=== PATIENT | male | born 1945 | race Caucasian/White ===

== ENCOUNTER → 2017-10-23 16:58 | Outpatient (CLI) | payer MEDICARE, OTHER, SELFPAY ==
[2017-10-23 17:21] LABS: Bacteria Urine None Seen; RBC Urine None Seen (0-5/HPF); WBC Urine None Seen (0-5/HPF)
[2017-10-23 17:29] LABS: Add Manual Diff / Slide Review NO; Basophils Percent Auto 0.3 % (0-2); Eosinophils Percent Auto 4.6 % (2-4); Hemoglobin 12.8 g/dL (13.5-17.5); Lymphocytes Percent Auto 25.6 % (25-40); Mean Corpuscular HGB Conc 33.7 % (30-36); Mean Corpuscular Hemoglobin 31.8 PG (26-34); Mean Corpuscular Volume 94.3 fL (80-100); Monocytes Percent Auto 15.8 % (3-14); Neutrophils Absolute Auto 4700 /uL (3000-5900); Neutrophils Percent Auto 53.7 % (50-75); Platelet Count 362 X10^3/uL (150-400); Red Blood Cell Count 4.03 X10^6/uL (4.5-5.9); Red Cell Distribution Width 15.5 % (11.6-14.8); White Blood Cell Count 8.7 X10^3/uL (4.5-11.0)
[2017-10-23 17:49] LABS: Appearance Urine UA CLEAR; Bilirubin Urine UA NEGATIVE (NEGATIVE); Color Urine UA YELLOW; Glucose Urine UA NEGATIVE (Normal); Ketones Urine UA NEGATIVE (NEGATIVE); Leukocyte Esterase Urine UA NEGATIVE (NEGATIVE); Nitrite Urine UA Negative (Negative); Occult Blood Urine UA NEGATIVE (Negative); Protein Urine UA NEGATIVE (Negative); Urobilinogen Urine UA 0.2 E.U./dL (0.2)
[2017-10-23 18:02] LABS: Alanine Aminotransferase 74 IU/L (21-72); Albumin 4.1 g/dL (3.5-5.0); Albumin Globulin Ratio 1.5 (1.0-2.8); Alkaline Phosphatase 119 U/L (38-126); Aspartate Aminotransferase 39 IU/L (17-59); BUN Creatinine Ratio 25.8 (6-22); Bilirubin Total 0.5 mg/dL (0.2-1.3); Blood Urea Nitrogen 31 mg/dL (9-20); Calcium 10.5 mg/dL (8.4-10.2); Carbon Dioxide 29 mmol/L (22-32); Chloride 97 mmol/L (98-107); Estimated Glomerular Filt Rate 59.2 mL/min (>60); Globulin 2.8 g/dL (1.7-4.1); Glucose 104 mg/dL (80-110); HEMOLYSIS < 15 (0-50); Potassium 4.3 mmol/L (3.4-5.1); Sodium 139 mmol/L (137-145); Total Protein 6.9 g/dL (6.3-8.2)
[2017-10-23 18:18] LABS: Free T4, Direct Thyroxine 1.84 ng/dL (0.78-2.19)
[2017-10-23 18:32] LABS: TSH w/ Reflex to FT4 1.08 uIU/mL (0.47-4.68)
== END ==
PROVIDERS: Family Provider Internal Medicine; PCP Internal Medicine; Visit Provider Internal Medicine
DX: Z98.890 Other specified postprocedural states (principal); E03.9 Hypothyroidism, unspecified
CPT/HCPCS: 80053; 81001; 84439; 84443; 85025

== ENCOUNTER 2017-11-02 12:07 | Emergency (ER) | payer MEDICARE, OTHER, SELFPAY ==
[2017-11-02] VITALS (14 sets, daily range): BP systolic 83–102; BP diastolic 52–74; PULSE 74–172; RESP 14–22; TEMP 35.8; O2SAT 96–99; BMI 19.1
--- NOTE | 2017-11-02 12:57 | DI.RAD.S_ITS ---
PROCEDURE: XR CHEST 1V INDICATIONS: AFib TECHNIQUE: One view of the chest was acquired. COMPARISON: [facility], CR, XR CHEST 1 VIEW, 07/28/2017, 14:51. FINDINGS: Surgical changes and devices: Sternotomy and CABG. Lungs and pleura: Left basilar scars or atelectasis. Trace left effusion. No pneumothorax. Mediastinum: Mediastinal contours appear normal. Heart size is normal. Bones and chest wall: No suspicious bony lesions. Overlying soft tissues appear unremarkable. IMPRESSION: 1. Left basilar scars or atelectasis. There is a small left pleural effusion. 2. Postsurgical changes. Dictated by: Rebecca Guo M.D. on 11/02/2017 at 13:54 Approved by: Rebecca Guo M.D. on 11/02/2017 at 13:55
--- NOTE | 2017-11-02 13:01 | ED_ITS ---
HPI - Arrhythmia/Palpitations General Chief Complaint: Arrhythmia/Palpitations Stated Complaint: HIGHBLOOD PRESSURE Time Seen by Provider: 11/02/17 12:56 Source: patient Mode of arrival: ambulatory Limitations: no limitations History of Present Illness HPI narrative: 72-year-old male with a significant history of coronary artery disease with the coronary artery bypass graft earlier this year here for evaluation of 3 days of palpitations. Denies any chest pain. Denies any lightheadedness. Does state that he is potentially more fatigued than normal. No swelling in his lower extremities. No shortness of breath. Has not tried anything for it. Related Data Home Medications Medication Instructions Recorded Confirmed aspirin 81 mg tablet,delayed 81 mg PO DAILY 09/15/17 11/02/17 release atorvastatin 40 mg tablet 40 mg PO DAILY 09/15/17 11/02/17 ferrous sulfate 325 mg (65 mg 325 mg PO DAILY tab 09/15/17 11/02/17 iron) tablet,delayed release multivitamin with iron-mineral 1 tab PO DAILY 09/15/17 11/02/17 tablet sennosides 8.6 mg-docusate sodium 2 tab PO BEDTIME PRN 09/15/17 11/02/17 50 mg tablet metoprolol succinate ER 25 mg 12.5 mg PO BEDTIME 09/19/17 11/02/17 tablet,extended release 24 hr sertraline 25 mg PO BEDTIME 11/02/17 11/02/17 Previous Rx's Medication Instructions Recorded Disabled Parking #1 [id number] 10/02/17 levothyroxine 125 mcg capsule 125 mcg PO DAILY #30 cap 10/08/17 Allergies Allergy/AdvReac Type Severity Reaction Status Date / Time Iodinated Contrast- Oral and Allergy Mild UNSURE Verified 10/27/17 11:05 IV Dye [IODINATED CONTRAST MEDIA - IV DYE] prochlorperazine Allergy Mild Hypersensit Verified 10/27/17 11:05 [PROCHLORPERAZINE] ivity Review of Systems Constitutional Reports fatigue and Denies fever(s) ENT Ears, Nose, Mouth, and Throat: Denies dizziness Cardiovascular Denies chest pain, Denies chest pain at rest, Denies chest pain with activity, Denies diaphoresis, Denies syncope, Reports rapid heart rate, Denies pedal edema , Denies edema, Reports irregular heart rhythm, Denies lightheadedness, Denies radiating jaw, neck or arm pain, Reports palpitations, Denies dyspnea and Denies dyspnea on exertion Respiratory Denies cough, Denies dyspnea, Denies dyspnea on exertion and Denies wheezing Gastrointestinal Gastrointestinal: Denies nausea and Denies vomiting Musculoskeletal Denies myalgias and Denies arthralgias Neurologic Denies dizziness and Denies syncope Endocrine Reports fatigue and Reports palpitations Hematologic/Lymphatic Denies easy bleeding and Denies easy bruising Allergic/Immunologic Denies wheezing [facility] Medical History Ischemic cardiomyopathy (Chronic) Coronary arteriosclerosis (Chronic ~06/2017) Hypogonadism in male (Chronic) Mixed hyperlipidemia (Chronic) Essential hypertension (Chronic) Chronic renal failure, stage 3 (moderate) (Chronic 11/25/14) Non-Hodgkin's lymphoma (Chronic 03/06/11) Transient cerebral ischemia (Inactive) Acquired hypothyroidism (Chronic 03/10/15) Hypercalcemia (Resolved 12/19/14) Hyperparathyroidism (Resolved 03/10/15) 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) Surgical History S/P CABG (coronary artery bypass graft) (Resolved ~07/2017) S/P parathyroidectomy (Resolved ~06/2014) History of splenectomy (Resolved) Status post tonsillectomy and adenoidectomy (Resolved) Social History marital status: number of children: 2 household members: spouse lives independently: Yes caregiver/support person: Yes housing: house pets and animals: Yes education level: other (PhD) 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, 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: Non-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 travel history: recent () leisure activities: reading and other (Climbing, skiing, writing.) Smoking Status: Never smoker Tobacco: How many years used: 0 quit status: quit date established (Never Started) second hand exposure: Yes (Younger days) alcohol intake: never substance use type: does not use Exam Initial Vital Signs Initial Vital Signs: Vital Signs Temperature 96.5 F L 11/02/17 12:30 Pulse Rate 147 H 11/02/17 12:30 Respiratory Rate 20 11/02/17 12:30 Blood Pressure 97/71 11/02/17 12:30 Pulse Oximetry 98 11/02/17 12:30 Const General: cooperative, healthy appearing, comfortable, well developed, well groomed and acute distress Nutritional Appearance: average body habitus Orientation: alert, awake and oriented x3 HENMT Head: normal to inspection and normocephalic Resp Effort & Inspection: normal respiratory effort Auscultation: clear to auscultation bilaterally Cardio Rate: tachycardic Rhythm: abnormal rhythm Pulses: radial pulses present GI Inspection: normal to inspection and non-distended Palpation: soft Skin Lesions: no lesions Rashes: no rashes Wounds: no wounds Neuro General: alert, awake and oriented x3 Cognition: normal cognition Speech: speech normal Gait: normal gait Motor: muscle tone normal throughout Sensory Exam: no sensory deficits noted Extrem General: normal to inspection, capillary refill normal and no pedal edema Course Orders Ordered: ED Orders 11/02/17 12:48 B Type Natriuretic Peptide Stat Complete Blood Count AUTO DIFF Stat Comprehensive Metabolic Panel Stat Lipase Stat Partial Thromboplastin Time Stat Prothrombin Time INR Stat Thyroid Stimulating Hormone Stat Troponin I Stat 11/02/17 12:57 XR chest 1V Stat 11/02/17 13:26 EKG-12 Lead Stat Discontinued Medications Aspirin (Aspirin Chew) 324 mg PO NOW ONE Stop: 11/02/17 13:56 Last Admin: 11/02/17 14:14 Dose: 324 mg Diltiazem HCl (Cardizem) 20 mg IV NOW ONE Stop: 11/02/17 12:57 Last Admin: 11/02/17 13:05 Dose: 20 mg Sodium Chloride (Normal Saline 0.9%) 1,000 mls @ 1,000 mls/hr IV BOLUS ONE Stop: 11/02/17 13:55 Last Infusion: 11/02/17 13:55 Dose: 0 mls/hr Admin: 11/02/17 13:06 Dose: 1,000 mls/hr Diltiazem HCl 125 mg/ Dextrose 125 mls @ 5 mls/hr IV TITRATE MARY; Protocol Sodium Chloride (Normal Saline 0.9%) 1,000 mls @ 100 mls/hr IV CONT MARY Vital Signs - 8 hr 11/02/17 12:30 11/02/17 12:39 11/02/17 12:42 Temperature 96.5 F L Pulse Rate 147 H 148 H 148 H Respiratory Rate 20 22 Blood Pressure 97/71 Blood Pressure [Right Arm] 96/74 Pulse Oximetry 98 99 11/02/17 12:47 11/02/17 12:52 11/02/17 12:54 Temperature Pulse Rate 158 H 157 H 153 H Respiratory Rate 20 20 Blood Pressure Blood Pressure [Right Arm] 86/65 L 86/65 L 90/66 Pulse Oximetry 99 11/02/17 12:56 11/02/17 12:59 11/02/17 13:05 Temperature Pulse Rate 111 H 85 172 H Respiratory Rate 20 Blood Pressure 98/52 L Blood Pressure [Right Arm] 91/57 L 88/67 L Pulse Oximetry 11/02/17 13:09 11/02/17 13:19 11/02/17 13:21 Temperature Pulse Rate 87 79 79 Respiratory Rate Blood Pressure Blood Pressure [Right Arm] 83/62 L 93/59 L 96/61 Pulse Oximetry 11/02/17 13:55 11/02/17 14:25 Temperature Pulse Rate 74 77 Respiratory Rate 14 15 Blood Pressure Blood Pressure [Right Arm] 98/72 102/64 Pulse Oximetry 99 96 MDM - Arrhythmia/Palpitations Lab Data Attestation: I reviewed the patient's lab results. Result diagrams: 11/02/17 12:48 11/02/17 12:48 Lab Results 11/02/17 11/02/17 11/02/17 Range/Units 12:48 12:48 12:48 WBC 10.3 (4.5-11.0) X10^3/uL RBC 4.20 L (4.5-5.9) X10^6/uL Hgb 13.3 L (13.5-17.5) g/dL Hct 39.0 L (41-53) % MCV 92.8 (80-100) fL MCH 31.6 (26-34) PG MCHC 34.0 (30-36) % RDW 15.7 H (11.6-14.8) % Plt Count 424 H (150-400) X10^3/uL Neut % (Auto) 57.5 (50-75) % Lymph % (Auto) 25.7 (25-40) % Pickett % (Auto) 11.1 (3-14) % Eos % (Auto) 4.5 H (2-4) % Baso % (Auto) 1.2 (0-2) % Neut # (Auto) 6000 H (7164-3618) /uL PT 11.3 (10.1-12.7) SECONDS INR 1.0 (0.9-1.3) APTT 36 (26.4-36.2) SECONDS Sodium 138 (137-145) mmol/L Potassium 4.4 (3.4-5.1) mmol/L Chloride 99 (98-107) mmol/L Carbon Dioxide 26 (22-32) mmol/L BUN 31 H (9-20) mg/dL Creatinine 1.20 (0.66-1.25) mg/dL Estimated GFR 59.2 L (>60) mL/min BUN/Creatinine Ratio 25.8 H (6-22) Glucose 94 (80-110) mg/dL Calcium 10.4 H (8.4-10.2) mg/dL Total Bilirubin 0.6 (0.2-1.3) mg/dL AST 73 H (17-59) IU/L ALT 122 H (21-72) IU/L Alkaline Phosphatase 106 (38-126) U/L Troponin I (0.01-0.034) ng/mL B-Natriuretic Peptide 755.0 H (<100) Total Protein 7.3 (6.3-8.2) g/dL Albumin 4.3 (3.5-5.0) g/dL Globulin 3.0 (1.7-4.1) g/dL Albumin/Globulin Ratio 1.4 (1.0-2.8) Lipase 126 (23-300) U/L TSH (0.47-4.68) uIU/mL 11/02/17 11/02/17 Range/Units 12:48 12:48 WBC (4.5-11.0) X10^3/uL RBC (4.5-5.9) X10^6/uL Hgb (13.5-17.5) g/dL Hct (41-53) % MCV (80-100) fL MCH (26-34) PG MCHC (30-36) % RDW (11.6-14.8) % Plt Count (150-400) X10^3/uL Neut % (Auto) (50-75) % Lymph % (Auto) (25-40) % Pickett % (Auto) (3-14) % Eos % (Auto) (2-4) % Baso % (Auto) (0-2) % Neut # (Auto) (9185-2040) /uL PT (10.1-12.7) SECONDS INR (0.9-1.3) APTT (26.4-36.2) SECONDS Sodium (137-145) mmol/L Potassium (3.4-5.1) mmol/L Chloride (98-107) mmol/L Carbon Dioxide (22-32) mmol/L BUN (9-20) mg/dL Creatinine (0.66-1.25) mg/dL Estimated GFR (>60) mL/min BUN/Creatinine Ratio (6-22) Glucose (80-110) mg/dL Calcium (8.4-10.2) mg/dL Total Bilirubin (0.2-1.3) mg/dL AST (17-59) IU/L ALT (21-72) IU/L Alkaline Phosphatase (38-126) U/L Troponin I 0.035 H (0.01-0.034) ng/mL B-Natriuretic Peptide (<100) Total Protein (6.3-8.2) g/dL Albumin (3.5-5.0) g/dL Globulin (1.7-4.1) g/dL Albumin/Globulin Ratio (1.0-2.8) Lipase (23-300) U/L TSH 1.06 (0.47-4.68) uIU/mL Imaging Data Chest x-ray: Radiologist's impression: PROCEDURE: XR CHEST 1V INDICATIONS: AFib TECHNIQUE: One view of the chest was acquired. COMPARISON: [facility], CR, XR CHEST 1 VIEW, 07/28/2017, 14:51. FINDINGS: Surgical changes and devices: Sternotomy and CABG. Lungs and pleura: Left basilar scars or atelectasis. Trace left effusion. No pneumothorax. Mediastinum: Mediastinal contours appear normal. Heart size is normal. Bones and chest wall: No suspicious bony lesions. Overlying soft tissues appear unremarkable. IMPRESSION: 1. Left basilar scars or atelectasis. There is a small left pleural effusion. 2. Postsurgical changes. Dictated by: Rebecca Guo M.D. on 11/02/2017 at 13:54 ECG Data Prior ECG tracings: not available for review Interpretation: EKG time 1236 p.m. Atrial fibrillation with 2-1 block Ventricular rate at 0145 Left axis deviation QRS 128 milliseconds QTC [address] T wave changes EKG timed at 1323 hr Sinus rhythm Ventricular rate is 77 Left axis deviation QRS want to milliseconds QTC [address] T wave changes MDM Narrative Medical decision making narrative: Patient with a significant cardiac history to include coronary artery bypass graft and history of VFib arrest. Arrived with what appeared to be atrial fibrillation with a 2-1 block. He was given 20 mg of Cardizem IV here in the emergency department and prior to the start of the Cardizem drip he converted to sinus rhythm. After the conversion patient states that he felt much better. He never complained of any chest pain or shortness of breath. Patient was not a candidate for cardioversion secondary to the unknown onset of his symptoms. Initially patient states that he did not think he had a history of atrial fibrillation however was able to talk to Dr. Cunningham his certified teacher assistant at [facility] who states that he knows the patient very well hand that he does have a history of paroxysmal atrial fibrillation. I discussed with the certified teacher assistant the patient's symptoms and his lab results to include the troponin and his conversion to sinus rhythm. Decision was made after talk with his certified teacher assistant to discharge the patient home and have the patient follow up in the certified teacher assistant's office earlier this week to discuss further treatment. I feel that the elevated troponin is secondary to the tachycardia and not ACS. I discussed patient's diagnosis with the patient and his was at bedside. They are given return precautions. They both expressed understanding and agreement with plan. Discharge Plan Departure Patient Disposition: Home, Self-Care Clinical Impression: A-fib Discharge Date/Time: 11/02/17 14:56 Interventions: ED Discharge Assessment Last Done: 11/02/17 14:53 Instructions: DI for Atrial Fibrillation Activity Restrictions/Additional Instructions: Recommend that you continue all of your medication like we discussed. Your certified teacher assistant office should call you tomorrow for a close follow-up. If you do not hear from them by noon I recommend that you contact the office. Return to the emergency department for any new symptoms, worsening symptoms, chest pain, shortness of breath, or any other concerning symptoms. Prescriptions: No Action Disabled Parking Qty: 1 RF: 0 levothyroxine 125 mcg capsule 125 mcg PO DAILY Qty: 30 RF: 3 atorvastatin 40 mg tablet 40 mg PO DAILY RF: 0 sennosides-docusate sodium [Senna Laxative-Stool Softener] 8.6-50 mg tablet 2 tab PO BEDTIME PRN (Reason: Constipation) RF: 0 aspirin 81 mg tablet,delayed release (DR/EC) 81 mg PO DAILY RF: 0 ferrous sulfate 325 mg (65 mg iron) tablet,delayed release (DR/EC) 325 mg PO DAILY RF: 0 multivitamin with iron-mineral tablet 1 tab PO DAILY RF: 0 metoprolol succinate 25 mg tablet extended release 24 hr 12.5 mg PO BEDTIME RF: 0 sertraline 25 mg tablet 25 mg PO BEDTIME RF: 0
[2017-11-02] MEDS: dilTIAZem 25 MG/5 ML SDV 20 MG IV (13:05)
[2017-11-02] MEDS: SODIUM CHLORIDE 0.9% 1,000 ML 1000 ML IV (13:06)
[2017-11-02 13:10] LABS: Prothrombin Time 11.3 SECONDS (10.1-12.7)
[2017-11-02 13:15] LABS: Add Manual Diff / Slide Review NO; Alanine Aminotransferase 122 IU/L (21-72); Albumin 4.3 g/dL (3.5-5.0); Albumin Globulin Ratio 1.4 (1.0-2.8); Alkaline Phosphatase 106 U/L (38-126); Aspartate Aminotransferase 73 IU/L (17-59); BUN Creatinine Ratio 25.8 (6-22); Basophils Percent Auto 1.2 % (0-2); Bilirubin Total 0.6 mg/dL (0.2-1.3); Blood Urea Nitrogen 31 mg/dL (9-20); Calcium 10.4 mg/dL (8.4-10.2); Carbon Dioxide 26 mmol/L (22-32); Chloride 99 mmol/L (98-107); Eosinophils Percent Auto 4.5 % (2-4); Estimated Glomerular Filt Rate 59.2 mL/min (>60); Glucose 94 mg/dL (80-110); HEMOLYSIS 17 (0-50); Hemoglobin 13.3 g/dL (13.5-17.5); Lipase 126 U/L (23-300); Lymphocytes Percent Auto 25.7 % (25-40); Mean Corpuscular Hemoglobin 31.6 PG (26-34); Mean Corpuscular Volume 92.8 fL (80-100); Monocytes Percent Auto 11.1 % (3-14); Neutrophils Absolute Auto 6000 /uL (3000-5900); Neutrophils Percent Auto 57.5 % (50-75); Platelet Count 424 X10^3/uL (150-400); Potassium 4.4 mmol/L (3.4-5.1); Red Cell Distribution Width 15.7 % (11.6-14.8); Sodium 138 mmol/L (137-145); Total Protein 7.3 g/dL (6.3-8.2); White Blood Cell Count 10.3 X10^3/uL (4.5-11.0)
[2017-11-02 13:18] LABS: PTT Partial Thromboplastin Tim 36 SECONDS (26.4-36.2)
[2017-11-02 13:26] LABS: Troponin I 0.035 ng/mL (0.01-0.034)
--- NOTE | 2017-11-02 13:30 | PC.NURSE ---
1254: Cardiazem 20 mg iv push w/ NS bolus 1 liter infusing. HR 153, BP 90/66, no pain/sob/diaphorisis.
--- NOTE | 2017-11-02 13:33 | PC.NURSE ---
1319: Noted to be in NSR, Repeat EKG ordered.
[2017-11-02 13:47] LABS: Thyroid Stimulating Hormone 1.06 uIU/mL (0.47-4.68)
[2017-11-02] MEDS: ASPIRIN 81 MG TAB 324 MG PO (14:14)
--- NOTE | 2017-11-02 14:15 | PC.NURSE ---
Pt walked to bathroom w/o difficulty. Denies lightheadedness, sob, chest pain. HR remains in NSR @ 75 bpm w/o ectopy after walking.
== END 2017-11-02 14:56 | disposition home or self-care (01) ==
PROVIDERS: Emergency Provider Emergency Medicine; Family Provider Internal Medicine; PCP Internal Medicine
DX: I48.91 Unspecified atrial fibrillation (principal)
CPT/HCPCS: 71045; 80053; 81003; 83690; 83880; 84443; 84484; 85025; 85610; 85730; 93005; 96361; 96374; 99285

== ENCOUNTER 2017-11-08 22:30 | Emergency (ER) | payer MEDICARE, OTHER, SELFPAY ==
[2017-11-08 22:30] VITALS: BP 128/72; PULSE 112; RESP 18; TEMP 37; O2SAT 99
--- NOTE | 2017-11-08 22:42 | DI.RAD.S_ITS ---
PROCEDURE: XR CHEST 1V INDICATIONS: AFib TECHNIQUE: One view of the chest was acquired. COMPARISON: [facility], CR, XR CHEST 1V, 11/02/2017, 13:01. FINDINGS: Surgical changes and devices: Status post CABG procedure. Multiple surgical clips in the left upper quadrant of the abdomen. Lungs and pleura: No pleural effusions or pneumothorax. Lungs are clear. Mediastinum: Mediastinal contours appear normal. Elevation of left hemidiaphragm is stable. Heart size is normal. Bones and chest wall: No suspicious bony lesions. Overlying soft tissues appear unremarkable. IMPRESSION: No acute cardiopulmonary disease process. Dictated by: Mi Rincon MD, PhD on 11/09/2017 at 8:50 Approved by: Mi Rincon MD, PhD on 11/09/2017 at 8:51
[2017-11-08 22:59] LABS: Add Manual Diff / Slide Review NO; Basophils Percent Auto 1.4 % (0-2); Hematocrit 37.5 % (41-53); Hemoglobin 12.9 g/dL (13.5-17.5); Lymphocytes Percent Auto 27.9 % (25-40); Mean Corpuscular HGB Conc 34.5 % (30-36); Mean Corpuscular Volume 92.9 fL (80-100); Monocytes Percent Auto 12.2 % (3-14); Neutrophils Absolute Auto 4800 /uL (3000-5900); Neutrophils Percent Auto 49.5 % (50-75); Platelet Count 376 X10^3/uL (150-400); Red Blood Cell Count 4.03 X10^6/uL (4.5-5.9); Red Cell Distribution Width 15.8 % (11.6-14.8); White Blood Cell Count 9.8 X10^3/uL (4.5-11.0)
[2017-11-08 23:14] LABS: BUN Creatinine Ratio 22.3 (6-22); Blood Urea Nitrogen 29 mg/dL (9-20); Calcium 9.8 mg/dL (8.4-10.2); Carbon Dioxide 27 mmol/L (22-32); Chloride 98 mmol/L (98-107); Creatine Kinase 32 U/L (55-170); Glucose 104 mg/dL (80-110); HEMOLYSIS 21 (0-50); Magnesium 1.8 mg/dL (1.6-2.3); Sodium 137 mmol/L (137-145)
[2017-11-08 23:25] LABS: Troponin I 0.028 ng/mL (0.01-0.034)
[2017-11-08 23:38] VITALS: BP 112/76; PULSE 93; O2SAT 97
[2017-11-08 23:45] LABS: Thyroid Stimulating Hormone 0.74 uIU/mL (0.47-4.68)
--- NOTE | 2017-11-09 05:13 | ED_ITS ---
HPI - Arrhythmia/Palpitations General Chief Complaint: Arrhythmia/Palpitations Stated Complaint: AFIB Time Seen by Provider: 11/08/17 22:32 Source: patient and family Mode of arrival: ambulatory Limitations: no limitations History of Present Illness HPI narrative: 72-year-old male with extensive cardiac history including coronary artery bypass, cardiac arrest and use of ECMO presents with the chief complaint of a heart rate in the 140s while at home. The patient developed some palpitations while at rest and checked his vitals and noted his heart rate to be irregular and in the 140s. He was recently discharged with a diagnosis of atrial fibrillation and initiated Eliquis therapy. He presents to the emergency department with a normal heart rate and completely asymptomatic. He denies dizziness, weakness or lightheadedness. He denies chest pain or shortness of breath. He denies ongoing palpitations. MD complaint: rapid heart beat Onset (ago): hour(s) Duration: now resolved Severity: mild Context: occurred during rest Arrhythmia history: atrial fibrillation Associated symptoms: denies other symptoms Related Data Home Medications Medication Instructions Recorded Confirmed aspirin 81 mg tablet,delayed 81 mg PO DAILY 09/15/17 11/02/17 release atorvastatin 40 mg tablet 40 mg PO DAILY 09/15/17 11/02/17 ferrous sulfate 325 mg (65 mg 325 mg PO DAILY tab 09/15/17 11/02/17 iron) tablet,delayed release multivitamin with iron-mineral 1 tab PO DAILY 09/15/17 11/02/17 tablet sennosides 8.6 mg-docusate sodium 2 tab PO BEDTIME PRN 09/15/17 11/02/17 50 mg tablet metoprolol succinate ER 25 mg 12.5 mg PO BEDTIME 09/19/17 11/02/17 tablet,extended release 24 hr sertraline 25 mg PO BEDTIME 11/02/17 11/02/17 Previous Rx's Medication Instructions Recorded Disabled Parking #1 [id number] 10/02/17 levothyroxine 125 mcg capsule 125 mcg PO DAILY #30 cap 10/08/17 Allergies Allergy/AdvReac Type Severity Reaction Status Date / Time Iodinated Contrast- Oral and Allergy Mild UNSURE Verified 10/27/17 11:05 IV Dye [IODINATED CONTRAST MEDIA - IV DYE] prochlorperazine Allergy Mild Hypersensit Verified 10/27/17 11:05 [PROCHLORPERAZINE] ivity Review of Systems Review of Systems All systems reviewed & are unremarkable except as noted in HPI and below Constitutional Denies chills, Denies fever(s), Denies lethargy and Denies weakness Eyes Denies change in vision, Denies eye discharge, Denies irritation and Denies loss of vision ENT Ears, Nose, Mouth, and Throat: Denies change in voice, Denies neck pain and Denies sore throat Cardiovascular Denies chest pain, Reports irregular heart rhythm, Denies lightheadedness, Reports palpitations, Denies dyspnea, Denies dyspnea on exertion and Denies orthopnea Respiratory Denies cough, Denies dyspnea, Denies dyspnea on exertion and Denies wheezing Gastrointestinal Gastrointestinal: Denies abdominal pain, Denies change in bowel habits, Denies diarrhea, Denies nausea and Denies vomiting Genitourinary Denies hematuria, Denies flank pain, Denies urinary incontinence and Denies urinary urgency Musculoskeletal Denies neck pain Integumentary/Breasts Denies pruritus, Denies erythema, Denies rash and Denies wounds Neurologic Denies confusion, Denies loss of vision and Denies weakness Psychiatric Denies anxiety, Denies confusion, Denies depression, Denies homicidal ideation and Denies suicidal ideation Endocrine Reports palpitations Hematologic/Lymphatic Denies easy bruising Allergic/Immunologic Denies wheezing PFSH Social History marital status: number of children: 2 household members: spouse lives independently: Yes caregiver/support person: Yes housing: house pets and animals: Yes education level: other (PhD) 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) leisure activities: reading and other (Climbing, skiing, writing.) Smoking Status: Never smoker Tobacco: How many years used: 0 quit status: quit date established (Never Started) second hand exposure: Yes (Younger days) alcohol intake: never substance use type: does not use Exam Narrative Exam Narrative: Pleasant 72-year-old male in no obvious distress Initial Vital Signs Initial Vital Signs: Vital Signs Temperature 98.6 F 11/08/17 22:30 Pulse Rate 112 H 11/08/17 22:30 Respiratory Rate 18 11/08/17 22:30 Blood Pressure 128/72 H 11/08/17 22:30 Pulse Oximetry 99 11/08/17 22:30 Const General: cooperative and well developed Nutritional Appearance: well nourished Orientation: alert, awake, oriented x3 and not confused [facility] Head: normocephalic and atraumatic Ears: external ears normal and TM's normal bilaterally Nose: external nose normal and No nasal discharge Face and sinus: sinuses nontender, face symmetric, no sinus tenderness and No dry mucous membranes Mouth: oral mucosae normal and moist mucous membranes Teeth and gingiva: dentition normal Throat: tonsils normal and uvula midline Neck Neck: normal visual inspection, trachea midline, No lymphadenopathy, No midline deformity and No JVD Lymphatic: No lymphedema Chest Chest: normal inspection of the chest Cardio Rate: regular rate Rhythm: regular rhythm Heart Sounds: no click, no gallops, no murmurs and no rubs Pulses: normal peripheral pulses Back/Spine/Pelvis Back: No CVA tenderness Cervical Spine: cervical ROM normal and No pain with cervical ROM Thoracic/Lumbar Spine: thoracic and lumbar spine normal to inspection Skin General: no rashes or lesions noted, No jaundice and No petechiae Extrem General: full ROM, no clubbing, cyanosis or edema, no pedal edema and no calf tenderness Psych Appearance: well kempt Mental Status: mental status grossly normal Attitude: cooperative Thought Content: normal and suicidality Judgment: judgment good Course Orders Ordered: ED Orders 11/08/17 22:42 XR chest 1V Stat EKG-12 Lead Stat 11/08/17 22:50 Basic Metabolic Panel Stat Complete Blood Count AUTO DIFF Stat Magnesium Stat Thyroid Stimulating Hormone Stat Troponin with CK Cardiac Panel Stat Discontinued Medications Sodium Chloride (Normal Saline 0.9%) 1,000 mls @ 150 mls/hr IV CONT MARY Last Admin: 11/08/17 23:37 Dose: Not Given Reevaluation(s) Reevaluation #1: Patient continues to be asymptomatic with heart rate in the 90s Vital Signs - 8 hr 11/08/17 22:30 11/08/17 23:38 Temperature 98.6 F Pulse Rate 112 H 93 H Respiratory Rate 18 Blood Pressure 128/72 H 112/76 Pulse Oximetry 99 97 MDM - Arrhythmia/Palpitations Differential Diagnosis Differential diagnosis: Likely palpitations, anxiety, sinus tachycardia, artial fibrillation, artial flutter, ventricular premature beats and supraventricular tachycardia Medical Records Attestation: I reviewed the patient's medical records. Lab Data Attestation: I reviewed the patient's lab results. Result diagrams: 11/08/17 22:50 11/08/17 22:50 Lab Results 11/08/17 11/08/17 11/08/17 Range/Units 22:50 22:50 22:50 WBC 9.8 (4.5-11.0) X10^3/uL RBC 4.03 L (4.5-5.9) X10^6/uL Hgb 12.9 L (13.5-17.5) g/dL Hct 37.5 L (41-53) % MCV 92.9 (80-100) fL MCH 32.0 (26-34) PG MCHC 34.5 (30-36) % RDW 15.8 H (11.6-14.8) % Plt Count 376 (150-400) X10^3/uL Neut % (Auto) 49.5 L (50-75) % Lymph % (Auto) 27.9 (25-40) % Garland % (Auto) 12.2 (3-14) % Eos % (Auto) 9.0 H (2-4) % Baso % (Auto) 1.4 (0-2) % Neut # (Auto) 4800 (8178-8222) /uL Sodium 137 (137-145) mmol/L Potassium 4.0 (3.4-5.1) mmol/L Chloride 98 (98-107) mmol/L Carbon Dioxide 27 (22-32) mmol/L BUN 29 H (9-20) mg/dL Creatinine 1.30 H (0.66-1.25) mg/dL Estimated GFR 54.0 L (>60) mL/min BUN/Creatinine Ratio 22.3 H (6-22) Glucose 104 (80-110) mg/dL Calcium 9.8 (8.4-10.2) mg/dL Magnesium 1.8 (1.6-2.3) mg/dL Total Creatine Kinase 32 L (55-170) U/L Troponin I 0.028 (0.01-0.034) ng/mL TSH 0.74 D (0.47-4.68) uIU/mL Discharge Plan Departure Patient Disposition: Home, Self-Care Clinical Impression: Heart palpitations Discharge Date/Time: 11/08/17 23:40 Interventions: ED Discharge Assessment Last Done: 11/08/17 23:38 Instructions: DI for Arrhythmias Activity Restrictions/Additional Instructions: *You have been diagnosed with [ palpitations, likely resolved rapid Atrial Fib ] *What to do: *Take medications as directed *Follow up with your primary care provider in 2-3 days *Return to ER if you should have any new, worsening or concerning symptoms Prescriptions: No Action Disabled Parking Qty: 1 RF: 0 levothyroxine 125 mcg capsule 125 mcg PO DAILY Qty: 30 RF: 3 atorvastatin 40 mg tablet 40 mg PO DAILY RF: 0 sennosides-docusate sodium [Senna Laxative-Stool Softener] 8.6-50 mg tablet 2 tab PO BEDTIME PRN (Reason: Constipation) RF: 0 aspirin 81 mg tablet,delayed release (DR/EC) 81 mg PO DAILY RF: 0 ferrous sulfate 325 mg (65 mg iron) tablet,delayed release (DR/EC) 325 mg PO DAILY RF: 0 multivitamin with iron-mineral tablet 1 tab PO DAILY RF: 0 metoprolol succinate 25 mg tablet extended release 24 hr 12.5 mg PO BEDTIME RF: 0 sertraline 25 mg tablet 25 mg PO BEDTIME RF: 0 Referrals: Danyel Schafer MD [Primary Care Provider] -
== END 2017-11-08 23:40 | disposition home or self-care (01) ==
PROVIDERS: Emergency Provider Emergency Medicine; Family Provider Internal Medicine; PCP Internal Medicine
DX: R00.2 Palpitations (principal)
CPT/HCPCS: 36591; 71045; 80048; 82550; 82553; 83735; 84443; 84484; 85025; 93005; 99283; 99285

== ENCOUNTER 2017-11-09 06:59 | Emergency (ER) | payer MEDICARE, OTHER, SELFPAY ==
[2017-11-09] VITALS (8 sets, daily range): BP systolic 81–98; BP diastolic 50–66; PULSE 42–126; RESP 12–18; O2SAT 96–100; BMI 20.9
--- NOTE | 2017-11-09 07:08 | ED_ITS ---
HPI - General Adult General Chief complaint: Arrhythmia/Palpitations Stated complaint: Dizzy, Weak Time Seen by Provider: 11/09/17 07:05 Source: patient and EMS Mode of arrival: EMS Limitations: no limitations History of Present Illness HPI narrative: 72-year-old male who I have seen in the emergency department within the past week for atrial fibrillation with rapid ventricular response and was also seen here in the emergency department within the past 8 hr for the same returns again this morning by EMS after having another episode of fast heart rate and now associated with passing out. Patient has a significant cardiac history to include multiple coronary artery bypass grafts and VFib arrest and having been placed on ECMO in the past. When I 1st evaluated the patient he was AFib with RVR and converted to sinus rhythm with 20 mg of Cardizem. Last evening he was seen in the emergency department for what appeared to be AFib with RVR however upon arrival and during his time here in the emergency department he was sinus rhythm with a heart rate less than 100. Labs were unremarkable. Patient is on Brilinta and Eliquis And metoprolol. after being discharged from the hospital last night the patient went home and this morning he went to use the restroom where he had a recurrence of his palpitations and apparently passed out this morning. Patient is fairly sure he did not hit his head but was unsure. He thinks that he may have lost conscious for a short period of time. Appears that he return to normal fairly shortly after falling. EMS was called. They found the patient with a heart rate in the 160s to 170s. He was given 15 mg of Cardizem by EMS in route to the hospital which reduced his heart rate significantly. Related Data Home Medications Medication Instructions Recorded Confirmed atorvastatin 40 mg tablet 40 mg PO DAILY 09/15/17 11/09/17 ferrous sulfate 325 mg (65 mg 325 mg PO DAILY tab 09/15/17 11/09/17 iron) tablet,delayed release multivitamin with iron-mineral 1 tab PO DAILY 09/15/17 11/09/17 tablet sennosides 8.6 mg-docusate sodium 2 tab PO BEDTIME PRN 09/15/17 11/02/17 50 mg tablet metoprolol succinate ER 25 mg 12.5 mg PO BEDTIME 09/19/17 11/09/17 tablet,extended release 24 hr sertraline 25 mg PO BEDTIME 11/02/17 11/09/17 Previous Rx's Medication Instructions Recorded Disabled Parking #1 [id number] 10/02/17 levothyroxine 125 mcg capsule 125 mcg PO DAILY #30 cap 10/08/17 amiodarone 200 mg PO DAILY #75 tab 11/09/17 Allergies Allergy/AdvReac Type Severity Reaction Status Date / Time Iodinated Contrast- Oral and Allergy Mild UNSURE Verified 10/27/17 11:05 IV Dye [IODINATED CONTRAST MEDIA - IV DYE] prochlorperazine Allergy Mild Hypersensit Verified 10/27/17 11:05 [PROCHLORPERAZINE] ivity Review of Systems Constitutional Denies chills, Denies fatigue and Denies fever(s) Cardiovascular Denies chest pain, Reports syncope, Reports rapid heart rate, Denies pedal edema , Reports palpitations and Denies dyspnea Respiratory Denies cough, Denies dyspnea and Denies wheezing Gastrointestinal Gastrointestinal: Denies abdominal pain, Denies constipation, Denies diarrhea, Denies nausea and Denies vomiting Genitourinary Denies dysuria and Denies flank pain Musculoskeletal Denies myalgias and Denies arthralgias Integumentary/Breasts Denies lesions, Denies rash and Denies wounds Neurologic Denies behavioral changes, Denies confusion, Reports syncope, Denies focal weakness, Denies convulsions and Denies seizure-like activity Psychiatric Denies behavioral changes and Denies confusion Endocrine Denies fatigue and Reports palpitations Hematologic/Lymphatic Reports easy bleeding ( Patient on anticoagulation) and Denies easy bruising Allergic/Immunologic Denies urticaria and Denies wheezing [facility] Medical History Ischemic cardiomyopathy (Chronic) Coronary arteriosclerosis (Chronic ~06/2017) Hypogonadism in male (Chronic) Mixed hyperlipidemia (Chronic) Essential hypertension (Chronic) Chronic renal failure, stage 3 (moderate) (Chronic 11/25/14) Non-Hodgkin's lymphoma (Chronic 03/06/11) Transient cerebral ischemia (Inactive) Acquired hypothyroidism (Chronic 03/10/15) Hypercalcemia (Resolved 12/19/14) Hyperparathyroidism (Resolved 03/10/15) 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) Social History marital status: number of children: 2 household members: spouse lives independently: Yes caregiver/support person: Yes housing: house pets and animals: Yes education level: other (PhD) 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, 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: Non-nondenominational travel history: recent ([facility]) leisure activities: reading and other (Climbing, skiing, writing.) Smoking Status: Never smoker Tobacco: How many years used: 0 quit status: quit date established (Never Started) second hand exposure: Yes (Younger days) alcohol intake: never substance use type: does not use Exam Initial Vital Signs Initial Vital Signs: Vital Signs Pulse Rate 105 H 11/09/17 07:02 Respiratory Rate 18 11/09/17 07:02 Blood Pressure 91/57 L 11/09/17 07:02 Pulse Oximetry 96 11/09/17 07:02 Const General: cooperative, healthy appearing, comfortable, well developed, well groomed and No acute distress Nutritional Appearance: average body habitus Orientation: alert, awake and oriented x3 HENMT Head: normal to inspection, normocephalic and atraumatic Ears: hearing grossly normal bilaterally Nose: external nose normal Face and sinus: normal facial exam Mouth: oral mucosae normal Eyes General: appearance normal, both eyes and all related structures Eyelids: eyelids normal Neck Neck: No tender Chest Chest: normal inspection of the chest Resp Effort & Inspection: normal respiratory effort Auscultation: clear to auscultation bilaterally and no rales Cardio Rate: regular rate Rhythm: regular rhythm Pulses: radial pulses present GI Inspection: normal to inspection and non-distended Palpation: soft and No tender Back/Spine/Pelvis Cervical Spine: No step off deformity Skin Lesions: no lesions Rashes: no rashes Wounds: no wounds Neuro General: alert, awake and oriented x3 Cognition: normal cognition Speech: speech normal Extrem General: normal to inspection and capillary refill normal Course Orders Ordered: ED Orders 11/09/17 07:07 EKG-12 Lead Stat 11/09/17 07:19 B Type Natriuretic Peptide Stat Troponin I Stat 11/09/17 07:23 CT head/brain wo con Stat 11/09/17 09:04 EKG-12 Lead Stat Discontinued Medications Amiodarone HCl (Cordarone) 400 mg PO NOW ONE Stop: 07/01/18 09:37 Last Admin: 11/09/17 09:54 Dose: 400 mg Amiodarone HCl/Dextrose (Nexterone) 150 mg in 100 mls @ 600 mls/hr IV NOW ONE; Protocol Stop: 11/09/17 08:44 Last Infusion: 11/09/17 09:01 Dose: 0 mls/hr Admin: 11/09/17 08:47 Dose: 600 mls/hr Vital Signs - 8 hr 11/09/17 07:02 11/09/17 08:00 11/09/17 08:15 Pulse Rate 105 H 64 42 L Respiratory Rate 18 Blood Pressure 91/57 L Blood Pressure [Left Arm] 83/57 L 90/55 L Pulse Oximetry 96 11/09/17 08:38 11/09/17 08:45 11/09/17 08:58 Pulse Rate 115 H 52 L 126 H Respiratory Rate 12 15 Blood Pressure Blood Pressure [Left Arm] 91/66 93/50 L 81/53 L Pulse Oximetry 99 100 11/09/17 09:03 11/09/17 09:31 Pulse Rate 88 82 Respiratory Rate 16 Blood Pressure Blood Pressure [Left Arm] 89/59 L 98/65 Pulse Oximetry 100 99 Medical Decision Making MDM Narrative Medical decision making narrative: patient received 15 mg of Cardizem by EMS upon arrival. Heart rate was in the 80s however was still in atrial fibrillation. Did have periods where he was in the 115 is and 1 episode where his heart rate did increase to the 150s. Patient's systolic blood pressure has been in the 80s and 90s systolic. According to the a good blood pressure for him is in the 110s. I did discuss the case with Dr. Maradiaga with Cardiology at [facility] who is a partner to the patient's triage technician. She recommended given his history and physical exam in the fact that he did pass out this morning that the patient should be cardioverted. He has been anticoagulated so cardioversion is okay in the emergency department without a GUERRERO. Patient was given 150 mg amiodarone IV which did convert him to sinus rhythm with a rate in the 80s. No cardioversion was needed. Per cardiology recommendation will start the patient on amiodarone 400 mg b.i.d. for 1 week then 200 mg b.i.d. for 1 week then 200 mg daily after that. She states that she was going to contact the patient's triage technician and his nurse to contact the patient to move his December 05 appointment up. Patient and his were informed that despite our interventions today there still may be a chance that he goes home and reverted back into atrial fibrillation. They were given return precautions regarding this. I did CT scan his head because the patient stated that there was a possibility that he hit his head this morning when he passed out. His head CT was unremarkable. Patient has a normal neurologic exam and did ambulate in the emergency department without problems. Patient's troponin is at baseline for him. Clinically not in heart failure. Lab Data Lab Results 11/09/17 11/09/17 Range/Units 07:19 07:19 Troponin I 0.038 H (0.01-0.034) ng/mL B-Natriuretic Peptide 351.0 H (<100) Imaging Data CT scan - head: Radiologist's impression: ROCEDURE: CT HEAD/BRAIN WO CON INDICATIONS: Fall on anticoagulation TECHNIQUE: Noncontrast 4.5 mm thick angled axial sections acquired from the foramen magnum to the vertex, with coronal and sagittal reformats. For radiation dose reduction, the following was used: automated exposure control, adjustment of mA and/or kV according to patient size. COMPARISON: [facility], MR, BRAIN ([facility]) W&WO CONTRAST, 12/23/2014, 8:19. FINDINGS: Image quality: Excellent. CSF spaces: Basal cisterns are patent. No extra-axial fluid collections. The ventricles are symmetric in size and shape. Brain: No intracranial bleeds or masses. There is cerebral volume loss for age , with resultant ventricular and sulcal prominence. There are periventricular and deep white matter chronic small vessel ischemic changes. There is intracranial internal carotid artery and vertebral artery atherosclerosis. Skull and face: Calvarium and visualized facial bones appear intact, without suspicious lesions. Sinuses: Visualized sinuses and mastoids are clear. IMPRESSION: No acute intracranial disease process. Dictated by: Mi Rincon MD, PhD on 11/09/2017 at 8:03 Approved by: Mi Rincon MD, PhD on 11/09/2017 at 8:05 ECG Data Attestation: I personally reviewed and interpreted this ECG as follows: Prior ECG tracings: not available for review Interpretation: time 0707 hr atrial fibrillation ventricular rate of 84 left axis deviation 125 millisecond QRS [address] T wave changes Time 0916 hr sinus rhythm ventricular rate 87 left axis deviation 125 millisecond QRS [address] T wave changes Discharge Plan Departure Patient Disposition: Home, Self-Care Clinical Impression: Atrial fibrillation, Coronary artery disease, Hypotension Instructions: Atrial Fibrillation, How to Prevent Falls Activity Restrictions/Additional Instructions: take all of the medications as directed. Call your triage technician office on Friday if you have not heard from them by noon on that day. Despite the medications we are sending you home with there is a small chance that you might convert back to atrial fibrillation. It is important that you do which you can to prevent falling especially since your on anticoagulation. If you have any new symptoms, worsening symptoms, chest pain, shortness of breath you do need to return to the emergency department for further evaluation. Continue all of your other medications as directed Prescriptions: New amiodarone 200 mg tablet 200 mg PO DAILY Qty: 75 RF: 0 No Action Disabled Parking Qty: 1 RF: 0 levothyroxine 125 mcg capsule 125 mcg PO DAILY Qty: 30 RF: 3 atorvastatin 40 mg tablet 40 mg PO DAILY RF: 0 sennosides-docusate sodium [Senna Laxative-Stool Softener] 8.6-50 mg tablet 2 tab PO BEDTIME PRN (Reason: Constipation) RF: 0 ferrous sulfate 325 mg (65 mg iron) tablet,delayed release (DR/EC) 325 mg PO DAILY RF: 0 multivitamin with iron-mineral tablet 1 tab PO DAILY RF: 0 metoprolol succinate 25 mg tablet extended release 24 hr 12.5 mg PO BEDTIME RF: 0 sertraline 25 mg tablet 25 mg PO BEDTIME RF: 0
--- NOTE | 2017-11-09 07:23 | DI.CT.S_ITS ---
PROCEDURE: CT HEAD/BRAIN WO CON INDICATIONS: Fall on anticoagulation TECHNIQUE: Noncontrast 4.5 mm thick angled axial sections acquired from the foramen magnum to the vertex, with coronal and sagittal reformats. For radiation dose reduction, the following was used: automated exposure control, adjustment of mA and/or kV according to patient size. COMPARISON: [facility], MR, BRAIN ([facility]) W&WO CONTRAST, 12/23/2014, 8:19. FINDINGS: Image quality: Excellent. CSF spaces: Basal cisterns are patent. No extra-axial fluid collections. The ventricles are symmetric in size and shape. Brain: No intracranial bleeds or masses. There is cerebral volume loss for age, with resultant ventricular and sulcal prominence. There are periventricular and deep white matter chronic small vessel ischemic changes. There is intracranial internal carotid artery and vertebral artery atherosclerosis. Skull and face: Calvarium and visualized facial bones appear intact, without suspicious lesions. Sinuses: Visualized sinuses and mastoids are clear. IMPRESSION: No acute intracranial disease process. Dictated by: Mi Rincon MD, PhD on 11/09/2017 at 8:03 Approved by: Mi Rincon MD, PhD on 11/09/2017 at 8:05
[2017-11-09 07:56] LABS: Troponin I 0.038 ng/mL (0.01-0.034)
[2017-11-09] MEDS: AMIODARONE 150 MG/100 ML PIGGYBACK 600 MG IV (08:47)
--- NOTE | 2017-11-09 08:53 | PC.NURSE ---
pt starting to bounce around with rate up to 145, continues to be irregular and will drop down to 90's. He denies problems but feel s very sleepy. at bedside. Moved to room 2 in anticipation of cardioversion. Placed pt on 2L NC for same reason. Amiodarone up and running. pt given more warm blankets and needs met.
--- NOTE | 2017-11-09 09:44 | PC.NURSE ---
pt converted with amiodarone noted with repeat EKG at 0915. Pt is to be discharged with and amiodarone script.
[2017-11-09] MEDS: AMIODARONE 200 MG TABLET 400 MG PO (09:54)
== END 2017-11-09 10:09 | disposition home or self-care (01) ==
PROVIDERS: Emergency Provider Emergency Medicine; Family Provider Internal Medicine; PCP Internal Medicine
DX: I25.10 Atherosclerotic heart disease of native coronary artery without angina pectoris (principal); I95.9 Hypotension, unspecified; R42 Dizziness and giddiness; Z12.5 Encounter for screening for malignant neoplasm of prostate
CPT/HCPCS: 70450; 83880; 84484; 93005; 96374; 99284; 99285; J0282

== ENCOUNTER → 2017-11-28 16:16 | Outpatient (CLI) | payer MEDICARE, OTHER, SELFPAY | PROVIDERS: Family Provider Internal Medicine; PCP Internal Medicine; Visit Provider Urology | DX: N40.0 Benign prostatic hyperplasia without lower urinary tract symptoms (principal) | CPT/HCPCS: 36415; 84153 ==

== ENCOUNTER 2018-01-24 16:56 | Emergency (ER) | payer MEDICARE, OTHER, SELFPAY ==
[2018-01-24 16:57] VITALS: BP 109/68; PULSE 91; RESP 20; TEMP 36.1; O2SAT 97; BMI 19.5
--- NOTE | 2018-01-24 19:32 | ED_ITS ---
HPI - Skin/Abscess/Foreign Bdy <Kathryn Escobar PA-C - Last Filed: 01/24/18 22:28> General Chief complaint: Skin/Abscess/Foreign Body Stated complaint: RASH ON BODY Time Seen by Provider: 01/24/18 19:31 Source: patient and family Mode of arrival: ambulatory Limitations: no limitations History of Present Illness HPI narrative: This 72-year-old gentleman comes in today due to itchy rash which started on his chest area, 1st noticed after he did cardiac rehab on . Thought this might be due to electrode paced, but it seemed to spread to his back and down his side is a little bit. He states this was especially itchy last night and disturbing his sleep and has been progressively worse. Aside from exposure to the electrode pace, he denies any new skin exposures, detergents, soaps, etc. Denies any bed bugs, fleas in the house, recent travel or new medications. Denies any dyspnea or facial swelling or other new complaints with this. Related Data Home Medications Medication Instructions Recorded Confirmed atorvastatin 40 mg tablet 40 mg PO DAILY 09/15/17 12/08/17 ferrous sulfate 325 mg (65 mg 325 mg PO DAILY tab 09/15/17 12/08/17 iron) tablet,delayed release multivitamin with iron-mineral 1 tab PO DAILY 09/15/17 12/08/17 tablet sennosides 8.6 mg-docusate sodium 2 tab PO BEDTIME PRN 09/15/17 12/08/17 50 mg tablet metoprolol succinate ER 25 mg 12.5 mg PO BEDTIME 09/19/17 12/08/17 tablet,extended release 24 hr finasteride 5 mg tablet 5 mg PO DAILY 12/08/17 12/08/17 Previous Rx's Medication Instructions Recorded Disabled Parking #1 [id number] 10/02/17 amiodarone 200 mg PO DAILY #75 tab 11/09/17 fluticasone 50 mcg/actuation nasal 2 spray NASAL BEDTIME #16 gram 12/08/17 spray,suspension levothyroxine 125 mcg capsule 125 mcg PO DAILY #90 cap 12/08/17 sertraline 25 mg tablet 25 mg PO BEDTIME #90 tab 12/08/17 triamcinolone acetonide 1 applictn TOP BID PRN #80 gram 01/24/18 Allergies Allergy/AdvReac Type Severity Reaction Status Date / Time Iodinated Contrast- Oral and Allergy Mild UNSURE Verified 12/08/17 10:06 IV Dye [IODINATED CONTRAST MEDIA - IV DYE] prochlorperazine Allergy Mild Hypersensit Verified 12/08/17 10:06 [PROCHLORPERAZINE] ivity Review of Systems <Kathryn Escobar PA-C - Last Filed: 01/24/18 22:28> Review of Systems All systems reviewed & are unremarkable except as noted in HPI and below Exam <Kathryn Escobar PA-C - Last Filed: 01/24/18 22:28> Narrative Exam Narrative: GENERAL APPEARANCE: Patient sitting comfortably, in no distress. Appears well HEENT: PERRL, EOMI, NORMAL OROPHARYNX NECK/THYROID: Neck supple, no masses LUNGS: Clear to auscultation bilaterally. HEART: Regular rate and rhythm without murmur, OCCASIONAL SKIPS EXTREMITIES: No cyanosis or edema. NEUROLOGIC: Alert and oriented, normal speech, gait and coordination. DERM: Dry, pink papules on the chest bilaterally under the nipple line, less concentrated similar papules on the mid thoracic area. On the flanks to lateral hips there are small wheals. No pustules or vesicles. No exanthem on the abdomen, groin, extremities, neck or face Initial Vital Signs Initial Vital Signs: Vital Signs Temperature 96.9 F L 01/24/18 16:57 Pulse Rate 91 H 01/24/18 16:57 Respiratory Rate 20 01/24/18 16:57 Blood Pressure 109/68 01/24/18 16:57 Pulse Oximetry 97 01/24/18 16:57 <Juancarlos Garcia DO - Last Filed: 01/25/18 00:14> Initial Vital Signs Initial Vital Signs: Vital Signs Temperature 96.9 F L 01/24/18 16:57 Pulse Rate 91 H 01/24/18 16:57 Respiratory Rate 20 01/24/18 16:57 Blood Pressure 109/68 01/24/18 16:57 Pulse Oximetry 97 01/24/18 16:57 Course <JELLY Francisco Last Filed: 01/24/18 22:28> Vital Signs - 8 hr 01/24/18 16:57 01/24/18 19:59 Temperature 96.9 F L Pulse Rate 91 H 87 Respiratory Rate 20 16 Blood Pressure 109/68 112/70 Pulse Oximetry 97 97 <Juancarlos Jose, DO - Last Filed: 01/25/18 00:14> Vital Signs - 8 hr 01/24/18 16:57 01/24/18 19:59 Temperature 96.9 F L Pulse Rate 91 H 87 Respiratory Rate 20 16 Blood Pressure 109/68 112/70 Pulse Oximetry 97 97 Discharge Plan Departure Patient Disposition: Home Clinical Impression: Urticaria Discharge Date/Time: 01/24/18 20:08 Interventions: ED Discharge Assessment Last Done: 01/24/18 19:59 Instructions: DI for Hives Activity Restrictions/Additional Instructions: The newer part of your rash on your hips today looks like hives. The older areas are more dry but I suspect that they are part of the same problem and most likely a reaction to electrode adhesive due to where and when it started. Please avoid any adhesive there in the future. Apply an ice pack when you are itchy. For tonight, please pick pulling machine tender some [id number] 1% hydrocortisone at the pharmacy and apply up to 3 times daily as needed for itching and irritation. Do not apply to any open areas.. Also pick pulling machine tender some Benadryl (25 mg diphenhydramine), and you can take this every 4-6 hours in the evening for itching, but remember it can make you sleepy. During the day, take Zyrtec (10 mg cetirizine) as it should help with itching but be less likely to make you sleepy. I have also sent in a prescription steroid cream for you to pick pulling machine tender tomorrow if the [id number] hydrocortisone is not effective. As we talked about, you should return if any acutely worsening symptoms or new symptoms such as facial swelling or trouble breathing. Please follow-up with your PCP for recheck next week Prescriptions: New triamcinolone acetonide 0.1 % cream 1 applictn TOP BID PRN (Reason: rash/itch) Qty: 80 RF: 0 No Action Disabled Parking Qty: 1 RF: 0 finasteride 5 mg tablet 5 mg PO DAILY RF: 0 levothyroxine 125 mcg capsule 125 mcg PO DAILY Qty: 90 RF: 3 sertraline 25 mg tablet 25 mg PO BEDTIME Qty: 90 RF: 3 fluticasone 50 mcg/actuation spray,suspension 2 spray NASAL BEDTIME Qty: 16 RF: 0 atorvastatin 40 mg tablet 40 mg PO DAILY RF: 0 sennosides-docusate sodium [Senna Laxative-Stool Softener] 8.6-50 mg tablet 2 tab PO BEDTIME PRN (Reason: Constipation) RF: 0 ferrous sulfate 325 mg (65 mg iron) tablet,delayed release (DR/EC) 325 mg PO DAILY RF: 0 multivitamin with iron-mineral tablet 1 tab PO DAILY RF: 0 metoprolol succinate 25 mg tablet extended release 24 hr 12.5 mg PO BEDTIME RF: 0 amiodarone 200 mg tablet 200 mg PO DAILY Qty: 75 RF: 0 Referrals: Danyel Schafer MD [Primary Care Provider] - <Juancarlos Garcia DO - Last Filed: 01/25/18 00:14> Cosign ED Attending Ivetature Attestation: I was available for consultation during this patient's emergency department encounter
--- NOTE | 2018-01-24 19:51 | PC.NURSE ---
Pt has red rash to trunk both front and back. Not existing to groin or limbs.
[2018-01-24 19:59] VITALS: BP 112/70; PULSE 87; RESP 16; O2SAT 97
== END 2018-01-24 20:08 | disposition home or self-care (01) ==
PROVIDERS: Emergency Provider Internal Medicine; Family Provider Internal Medicine; PCP Internal Medicine
DX: L50.9 Urticaria, unspecified (principal)
CPT/HCPCS: 99282

== ENCOUNTER → 2018-02-17 10:37 | Outpatient (CLI) | payer MEDICARE, OTHER, SELFPAY ==
[2018-02-17 12:03] LABS: Add Manual Diff / Slide Review NO; Basophils Percent Auto 1.3 % (0-2); Eosinophils Percent Auto 7.8 % (2-4); Hematocrit 38.1 % (41-53); Hemoglobin 12.9 g/dL (13.5-17.5); Lymphocytes Percent Auto 21.4 % (25-40); Mean Corpuscular HGB Conc 33.7 % (30-36); Mean Corpuscular Hemoglobin 32.6 PG (26-34); Mean Corpuscular Volume 96.7 fL (80-100); Monocytes Percent Auto 10.8 % (3-14); Neutrophils Absolute Auto 5000 /uL (3000-5900); Neutrophils Percent Auto 58.7 % (50-75); Platelet Count 378 X10^3/uL (150-400); Red Blood Cell Count 3.94 X10^6/uL (4.5-5.9); Red Cell Distribution Width 14.9 % (11.6-14.8); White Blood Cell Count 8.6 X10^3/uL (4.5-11.0)
[2018-02-17 12:23] LABS: Alanine Aminotransferase 80 IU/L (21-72); Albumin 4.8 g/dL (3.5-5.0); Albumin Globulin Ratio 1.7 (1.0-2.8); Alkaline Phosphatase 70 U/L (38-126); Aspartate Aminotransferase 48 IU/L (17-59); BUN Creatinine Ratio 18.3 (6-22); Bilirubin Total 0.8 mg/dL (0.2-1.3); Blood Urea Nitrogen 22 mg/dL (9-20); Calcium 10.3 mg/dL (8.4-10.2); Carbon Dioxide 26 mmol/L (22-32); Chloride 101 mmol/L (98-107); Estimated Glomerular Filt Rate 59.2 mL/min (>60); Globulin 2.9 g/dL (1.7-4.1); Glucose 91 mg/dL (80-110); HEMOLYSIS < 15 (0-50); Potassium 4.7 mmol/L (3.4-5.1); Sodium 139 mmol/L (137-145); Total Protein 7.7 g/dL (6.3-8.2)
[2018-02-17 19:47] LABS: Thyroid Stimulating Hormone 0.04 uIU/mL (0.47-4.68)
== END ==
PROVIDERS: Family Provider Internal Medicine; PCP Internal Medicine; Visit Provider Internal Medicine
DX: E03.9 Hypothyroidism, unspecified (principal); I10 Essential (primary) hypertension; I25.10 Atherosclerotic heart disease of native coronary artery without angina pectoris; I25.5 Ischemic cardiomyopathy; N18.3 Chronic kidney disease, stage 3 (moderate)
CPT/HCPCS: 36415; 80053; 84439; 84443; 85025

== ENCOUNTER 2018-05-28 11:05 | Emergency (ER) | payer MEDICARE, OTHER, SELFPAY ==
[2018-05-28] VITALS (8 sets, daily range): BP systolic 85–116; BP diastolic 55–70; PULSE 60–70; RESP 13–31; TEMP 36.6; O2SAT 96–100; BMI 19.5
--- NOTE | 2018-05-28 11:21 | DI.RAD.S_ITS ---
PROCEDURE: XR ACUTE ABDOMEN SERIES INDICATIONS: Abdominal pain TECHNIQUE: One view chest and two views of the abdomen were acquired. COMPARISON: None. FINDINGS: Surgical changes and devices: Postoperative changes related to prior median sternotomy are present. Multiple clips are seen within the left upper quadrant. Chest: Lungs are clear. Heart size is enlarged. There is aortic atherosclerosis. No pleural effusions. No pneumoperitoneum. Abdomen: Bowel gas pattern is normal. No air-filled distended small bowel loops are evident demonstrating air-fluid levels. Calcification is seen over the expected location of the right kidney. Visualized solid organ contours appear normal. Scattered vascular calcifications are present. Bones: No suspicious bony lesions. The appendix curvature of the lumbar spine is present. There are degenerative changes of the imaged spine and pelvic joints. IMPRESSION: 1. No bowel obstruction. 2. Right renal calculus. 3. No acute cardiopulmonary process is suspected. However, the heart is enlarged. Dictated by: Amari Stanley M.D. on 05/28/2018 at 11:23 Approved by: Amari Stanley M.D. on 05/28/2018 at 11:25
--- NOTE | 2018-05-28 11:21 | DI.US.S_ITS ---
PROCEDURE: US ABDOMEN COMPLETE INDICATIONS: severe epigastric pain TECHNIQUE: Real-time scanning was performed of the abdominal and retroperitoneal organs, with image documentation. COMPARISON: [facility], [place], KIDNEY/ URETER/BLADDER, 11/17/2014, 22:57. FINDINGS: Liver: Liver is normal in size and homogeneous in echotexture. Gallbladder: Gallbladder is normal. There is no cholelithiasis. Biliary ducts: Intrahepatic bile ducts are non-dilated. Extrahepatic bile duct caliber measures 5 mm. Normal is 6-7 mm or less in diameter, or 10 mm or less post-cholecystectomy. Pancreas: Visualized portions of the pancreas are sonographically normal. Spleen: Absent. Kidneys: Right kidney is chronically atrophic. The left kidney is within normal limits for size and appearance. Right kidney measures 6.4 cm long; left kidney measures 12.0cm long. No hydronephrosis or nephrolithiasis. No solid masses. Aorta: Visualized aorta is normal in caliber at less than 3 cm. Iliacs: Obscured by bowel gas. IVC: Intrahepatic inferior vena cava is patent. Miscellaneous: No free abdominal fluid. IMPRESSION: 1. No cholelithiasis or evidence of acute cholecystitis. 2. Chronic atrophic right kidney. 3. No hydronephrosis of the left kidney. Dictated by: Amari Stanley M.D. on 05/28/2018 at 11:12 Approved by: Amari Stanley M.D. on 05/28/2018 at 11:15
--- NOTE | 2018-05-28 11:26 | ED_ITS ---
HPI - Abdominal Pain General Chief Complaint: Abdominal Pain Stated Complaint: CHEST PAIN Time Seen by Provider: 05/28/18 11:19 Source: patient and family Mode of arrival: ambulatory Limitations: no limitations History of Present Illness HPI narrative: 72-year-old male, nonsmoker presents with his and a chief complaint of severe epigastric and chest pain that started about 1 hr ago. He states it is worse when he moves or presses on it. He was exerting himself at cardiac rehab class next door, which he does multiple times weekly when his symptoms started. He is not dizzy nor weak or lightheaded. He denies any shortness of breath nor nausea, vomiting or diaphoresis. He states this feels different than with prior, known cardiac episodes. He had a bypass last year. 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 He denies any radiation of the pain. He denies any recent changes in his medications, recent travel or history of blood clots. 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 MD complaint: abdominal pain Onset (ago): hour(s) Pain Consistency: constant Location: epigastric Severity: severe Quality: cramping and aching Radiation: none Migration to: no migration Relieving factors: nothing Exacerbating factors: movement Associated symptoms: denies other symptoms Related Data Home Medications Medication Instructions Recorded Confirmed atorvastatin 40 mg tablet 40 mg PO QPM 09/15/17 05/28/18 ferrous sulfate 325 mg (65 mg 325 mg PO DAILY tab 09/15/17 05/28/18 iron) tablet,delayed release multivitamin with iron-mineral 1 tab PO DAILY 09/15/17 05/28/18 tablet apixaban 5 mg tablet 5 mg PO BID 30 Days #60 tab 02/17/18 05/28/18 sotalol 80 mg tablet 40 mg PO BID 60 Days #60 tab 05/21/18 05/28/18 Saccharomyces boulardii [Florastor] 250 mg PO BEDTIME 05/28/18 05/28/18 levothyroxine 125 mcg PO DAILY 05/28/18 05/28/18 magnesium 1 tab PO QPM 05/28/18 05/28/18 ticagrelor [Brilinta] 90 mg PO BID 05/28/18 05/28/18 Previous Rx's Medication Instructions Recorded Disabled Parking #1 [id number] 10/02/17 sertraline 25 mg tablet 25 mg PO BEDTIME #90 tab 12/08/17 triamcinolone acetonide 0.1 % 1 applictn TOP BID PRN #80 gram 02/05/18 topical cream fluticasone 50 mcg/actuation nasal 2 spray NASAL BEDTIME #16 gram 04/27/18 spray,suspension Allergies Allergy/AdvReac Type Severity Reaction Status Date / Time Iodinated Contrast- Oral and Allergy Mild UNSURE Verified 02/17/18 09:58 IV Dye [IODINATED CONTRAST MEDIA - IV DYE] prochlorperazine Allergy Mild Hypersensit Verified 02/17/18 09:58 [PROCHLORPERAZINE] ivity finasteride AdvReac Intermediate Dizzy, Verified 05/21/18 10:05 weakness tamsulosin [From Flomax] AdvReac Mild Faints Verified 05/21/18 10:05 Review of Systems Constitutional Denies chills, Denies fever(s), Denies lethargy and Denies weakness Eyes Denies change in vision, Denies eye discharge, Denies irritation and Denies loss of vision ENT Ears, Nose, Mouth, and Throat: Denies change in voice, Denies neck pain and Denies sore throat Cardiovascular Reports chest pain, Denies irregular heart rhythm, Denies lightheadedness, Denies palpitations, Denies dyspnea, Denies dyspnea on exertion and Denies orthopnea Respiratory Denies cough, Denies dyspnea, Denies dyspnea on exertion and Denies wheezing Gastrointestinal Gastrointestinal: Reports abdominal pain, Denies change in bowel habits, Denies diarrhea, Denies nausea and Denies vomiting Genitourinary Denies hematuria, Denies flank pain, Denies urinary incontinence and Denies urinary urgency Musculoskeletal Denies neck pain Integumentary/Breasts Denies pruritus, Denies erythema, Denies rash and Denies wounds Neurologic Denies confusion, Denies loss of vision and Denies weakness Psychiatric Denies anxiety, Denies confusion, Denies depression, Denies homicidal ideation and Denies suicidal ideation Endocrine Denies palpitations Hematologic/Lymphatic Denies easy bruising Allergic/Immunologic Denies wheezing [facility] Medical History Ischemic cardiomyopathy (Chronic) Coronary arteriosclerosis (Chronic ~06/2017) Hypogonadism in male (Chronic) Mixed hyperlipidemia (Chronic) Essential hypertension (Chronic) Chronic renal failure, stage 3 (moderate) (Chronic 11/25/14) Non-Hodgkin's lymphoma (Chronic 03/06/11) Transient cerebral ischemia (Inactive) Acquired hypothyroidism (Chronic 03/10/15) Hypercalcemia (Resolved 12/19/14) Hyperparathyroidism (Resolved 03/10/15) 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) Surgical History S/P CABG (coronary artery bypass graft) (Resolved ~07/2017) S/P parathyroidectomy (Resolved ~06/2014) History of splenectomy (Resolved) Status post tonsillectomy and adenoidectomy (Resolved) Social History marital status: number of children: 2 household members: spouse lives independently: Yes caregiver/support person: Yes housing: house pets and animals: Yes education level: other (PhD) 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 Normocephalic. No temporal or scalp tenderness. EYES: Pupils equal round and reactive. Extraocular motions intact. No scleral icterus. No injection or drainage. ENT: Nose without bleeding, purulent drainage or septal hematoma. Throat without erythema, tonsillar hypertrophy or exudate. Uvula midline. Airway patent. NECK: Trachea midline. No JVD or lymphadenopathy. Supple, nontender, no meningeal signs. CARDIOVASCULAR: Regular rate and rhythm without murmurs, gallops, or rubs. RESPIRATORY: Clear to auscultation. Breath sounds equal bilaterally. No wheezes , rales, or rhonchi. GASTROINTESTINAL: Abdomen soft, severe epigastric pain on palpation, nondistended. No hepato-splenomegaly, or palpable masses. No guarding. EXTREMITIES: No clubbing, cyanosis, or edema. No joint tenderness, effusion, or edema noted. BACK: Nontender without deformity or crepitance. No flank tenderness. NEURO: AOx3. SKIN: No rash or erythema. Initial Vital Signs Initial Vital Signs: Vital Signs Temperature 97.8 F 05/28/18 11:10 Pulse Rate 70 05/28/18 11:10 Respiratory Rate 13 05/28/18 11:10 Blood Pressure 93/59 L 05/28/18 11:10 Pulse Oximetry 100 05/28/18 11:10 Course Orders Ordered: ED Orders 05/28/18 11:20 EKG-12 Lead Stat 05/28/18 11:21 US abdomen complete Stat XR acute abdomen series Stat 05/28/18 11:35 Complete Blood Count AUTO DIFF Stat Comprehensive Metabolic Panel Stat Lipase Stat Troponin & CK Cardiac Panel Stat 05/28/18 13:30 CT angio chest PE protocol Stat 05/28/18 13:50 Troponin I Stat Discontinued Medications Aspirin (Aspirin Chew) 324 mg PO NOW ONE Stop: 05/28/18 11:21 Last Admin: 05/28/18 11:41 Dose: 324 mg Diphenhydramine HCl (Benadryl) 25 mg IV NOW ONE Stop: 05/28/18 13:36 Last Admin: 05/28/18 13:53 Dose: 25 mg Sodium Chloride (Normal Saline 0.9%) 1,000 mls @ 150 mls/hr IV CONT MARY Last Infusion: 05/28/18 15:57 Dose: 0 mls/hr Infusion: 05/28/18 12:02 Dose: 500 mls/hr Admin: 05/28/18 11:41 Dose: 150 mls/hr Methylprednisolone (Solu-Medrol 125 Mg Vial) 125 mg IV NOW ONE Stop: 05/28/18 13:36 Last Admin: 05/28/18 13:52 Dose: 125 mg Pantoprazole Sodium (Protonix) 40 mg IV NOW ONE Stop: 05/28/18 11:23 Last Admin: 05/28/18 11:41 Dose: 40 mg Reevaluation(s) Reevaluation #1: Patient continues to feel asymptomatic in the department Consultations Consultation #1: Upon completion of evaluation in the emergency department I discussed follow-up plan with patient's primary care provider, Dr. Schafer. We sure the opinion that the patient can be safely discharged and can follow up closely as an outpatient Vital Signs - 8 hr 05/28/18 12:30 05/28/18 13:00 05/28/18 14:00 Pulse Rate 60 60 65 Respiratory Rate 16 31 H 16 Blood Pressure Blood Pressure [Right Arm] 89/55 L 89/61 L 103/65 Pulse Oximetry 96 100 99 05/28/18 15:00 05/28/18 16:00 05/28/18 16:19 Pulse Rate 67 67 Respiratory Rate 17 15 Blood Pressure 111/70 Blood Pressure [Right Arm] 116/69 111/70 Pulse Oximetry 99 97 MDM - Abdominal Pain Differential Diagnosis Differential diagnosis: Likely abdominal pain, constipation, gastroenteritis, pancreatitis and small bowel obstruction Medical Records Attestation: I reviewed the patient's medical records. Lab Data Attestation: I reviewed the patient's lab results. Result diagrams: 05/28/18 11:35 05/28/18 11:35 Lab Results 05/28/18 05/28/18 05/28/18 Range/Units 11:35 11:35 13:50 WBC 7.3 (4.5-11.0) X10^3/uL RBC 4.10 L (4.5-5.9) X10^6/uL Hgb 12.8 L (13.5-17.5) g/dL Hct 38.9 L (41-53) % MCV 95.0 (80-100) fL MCH 31.4 (26-34) PG MCHC 33.0 (30-36) % RDW 13.6 (11.6-14.8) % Plt Count 282 (150-400) X10^3/uL Neut % (Auto) 58.1 (50-75) % Lymph % (Auto) 23.0 L (25-40) % [place] % (Auto) 12.6 (3-14) % Eos % (Auto) 5.0 H (2-4) % Baso % (Auto) 1.3 (0-2) % Neut # (Auto) 4300 (2922-0255) /uL Lymph # (Auto) 1700 (0625-2362) /uL [place] # (Auto) 900 (0-900) /uL Eos # (Auto) 400 (0-450) /uL Baso # (Auto) 100 (0-100) /uL Sodium 139 (137-145) mmol/L Potassium 4.6 (3.4-5.1) mmol/L Chloride 105 (98-107) mmol/L Carbon Dioxide 22 (22-32) mmol/L BUN 30 H (9-20) mg/dL Creatinine 1.00 (0.66-1.25) mg/dL Estimated GFR > 60.0 (>60) mL/min BUN/Creatinine Ratio 30.0 H (6-22) Glucose 87 (80-110) mg/dL Calcium 10.3 H (8.4-10.2) mg/dL Total Bilirubin 1.1 (0.2-1.3) mg/dL AST 64 H (17-59) IU/L ALT 99 H (21-72) IU/L Alkaline Phosphatase 91 (38-126) U/L Total Creatine Kinase 43 L (55-170) U/L CK-MB (CK-2) TNP CK-MB (CK-2) Rel Index TNP Troponin I 0.018 0.016 (0.01-0.034) ng/mL Total Protein 7.6 (6.3-8.2) g/dL Albumin 4.8 (3.5-5.0) g/dL Globulin 2.8 (1.7-4.1) g/dL Albumin/Globulin Ratio 1.7 (1.0-2.8) Lipase 91 (23-300) U/L Imaging Data CT scan - abdomen: Radiologist's impression: Patient: Martínez Edward MR#: [id number] : 1945 Acct:[id number] Age/Sex: 72 / M Date of Service: 05/28/18 Loc: ED Accession Number: [id number] Procedure: CT angio chest PE protocol Ordering Provider: Trenton Mcclain D.O. PROCEDURE: CT ANGIO CHEST PE PROTOCOL INDICATIONS: CP TECHNIQUE: After the administration of intravenous contrast, 2 mm thick sections acquired from the pulmonary apices to the posterior costophrenic angles. 3-dimensional maximum intensity projection (MIP) coronal and sagittal reformats were then acquired through the thorax. For radiation dose reduction, the following was used: automated exposure control, adjustment of mA and/or kV according to patient size. COMPARISON: None. FINDINGS: Image quality: Diagnostic. Pulmonary arteries: Pulmonary arteries are normal in size, and demonstrate no intraluminal filling defects to suggest central pulmonary embolism. Lungs and pleura: The lungs are well aerated. There is no focal consolidation. No effusion or pneumothorax is evident. Minimal bullous changes within the lung bases may be present. There may be scarring within the lingula. No lung mass or pulmonary nodule is evident. The Mediastinum: The heart is enlarged. Reflux of the injected contrast material into the inferior vena cava and subsequently into the hepatic veins is suggestive of right heart failure. No mediastinal or hilar adenopathy. Thoracic aorta is normal in caliber and enhancement. Esophagus is normal in caliber, without hiatal hernia. Bones and chest wall: Age-appropriate degenerative changes of the spine are present. No suspicious bony lesions. Ribs and thoracic spine appear intact throughout. Thyroid gland is not enlarged or adequately evaluated. No axillary or supraclavicular adenopathy. Abdomen: The included portions of the upper abdomen demonstrate a prominent atrophic right kidney, and nonobstructing right renal calculus. Perinephric edema surrounding the left kidney is noted. Postoperative changes within the left subdiaphragmatic region compatible with prior splenectomy. Otherwise, the included portions of the upper abdomen are unremarkable. IMPRESSION: 1. No evidence of pulmonary emboli. 2. Mild basilar atelectasis. No acute cardiopulmonary process is suspected. 3. Cardiomegaly with findings suggesting chronic right heart failure. Please correlate clinically. Dictated by: Amari Stanley M.D. on 05/28/2018 at 13:27 Approved by: Amari Stanley M.D. on 05/28/2018 at 13:30 ECG Data Attestation: I personally reviewed and interpreted this ECG as follows: Prior ECG tracings: available for review Interpretation: EKG is normal sinus rhythm rate [ 66] and free of any signs of acute ischemia or ectopy. No ST segmental elevation or depression. No T wave inversions. QRS 137, QTC 453 MDM Narrative Medical decision making narrative: Multiple etiologies for patient's symptoms considered including: [Cardiac ischemia, pulmonary embolism, pancreatitis, gallbladder disease, bowel obstruction, esophageal spasm, reflux, ulcer] Patient's symptoms improved or duration of stay with above-stated therapies. Findings and discharge diagnosis discussed with patient/family followed by verbalization of understanding Return precautions discussed with patient/family whom verbalize understanding. Discharge Plan Departure Patient Disposition: Home Clinical Impression: Abdominal pain, acute, epigastric Discharge Date/Time: 05/28/18 16:22 Interventions: ED Discharge Assessment Last Done: 05/28/18 16:19 Instructions: DI for Epigastric Pain Activity Restrictions/Additional Instructions: *You have been diagnosed with [ atypical chest pain, epigastric pain ] *What to do: *Take medications as directed *Follow up with your primary care provider in 2-3 days, call for an appointment. Let them know you were seen in the Emergency Department and that we ask that you be seen in follow up *Return to ER if you should have any new, worsening or concerning symptoms Prescriptions: No Action Disabled Parking Qty: 1 RF: 0 fluticasone 50 mcg/actuation spray,suspension 2 spray NASAL BEDTIME Qty: 16 RF: 11 sertraline 25 mg tablet 25 mg PO BEDTIME Qty: 90 RF: 3 apixaban 5 mg tablet 5 mg PO BID 30 Days Qty: 60 RF: 0 triamcinolone acetonide 0.1 % cream 1 applictn TOP BID PRN (Reason: rash/itch) Qty: 80 RF: 0 atorvastatin 40 mg tablet 40 mg PO QPM RF: 0 ferrous sulfate 325 mg (65 mg iron) tablet,delayed release (DR/EC) 325 mg PO DAILY RF: 0 multivitamin with iron-mineral tablet 1 tab PO DAILY RF: 0 sotalol 80 mg tablet 40 mg PO BID 60 Days Qty: 60 RF: 0 levothyroxine 125 mcg tablet 125 mcg PO DAILY RF: 0 ticagrelor [Brilinta] 90 mg tablet 90 mg PO BID RF: 0 Saccharomyces boulardii [Florastor] 250 mg Capsule 250 mg PO BEDTIME RF: 0 magnesium 1 tab PO QPM RF: 0 Referrals: Danyel Schafer MD [Primary Care Provider] -
[2018-05-28] MEDS: ASPIRIN 81 MG TAB 324 MG PO (11:41)
[2018-05-28] MEDS: PANTOPRAZOLE 40 MG VIAL IV (11:41)
[2018-05-28] MEDS: SODIUM CHLORIDE 0.9% 1,000 ML 150 ML IV (11:41)
[2018-05-28 11:44] LABS: Add Manual Diff / Slide Review NO; Basophils Absolute Auto 100 /uL (0-100); Basophils Percent Auto 1.3 % (0-2); Eosinophils Absolute Auto 400 /uL (0-450); Hematocrit 38.9 % (41-53); Hemoglobin 12.8 g/dL (13.5-17.5); Lymphocytes Absolute Auto 1700 /uL (1100-4500); Mean Corpuscular Hemoglobin 31.4 PG (26-34); Monocytes Absolute Auto 900 /uL (0-900); Monocytes Percent Auto 12.6 % (3-14); Neutrophils Absolute Auto 4300 /uL (1500-7000); Neutrophils Percent Auto 58.1 % (50-75); Platelet Count 282 X10^3/uL (150-400); Red Cell Distribution Width 13.6 % (11.6-14.8); White Blood Cell Count 7.3 X10^3/uL (4.5-11.0)
--- NOTE | 2018-05-28 12:01 | PC.NURSE ---
500ml bolus started per dr whelan
[2018-05-28 12:02] LABS: Alanine Aminotransferase 99 IU/L (21-72); Albumin 4.8 g/dL (3.5-5.0); Albumin Globulin Ratio 1.7 (1.0-2.8); Alkaline Phosphatase 91 U/L (38-126); Aspartate Aminotransferase 64 IU/L (17-59); Bilirubin Total 1.1 mg/dL (0.2-1.3); Blood Urea Nitrogen 30 mg/dL (9-20); Calcium 10.3 mg/dL (8.4-10.2); Carbon Dioxide 22 mmol/L (22-32); Chloride 105 mmol/L (98-107); Creatine Kinase 43 U/L (55-170); Estimated Glomerular Filt Rate > 60.0 mL/min (>60); Globulin 2.8 g/dL (1.7-4.1); Glucose 87 mg/dL (80-110); HEMOLYSIS 16 (0-50); Lipase 91 U/L (23-300); Potassium 4.6 mmol/L (3.4-5.1); Sodium 139 mmol/L (137-145); Total Protein 7.6 g/dL (6.3-8.2)
[2018-05-28 12:10] LABS: Troponin I 0.018 ng/mL (0.01-0.034)
--- NOTE | 2018-05-28 13:30 | DI.CT.S_ITS ---
PROCEDURE: CT ANGIO CHEST PE PROTOCOL INDICATIONS: CP TECHNIQUE: After the administration of intravenous contrast, 2 mm thick sections acquired from the pulmonary apices to the posterior costophrenic angles. 3-dimensional maximum intensity projection (MIP) coronal and sagittal reformats were then acquired through the thorax. For radiation dose reduction, the following was used: automated exposure control, adjustment of mA and/or kV according to patient size. COMPARISON: None. FINDINGS: Image quality: Diagnostic. Pulmonary arteries: Pulmonary arteries are normal in size, and demonstrate no intraluminal filling defects to suggest central pulmonary embolism. Lungs and pleura: The lungs are well aerated. There is no focal consolidation. No effusion or pneumothorax is evident. Minimal bullous changes within the lung bases may be present. There may be scarring within the lingula. No lung mass or pulmonary nodule is evident. The Mediastinum: The heart is enlarged. Reflux of the injected contrast material into the inferior vena cava and subsequently into the hepatic veins is suggestive of right heart failure. No mediastinal or hilar adenopathy. Thoracic aorta is normal in caliber and enhancement. Esophagus is normal in caliber, without hiatal hernia. Bones and chest wall: Age-appropriate degenerative changes of the spine are present. No suspicious bony lesions. Ribs and thoracic spine appear intact throughout. Thyroid gland is not enlarged or adequately evaluated. No axillary or supraclavicular adenopathy. Abdomen: The included portions of the upper abdomen demonstrate a prominent atrophic right kidney, and nonobstructing right renal calculus. Perinephric edema surrounding the left kidney is noted. Postoperative changes within the left subdiaphragmatic region compatible with prior splenectomy. Otherwise, the included portions of the upper abdomen are unremarkable. IMPRESSION: 1. No evidence of pulmonary emboli. 2. Mild basilar atelectasis. No acute cardiopulmonary process is suspected. 3. Cardiomegaly with findings suggesting chronic right heart failure. Please correlate clinically. Dictated by: Amari Stanley M.D. on 05/28/2018 at 13:27 Approved by: Amari Stanley M.D. on 05/28/2018 at 13:30
[2018-05-28] MEDS: methylPREDNISolone 125 MG/2 ML VIAL IV (13:52)
[2018-05-28] MEDS: diphenhydrAMINE 50 MG/ML VIAL 25 MG IV (13:53)
[2018-05-28 14:17] LABS: Troponin I 0.016 ng/mL (0.01-0.034)
== END 2018-05-28 16:22 | disposition home or self-care (01) ==
PROVIDERS: Emergency Provider Emergency Medicine; Family Provider Internal Medicine; PCP Internal Medicine
DX: R10.13 Epigastric pain (principal)
CPT/HCPCS: 36415; 36591; 71275; 74022; 76700; 80053; 82550; 83690; 84484; 85025; 93005; 93010; 96361; 96374; 96375; 99284; 99285; A9579; C9113; J1200; J2930

== ENCOUNTER → 2018-06-01 15:14 | Outpatient (CLI) | payer MEDICARE, OTHER, SELFPAY | PROVIDERS: Family Provider Internal Medicine; PCP Internal Medicine; Visit Provider Internal Medicine | DX: R19.7 Diarrhea, unspecified (principal) ==

== ENCOUNTER 2018-07-27 10:00 | Outpatient (RCR) | payer MEDICARE, OTHER, SELFPAY ==
[2018-01-06 11:02] VITALS: BP 100/64; BP 108/70; O2SAT 94; BMI 19.1
[2018-02-04 15:27] VITALS: BP 96/60
[2018-03-02 15:18] VITALS: BP 126/62
[2018-03-30 15:55] VITALS: BP 102/56
[2018-04-27 15:55] VITALS: BP 108/58
[2018-05-25 15:51] VITALS: BP 102/58
[2018-06-24 15:36] VITALS: BP 108/52
[2018-08-03 15:40] VITALS: BP 96/54
== END 2018-07-28 10:28 ==
LOC: CAR 10:00
PROVIDERS: Family Provider Internal Medicine; PCP Internal Medicine; Visit Provider Internal Medicine
DX: Z95.1 Presence of aortocoronary bypass graft (principal)
CPT/HCPCS: 93798

== ENCOUNTER → 2018-07-27 11:21 | Outpatient (CLI) | payer MEDICARE, OTHER, SELFPAY ==
[2018-07-27 12:21] LABS: Alanine Aminotransferase 71 IU/L (21-72); Albumin 4.3 g/dL (3.5-5.0); Albumin Globulin Ratio 1.5 (1.0-2.8); Alkaline Phosphatase 83 U/L (38-126); Aspartate Aminotransferase 46 IU/L (17-59); Blood Urea Nitrogen 29 mg/dL (9-20); Calcium 9.8 mg/dL (8.4-10.2); Carbon Dioxide 23 mmol/L (22-32); Chloride 102 mmol/L (98-107); Estimated Glomerular Filt Rate > 60.0 mL/min (>60); Globulin 2.8 g/dL (1.7-4.1); Glucose 84 mg/dL (80-110); HEMOLYSIS < 15 (0-50); Potassium 4.5 mmol/L (3.4-5.1); Sodium 138 mmol/L (137-145); Total Protein 7.1 g/dL (6.3-8.2)
[2018-07-27 12:40] LABS: Free T3, Triiodothyronine Free 3.81 pg/mL (2.77-5.27); Free T4, Direct Thyroxine 2.37 ng/dL (0.78-2.19)
[2018-07-27 12:54] LABS: Thyroid Stimulating Hormone < 0.02 uIU/mL (0.47-4.68)
== END ==
PROVIDERS: PCP Internal Medicine; Visit Provider Internal Medicine
DX: E03.9 Hypothyroidism, unspecified (principal); E78.2 Mixed hyperlipidemia; I10 Essential (primary) hypertension; N18.3 Chronic kidney disease, stage 3 (moderate)
CPT/HCPCS: 36415; 80053; 84439; 84443; 84481

== ENCOUNTER 2018-08-04 18:42 | Emergency (ER) | payer MEDICARE, OTHER, SELFPAY ==
[2018-08-04 18:48] VITALS: BP 102/72; PULSE 71; RESP 18; TEMP 36.5; O2SAT 99
--- NOTE | 2018-08-04 18:53 | DI.RAD.S_ITS ---
PROCEDURE: XR SHOULDER LT MIN 2V INDICATIONS: fall, left shoulder pain TECHNIQUE: 2 views of the shoulder were acquired. COMPARISON: [facility], CT, CT ANGIO CHEST PE PROTOCOL, 05/28/2018, 13:54. FINDINGS: Bones: No fractures or dislocations. No suspicious bony lesions. Visualized ribs appear intact. Soft tissues: No suspicious soft tissue calcifications. IMPRESSION: No acute bony abnormality of the left shoulder. Dictated by: Vicente Seaman M.D. on 08/04/2018 at 19:36 Approved by: Vicente Seaman M.D. on 08/04/2018 at 19:37
--- NOTE | 2018-08-04 20:10 | ED_ITS ---
HPI - Extremity Injury (Upper) General Chief Complaint: Extremity Injury, Upper Stated Complaint: FALL LEFT SIDE PAIN Time Seen by Provider: 08/04/18 20:06 Source: patient Mode of arrival: ambulatory Limitations: no limitations History of Present Illness HPI narrative: Patient is a 72-year-old male on apixaban here for evaluation of a fall that he sustained while walking. He states that he caught his toe on the ground before he fell. Landed on his left shoulder. Did not hit his head. No other injuries from the event. Related Data Home Medications Medication Instructions Recorded Confirmed atorvastatin 40 mg tablet 40 mg PO QPM 09/15/17 06/01/18 ferrous sulfate 325 mg (65 mg 325 mg PO DAILY tab 09/15/17 06/01/18 iron) tablet,delayed release multivitamin with iron-mineral 1 tab PO DAILY 09/15/17 06/01/18 tablet apixaban 5 mg tablet 5 mg PO BID 30 Days #60 tab 02/17/18 06/01/18 Saccharomyces boulardii [Florastor] 250 mg PO BEDTIME 05/28/18 06/01/18 levothyroxine 125 mcg PO DAILY 05/28/18 06/01/18 magnesium 1 tab PO QPM 05/28/18 06/01/18 ticagrelor [Brilinta] 90 mg PO BID 05/28/18 06/01/18 Previous Rx's Medication Instructions Recorded Disabled Parking #1 each 10/02/17 sertraline 25 mg tablet 25 mg PO BEDTIME #90 tab 12/08/17 triamcinolone acetonide 0.1 % 1 applictn TOP BID PRN #80 gram 02/05/18 topical cream fluticasone propionate 50 2 spray NASAL BEDTIME #16 gram 04/27/18 mcg/actuation nasal spray,suspension Allergies Allergy/AdvReac Type Severity Reaction Status Date / Time Iodinated Contrast- Oral and Allergy Mild UNSURE Verified 06/01/18 15:02 IV Dye [IODINATED CONTRAST MEDIA - IV DYE] prochlorperazine Allergy Mild Hypersensit Verified 06/01/18 15:02 [PROCHLORPERAZINE] ivity finasteride AdvReac Intermediate Dizzy, Verified 06/01/18 15:02 weakness tamsulosin [From Flomax] AdvReac Mild Faints Verified 06/01/18 15:02 Review of Systems Constitutional Denies fever(s), Denies frequent falls and Denies headache(s) ENT Ears, Nose, Mouth, and Throat: Denies headache(s) Cardiovascular Denies chest pain and Denies dyspnea Respiratory Denies dyspnea Gastrointestinal Gastrointestinal: Denies abdominal pain Musculoskeletal Reports arthralgias (Left shoulder) Integumentary/Breasts Denies rash Neurologic Denies behavioral changes, Denies frequent falls and Denies headache(s) Psychiatric Denies behavioral changes Hematologic/Lymphatic Comments: On apixaban Allergic/Immunologic Denies urticaria [facility] Medical History Ischemic cardiomyopathy (Chronic) Coronary arteriosclerosis (Chronic ~06/2017) Hypogonadism in male (Chronic) Mixed hyperlipidemia (Chronic) Chronic renal failure, stage 3 (moderate) (Chronic 11/25/14) Non-Hodgkin's lymphoma (Chronic 03/06/11) Transient cerebral ischemia (Inactive) Acquired hypothyroidism (Chronic 03/10/15) Hypercalcemia (Resolved 12/19/14) Hyperparathyroidism (Resolved 03/10/15) 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) Essential hypertension (Resolved) Surgical History S/P CABG (coronary artery bypass graft) (Resolved ~07/2017) S/P parathyroidectomy (Resolved ~06/2014) History of splenectomy (Resolved) Status post tonsillectomy and adenoidectomy (Resolved) Social History marital status: number of children: 2 household members: spouse lives independently: Yes caregiver/support person: Yes housing: house pets and animals: Yes education level: other (PhD) 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, 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 travel history: recent () leisure activities: reading and other (Climbing, skiing, writing.) Smoking Status: Never smoker Tobacco: How many years used: 0 quit status: quit date established (Never Started) second hand exposure: Yes (Younger days) alcohol intake: never substance use type: does not use Social History marital status: number of children: 2 household members: spouse lives independently: Yes caregiver/support person: Yes housing: house pets and animals: Yes education level: other (PhD) 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, 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 travel history: recent ([employer]) leisure activities: reading and other (Climbing, skiing, writing.) Smoking Status: Never smoker Tobacco: How many years used: 0 quit status: quit date established (Never Started) second hand exposure: Yes (Younger days) alcohol intake: never substance use type: does not use Exam Initial Vital Signs Initial Vital Signs: Vital Signs Temperature 97.7 F 08/04/18 18:48 Pulse Rate 71 08/04/18 18:48 Respiratory Rate 18 08/04/18 18:48 Blood Pressure 102/72 08/04/18 18:48 Pulse Oximetry 99 08/04/18 18:48 Const General: cooperative, well developed, well groomed and No acute distress Orientation: alert, awake and oriented x3 HENMT Head: normal to inspection and normocephalic Resp Effort & Inspection: normal respiratory effort Cardio Rate: regular rate Rhythm: regular rhythm Pulses: radial pulses present on the left Back/Spine/Pelvis Cervical Spine: No cervical spinal tenderness Thoracic/Lumbar Spine: No thoracic spinal tenderness and No lumbar spinal tenderness Skin Rashes: no rashes Neuro General: alert, awake and oriented x3 Cognition: normal cognition Speech: speech normal Extrem General: capillary refill normal Other: Patient with tenderness to palpation along the AC joint of the left shoulder. No posterior shoulder tenderness. Patient able to hold his arm out at a 90 degree angle with some difficulty but is able to do it. No tenderness palpation over the biceps tendon. Psych Appearance: grossly normal and well kempt Scores GCS Jhon[place] coma scale eye opening: Spontaneous [place] coma scale verbal response: Orientated Jhonny coma scale motor response: Obey commands [place] coma scale total score: 15 Nexus Score for C-Spine Focal Neurologic deficit present: No Midline spinal tenderness present: No Altered level of conciousness present: No Intoxication present: No Distracting Injury Present: No Nexus Criteria for C-spine: 0 Course Orders Ordered: Discontinued Medications Hydrocodone Bitart/Acetaminophen (Vicodin Prepack) 1 bottle MISC SEEINSTR ONE Stop: 08/04/18 20:58 Last Admin: 08/04/18 21:38 Dose: 1 bottle Vital Signs - 8 hr 08/04/18 21:45 Pulse Rate 76 Respiratory Rate 17 Blood Pressure 110/72 Pulse Oximetry 99 MDM - Extremity Injury (Upper) Imaging Data Shoulder x-ray: Radiologist's impression: [address] [address] XRay Report Signed Patient: Martínez Edward CMR#: [id number] : 4Acct:[id number] Age/Sex: 72 / MDate of Service: 08/04/18 Loc: ED Accession Number: [id number] Procedure: XR shoulder LT min 2V Ordering Provider: Juancarlos Garcia D.O. PROCEDURE: XR SHOULDER LT MIN 2V INDICATIONS: fall, left shoulder pain TECHNIQUE: 2 views of the shoulder were acquired. COMPARISON: [facility], CT, CT ANGIO CHEST PE PROTOCOL, 05/28/2018, 13:54. FINDINGS: Bones: No fractures or dislocations. No suspicious bony lesions. Visualized ribs appear intact. Soft tissues: No suspicious soft tissue calcifications. IMPRESSION: No acute bony abnormality of the left shoulder. Dictated by: Vicente Seaman M.D. on 08/04/2018 at 19:36 Approved by: Vicente Seaman M.D. on 08/04/2018 at 19:37 [facility] Narrative Medical decision making narrative: Neurovascularly intact. Is tender to palpation over the AC joint on the left. I do suspect that his symptoms today are due to a shoulder separation. He is able to hold his arm out at a 90 degree angle however does have some pain with doing this. He could potentially have a rotator cuff disruption. I discussed this with him. We discussed return precautions care instructions. He will follow up with his primary doctor. He expressed understanding and agreement with plan. Discharge Plan Departure Patient Disposition: Home Clinical Impression: Separation of muscle (nontraumatic), left shoulder Discharge Date/Time: 08/04/18 21:35 Interventions: ED Discharge Assessment Last Done: 08/04/18 21:45 Instructions: DI for AC Joint Separation Activity Restrictions/Additional Instructions: Use the sling for your comfort. I do recommend that you keep your shoulder as mobile as possible. Your only limited in your activity by your discomfort. Contact your primary care doctor for a follow-up. Return to the emergency department for any new or worsening symptoms Prescriptions: No Action Disabled Parking Qty: 1 RF: 0 fluticasone propionate 50 mcg/actuation spray,suspension 2 spray NASAL BEDTIME Qty: 16 RF: 11 sertraline 25 mg tablet 25 mg PO BEDTIME Qty: 90 RF: 3 apixaban 5 mg tablet 5 mg PO BID 30 Days Qty: 60 RF: 0 triamcinolone acetonide 0.1 % cream 1 applictn TOP BID PRN (Reason: rash/itch) Qty: 80 RF: 0 atorvastatin 40 mg tablet 40 mg PO QPM RF: 0 ferrous sulfate 325 mg (65 mg iron) tablet,delayed release (DR/EC) 325 mg PO DAILY RF: 0 multivitamin with iron-mineral tablet 1 tab PO DAILY RF: 0 levothyroxine 125 mcg tablet 125 mcg PO DAILY RF: 0 ticagrelor [Brilinta] 90 mg tablet 90 mg PO BID RF: 0 Saccharomyces boulardii [Florastor] 250 mg Capsule 250 mg PO BEDTIME RF: 0 magnesium 1 tab PO QPM RF: 0 Referrals: Daynel Schafer MD [Primary Care Provider] -
[2018-08-04] MEDS: HYDROCODONE/ACET 5/325 PREPACK 1 BOTTLE MISC (21:38)
[2018-08-04 21:45] VITALS: BP 110/72; PULSE 76; RESP 17; O2SAT 99
== END 2018-08-04 21:35 | disposition home or self-care (01) ==
PROVIDERS: Emergency Provider Emergency Medicine; PCP Internal Medicine
DX: M62.012 Separation of muscle (nontraumatic), left shoulder (principal); W18.30XA Fall on same level, unspecified, initial encounter
CPT/HCPCS: 73030; 99282; 99283

== ENCOUNTER 2018-11-07 16:08 | Emergency (ER) | payer OTHER, MEDICARE, SELFPAY ==
[2018-11-07 16:18] VITALS: BP 107/67; PULSE 72; RESP 16; TEMP 36.4; O2SAT 97
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
[2018-11-07 18:34] VITALS: BP 121/77; PULSE 61; RESP 15; O2SAT 97
== END 2018-11-07 18:45 | disposition home or self-care (01) ==
PROVIDERS: Emergency Provider Emergency Medicine; PCP Internal Medicine
DX: T14.90XA Injury, unspecified, initial encounter (principal); V43.62XA Car passenger injured in collision with other type car in traffic accident, initial encounter; Z79.01 Long term (current) use of anticoagulants
CPT/HCPCS: 70450; 99282; 99284

== ENCOUNTER → 2018-11-09 12:13 | Outpatient (CLI) | payer MEDICARE, OTHER, SELFPAY ==
[2018-11-09 13:38] LABS: Alanine Aminotransferase 69 IU/L (21-72); Albumin 4.4 g/dL (3.5-5.0); Albumin Globulin Ratio 1.6 (1.0-2.8); Alkaline Phosphatase 112 U/L (38-126); Aspartate Aminotransferase 53 IU/L (17-59); BUN Creatinine Ratio 24.4 (6-22); Bilirubin Total 1.3 mg/dL (0.2-1.3); Blood Urea Nitrogen 22 mg/dL (9-20); Calcium 10.2 mg/dL (8.4-10.2); Carbon Dioxide 25 mmol/L (22-32); Chloride 104 mmol/L (98-107); Estimated Glomerular Filt Rate > 60.0 mL/min (>60); Globulin 2.8 g/dL (1.7-4.1); Glucose 87 mg/dL (80-110); HEMOLYSIS < 15 (0-50); Potassium 4.4 mmol/L (3.4-5.1); Sodium 140 mmol/L (137-145); Total Protein 7.2 g/dL (6.3-8.2)
[2018-11-09 14:11] LABS: Free T4, Direct Thyroxine 2.55 ng/dL (0.78-2.19)
[2018-11-09 14:26] LABS: Thyroid Stimulating Hormone < 0.02 uIU/mL (0.47-4.68)
== END ==
PROVIDERS: PCP Internal Medicine; Visit Provider Internal Medicine
DX: E03.9 Hypothyroidism, unspecified (principal)
CPT/HCPCS: 36415; 80053; 84439; 84443

== ENCOUNTER → 2018-12-10 12:32 | Outpatient (CLI) | payer MEDICARE, OTHER, SELFPAY ==
--- NOTE | 2018-12-10 12:34 | DI.RAD.S_ITS ---
PROCEDURE: XR CHEST 2V INDICATIONS: cough, rule out pneumonia TECHNIQUE: 2 views of the chest were acquired. COMPARISON: [facility], CR, XR CHEST 1V, 11/08/2017, 22:59. [facility], CR, XR CHEST 1V, 11/02/2017, 13:01. FINDINGS: Surgical changes and devices: Sternotomy wires, prior CABG.. Lungs and pleura: Lungs are clear. No pleural effusions or pneumothorax. Mediastinum: Mediastinal contours are normal. Heart size is normal. Bones and chest wall: No suspicious bony abnormalities. Soft tissues appear unremarkable. IMPRESSION: Prior sternotomy and CABG. Source of cough is not found. Dictated by: Carlos Alexander M.D. on 12/10/2018 at 13:22 Approved by: Carlos Alexander M.D. on 12/10/2018 at 13:23
== END ==
PROVIDERS: PCP Internal Medicine; Visit Provider Nurse Practitioner
DX: R05 Cough (principal); Z95.1 Presence of aortocoronary bypass graft
CPT/HCPCS: 71046

== ENCOUNTER 2018-12-27 14:33 | Emergency (ER) | payer MEDICARE, OTHER, SELFPAY ==
[2018-12-27 14:35] VITALS: BP 118/64; PULSE 66; RESP 16; TEMP 36.5; O2SAT 99
--- NOTE | 2018-12-27 14:40 | DI.CT.S_ITS ---
PROCEDURE: CT ABDOMEN PELVIS W CON INDICATIONS: ab pain umbilical area TECHNIQUE: After the administration of intravenous contrast, 5 mm thick sections acquired from the diaphragm to the symphysis. 5 mm coronal and sagittal reformats were acquired. For radiation dose reduction, the following was used: automated exposure control, adjustment of mA and/or kV according to patient size. COMPARISON: [facility], US, US ABDOMEN LIMITED, 12/27/2018, 15:56. [facility], CT, KIDNEY/ URETER/BLADDER, 11/17/2014, 22:57. FINDINGS: Image quality: Excellent. ABDOMEN: Lung bases: Lung bases are clear. Heart size is normal. Solid organs: Liver is normal in size and enhancement. Gallbladder wall is not thickened. Biliary system is non dilated. Pancreas enhances normally. Spleen has been removed. No adrenal nodules. The right kidney is atrophic. There is a nonobstructing 3 mm stone seen within it, as on series 2 image 27. There is mild compensatory hypertrophy of the left kidney. The kidney itself demonstrates an unremarkable appearance. No hydronephrosis is seen. Peritoneum and bowel: There is focal wall thickening with apparent fatty metaplasia seen involving the ascending colon. Bladder wall thickening can be seen involving the splenic flexure of the colon and the descending colon. The junction between the small bowel and the colon is high riding. Please correlate with prior partial colectomy, although no anastomotic staple lines are seen. Bowel thickening also be seen involving the jejunum. No free fluid or air. Diverticulosis is seen, without findings of active diverticulitis. Left mid abdominal clips can be seen, as on series 2 image 32. Nodes and vessels: No retroperitoneal or mesenteric adenopathy by size criteria. Aorta and inferior vena cava are normal in size. Atherosclerotic calcification is noted. Miscellaneous: No ventral hernias. PELVIS: Genitourinary: Bladder wall thickness is normal. Miscellaneous: No inguinal hernias or adenopathy. Bones: No suspicious bony lesions. No vertebral body compression fractures. Moderate levoconvex lumbar scoliosis is seen. Associated degenerative changes are seen. IMPRESSION: Abnormal wall thickening can be seen involving the colon and the small bowel. Please correlate with infectious and inflammatory causes. Postoperative changes are seen, splenectomy. Postoperative clips are also seen within the left abdomen. The junction between the small bowel and the large bowel is high riding. Please correlate with potential prior partial right hemicolectomy. Incidental note is made of: Atrophic right kidney Nonobstructing right kidney stone Moderate levoconvex lumbar scoliosis, with associated degenerative change Dictated by: Hermann Garcia M.D. on 12/27/2018 at 16:03 Approved by: Hermann Garcia M.D. on 12/27/2018 at 16:10
--- NOTE | 2018-12-27 14:46 | ED_ITS ---
HPI - Abdominal Pain General Chief Complaint: Abdominal Pain Stated Complaint: Abdominal pain Time Seen by Provider: 12/27/18 14:40 Source: patient and EMS Mode of arrival: EMS Limitations: no limitations History of Present Illness HPI narrative: Patient is a pleasant 73 year old male with history of CABG, non-Hodgkin's lymphoma, he denies any shortness of breath no vomiting. Who presents with abdominal pain and nausea. Apparently he and his had been sick the end of last month they distress soon better. They went on the 1st psych this morning. At the end he started feeling nauseous and having some pain and discomfort. They went home the pain intensified and EMS was called. He has no radiation into his chest. He denies any vomiting. MD complaint: abdominal pain Onset (ago): minute(s) Pain Consistency: intermittent and now resolved Severity: mild Quality: cramping Related Data Home Medications Medication Instructions Recorded Confirmed ferrous sulfate 325 mg (65 mg 325 mg PO DAILY tab 09/15/17 12/10/18 iron) tablet,delayed release multivitamin with iron-mineral 1 tab PO DAILY 09/15/17 12/10/18 tablet apixaban 5 mg tablet 5 mg PO BID 30 Days #60 tab 02/17/18 12/10/18 magnesium 1 tab PO QPM 05/28/18 12/10/18 ticagrelor [Brilinta] 90 mg PO BID 05/28/18 12/10/18 Previous Rx's Medication Instructions Recorded Disabled Parking #1 each 10/02/17 triamcinolone acetonide 0.1 % 1 applictn TOP BID PRN #80 gram 02/05/18 topical cream fluticasone propionate 50 2 spray NASAL BEDTIME #16 gram 04/27/18 mcg/actuation nasal spray,suspension Massage Therapy #12 each 11/09/18 atorvastatin 40 mg tablet 40 mg PO QPM #90 tab 11/09/18 levothyroxine 100 mcg capsule 100 mcg PO DAILY #90 cap 11/09/18 sotalol 80 mg tablet 80 mg PO BID #60 tab 11/09/18 sertraline 25 mg tablet 25 mg PO BEDTIME #90 tab 12/21/18 Allergies Allergy/AdvReac Type Severity Reaction Status Date / Time Iodinated Contrast- Oral and Allergy Mild UNSURE Verified 12/27/18 15:18 IV Dye [IODINATED CONTRAST MEDIA - IV DYE] prochlorperazine Allergy Mild Hypersensit Verified 12/27/18 15:04 [PROCHLORPERAZINE] ivity finasteride AdvReac Intermediate Dizzy, Verified 12/27/18 15:04 weakness tamsulosin [From Flomax] AdvReac Mild Faints Verified 12/27/18 15:04 Review of Systems Review of Systems GENERAL: Denies chills, fatigue, malaise, fever, sweats, travel HEENT: Denies sinus pain, ear pain, sore throat, difficulty swallowing, neck pain RESPIRATORY: Denies dyspnea, cough, wheezing, hemoptysis, sputum. CARDIOVASCULAR: Denies chest pain, palpitations, orthopnea, edema GASTROINTESTINAL: The he HPI : Denies dysuria, frequency, incontinence, hematuria, urinary retention, flank pain. MUSCULOSKELETAL: Denies weakness, joint pain, or bony pain SKIN: No rash, no erythema, no pruritus NEUROLOGIC: Denies weakness, dizziness, headache, numbness, change in speech, confusion PSYCHIATRIC: No concerning psychosocial issues. 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) Essential hypertension (Resolved) Surgical History S/P CABG (coronary artery bypass graft) (Resolved ~07/2017) S/P parathyroidectomy (Resolved ~06/2014) History of splenectomy (Resolved) Status post tonsillectomy and adenoidectomy (Resolved) Social History marital status: number of children: 2 household members: spouse lives independently: Yes caregiver/support person: Yes housing: house pets and animals: Yes education level: other (PhD) 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, 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[employer]: Non-buddhist travel history: recent () leisure activities: reading and other (Climbing, skiing, writing.) Smoking Status: Never smoker Tobacco: How many years used: 0 quit status: quit date established (Never Started) second hand exposure: Yes (Younger days) alcohol intake: never substance use type: does not use Social History marital status: number of children: 2 household members: spouse lives independently: Yes caregiver/support person: Yes housing: house pets and animals: Yes education level: other (PhD) 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, 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 HEENT: Head atraumatic,EOMI, pupils reactive, face symmetric, CARDIOVASCULAR: Regular rate and rhythm without murmurs, rubs or gallops. RESPIRATORY: Breath sounds equal bilaterally, no wheezes rales or rhonchi. ABDOMEN: Soft, no distention normal bowel sounds tender across the mid abdomen, scar noted from sternum to pelvic EXTREMITIES: Normal range of motion, no clubbing or edema. Neurovascularly intact NEUROLOGICAL: Alert and oriented x4.Normal gait and speech. Cranial nerves II through XII grossly intact. SKIN: Warm, dry, no laceration, no petechiae, no rashes or lesions. Course Orders Ordered: Discontinued Medications Diphenhydramine HCl (Benadryl) 25 mg IV NOW ONE Stop: 12/27/18 15:58 Last Admin: 12/27/18 16:25 Dose: 25 mg Sodium Chloride (Normal Saline 0.9%) 1,000 mls @ 150 mls/hr IV CONT MARY Last Infusion: 12/27/18 18:09 Dose: 0 mls/hr Infusion: 12/27/18 17:21 Dose: 999 mls/hr Admin: 12/27/18 15:30 Dose: 150 mls/hr Methylprednisolone (Solu-Medrol 125 Mg Vial) 125 mg IV NOW ONE Stop: 12/27/18 15:58 Last Admin: 12/27/18 16:24 Dose: 125 mg Vital Signs - 8 hr 12/27/18 14:35 12/27/18 15:30 12/27/18 16:30 Temperature 97.7 F Pulse Rate 66 60 60 Respiratory Rate 16 13 13 Blood Pressure 118/64 Blood Pressure [Left Arm] 103/55 L 112/60 Pulse Oximetry 99 100 100 12/27/18 17:53 Temperature Pulse Rate 63 Respiratory Rate 22 Blood Pressure Blood Pressure [Left Arm] 109/67 Pulse Oximetry 97 MDM - Abdominal Pain Lab Data Attestation: I reviewed the patient's lab results. Result diagrams: 12/27/18 14:15 12/27/18 14:15 Lab Results 12/27/18 12/27/18 Range/Units 14:15 14:15 WBC 8.5 (4.5-11.0) X10^3/uL RBC 3.79 L (4.5-5.9) X10^6/uL Hgb 11.8 L (13.5-17.5) g/dL Hct 34.8 L (41-53) % MCV 92.0 (80-100) fL MCH 31.1 (26-34) PG MCHC 33.8 (30-36) % RDW 14.3 (11.6-14.8) % Plt Count 322 (150-400) X10^3/uL Neut % (Auto) 57.6 (50-75) % Lymph % (Auto) 25.2 (25-40) % [place] % (Auto) 11.5 (3-14) % Eos % (Auto) 5.2 H (2-4) % Baso % (Auto) 0.5 (0-2) % Neut # (Auto) 4900 (1436-8976) /uL Lymph # (Auto) 2100 (0693-4283) /uL [place] # (Auto) 1000 H (0-900) /uL Eos # (Auto) 400 (0-450) /uL Baso # (Auto) 0 (0-100) /uL Sodium 136 L (137-145) mmol/L Potassium 4.2 (3.4-5.1) mmol/L Chloride 103 (98-107) mmol/L Carbon Dioxide 25 (22-32) mmol/L BUN 21 H (9-20) mg/dL Creatinine 0.90 (0.66-1.25) mg/dL Estimated GFR > 60.0 (>60) mL/min BUN/Creatinine Ratio 23.3 H (6-22) Glucose 88 (80-110) mg/dL Calcium 10.1 (8.4-10.2) mg/dL Total Bilirubin 0.9 (0.2-1.3) mg/dL AST 86 H (17-59) IU/L ALT 85 H (21-72) IU/L Alkaline Phosphatase 127 H (38-126) U/L Total Creatine Kinase 33 L (55-170) U/L CK-MB (CK-2) TNP CK-MB (CK-2) Rel Index TNP Troponin I 0.013 (0.01-0.034) ng/mL Total Protein 7.1 (6.3-8.2) g/dL Albumin 4.1 (3.5-5.0) g/dL Globulin 3.0 (1.7-4.1) g/dL Albumin/Globulin Ratio 1.4 (1.0-2.8) Lipase 106 (23-300) U/L Imaging Data US - abdomen: Radiologist's impression: PROCEDURE: US ABDOMEN LIMITED INDICATIONS: RIGHT UPPER QUADRANT PAIN TECHNIQUE: Real-time focused scanning was performed of the abdomen, with image documentation. COMPARISON: [facility], CT, KIDNEY/ URETER/BLADDER, 11/17/2014, 22:57. [facility], US, US ABDOMEN COMPLETE, 05/28/2018, 11:46. FINDINGS: No findings of gallstones or sludge are seen. The gallbladder wall is not thickened, measuring 3 mm or less. No specific pericholecystic fluid is seen. The sonographic Gloria sign is negative. There is no biliary dilatation, the common bile duct measures 4-5 mm. The visualized pancreas is unremarkable. No liver abnormality is seen. The right kidney is not seen. There is known right kidney atrophy. IMPRESSION: The gallbladder demonstrates a normal sonographic appearance. No biliary dilatation is seen. Right kidney atrophy. Dictated by: Hermann Garcia M.D. on 12/27/2018 at 15:42 CT scan - abdomen: Radiologist's impression: PROCEDURE: CT ABDOMEN PELVIS W CON INDICATIONS: ab pain umbilical area TECHNIQUE: After the administration of intravenous contrast, 5 mm thick sections acquired from the diaphragm to the symphysis. 5 mm coronal and sagittal reformats were acquired. For radiation dose reduction, the following was used: automated exposure control, adjustment of mA and/or kV according to patient size. COMPARISON: [facility], US, US ABDOMEN LIMITED, 12/27/2018, 15:56. [facility], CT, KIDNEY/ URETER/BLADDER, 11/17/2014, 22:57. FINDINGS: Image quality: Excellent. ABDOMEN: Lung bases: Lung bases are clear. Heart size is normal. Solid organs: Liver is normal in size and enhancement. Gallbladder wall is not thickened. Biliary system is non dilated. Pancreas enhances normally. Spleen has been removed. No adrenal nodules. The right kidney is atrophic. There is a nonobstructing 3 mm stone seen within it, as on series 2 image 27. There is mild compensatory hypertrophy of the left kidney. The kidney itself demonstrates an unremarkable appearance. No hydronephrosis is seen. Peritoneum and bowel: There is focal wall thickening with apparent fatty metaplasia seen involving the ascending colon. Bladder wall thickening can be seen involving the splenic flexure of the colon and the descending colon. The junction between the small bowel and the colon is high riding. Please correlate with prior partial colectomy, although no anastomotic staple lines are seen. Bowel thickening also be seen involving the jejunum. No free fluid or air. Diverticulosis is seen, without findings of active diverticulitis. Left mid abdominal clips can be seen, as on series 2 image 32. Nodes and vessels: No retroperitoneal or mesenteric adenopathy by size criteria. Aorta and inferior vena cava are normal in size. Atherosclerotic calcification is noted. Miscellaneous: No ventral hernias. PELVIS: Genitourinary: Bladder wall thickness is normal. Miscellaneous: No inguinal hernias or adenopathy. Bones: No suspicious bony lesions. No vertebral body compression fractures. Moderate levoconvex lumbar scoliosis is seen. Associated degenerative changes are seen. IMPRESSION: Abnormal wall thickening can be seen involving the colon and the small bowel. Please correlate with infectious and inflammatory causes. Postoperative changes are seen, splenectomy. Postoperative clips are also seen within the left abdomen. The junction between the small bowel and the large bowel is high riding. Please correlate with potential prior partial right hemicolectomy. Incidental note is made of: Atrophic right kidney Nonobstructing right kidney stone Moderate levoconvex lumbar scoliosis, with associated degenerative change Dictated by: Hermann Garcia M.D. on 12/27/2018 at 16:03 ECG Data Attestation: I personally reviewed and interpreted this ECG as follows: Prior ECG tracings: available for review Interpretation: Sinus rhythm rate [address] changes who weighs noted in inferior leads similar to previous EKGs ST elevations no T-wave inversions MDM Narrative Medical decision making narrative: Patient is not needed any pain medication while in the ED. He is noted to have minor elevations in LFTs ultrasound was ordered and was unremarkable. His CT does show some mild inflammatory changes in the small bowel. However his no leukocytosis he is afebrile. His is asking if they can go to [employer] in for dinner. I recommended something other than that however if he wanted to eat that was fine. Patient states that he is hungry and would like to eat something. Discharge Plan Departure Patient Disposition: Home Clinical Impression: Abdominal pain Qualifiers: Abdominal location: generalized Qualified Code(s): R10.84 - Generalized abdominal pain Discharge Date/Time: 12/27/18 18:10 Interventions: ED Discharge Assessment Last Done: 12/27/18 18:09 Instructions: DI for Abdominal Pain-Adult Activity Restrictions/Additional Instructions: *You have been diagnosed with abdominal pain *What to do: At this time blood work x-ray and ultrasound are reassuring today do have some mild inflammation noted in your small intestine. Recommend increasing fluid intake. *Continue to take medications as directed *Follow up with your primary care provider in 2-3 days *Return to ER if you should have increasing pain inability to tolerate or any new, worsening or concerning symptoms Prescriptions: No Action Disabled Parking Qty: 1 RF: 0 fluticasone propionate 50 mcg/actuation spray,suspension 2 spray NASAL BEDTIME Qty: 16 RF: 11 levothyroxine 100 mcg capsule 100 mcg PO DAILY Qty: 90 RF: 3 sertraline 25 mg tablet 25 mg PO BEDTIME Qty: 90 RF: 3 apixaban 5 mg tablet 5 mg PO BID 30 Days Qty: 60 RF: 0 triamcinolone acetonide 0.1 % cream 1 applictn TOP BID PRN (Reason: rash/itch) Qty: 80 RF: 0 ferrous sulfate 325 mg (65 mg iron) tablet,delayed release (DR/EC) 325 mg PO DAILY RF: 0 multivitamin with iron-mineral tablet 1 tab PO DAILY RF: 0 Massage Therapy Qty: 12 RF: 0 atorvastatin 40 mg tablet 40 mg PO QPM Qty: 90 RF: 3 sotalol 80 mg tablet 80 mg PO BID Qty: 60 RF: 1 ticagrelor [Brilinta] 90 mg tablet 90 mg PO BID RF: 0 magnesium 1 tab PO QPM RF: 0 Referrals: Danyel Schafer MD [Primary Care Provider] -
[2018-12-27 14:50] LABS: Add Manual Diff / Slide Review NO; Basophils Absolute Auto 0 /uL (0-100); Basophils Percent Auto 0.5 % (0-2); Eosinophils Absolute Auto 400 /uL (0-450); Eosinophils Percent Auto 5.2 % (2-4); Hematocrit 34.8 % (41-53); Hemoglobin 11.8 g/dL (13.5-17.5); Lymphocytes Absolute Auto 2100 /uL (1100-4500); Lymphocytes Percent Auto 25.2 % (25-40); Mean Corpuscular HGB Conc 33.8 % (30-36); Mean Corpuscular Hemoglobin 31.1 PG (26-34); Monocytes Absolute Auto 1000 /uL (0-900); Monocytes Percent Auto 11.5 % (3-14); Neutrophils Absolute Auto 4900 /uL (1500-7000); Neutrophils Percent Auto 57.6 % (50-75); Platelet Count 322 X10^3/uL (150-400); Red Blood Cell Count 3.79 X10^6/uL (4.5-5.9); Red Cell Distribution Width 14.3 % (11.6-14.8); White Blood Cell Count 8.5 X10^3/uL (4.5-11.0)
[2018-12-27 15:01] LABS: Alanine Aminotransferase 85 IU/L (21-72); Albumin 4.1 g/dL (3.5-5.0); Albumin Globulin Ratio 1.4 (1.0-2.8); Alkaline Phosphatase 127 U/L (38-126); Aspartate Aminotransferase 86 IU/L (17-59); BUN Creatinine Ratio 23.3 (6-22); Bilirubin Total 0.9 mg/dL (0.2-1.3); Blood Urea Nitrogen 21 mg/dL (9-20); Calcium 10.1 mg/dL (8.4-10.2); Carbon Dioxide 25 mmol/L (22-32); Chloride 103 mmol/L (98-107); Creatine Kinase 33 U/L (55-170); Estimated Glomerular Filt Rate > 60.0 mL/min (>60); Glucose 88 mg/dL (80-110); HEMOLYSIS 21 (0-50); Lipase 106 U/L (23-300); Potassium 4.2 mmol/L (3.4-5.1); Sodium 136 mmol/L (137-145); Total Protein 7.1 g/dL (6.3-8.2)
[2018-12-27 15:13] LABS: Troponin I 0.013 ng/mL (0.01-0.034)
--- NOTE | 2018-12-27 15:28 | DI.US.S_ITS ---
PROCEDURE: US ABDOMEN LIMITED INDICATIONS: RIGHT UPPER QUADRANT PAIN TECHNIQUE: Real-time focused scanning was performed of the abdomen, with image documentation. COMPARISON: [facility], CT, KIDNEY/ URETER/BLADDER, 11/17/2014, 22:57. [facility], US, US ABDOMEN COMPLETE, 05/28/2018, 11:46. FINDINGS: No findings of gallstones or sludge are seen. The gallbladder wall is not thickened, measuring 3 mm or less. No specific pericholecystic fluid is seen. The sonographic Gloria sign is negative. There is no biliary dilatation, the common bile duct measures 4-5 mm. The visualized pancreas is unremarkable. No liver abnormality is seen. The right kidney is not seen. There is known right kidney atrophy. IMPRESSION: The gallbladder demonstrates a normal sonographic appearance. No biliary dilatation is seen. Right kidney atrophy. Dictated by: Hermann Garcia M.D. on 12/27/2018 at 15:42 Approved by: Hermann Garcia M.D. on 12/27/2018 at 15:43
[2018-12-27 15:30] VITALS: BP 103/55; PULSE 60; RESP 13; O2SAT 100
[2018-12-27] MEDS: SODIUM CHLORIDE 0.9% 1,000 ML 150 ML IV (15:30)
[2018-12-27] MEDS: methylPREDNISolone 125 MG/2 ML VIAL IV (16:24)
[2018-12-27] MEDS: diphenhydrAMINE 50 MG/ML VIAL 25 MG IV (16:25)
[2018-12-27 16:30] VITALS: BP 112/60; PULSE 60; RESP 13; O2SAT 100
--- NOTE | 2018-12-27 17:21 | PC.NURSE ---
Increased IV NaCL to 999 mL/hr, per Dr. Bermeo.
[2018-12-27 17:53] VITALS: BP 109/67; PULSE 63; RESP 22; O2SAT 97
== END 2018-12-27 18:10 | disposition home or self-care (01) ==
PROVIDERS: Emergency Provider Emergency Medicine; PCP Internal Medicine
DX: R10.84 Generalized abdominal pain (principal)
CPT/HCPCS: 74177; 76705; 80053; 82550; 83690; 84484; 85025; 93005; 96361; 96374; 96375; 99283; 99285; J1200; J2930; Q9967

== ENCOUNTER → 2019-06-18 11:56 | Outpatient (CLI) | payer MEDICARE, OTHER, SELFPAY ==
[2019-06-18 13:39] LABS: Add Manual Diff / Slide Review NO; Basophils Absolute Auto 100 /uL (0-100); Basophils Percent Auto 1.4 % (0-2); Eosinophils Absolute Auto 400 /uL (0-450); Eosinophils Percent Auto 6.2 % (2-4); Hemoglobin 11.9 g/dL (13.5-17.5); Lymphocytes Absolute Auto 1800 /uL (1100-4500); Lymphocytes Percent Auto 25.8 % (25-40); Mean Corpuscular Hemoglobin 31.4 PG (26-34); Mean Corpuscular Volume 92.5 fL (80-100); Monocytes Absolute Auto 700 /uL (0-900); Monocytes Percent Auto 10.1 % (3-14); Neutrophils Absolute Auto 3900 /uL (1500-7000); Neutrophils Percent Auto 56.5 % (50-75); Platelet Count 325 X10^3/uL (150-400); Red Blood Cell Count 3.79 X10^6/uL (4.5-5.9); Red Cell Distribution Width 14.4 % (11.6-14.8); White Blood Cell Count 6.8 X10^3/uL (4.5-11.0)
[2019-06-18 14:02] LABS: Alanine Aminotransferase 68 IU/L (<50); Albumin 4.1 g/dL (3.5-5.0); Albumin Globulin Ratio 1.6 (1.0-2.8); Alkaline Phosphatase 94 U/L (38-126); Aspartate Aminotransferase 51 IU/L (17-59); BUN Creatinine Ratio 21.8 (6-22); Bilirubin Total 0.7 mg/dL (0.2-1.3); Blood Urea Nitrogen 24 mg/dL (9-20); Calcium 10.3 mg/dL (8.4-10.2); Carbon Dioxide 25 mmol/L (22-32); Chloride 101 mmol/L (98-107); Estimated Glomerular Filt Rate > 60.0 mL/min (>60); Globulin 2.6 g/dL (1.7-4.1); Glucose 85 mg/dL (80-110); HEMOLYSIS < 15 (0-50); Magnesium 1.7 mg/dL (1.6-2.3); Potassium 4.7 mmol/L (3.4-5.1); Sodium 138 mmol/L (137-145); Total Protein 6.7 g/dL (6.3-8.2)
[2019-06-18 14:13] LABS: Free T4, Direct Thyroxine 2.18 ng/dL (0.78-2.19)
[2019-06-18 14:27] LABS: Thyroid Stimulating Hormone < 0.02 uIU/mL (0.47-4.68)
== END ==
PROVIDERS: PCP Internal Medicine; Referring Provider Internal Medicine; Visit Provider Internal Medicine
DX: E03.9 Hypothyroidism, unspecified (principal); E21.3 Hyperparathyroidism, unspecified; E78.2 Mixed hyperlipidemia; E83.52 Hypercalcemia; I25.5 Ischemic cardiomyopathy
CPT/HCPCS: 36415; 80053; 83735; 84439; 84443; 85025

== ENCOUNTER → 2019-09-02 14:18 | Outpatient (CLI) | payer MEDICARE, OTHER, SELFPAY ==
[2019-09-02 17:00] LABS: Add Manual Diff / Slide Review NO; Basophils Absolute Auto 100 /uL (0-100); Basophils Percent Auto 1.3 % (0-2); Eosinophils Absolute Auto 300 /uL (0-450); Hematocrit 33.7 % (41-53); Hemoglobin 11.5 g/dL (13.5-17.5); Lymphocytes Absolute Auto 2200 /uL (1100-4500); Mean Corpuscular Hemoglobin 32.9 PG (26-34); Mean Corpuscular Volume 96.9 fL (80-100); Monocytes Absolute Auto 1000 /uL (0-900); Monocytes Percent Auto 12.7 % (3-14); Neutrophils Absolute Auto 4500 /uL (1500-7000); Platelet Count 288 X10^3/uL (150-400); Red Blood Cell Count 3.48 X10^6/uL (4.5-5.9); Red Cell Distribution Width 15.1 % (11.6-14.8); White Blood Cell Count 8.1 X10^3/uL (4.5-11.0)
[2019-09-02 17:46] LABS: Alanine Aminotransferase 72 IU/L (<50); Albumin 4.5 g/dL (3.5-5.0); Albumin Globulin Ratio 1.8 (1.0-2.8); Alkaline Phosphatase 101 U/L (38-126); Aspartate Aminotransferase 57 IU/L (17-59); BUN Creatinine Ratio 28.8 (6-22); Bilirubin Total 0.8 mg/dL (0.2-1.3); Blood Urea Nitrogen 32 mg/dL (9-20); Calcium 10.1 mg/dL (8.4-10.2); Carbon Dioxide 21 mmol/L (22-32); Chloride 102 mmol/L (98-107); Estimated Glomerular Filt Rate > 60.0 mL/min (>60); Globulin 2.5 g/dL (1.7-4.1); Glucose 71 mg/dL (80-110); HEMOLYSIS < 15 (0-50); Potassium 4.5 mmol/L (3.4-5.1); Sodium 136 mmol/L (137-145)
== END ==
PROVIDERS: PCP Internal Medicine; Referring Provider Internal Medicine; Visit Provider Internal Medicine
DX: I48.0 Paroxysmal atrial fibrillation (principal)
CPT/HCPCS: 36415; 80053; 85025

== ENCOUNTER → 2019-12-01 11:43 | Outpatient (CLI) | payer MEDICARE, OTHER, SELFPAY ==
[2019-12-01 12:29] LABS: Add Manual Diff / Slide Review NO; Basophils Absolute Auto 100 /uL (0-100); Basophils Percent Auto 1.1 % (0-2); Eosinophils Absolute Auto 300 /uL (0-450); Eosinophils Percent Auto 3.3 % (2-4); Hematocrit 38.4 % (41-53); Hemoglobin 12.5 g/dL (13.5-17.5); Lymphocytes Absolute Auto 1500 /uL (1100-4500); Lymphocytes Percent Auto 16.4 % (25-40); Mean Corpuscular HGB Conc 32.7 % (30-36); Mean Corpuscular Hemoglobin 31.2 PG (26-34); Mean Corpuscular Volume 95.4 fL (80-100); Monocytes Absolute Auto 1300 /uL (0-900); Monocytes Percent Auto 14.3 % (3-14); Neutrophils Absolute Auto 6000 /uL (1500-7000); Neutrophils Percent Auto 64.9 % (50-75); Platelet Count 231 X10^3/uL (150-400); Red Blood Cell Count 4.02 X10^6/uL (4.5-5.9); Red Cell Distribution Width 15.6 % (11.6-14.8); White Blood Cell Count 9.3 X10^3/uL (4.5-11.0)
[2019-12-01 13:10] LABS: Alanine Aminotransferase 46 IU/L (<50); Albumin 4.5 g/dL (3.5-5.0); Alkaline Phosphatase 136 U/L (38-126); Aspartate Aminotransferase 52 IU/L (17-59); BUN Creatinine Ratio 34.8 (6-22); Bilirubin Total 0.9 mg/dL (0.2-1.3); Blood Urea Nitrogen 31 mg/dL (9-20); Calcium 10.5 mg/dL (8.4-10.2); Carbon Dioxide 26 mmol/L (22-32); Chloride 102 mmol/L (98-107); Estimated Glomerular Filt Rate > 60.0 mL/min (>60); Globulin 2.3 g/dL (1.7-4.1); Glucose 94 mg/dL (80-110); HEMOLYSIS < 15 (0-50); Potassium 5.2 mmol/L (3.4-5.1); Sodium 135 mmol/L (137-145); Total Protein 6.8 g/dL (6.3-8.2)
[2019-12-01 13:21] LABS: Free T4, Direct Thyroxine 1.75 ng/dL (0.78-2.19)
[2019-12-01 13:35] LABS: Thyroid Stimulating Hormone 0.526 uIU/mL (0.47-4.68)
== END ==
PROVIDERS: PCP Internal Medicine; Referring Provider Internal Medicine; Visit Provider Internal Medicine
DX: D64.9 Anemia, unspecified (principal); E03.9 Hypothyroidism, unspecified; E78.2 Mixed hyperlipidemia; E83.52 Hypercalcemia
CPT/HCPCS: 36415; 80053; 84439; 84443; 85025

== ENCOUNTER → 2020-01-25 12:31 | Outpatient (CLI) | payer MEDICARE, OTHER, SELFPAY ==
--- NOTE | 2020-01-25 12:32 | DI.RAD.S_ITS ---
PROCEDURE: XR CERVICAL SPINE 4V OR 5V INDICATIONS: cervical radiculopathy TECHNIQUE: 5 views of the cervical spine acquired. COMPARISON: None. FINDINGS: Bones: No fractures or dislocations to the C7-T1 level. Oblique images demonstrate bilateral bony foraminal stenosis at C4-5 and C5-6 levels. Soft tissues: No prevertebral soft tissue swelling. IMPRESSION: No acute cervical spine fracture or dislocation. Degenerative disc disease and bilateral facet hypertrophic changes in mid to lower cervical spine with bilateral bony foraminal stenosis at C4-5 and C5-6 levels. Dictated by: Edu Cunningham M.D. on 01/25/2020 at 14:11 Approved by: Edu Cunningham M.D. on 01/25/2020 at 14:12
== END ==
PROVIDERS: PCP Internal Medicine; Referring Provider Physical Medicine & Rehabilitation; Visit Provider Physical Medicine & Rehabilitation
DX: M50.121 Cervical disc disorder at C4-C5 level with radiculopathy (principal); M48.02 Spinal stenosis, cervical region
CPT/HCPCS: 72050

== ENCOUNTER 2020-03-08 17:32 | Emergency (ER) | payer MEDICARE, OTHER, SELFPAY ==
[2020-03-08 17:39] VITALS: BP 112/65; PULSE 68; RESP 18; TEMP 36.4; O2SAT 97
--- NOTE | 2020-03-08 17:53 | DI.RAD.S_ITS ---
PROCEDURE: XR HAND LT MIN 3V INDICATIONS: L hand fall/ 1st metatarsal pain post fall TECHNIQUE: 3 views of the hand(s) acquired. COMPARISON: None. FINDINGS: Bones: No fractures or dislocations. Carpal bones are normally aligned. No suspicious bony lesions. Age-appropriate osteopenia and bony degenerative changes are seen. Soft tissues: No suspicious soft tissue calcifications. Calcification is noted of the distal arteries. This degree of calcification is typically seen in patients with a long-standing history of diabetes. Please correlate with a history of such. IMPRESSION: No displaced fractures are seen. Dictated by: Hermann Garcia M.D. on 03/08/2020 at 17:14 Approved by: Hermann Garcia M.D. on 03/08/2020 at 17:15
--- NOTE | 2020-03-08 17:53 | DI.CT.S_ITS ---
PROCEDURE: CT HEAD/BRAIN WO CON INDICATIONS: Fall on blood thinners TECHNIQUE: Noncontrast 4.5 mm thick angled axial sections acquired from the foramen magnum to the vertex, with coronal and sagittal reformats. For radiation dose reduction, the following was used: automated exposure control, adjustment of mA and/or kV according to patient size. COMPARISON: [facility], MR, BRAIN (IAC) W&WO CONTRAST, 12/23/2014, 8:19. [facility], CT, CT HEAD/BRAIN WO CON, 11/09/2017, 7:33. [facility], CT, CT HEAD/BRAIN WO CON, 11/07/2018, 17:12. FINDINGS: Image quality: Excellent. CSF spaces: Basal cisterns are patent. No extra-axial fluid collections. The ventricles are symmetric in size and shape. Brain: No intracranial bleeds or masses. There is cerebral volume loss for age, with resultant ventricular and sulcal prominence. There are periventricular and deep white matter chronic small vessel ischemic changes. There is intracranial internal carotid artery atherosclerosis. Skull and face: Calvarium and visualized facial bones appear intact, without suspicious lesions. Sinuses: Visualized sinuses and mastoids are clear. IMPRESSION: No acute intracranial hemorrhage is seen. No acute intracranial process is seen. Note is made of age-appropriate brain parenchymal volume loss and chronic small vessel ischemic changes. Dictated by: Hermann Gracia M.D. on 03/08/2020 at 17:15 Approved by: Hermann Garcia M.D. on 03/08/2020 at 17:16
--- NOTE | 2020-03-08 17:55 | ED.HEATRA ---
HPI - Head Injury <Cesia CarterBALDO - Last Filed: 03/08/20 20:37> General Chief complaint: Trauma Stated complaint: Fall, on blood thinners, hit his face Time Seen by Provider: 03/08/20 17:44 Source: patient Mode of arrival: Ambulatory History of Present Illness HPI Narrative: 74yo male with a history of TBI, gait instability, CABG, stage III CKD, TIAs, and currently on Eliquis, presents to the emergency department post fall while walking in the park. Patient states he was walking in the park when he tripped over a curb and fell into the bushes, he states he had his head. Denies any syncope, was able to get up by himself but states he got up slowly due to some pain in his left wrist. He denied any dizziness, chest pain, shortness of breath prior to fall. He denies any dizziness, chest pain, shortness of breath, fevers, chills, cough, fatigue, weakness, or any other concerns post fall. Patient denies any headache or vision changes. Related Data Home Medications Medication Instructions Recorded Confirmed ferrous sulfate 325 mg (65 mg 325 mg PO DAILY tab 09/15/17 02/01/20 iron) tablet,delayed release multivitamin with iron-mineral 1 tab PO DAILY 09/15/17 02/01/20 apixaban 5 mg tablet 5 mg PO BID 30 Days #60 tab 02/17/18 02/01/20 ticagrelor [Brilinta] 90 mg PO BID 05/28/18 02/01/20 coq10 PO DAILY 06/30/19 02/01/20 Previous Rx's Medication Instructions Recorded Disabled Parking #1 each 10/02/17 triamcinolone acetonide 0.1 % 1 applictn TOP BID PRN #80 gram 02/05/18 topical cream Massage Therapy #12 each 11/09/18 sotalol 80 mg tablet 80 mg PO BID #60 tab 11/09/18 fluticasone propionate 50 2 spray NASAL BEDTIME #16 gram 05/31/19 mcg/actuation nasal spray,suspension Massage Therapy #12 each 06/18/19 levothyroxine 88 mcg tablet 88 mcg PO DAILY #90 tab 06/18/19 atorvastatin 40 mg tablet 40 mg PO QPM #90 tab 12/17/19 sertraline 25 mg tablet 25 mg PO BEDTIME #90 tab 01/21/20 Allergies Allergy/AdvReac Type Severity Reaction Status Date / Time Iodinated Contrast Media Allergy Mild UNSURE Verified 02/01/20 15:52 [IODINATED CONTRAST MEDIA - IV DYE] prochlorperazine Allergy Mild Hypersensit Verified 02/01/20 15:52 [PROCHLORPERAZINE] ivity finasteride AdvReac Intermediate Dizzy, Verified 02/01/20 15:52 weakness tamsulosin [From Flomax] AdvReac Mild Faints Verified 02/01/20 15:52 Review of Systems <BALDO Bernabe - Last Filed: 03/08/20 20:37> Review of Systems Narrative: REVIEW OF SYSTEMS: GENERAL: Denies fever or chills. HENT: Reports head trauma, see HPI. CARDIOVASCULAR: No chest pain. RESPIRATORY: No shortness of breath. GASTROINTESTINAL: No nausea, vomiting, diarrhea, or constipation. GENITOURINARY: No flank pain. MUSCULOSKELETAL: Reports left wrist pain, see HPI. INTEGUMENTARY: No rash. NEURO: No numbness, tingling, memory loss, or confusion. PSYCH: No behavior or mood changes. 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) Ischemic cardiomyopathy (Chronic) Mild TBI (traumatic brain injury) (Chronic) Mixed hyperlipidemia (Chronic) Non-Hodgkin's lymphoma (Chronic 03/06/11) Transient cerebral ischemia (Inactive) Vertigo due to cerebrovascular disease (Acute) Surgical History History of splenectomy (Resolved) S/P CABG (coronary artery bypass graft) (Resolved ~07/2017) S/P parathyroidectomy (Resolved ~06/2014) Status post tonsillectomy and adenoidectomy (Resolved) Social History marital status: number of children: 2 household members: spouse lives independently: Yes caregiver/support person: Yes housing: house pets and animals: Yes education level: other occupational status: other 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 travel history: recent leisure activities: reading and other Smoking Status: Former smoker Tobacco: How many years used: 0 quit status: quit date established second hand exposure: Yes (Younger days) alcohol intake: never substance use type: does not use Smoking Status: Former smoker alcohol intake frequency: holidays/special occasions only Substance Use Type: does not use Exam <BALDO Bernabe - Last Filed: 03/08/20 20:37> Initial Vital Signs Initial Vital Signs: Vital Signs Temperature 97.5 F L 03/08/20 17:39 Pulse Rate 68 03/08/20 17:39 Respiratory Rate 18 03/08/20 17:39 Blood Pressure 112/65 03/08/20 17:39 Pulse Oximetry 97 03/08/20 17:39 PHYSICAL EXAMINATION: GENERAL: Well groomed, alert, and cooperative. Answers questions promptly and appropriately. Vital signs noted. HENT: Normocephalic. Superficial abrasion noted to right eyebrow, bleeding controlled without intervention. Slight ecchymosis on the laceration noted. EYES: PERRLA, EOMIs, conjunctiva pink, sclera white, no periorbital swelling. NECK: Full ROM, no midline or spinal tenderness. CARDIOVASCULAR: S1 and S2 sounds normal. Regular rate and rhythm, no murmurs, clicks, or bruits. RESPIRATORY: Normal respiratory rate, trachea midline, airway patent. No stridor, nasal flaring or accessory muscle use. Lungs are clear in all hills without wheeze, rhonchi, or crackles. MUSCULOSKELETAL: Tenderness to radial aspect of left wrist, some bruising noted on 1st metatarsal. 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 No pain with palpation to bilateral shoulders, hips, or ankles. Normal gait and coordination. Equal tone and mass bilaterally. Equal strength bilaterally to upper and lower extremities. No spinal tenderness. EXTREMITIES: CMS intact. Moves all extremities. SKIN: Warm, dry, soft, appropriate color for ethnicity. No lesions, rashes, or wounds to visualized areas. NEURO: Alert and Oriented X 3. GCS: 15. Good coordination. No ataxia, or sensory deficits, or cognitive issues. Cranial Nerves: II: Visual hills grossly intact. III & IV & : EOMIs V: Able to open and close jaw. VII: Facial movements symetrical. Able to close eyelids tightly. VIII: Hearing grossly intact, adequate balance. X: Uvula pronation intact. XI: Patient is able to shrug shoulders. XII: Patient is able to stick out tongue and move it side to side. PSYCH: Appropriate affect and mood. <Juancarlos Garcia DO - Last Filed: 03/08/20 21:32> Initial Vital Signs Initial Vital Signs: Vital Signs Temperature 97.5 F L 03/08/20 17:39 Pulse Rate 68 03/08/20 17:39 Respiratory Rate 18 03/08/20 17:39 Blood Pressure 112/65 03/08/20 17:39 Pulse Oximetry 97 03/08/20 17:39 Scores <BALDO Beranbe - Last Filed: 03/08/20 20:37> GCS Jhonny coma scale eye opening: Spontaneous [place] coma scale verbal response: Orientated Jhonny coma scale motor response: Obey commands Jhonny coma scale total score: 15 Nexus Score for C-Spine Focal Neurologic deficit present: No Midline spinal tenderness present: No Altered level of conciousness present: No Intoxication present: No Distracting Injury Present: No Nexus Criteria for C-spine: 0 Course <BALDO Bernabe - Last Filed: 03/08/20 20:37> Orders Ordered: ED Orders 03/08/20 17:53 CT head/brain wo con Stat XR hand LT min 3V Stat Vital Signs Vital signs: Vital Signs - 8 hr 03/08/20 17:39 03/08/20 18:56 Temperature 97.5 F L Pulse Rate 68 70 Respiratory Rate 18 16 Blood Pressure 112/65 120/78 Pulse Oximetry 97 99 <Juancarlos Garcia DO - Last Filed: 03/08/20 21:32> Orders Ordered: ED Orders 03/08/20 17:53 CT head/brain wo con Stat XR hand LT min 3V Stat Vital Signs Vital signs: Vital Signs - 8 hr 03/08/20 17:39 03/08/20 18:56 Temperature 97.5 F L Pulse Rate 68 70 Respiratory Rate 18 16 Blood Pressure 112/65 120/78 Pulse Oximetry 97 99 MDM - Head Injury <BALDO Bernabe - Last Filed: 03/08/20 20:37> Medical Records Attestation: I reviewed the patient's medical records. Lab Data Attestation: I reviewed the patient's lab results. Imaging Data CT scan - head: Radiologist's Impression: [address] [address] [address] Scan Report Signed Patient: Martínez Edward CMR#: [id number] : 4Acct:[id number] Age/Sex: 74 / MDate of Service: 03/08/20 Loc: ED Accession Number: [id number] Procedure: CT head/brain wo con Ordering Provider: Cesia Carter PROCEDURE: CT HEAD/BRAIN WO CON INDICATIONS: Fall on blood thinners TECHNIQUE: Noncontrast 4.5 mm thick angled axial sections acquired from the foramen magnum to the vertex, with coronal and sagittal reformats. For radiation dose reduction, the following was used: automated exposure control, adjustment of mA and/or kV according to patient size. COMPARISON: Located Within [facility], MR, BRAIN (IAC) W&WO CONTRAST, 12/23/2014, 8:19. Located Within [facility], CT, CT HEAD/BRAIN WO CON, 11/09/2017, 7:33. Located Within [facility], CT, CT HEAD/BRAIN WO CON, 11/07/2018, 17:12. FINDINGS: Image quality: Excellent. CSF spaces: Basal cisterns are patent. No extra-axial fluid collections. The ventricles are symmetric in size and shape. Brain: No intracranial bleeds or masses. There is cerebral volume loss for age, with resultant ventricular and sulcal prominence. There are periventricular and deep white matter chronic small vessel ischemic changes. There is intracranial internal carotid artery atherosclerosis. Skull and face: Calvarium and visualized facial bones appear intact, without suspicious lesions. Sinuses: Visualized sinuses and mastoids are clear. IMPRESSION: No acute intracranial hemorrhage is seen. No acute intracranial process is seen. Note is made of age-appropriate brain parenchymal volume loss and chronic small vessel ischemic changes. Dictated by: Hermann Garcia M.D. on 03/08/2020 at 17:15 Approved by: Hermann Garcia M.D. on 03/08/2020 at 17:16 Extremity x-ray #1: Radiologist's Impression: [address] [address] XRay Report Signed Patient: Martínez Edward CMR#: [id number] : 4Acct:[id number] Age/Sex: 74 / MDate of Service: 03/08/20 Loc: ED Accession Number: [id number] Procedure: XR hand LT min 3V Ordering Provider: Cesia Carter PROCEDURE: XR HAND LT MIN 3V INDICATIONS: L hand fall/ 1st metatarsal pain post fall TECHNIQUE: 3 views of the hand(s) acquired. COMPARISON: None. FINDINGS: Bones: No fractures or dislocations. Carpal bones are normally aligned. No suspicious bony lesions. Age-appropriate osteopenia and bony degenerative changes are seen. Soft tissues: No suspicious soft tissue calcifications. Calcification is noted of the distal arteries. This degree of calcification is typically seen in patients with a long-standing history of diabetes. Please correlate with a history of such. IMPRESSION: No displaced fractures are seen. Dictated by: Hermann Garcia M.D. on 03/08/2020 at 17:14 Approved by: Hermann Garcia M.D. on 03/08/2020 at 17:15 MDM Narrative Medical decision making narrative: 74-year-old male presents emergency department for clear mechanical fall, does report head trauma. Modified trauma was called. Patient's neuro exam is intact, nexus score of 0. Head CT indicated as patient is on blood thinners, negative for any bleeds. Patient is neurological intact without concerning symptoms such as post fall syncope. Left hand pain with palpation and bruising noted, x-ray negative for any fractures, patient has full range of motion of hand and fingers. He was encouraged to follow up with PCP any continued symptoms. Return precautions given for new or worsening symptoms. Patient agreed to plan of care verbalized understanding. Discharge Plan Departure Patient Disposition: Home Clinical Impression: Fall Qualifiers: Encounter type: initial encounter Qualified Code(s): W19.XXXA - Unspecified fall, initial encounter Discharge Date/Time: 03/08/20 18:58 Instructions: How to Prevent Falls Activity Restrictions/Additional Instructions: Thank you for entrusting me with your care today. As discussed, your x-ray and head CT are negative for any concerning findings. Please follow-up with your primary care provider in 1-2 weeks for further evaluation if your symptoms continue. Return emergency department for any new or worsening symptoms. Prescriptions: No Action (DME) Disabled Parking Qty: 1 RF: 0 fluticasone propionate 50 mcg/actuation spray,suspension 2 spray NASAL BEDTIME Qty: 16 RF: 11 levothyroxine 88 mcg tablet 88 mcg PO DAILY Qty: 90 RF: 3 atorvastatin 40 mg tablet 40 mg PO QPM Qty: 90 RF: 3 sertraline 25 mg tablet 25 mg PO BEDTIME Qty: 90 RF: 3 apixaban 5 mg tablet 5 mg PO BID 30 Days Qty: 60 RF: 0 triamcinolone acetonide 0.1 % cream 1 applictn TOP BID PRN (Reason: rash/itch) Qty: 80 RF: 0 ferrous sulfate 325 mg (65 mg iron) tablet,delayed release (DR/EC) 325 mg PO DAILY RF: 0 multivitamin with iron-mineral tablet 1 tab PO DAILY RF: 0 (DME) Massage Therapy Qty: 12 RF: 0 sotalol 80 mg tablet 80 mg PO BID Qty: 60 RF: 1 (DME) Massage Therapy Qty: 12 RF: 0 ticagrelor [Brilinta] 90 mg tablet 90 mg PO BID RF: 0 coq10 PO DAILY RF: 0 Referrals: Danyel Schafer MD [Primary Care Provider] - <Juancarlos Garcia DO - Last Filed: 03/08/20 21:32> Cosign [facility] Attestation: Dr Garcia Co-Sign Statement: I was available for consultation during this patient's emergency department visit. This chart is signed by myself for administrative purposes only. I did not have direct contact with this patient during this visit. They were seen independently by the APC.
[2020-03-08 18:56] VITALS: BP 120/78; PULSE 70; RESP 16; O2SAT 99
== END 2020-03-08 18:58 | disposition home or self-care (01) ==
PROVIDERS: Emergency Provider Nurse Practitioner; PCP Internal Medicine
DX: S09.90XA Unspecified injury of head, initial encounter (principal); M79.642 Pain in left hand; S00.211A Abrasion of right eyelid and periocular area, initial encounter; Z79.01 Long term (current) use of anticoagulants; W19.XXXA Unspecified fall, initial encounter
CPT/HCPCS: 70450; 73130; 99284

== ENCOUNTER → 2020-05-30 12:20 | Outpatient (CLI) | payer MEDICARE, OTHER, SELFPAY ==
[2020-05-30 13:56] LABS: Alanine Aminotransferase 52 IU/L (<50); Albumin 4.8 g/dL (3.5-5.0); Albumin Globulin Ratio 1.7 (1.0-2.8); Alkaline Phosphatase 97 U/L (38-126); Aspartate Aminotransferase 52 IU/L (17-59); BUN Creatinine Ratio 19.8 (6-22); Bilirubin Total 0.7 mg/dL (0.2-1.3); Blood Urea Nitrogen 22 mg/dL (9-20); Calcium 10.4 mg/dL (8.4-10.2); Carbon Dioxide 28 mmol/L (22-32); Chloride 100 mmol/L (98-107); Cholesterol 149 mg/dL (140-199); Estimated Glomerular Filt Rate > 60.0 mL/min (>60); Globulin 2.9 g/dL (1.7-4.1); Glucose 79 mg/dL (80-110); HDL Cholesterol 71 mg/dL (40-60); HEMOLYSIS < 15 (0-50); LDL Cholesterol Calculated 60 mg/dL (<100); Potassium 4.1 mmol/L (3.4-5.1); Sodium 137 mmol/L (137-145); Total Protein 7.7 g/dL (6.3-8.2); Triglycerides 92 mg/dL (35-150)
[2020-05-30 15:24] LABS: Free T4, Direct Thyroxine 1.75 ng/dL (0.78-2.19)
[2020-05-30 15:38] LABS: Thyroid Stimulating Hormone 0.778 uIU/mL (0.47-4.68)
== END ==
PROVIDERS: PCP Internal Medicine; Referring Provider Internal Medicine; Visit Provider Internal Medicine
DX: E03.9 Hypothyroidism, unspecified (principal); E78.2 Mixed hyperlipidemia; E83.52 Hypercalcemia; I25.10 Atherosclerotic heart disease of native coronary artery without angina pectoris; I25.5 Ischemic cardiomyopathy; N18.30 Chronic kidney disease, stage 3 unspecified
CPT/HCPCS: 36415; 80053; 80061; 84439; 84443

== ENCOUNTER → 2020-09-01 14:01 | Outpatient (CLI) | payer MEDICARE, OTHER, SELFPAY ==
--- NOTE | 2020-09-01 14:06 | DI.MRI.S_ITS ---
PROCEDURE: MR HEAD/BRAIN WO CON INDICATIONS: Other specified mental disorders due to known phys TECHNIQUE: Non-contrast axial T1 spin echo, axial T2 fast spin echo, sagittal and axial FLAIR, coronal T2 fast spin echo, axial gradient echo, axial diffusion and ADC through the brain. COMPARISON: MR, BRAIN (IAC) W&WO CONTRAST, 12/23/2014, 8:19. [facility], CT, CT HEAD/BRAIN WO CON, 03/08/2020, 17:57. FINDINGS: Image quality: Excellent. CSF spaces: Ventricles appear symmetric in size and shape. Basal cisterns are patent. No extra-axial fluid collections. Brain: No acute intracranial bleeds or mass effects. There are small foci of low gradient echo signal intensity within the bilateral anterosuperior frontal lobes as well as the right superior frontal parietal lobe junction. There is cerebral volume loss for age. There are periventricular and deep white matter chronic small vessel ischemic changes. Brainstem appears normal. Diffusion-weighted images show no acute ischemic insults. No chronic ischemic insults. Normal intravascular flow voids are present. Skull and face: Calvarial bone marrow is normal in signal. Orbits are normal. Sinuses: Sinuses and mastoids are clear. IMPRESSION: 1. Volume loss and small vessel ischemic disease. 2. No acute process. No recent infarct. 3. Small low gradient echo signal intensity foci within the frontoparietal lobes bilaterally, suggestive of small cavernomas versus regions of microcalcification versus sequelae of early amyloid angiopathy. Dictated by: David Palomo M.D. on 09/01/2020 at 14:57 Approved by: David Palomo M.D. on 09/01/2020 at 15:02
== END ==
PROVIDERS: PCP Internal Medicine; Referring Provider Psychiatry & Neurology Neurology; Visit Provider Psychiatry & Neurology Neurology
DX: F06.8 Other specified mental disorders due to known physiological condition (principal)
CPT/HCPCS: 70551

== ENCOUNTER → 2020-10-27 13:38 | Outpatient (CLI) | payer MEDICARE, OTHER, SELFPAY ==
[2020-10-27 14:38] LABS: Free T4, Direct Thyroxine 1.56 ng/dL (0.78-2.19)
[2020-10-27 14:52] LABS: Thyroid Stimulating Hormone 0.185 uIU/mL (0.47-4.68)
== END ==
PROVIDERS: PCP Internal Medicine; Referring Provider Internal Medicine; Visit Provider Internal Medicine
DX: E03.9 Hypothyroidism, unspecified (principal); I10 Essential (primary) hypertension
CPT/HCPCS: 36415; 84439; 84443

== ENCOUNTER → 2020-11-25 11:00 | Outpatient (CLI) | payer MEDICARE, OTHER, SELFPAY ==
[2020-11-25 12:29] LABS: COVID19 - ADMIT (NP swab/PCR) Negative (Negative)
== END ==
PROVIDERS: PCP Internal Medicine; Visit Provider Physician Assistant
DX: Z01.812 Encounter for preprocedural laboratory examination (principal); Z20.822 Contact with and (suspected) exposure to COVID-19
CPT/HCPCS: C9803; U0003

== ENCOUNTER 2021-01-20 12:34 | Emergency (ER) | payer MEDICARE, OTHER, SELFPAY ==
[2021-01-20 12:49] VITALS: BP 105/62; PULSE 74; RESP 16; TEMP 36.2; O2SAT 97; BMI 20.3
--- NOTE | 2021-01-20 13:11 | ED.GENADULT ---
HPI - General Adult General Chief complaint: Dizziness Stated complaint: Dizzy, Nauseas post surgery on 01/17 Time Seen by Provider: 01/20/21 12:52 Source: patient Mode of arrival: Ambulatory Limitations: no limitations History of Present Illness HPI narrative: Patient is a 75-year-old male. Is on anticoagulation for atrial fibrillation. He states that yesterday he had to ?clips ?placed in his mitral valve. Was discharged home last evening. Was doing well at home. Ate well last evening. Was sitting up in bed this morning drinking some tea when he had a fairly sudden onset of some nausea and then became somewhat lightheaded. He did not pass out. He did vomit small amount. He is here with family. The event lasted approximately 2-3 minutes and then resolved. He had no chest pain. No shortness of breath. No palpitations. He checked his pulse during the time and he stated that it felt very regular to him. Afterwards he had his blood pressure and heart rate checked and he was the systolic in the 120s and heart rate in the 60s to 70s. At the time my evaluation he is completely asymptomatic. He was able to navigate down 16 stairs leaving the home without any problems. They contacted the providers who did the procedure yesterday and he was advised to come to the emergency department for further evaluation. Related Data Home Medications Medication Instructions Recorded Confirmed ferrous sulfate 325 mg (65 mg 325 mg PO DAILY tab 09/15/17 10/30/20 iron) tablet,delayed release multivitamin with iron-mineral 1 tab PO DAILY 09/15/17 10/30/20 apixaban 5 mg tablet 5 mg PO BID 30 Days #60 tab 02/17/18 10/30/20 ticagrelor 90 mg tablet 90 mg PO BID 05/28/18 10/30/20 coq10 PO DAILY 06/30/19 10/30/20 Previous Rx's Medication Instructions Recorded Disabled Parking #1 each 10/02/17 triamcinolone acetonide 0.1 % 1 applictn TOP BID PRN #80 gram 02/05/18 topical cream Massage Therapy #12 each 11/09/18 sotalol 80 mg tablet 80 mg PO BID #60 tab 11/09/18 Massage Therapy #12 each 06/18/19 atorvastatin 40 mg tablet 40 mg PO QPM #90 tab 12/17/19 sertraline 25 mg tablet 25 mg PO BEDTIME #90 tab 01/21/20 levothyroxine 88 mcg tablet 88 mcg PO DAILY #90 tab 05/26/20 fluticasone propionate 50 2 spray NASAL BEDTIME #16 gram 08/04/20 mcg/actuation nasal spray,suspension Allergies Allergy/AdvReac Type Severity Reaction Status Date / Time Iodinated Contrast Media Allergy Mild UNSURE Verified 10/30/20 11:57 [IODINATED CONTRAST MEDIA - IV DYE] prochlorperazine Allergy Mild Hypersensit Verified 10/30/20 11:57 [PROCHLORPERAZINE] ivity finasteride AdvReac Intermediate Dizzy, Verified 10/30/20 11:57 weakness tamsulosin [From Flomax] AdvReac Mild Faints Verified 10/30/20 11:57 Review of Systems Constitutional Constitutional: Denies fever(s) Cardiovascular Cardiovascular: Reports system reviewed and no additional complaints, except as documented Respiratory Respiratory: Reports as per HPI and Reports system reviewed and no additional complaints, except as documented Gastrointestinal Gastrointestinal: Reports as per HPI and Reports system reviewed and no additional complaints, except as documented Genitourinary Genitourinary: Reports system reviewed and no additional complaints, except as documented Musculoskeletal Musculoskeletal: Reports system reviewed and no additional complaints, except as documented Integumentary/Breasts Skin/Breast: Reports system reviewed and no additional complaints, except as documented Neurologic Neurologic: Reports system reviewed and no additional complaints, except as documented Hematologic/Lymphatic On Anticoagulants: No Allergic/Immunologic Allergic/Immunologic: Reports system reviewed and no additional complaints, except as documented Patient History Medical History Acquired hypothyroidism (03/10/15) Cervical radiculopathy Chronic renal failure, stage 3 (moderate) (11/25/14) Coronary arteriosclerosis (~06/2017) Essential hypertension Gait instability Hypercalcemia (12/19/14) Hyperparathyroidism (03/10/15) 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 (11/01/16) Ischemic cardiomyopathy Mild TBI (traumatic brain injury) Mixed hyperlipidemia Non-Hodgkin's lymphoma (03/06/11) Transient cerebral ischemia Vertigo due to cerebrovascular disease Surgical History (Updated 10/30/20 @ 12:17 by Danyel Schafer MD) History of splenectomy S/P CABG (coronary artery bypass graft) (~07/2017) S/P parathyroidectomy (~06/2014) Status post tonsillectomy and adenoidectomy Social History marital status: number of children: 2 household members: spouse lives independently: Yes caregiver/support person: Yes housing: house pets and animals: Yes education level: other occupational status: other 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 travel history: recent leisure activities: reading and other Smoking Status: Never smoker Tobacco: How many years used: 0 quit status: quit date established second hand exposure: Yes (Younger days) alcohol intake: never substance use type: does not use Smoking Status: Never smoker alcohol intake frequency: holidays/special occasions only Substance Use Type: does not use Exam Initial Vital Signs Initial Vital Signs: Vital Signs Temperature 97.2 F L 01/20/21 12:49 Pulse Rate 74 01/20/21 12:49 Respiratory Rate 16 01/20/21 12:49 Blood Pressure 105/62 01/20/21 12:49 Pulse Oximetry 97 01/20/21 12:49 Const General: cooperative, comfortable and well developed HENMT Head: normal to inspection and normocephalic Face and sinus: normal facial exam Eyes General: appearance normal, both eyes and all related structures Chest Chest: normal inspection of the chest Cardio Rate: regular rate Rhythm: regular rhythm GI Inspection: normal to inspection Palpation: soft and No tender Skin Other: Well-healed surgical scars mid abdomen, Neuro General: patient alert, patient awake, patient oriented x3 and moves all extremities Speech: speech normal Gait: normal gait Extrem General: normal to inspection and capillary refill normal Psych Appearance: grossly normal and well kempt Course Orders Ordered: ED Orders 01/20/21 12:40 EKG-12 Lead Routine 01/20/21 13:00 Complete Blood Count AUTO DIFF Stat Comprehensive Metabolic Panel Stat Magnesium Stat Vital Signs Vital signs: Vital Signs - 8 hr 01/20/21 12:49 Temperature 97.2 F L Pulse Rate 74 Respiratory Rate 16 Blood Pressure 105/62 Pulse Oximetry 97 Medical Decision Making Lab Data Lab results reviewed: Yes I reviewed the patient's lab results. Result diagrams: 01/20/21 13:24 01/20/21 13:24 Labs: Lab Results 01/20/21 01/20/21 Range/Units 13:24 13:24 WBC 9.2 (4.5-11.0) X10^3/uL RBC 3.61 L (4.5-5.9) X10^6/uL Hgb 11.6 L (13.5-17.5) g/dL Hct 34.7 L (41-53) % MCV 96.2 (80-100) fL MCH 32.1 (26-34) PG MCHC 33.3 (30-36) % RDW 14.3 (11.6-14.8) % Plt Count 289 (150-400) X10^3/uL Neut % (Auto) 68.6 (50-75) % Lymph % (Auto) 15.4 L (25-40) % [place] % (Auto) 11.2 (3-14) % Eos % (Auto) 3.7 (2-4) % Baso % (Auto) 1.1 (0-2) % Neut # (Auto) 6300 (2061-1599) /uL Lymph # (Auto) 1400 (6042-2688) /uL [place] # (Auto) 1000 H (0-900) /uL Eos # (Auto) 300 (0-450) /uL Baso # (Auto) 100 (0-100) /uL Sodium 134 L (137-145) mmol/L Potassium 4.2 (3.4-5.1) mmol/L Chloride 103 (98-107) mmol/L Carbon Dioxide 24 (22-32) mmol/L BUN 23 H (9-20) mg/dL Creatinine 0.83 (0.66-1.25) mg/dL Estimated GFR > 60.0 (>60) mL/min BUN/Creatinine Ratio 27.7 H (6-22) Glucose 101 (80-110) mg/dL Calcium 9.5 (8.4-10.2) mg/dL Magnesium 1.5 L (1.6-2.3) mg/dL Total Bilirubin 1.0 (0.2-1.3) mg/dL AST 52 (17-59) IU/L ALT 31 (<50) IU/L Alkaline Phosphatase 70 (38-126) U/L Total Protein 6.7 (6.3-8.2) g/dL Albumin 4.1 (3.5-5.0) g/dL Globulin 2.6 (1.7-4.1) g/dL Albumin/Globulin Ratio 1.6 (1.0-2.8) ECG Data Attestation: I personally reviewed and interpreted this ECG as follows: Interpretation: Sinus rhythm Ventricular rate of 70 to Left axis deviation QRS 134 milliseconds Normal QTC No ST T wave changes MDM Narrative Medical decision making narrative: Patient's labs are unremarkable. Has had no symptoms since arrival here in the emergency department. Has had occasional PVCs otherwise no ectopy on his monitor. Unsure the exact etiology the patient's symptoms this morning but he seems of recovered from the symptoms. I will have him continue all of the instructions given to him by the operative provider. He was given return precautions. He expressed understanding and agreement. Discharge Plan Departure Patient Disposition: Home Clinical Impression: Lightheadedness Instructions: DI for Dizziness-Nonvertigo Activity Restrictions/Additional Instructions: Your labs and EKG today are unremarkable. I recommend you continue to take all of your medications as directed and follow all of the instructions given to you by the provider who did the procedure. Contact your primary doctor for follow-up. Return to the emergency department for any new or worsening symptoms Prescriptions: No Action (DME) Disabled Parking Qty: 1 RF: 0 atorvastatin 40 mg tablet 40 mg PO QPM Qty: 90 RF: 3 sertraline 25 mg tablet 25 mg PO BEDTIME Qty: 90 RF: 3 levothyroxine 88 mcg tablet 88 mcg PO DAILY Qty: 90 RF: 3 fluticasone propionate 50 mcg/actuation spray,suspension 2 spray NASAL BEDTIME Qty: 16 RF: 11 apixaban 5 mg tablet 5 mg PO BID 30 Days Qty: 60 RF: 0 triamcinolone acetonide 0.1 % cream 1 applictn TOP BID PRN (Reason: rash/itch) Qty: 80 RF: 0 ferrous sulfate 325 mg (65 mg iron) tablet,delayed release (DR/EC) 325 mg PO DAILY RF: 0 multivitamin with iron-mineral tablet 1 tab PO DAILY RF: 0 (DME) Massage Therapy Qty: 12 RF: 0 sotalol 80 mg tablet 80 mg PO BID Qty: 60 RF: 1 (DME) Massage Therapy Qty: 12 RF: 0 ticagrelor [Brilinta] 90 mg tablet 90 mg PO BID RF: 0 coq10 PO DAILY RF: 0 Referrals: Danyel Schafer MD [Primary Care Provider] -
[2021-01-20 13:49] LABS: Alanine Aminotransferase 31 IU/L (<50); Albumin 4.1 g/dL (3.5-5.0); Albumin Globulin Ratio 1.6 (1.0-2.8); Alkaline Phosphatase 70 U/L (38-126); Aspartate Aminotransferase 52 IU/L (17-59); BUN Creatinine Ratio 27.7 (6-22); Blood Urea Nitrogen 23 mg/dL (9-20); Calcium 9.5 mg/dL (8.4-10.2); Carbon Dioxide 24 mmol/L (22-32); Chloride 103 mmol/L (98-107); Estimated Glomerular Filt Rate > 60.0 mL/min (>60); Globulin 2.6 g/dL (1.7-4.1); Glucose 101 mg/dL (80-110); HEMOLYSIS < 15 (0-50); Magnesium 1.5 mg/dL (1.6-2.3); Potassium 4.2 mmol/L (3.4-5.1); Sodium 134 mmol/L (137-145); Total Protein 6.7 g/dL (6.3-8.2)
[2021-01-20 13:59] LABS: Add Manual Diff / Slide Review NO; Basophils Absolute Auto 100 /uL (0-100); Basophils Percent Auto 1.1 % (0-2); Eosinophils Absolute Auto 300 /uL (0-450); Eosinophils Percent Auto 3.7 % (2-4); Hematocrit 34.7 % (41-53); Hemoglobin 11.6 g/dL (13.5-17.5); Lymphocytes Absolute Auto 1400 /uL (1100-4500); Lymphocytes Percent Auto 15.4 % (25-40); Mean Corpuscular HGB Conc 33.3 % (30-36); Mean Corpuscular Hemoglobin 32.1 PG (26-34); Mean Corpuscular Volume 96.2 fL (80-100); Monocytes Absolute Auto 1000 /uL (0-900); Monocytes Percent Auto 11.2 % (3-14); Neutrophils Absolute Auto 6300 /uL (1500-7000); Neutrophils Percent Auto 68.6 % (50-75); Platelet Count 289 X10^3/uL (150-400); Red Blood Cell Count 3.61 X10^6/uL (4.5-5.9); Red Cell Distribution Width 14.3 % (11.6-14.8); White Blood Cell Count 9.2 X10^3/uL (4.5-11.0)
[2021-01-20 14:44] VITALS: BP 121/68; PULSE 63; RESP 16; O2SAT 96
== END 2021-01-20 14:59 | disposition home or self-care (01) ==
PROVIDERS: Emergency Provider Emergency Medicine; PCP Internal Medicine
DX: R42 Dizziness and giddiness (principal); R11.2 Nausea with vomiting, unspecified
CPT/HCPCS: 36415; 80053; 83735; 85025; 93005; 99283; 99284

== ENCOUNTER → 2021-07-23 12:11 | Outpatient (CLI) | payer MEDICARE, OTHER, SELFPAY ==
[2021-07-23 14:01] LABS: Add Manual Diff / Slide Review NO; Basophils Absolute Auto 100 /uL (0-100); Basophils Percent Auto 1.2 % (0-2); Eosinophils Absolute Auto 600 /uL (0-450); Eosinophils Percent Auto 6.6 % (2-4); Hematocrit 31.2 % (41-53); Hemoglobin 10.5 g/dL (13.5-17.5); Lymphocytes Absolute Auto 1100 /uL (1100-4500); Lymphocytes Percent Auto 12.5 % (25-40); Mean Corpuscular HGB Conc 33.8 % (30-36); Mean Corpuscular Hemoglobin 31.1 PG (26-34); Mean Corpuscular Volume 92.1 fL (80-100); Monocytes Absolute Auto 900 /uL (0-900); Monocytes Percent Auto 10.6 % (3-14); Neutrophils Absolute Auto 6100 /uL (1500-7000); Neutrophils Percent Auto 69.1 % (50-75); Platelet Count 300 X10^3/uL (150-400); Red Blood Cell Count 3.38 X10^6/uL (4.5-5.9); Red Cell Distribution Width 15.2 % (11.6-14.8); White Blood Cell Count 8.8 X10^3/uL (4.5-11.0)
[2021-07-23 15:11] LABS: Alanine Aminotransferase 24 IU/L (<50); Albumin 4.3 g/dL (3.5-5.0); Albumin Globulin Ratio 1.4 (1.0-2.8); Alkaline Phosphatase 75 U/L (38-126); Aspartate Aminotransferase 41 IU/L (17-59); BUN Creatinine Ratio 23.2 (6-22); Bilirubin Total 0.8 mg/dL (0.2-1.3); Blood Urea Nitrogen 23 mg/dL (9-20); Calcium 9.9 mg/dL (8.4-10.2); Carbon Dioxide 23 mmol/L (22-32); Chloride 105 mmol/L (98-107); Estimated Glomerular Filt Rate > 60.0 mL/min (>60); Glucose 85 mg/dL (80-110); HEMOLYSIS < 15 (0-50); Potassium 4.8 mmol/L (3.4-5.1); Sodium 137 mmol/L (137-145); Total Protein 7.3 g/dL (6.3-8.2)
[2021-07-23 15:25] LABS: Free T4, Direct Thyroxine 1.87 ng/dL (0.78-2.19)
[2021-07-23 15:39] LABS: Thyroid Stimulating Hormone 0.644 uIU/mL (0.47-4.68)
== END ==
PROVIDERS: PCP Internal Medicine; Referring Provider Internal Medicine; Visit Provider Internal Medicine
DX: E03.9 Hypothyroidism, unspecified (principal); E78.2 Mixed hyperlipidemia; I25.5 Ischemic cardiomyopathy
CPT/HCPCS: 36415; 80053; 84439; 84443; 85025

== ENCOUNTER → 2021-09-07 11:32 | Outpatient (CLI) | payer MEDICARE, OTHER, SELFPAY ==
--- NOTE | 2021-09-07 11:36 | DI.RAD.S_ITS ---
PROCEDURE: XR CERVICAL SPINE 4V OR 5V INDICATIONS: NECK PAIN TECHNIQUE: 5 views of the cervical spine acquired. COMPARISON: [facility], CR, XR CERVICAL SPINE 4V OR 5V, 01/25/2020, 12:35. FINDINGS: Bones: No fractures or dislocations to the T1 level. Disc space narrowing and hypertrophic facet joints noted in the mid cervical spine. Craniovertebral relationships normal. Oblique images show mild to moderate foraminal stenosis on the right at C3-4, C4-5 and on the left at C3-4 Soft tissues: No prevertebral soft tissue swelling. IMPRESSION: Multilevel degenerative disc disease and arthropathy in the mid cervical spine with [id number] foraminal stenosis Approved by: Hilario Ramirez M.D. on 09/07/2021 at 12:33
== END ==
PROVIDERS: PCP Internal Medicine; Referring Provider Physical Medicine & Rehabilitation; Visit Provider Physical Medicine & Rehabilitation
DX: M47.22 Other spondylosis with radiculopathy, cervical region (principal); M50.10 Cervical disc disorder with radiculopathy, unspecified cervical region; M48.02 Spinal stenosis, cervical region
CPT/HCPCS: 72050

== ENCOUNTER 2021-10-03 12:30 | Outpatient (RCR) | payer MEDICARE, OTHER, SELFPAY | END 2021-10-03 14:30 | LOC: CAR 12:30 | PROVIDERS: PCP Internal Medicine; Referring Provider Student in an Organized Health Care Education/Training Program; Visit Provider Student in an Organized Health Care Education/Training Program | DX: Z98.890 Other specified postprocedural states (principal) | CPT/HCPCS: 93798 ==

== ENCOUNTER → 2022-03-22 11:02 | Outpatient (CLI) | payer MEDICARE, OTHER, SELFPAY ==
[2022-03-22 11:59] LABS: Add Manual Diff / Slide Review NO; Basophils Absolute Auto 100 /uL (0-100); Basophils Percent Auto 1.2 % (0-2); Eosinophils Absolute Auto 400 /uL (0-450); Hematocrit 32.5 % (41-53); Hemoglobin 11.1 g/dL (13.5-17.5); Lymphocytes Absolute Auto 1800 /uL (1100-4500); Lymphocytes Percent Auto 23.8 % (25-40); Mean Corpuscular Hemoglobin 30.8 PG (26-34); Mean Corpuscular Volume 90.7 fL (80-100); Monocytes Absolute Auto 600 /uL (0-900); Monocytes Percent Auto 8.3 % (3-14); Neutrophils Absolute Auto 4700 /uL (1500-7000); Neutrophils Percent Auto 61.7 % (50-75); Platelet Count 342 X10^3/uL (150-400); Red Blood Cell Count 3.59 X10^6/uL (4.5-5.9); Red Cell Distribution Width 15.4 % (11.6-14.8); White Blood Cell Count 7.6 X10^3/uL (4.5-11.0)
[2022-03-22 13:32] LABS: HEMOLYSIS < 15 (0-50); Iron 61 ug/dL (49-181)
[2022-03-22 13:39] LABS: Alanine Aminotransferase 27 IU/L (<50); Albumin 4.2 g/dL (3.5-5.0); Albumin Globulin Ratio 1.6 (1.0-2.8); Alkaline Phosphatase 83 U/L (38-126); Aspartate Aminotransferase 32 IU/L (17-59); BUN Creatinine Ratio 19.2 (6-22); Bilirubin Total 0.7 mg/dL (0.2-1.3); Blood Urea Nitrogen 19 mg/dL (9-20); Calcium 9.4 mg/dL (8.4-10.2); Carbon Dioxide 24 mmol/L (22-32); Chloride 103 mmol/L (98-107); Estimated Glomerular Filt Rate > 60 mL/min (>60); Globulin 2.7 g/dL (1.7-4.1); Glucose 104 mg/dL (80-110); HEMOLYSIS < 15 (0-50); Potassium 4.4 mmol/L (3.4-5.1); Sodium 138 mmol/L (137-145); Total Protein 6.9 g/dL (6.3-8.2)
[2022-03-22 13:44] LABS: Percent Iron Saturation 15 % (20-50); Total Iron Binding Capacity 406 ug/dL (261-462); Transferrin 318 mg/dL (206-381)
[2022-03-22 14:04] LABS: Thyroid Stimulating Hormone 0.068 uIU/mL (0.47-4.68)
[2022-03-22 14:24] LABS: Vitamin B12 407 pg/mL (239-931)
== END ==
PROVIDERS: PCP Internal Medicine; Referring Provider Internal Medicine; Visit Provider Internal Medicine
DX: D64.9 Anemia, unspecified (principal); E03.9 Hypothyroidism, unspecified; E78.2 Mixed hyperlipidemia; I25.10 Atherosclerotic heart disease of native coronary artery without angina pectoris; I25.5 Ischemic cardiomyopathy
CPT/HCPCS: 36415; 80053; 82607; 83540; 83550; 84439; 84443; 85025

== ENCOUNTER → 2022-05-07 11:45 | Outpatient (CLI) | payer MEDICARE, OTHER, SELFPAY ==
--- NOTE | 2022-05-07 | DI.RAD.S_ITS ---
PROCEDURE: XR HUMERUS LT 2V INDICATIONS: LEFT ELBOW PAIN, FRACTURE TECHNIQUE: 2 views of the humerus were acquired. COMPARISON: None. FINDINGS: Bones: No fractures or dislocations. No suspicious bony lesions. Soft tissues: No suspicious soft tissue calcifications. IMPRESSION: No fracture. No acute osseous lesion. If symptoms and/or clinical suspicion for pathology persists, further assessment with repeat radiographs (7-10 days) or advanced imaging (e.g. CT, MRI or bone scan) should be considered. Dictated by: Mi Rincon MD, PhD on 05/07/2022 at 13:33 Approved by: Mi Rincon MD, PhD on 05/07/2022 at 13:34
== END ==
PROVIDERS: PCP Internal Medicine; Referring Provider Family Medicine; Visit Provider Family Medicine
DX: M25.522 Pain in left elbow (principal)
CPT/HCPCS: 73060

== ENCOUNTER → 2022-05-21 13:43 | Outpatient (CLI) | payer MEDICARE, OTHER, SELFPAY ==
--- NOTE | 2022-05-21 | DI.MRI.S_ITS ---
PROCEDURE: MR HUMERUS LT WO CON INDICATIONS: Strain of muscle, fascia and tendon of left triceps TECHNIQUE: Noncontrast coronal and sagittal T1 spin echo and STIR; axial T1 spin echo and T2 fast spin echo with fat saturation through the left upper arm. COMPARISON: [facility], CR, XR SHOULDER LT MIN 2V, 08/04/2018, 19:00. [facility], CR, XR HUMERUS LT 2V, 05/07/2022, 12:11. FINDINGS: Image quality: Excellent. Bones: Heterogeneously T2 hyperintense signal within proximal to mid humeral shaft is seen with fairly homogeneously T2 hyperintense and T1 hypointense marrow signal involving 13.4 cm segment of mid to distal humeral shaft medullary space. There is mild cortical thickening throughout humeral shaft without cortical disruption. No definite periosteal reaction is seen. Soft tissues: There is lobulated T1 hypointense and T2 hyperintense signal along mid to distal humeral shaft measures approximately 15.6 cm in craniocaudal dimension, 3.9 x 4.4 cm in size in largest transverse and AP dimension deep to the upper arm muscles. There is no evidence of full-thickness muscle or tendon rupture. No other area of abnormal soft tissue signal abnormality is seen. IMPRESSION: 1. Heterogeneously T2 hyperintense marrow signal throughout humeral shaft particularly involving mid to distal 13.4 cm segment of humeral shaft with adjacent soft tissue ill-defined lobulated T2 hyperintense signal deep to the upper arm muscles highly concerning for infiltrative malignant process related to patient's history of lymphoma. Consider biopsy of this area for more definitive diagnosis. 2. No evidence of acute fracture or dislocation. No other muscle or tendon signal abnormalities. Dictated by: Edu Cunningham M.D. on 05/21/2022 at 16:07 Approved by: Edu Cunningham M.D. on 05/21/2022 at 16:14
== END ==
PROVIDERS: PCP Internal Medicine; Referring Provider Internal Medicine; Visit Provider Orthopaedic Surgery
DX: S46.312A Strain of muscle, fascia and tendon of triceps, left arm, initial encounter (principal); X58.XXXA Exposure to other specified factors, initial encounter
CPT/HCPCS: 73218

== ENCOUNTER 2022-11-01 17:18 | Emergency (ER) | payer MEDICARE, OTHER, SELFPAY ==
[2022-11-01 17:25] VITALS: BP 106/64; PULSE 89; RESP 18; TEMP 36.6; O2SAT 97; BMI 20.9
[2022-11-01] MEDS: SODIUM CHLORIDE 0.9% 1,000 ML 1000 ML IV (17:38)
[2022-11-01 18:24] VITALS: BP 118/63; PULSE 89; RESP 16; O2SAT 97
[2022-11-01 19:30] VITALS: BP 119/58; PULSE 94; RESP 20; O2SAT 95
[2022-11-01 19:40] LABS: Basophils Absolute Auto 100 /uL (0-100); Basophils Percent Auto 1.2 % (0-2); Eosinophils Absolute Auto 200 /uL (0-450); Eosinophils Percent Auto 4.5 % (2-4); Hematocrit 43.8 % (41-53); Hemoglobin 14.5 g/dL (13.5-17.5); Lymphocytes Absolute Auto 100 /uL (1100-4500); Lymphocytes Percent Auto 2.4 % (25-40); Mean Corpuscular HGB Conc 33.2 % (30-36); Mean Corpuscular Hemoglobin 29.7 PG (26-34); Mean Corpuscular Volume 89.5 fL (80-100); Monocytes Absolute Auto 700 /uL (0-900); Monocytes Percent Auto 13.4 % (3-14); Neutrophils Absolute Auto 4100 /uL (1500-7000); Neutrophils Percent Auto 78.5 % (50-75); Platelet Count 130 X10^3/uL (150-400); Red Blood Cell Count 4.89 X10^6/uL (4.5-5.9); White Blood Cell Count 5.2 X10^3/uL (4.5-11.0)
[2022-11-01 19:45] LABS: Add Manual Diff / Slide Review SLIDE REVIEW; Platelet Estimate Adeq
[2022-11-01 19:46] LABS: Acanthocytes 1+
[2022-11-01 19:49] LABS: Alanine Aminotransferase 39 IU/L (<50); Albumin 3.5 g/dL (3.5-5.0); Albumin Globulin Ratio 1.1 (1.0-2.8); Alkaline Phosphatase 125 U/L (38-126); Aspartate Aminotransferase 36 IU/L (17-59); BUN Creatinine Ratio 17.5 (6-22); Bilirubin Total 0.9 mg/dL (0.2-1.3); Blood Urea Nitrogen 17 mg/dL (9-20); Calcium 8.6 mg/dL (8.4-10.2); Carbon Dioxide 26 mmol/L (22-32); Chloride 100 mmol/L (98-107); Estimated Glomerular Filt Rate > 60 mL/min (>60); Globulin 3.2 g/dL (1.7-4.1); Glucose 115 mg/dL (80-110); HEMOLYSIS < 15 (0-50); Lipase 99 U/L (23-300); Potassium 3.9 mmol/L (3.4-5.1); Sodium 133 mmol/L (137-145); Total Protein 6.7 g/dL (6.3-8.2)
[2022-11-01 20:00] VITALS: BP 122/63; PULSE 92; RESP 20; TEMP 36.5; O2SAT 94
--- NOTE | 2022-11-01 20:52 | PC.NURSE ---
Pt able to walk to the bathroom with one person assist to help steady himself. After walking 20ft to the bathroom pt reports feeling terrible. Pt denied feeling dizzy or syncopal and described it more as a weakness. Sitting HR 95, walking HR110. SpO2 unchanged while walking at 95% RA.
[2022-11-01 21:00] VITALS: BP 110/69; PULSE 90; RESP 20; O2SAT 94
[2022-11-01 21:15] LABS: Bacteria Urine None Seen; Calcium Oxalate Crystals Urine Few; Granular Casts Urine 1-5/LPF; Hyaline Casts Urine 5-10/LPF; RBC Urine 0-1/HPF (0-5/HPF); Red Blood Cell Casts Urine 0-1/LPF; Squamous Epithelial Cell Urine 0-1 /HPF (0-5/HPF); Transitional Epi Cells Urine 0-1/HPF (0-5/HPF); WBC Urine 0-1/HPF (0-5/HPF)
--- NOTE | 2022-11-01 21:32 | ED.WEAKNESS ---
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 Had chemotherapy last week he has side effect of diarrhea from chemotherapy. reports that they started taking Imodium reports that the diarrhea his much improved but he has very poor intake. Today they were on a [facility] health appointment when he got extremely weak. He was found to be hypotensive with a blood pressure of 80/60 per EMS. He denies any fever or chills. Has a history of chronic congestive heart failure he denies any chest pain or shortness breath. No abdominal pain nausea or vomiting. Related Data Home Medications Medication Instructions Recorded Confirmed apixaban 5 mg tablet 5 mg PO BID 30 days #60 tabs 02/17/18 07/22/22 ticagrelor 90 mg tablet 90 mg PO BID 05/28/18 07/22/22 coq10 PO DAILY 06/30/19 07/22/22 multivitamin with iron 1 tab PO DAILY 09/12/21 07/22/22 Previous Rx's Medication Instructions Recorded Massage Therapy #12 ea 11/09/18 sotalol 80 mg tablet 80 mg PO BID #60 tabs 11/09/18 Massage Therapy #12 ea 06/18/19 sertraline 25 mg tablet 25 mg PO BEDTIME #90 tabs 02/25/22 fluticasone propionate 50 2 spray intranasal BEDTIME #16 04/11/22 mcg/actuation nasal grams spray,suspension cetirizine 10 mg tablet (Zyrtec) 10 mg PO DAILY PRN allergy 05/07/22 symptoms #90 tabs triamcinolone acetonide 0.1 % 1 applic topical BID PRN rash/itch 05/07/22 topical cream #80 grams atorvastatin 40 mg tablet 40 mg PO QPM #90 tabs 05/14/22 levothyroxine 88 mcg tablet 88 mcg PO DAILY #90 tabs 05/14/22 gabapentin 300 mg capsule 300 mg PO TID #360 caps 07/22/22 [address]ing #1 ea 09/24/22 Allergies Allergy/AdvReac Type Severity Reaction Status Date / Time Iodinated Contrast Media Allergy Mild UNSURE Verified 11/01/22 17:30 [IODINATED CONTRAST MEDIA - IV DYE] prochlorperazine Allergy Mild Hypersensit Verified 11/01/22 17:30 [PROCHLORPERAZINE] ivity finasteride AdvReac Intermediate Dizzy, Verified 11/01/22 17:30 weakness tamsulosin [From Flomax] AdvReac Mild Faints Verified 11/01/22 17:30 Review of Systems Review of Systems ROS Unobtainable: All systems reviewed & are unremarkable except as noted in HPI and below Patient History Medical History Acquired hypothyroidism (03/10/15) Anemia Cervical radiculopathy Chronic renal failure, stage 3 (moderate) (11/25/14) Coronary arteriosclerosis (~06/2017) Essential hypertension Gait instability Hypercalcemia (12/19/14) Hyperparathyroidism (03/10/15) 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 (11/01/16) Ischemic cardiomyopathy Mild TBI (traumatic brain injury) Mitral regurgitation Mixed hyperlipidemia Non-Hodgkin's lymphoma (03/06/11) SBE (subacute bacterial endocarditis) prophylaxis candidate Transient cerebral ischemia Tricuspid regurgitation Surgical History History of splenectomy S/P CABG (coronary artery bypass graft) (~07/2017) S/P parathyroidectomy (~06/2014) Status post tonsillectomy and adenoidectomy Social History marital status: number of children: 2 household members: spouse lives independently: Yes caregiver/support person: Yes housing: house pets and animals: Yes education level: other occupational status: other 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 travel history: recent leisure activities: reading and other Smoking Status: Never smoker Tobacco: How many years used: 0 quit status: quit date established second hand exposure: Yes (Younger days) alcohol intake: never substance use type: does not use Smoking Status: Never smoker alcohol intake frequency: holidays/special occasions only Substance Use Type: does not use Exam Initial Vital Signs Initial Vital Signs: Vital Signs Temperature 97.9 F 11/01/22 17:25 Pulse Rate 89 11/01/22 17:25 Respiratory Rate 18 11/01/22 17:25 Blood Pressure 106/64 11/01/22 17:25 Pulse Oximetry 97 11/01/22 17:25 Oxygen Delivery Method Room Air 11/01/22 17:25 GENERAL: 77 year old patient appears stated age. Chronically ill HEAD: Atraumatic. Normocephalic. EYES: Pupils equal round and reactive. Extraocular motions intact. NECK: Trachea midline. Non tender CARDIOVASCULAR: Regular rate and rhythm without murmurs, gallops, or rubs. RESPIRATORY: Clear to auscultation. Breath sounds equal bilaterally. No wheezes, rales, or rhonchi. GASTROINTESTINAL: Abdomen soft, non-tender, nondistended. EXTREMITIES: No edema or joint tenderness. BACK: Nontender without deformity or crepitance. No flank tenderness. NEURO: AOx3. Generally weak moving all extremities SKIN: No rash or erythema of visible areas Course Orders Ordered: ED Orders 11/01/22 20:46 Urine Culture Stat Urine Microscopic Stat Discontinued Medications Sodium Chloride (Normal Saline 0.9%) 1,000 mls @ 1,000 mls/hr IV BOLUS ONE Stop: 11/01/22 18:37 Last Infusion: 11/01/22 18:43 Dose: 0 mls/hr Documented By: Admin: 11/01/22 17:38 Dose: 1,000 mls/hr Documented By: CTS Vital Signs Vital signs: Vital Signs - 8 hr 11/01/22 22:07 Pulse Rate 89 Respiratory Rate 18 Blood Pressure 112/67 Pulse Oximetry 98 Oxygen Delivery Method Room Air MDM - Weakness Lab Data 11/01/22 19:22 11/01/22 19:22 Labs: Lab Results 11/01/22 11/01/22 11/01/22 Range/Units 19:22 19:22 20:46 WBC 5.2 (4.5-11.0) X10^3/uL RBC 4.89 (4.5-5.9) X10^6/uL Hgb 14.5 (13.5-17.5) g/dL Hct 43.8 (41-53) % MCV 89.5 (80-100) fL MCH 29.7 (26-34) PG MCHC 33.2 (30-36) % RDW 18.0 H (11.6-14.8) % Plt Count 130 L (150-400) X10^3/uL Neut % (Auto) 78.5 H (50-75) % Lymph % (Auto) 2.4 L (25-40) % [place] % (Auto) 13.4 (3-14) % Eos % (Auto) 4.5 H (2-4) % Baso % (Auto) 1.2 (0-2) % Neut # (Auto) 4100 (4020-0226) /uL Lymph # (Auto) 100 L (8755-4009) /uL [place] # (Auto) 700 (0-900) /uL Eos # (Auto) 200 (0-450) /uL Baso # (Auto) 100 (0-100) /uL Platelet Estimate Adeq Plt Morphology Comment RBC Morphology See below Acanthocytes (Spur) 1+ Sodium 133 L (137-145) mmol/L Potassium 3.9 (3.4-5.1) mmol/L Chloride 100 (98-107) mmol/L Carbon Dioxide 26 (22-32) mmol/L BUN 17 (9-20) mg/dL Creatinine 0.97 (0.66-1.25) mg/dL Estimated GFR > 60 (>60) mL/min BUN/Creatinine Ratio 17.5 (6-22) Glucose 115 H (80-110) mg/dL Calcium 8.6 (8.4-10.2) mg/dL Total Bilirubin 0.9 (0.2-1.3) mg/dL AST 36 (17-59) IU/L ALT 39 (<50) IU/L Alkaline Phosphatase 125 (38-126) U/L Total Protein 6.7 (6.3-8.2) g/dL Albumin 3.5 (3.5-5.0) g/dL Globulin 3.2 (1.7-4.1) g/dL Albumin/Globulin Ratio 1.1 (1.0-2.8) Lipase 99 (23-300) U/L Urine RBC 0-1/hpf (0-5/HPF) Urine WBC 0-1/hpf (0-5/HPF) Ur Squamous Epith Cells 0-1 /hpf (0-5/HPF) Ur Transition Epith Cell 0-1/hpf (0-5/HPF) Calcium Oxalate Crystal Few H Urine Bacteria None seen (None) Hyaline Casts 5-10/lpf (None) Granular Casts 1-5/lpf (None) RBC Casts 0-1/lpf (None) Micro UA Comment Few oval fat bodies Urine Dip Bedside Urine Glucose Negative Bedside Urine Ketone - Negative Urine Specific [place] 1.015 Bedside Urine Occult Blood - Negative Bedside Urine pH 6.0 Bedside Urine Protein +/- 15 Bedside Urine Urobilinogen - Negative Bedside Urine Nitrite - Negative Bedside Urine Leukocytes - Negative Esterase MDM Narrative Medical decision making narrative: Patient 77-year-old male with large B-cell lymphoma currently on chemotherapy presenting today with weakness and hypotension. He is feeling better after 1 L of fluid. Blood work of are reassuring without significant sign of dehydration creatinine within normal limits no electrolyte abnormality. He is not febrile no leukocytosis. All closely with oncology in [place] and locally. At this time he is drinking juice. He ambulated in the ED mild tachycardia but overall needed minimal assistance. Discharge Plan Departure Patient Disposition: Home Clinical Impression: Dehydration Instructions: DI for Dehydration -- Adult Activity Restrictions/Additional Instructions: *You have been diagnosed with dehydration *What to do: Increase fluid as tolerated, recommend Pedialyte or Pedialyte like product, juice broth, Jell-O, protein shake. *Continue to take medications as directed *Follow up with your primary care provider in 2-3 days or call [phone] *Return to ER if you should have increasing weakness dizziness lightheadedness [or] any new, worsening or concerning symptoms Prescriptions: No Action sertraline 25 mg tablet 25 mg PO BEDTIME Qty: 90 2RF fluticasone propionate 50 mcg/actuation spray,suspension 2 spray NASAL BEDTIME Qty: 16 11RF Rx Instructions: administer into each nostril atorvastatin 40 mg tablet 40 mg PO QPM Qty: 90 3RF levothyroxine 88 mcg tablet 88 mcg PO DAILY Qty: 90 3RF (DME) Disabled Parking Qty: 1 0RF Rx Instructions: Patient qualifies for disabled parking as per the attached form. apixaban 5 mg tablet 5 mg PO BID 30 Days Qty: 60 gabapentin 300 mg capsule 300 mg PO TID Qty: 360 3RF (DME) Massage Therapy Qty: 12 0RF Dose Instruction: As directed Rx Instructions: Massage therapy, up to 12 visits over 12 weeks sotalol 80 mg tablet 80 mg PO BID Qty: 60 1RF (DME) Massage Therapy Qty: 12 0RF Rx Instructions: Massage Therapy - 12 visits over 6 months. triamcinolone acetonide 0.1 % cream 1 applic TOP BID PRN (Reason: rash/itch) Qty: 80 11RF Rx Instructions: apply only to intact skin cetirizine [Zyrtec] 10 mg tablet 10 mg PO DAILY PRN (Reason: allergy symptoms) Qty: 90 3RF ticagrelor [Brilinta] 90 mg tablet 90 mg PO BID coq10 PO DAILY multivitamin with iron Tablet 1 tab PO DAILY Referrals: Danyel Schafer MD [Primary Care Provider] - Stand Alone Forms: Patient Portal/API
[2022-11-01 22:07] VITALS: BP 112/67; PULSE 89; RESP 18; O2SAT 98
== END 2022-11-01 22:10 | disposition home or self-care (01) ==
PROVIDERS: Emergency Medicine; Emergency Provider Emergency Medicine; PCP Internal Medicine
DX: E86.0 Dehydration (principal); Z79.01 Long term (current) use of anticoagulants
CPT/HCPCS: 80053; 81003; 81015; 83690; 85025; 87086; 96360; 99283; 99284

== ENCOUNTER 2022-11-23 08:14 | Inpatient (IN) | payer MEDICARE, OTHER, SELFPAY ==
[2022-11-23] VITALS (70 sets, daily range): BP systolic 80–127; BP diastolic 40–91; PULSE 74–130; RESP 11–42; TEMP 36.2–36.7; O2SAT 88–100; BMI 20.5
--- NOTE | 2022-11-23 08:33 | ED_ITS ---
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 Patient has been receiving chemotherapy went for his 3rd round at the beginning of November was found to be in AFib tachycardic and was admitted for 4 days for pneumonia. states that his heart rate did improve while he was there she states he received 1 additional day of outpatient oral antibiotics after being discharged home on the 15 of November. Patient has not had any fevers, no chest pain or pressure he does not appreciate any shortness of breath but his notes that he is more labored his breathing even when he is asleep. He is had a productive cough that has been frothy and pinkish tinge intermittently. Patient has had some swelling in his lower extremities she states that started after receiving frequent IV fluids 3 times a week with Oncology. They have stopped giving IV fluids weekly and swelling is a little bit better than it was. Patient had 1 episode of vomiting this morning where he ate Kirsty and threw it back up. Denies any nausea. He denies any diarrhea or constipation states he was having some diarrhea but has been improving with assistance from nutrition. No new dysuria urgency or frequency. states he had his morning home medications which include Brilinta, Eliquis, sotalol and thyroid medication. She states he takes atorvastatin and Zoloft in the evening. He was on prednisone but that was stopped around October 30. Related Data Home Medications Medication Instructions Recorded Confirmed apixaban 5 mg tablet 5 mg PO BID 30 days #60 tabs 02/17/18 11/23/22 ticagrelor 90 mg tablet 90 mg PO BID 05/28/18 11/23/22 multivitamin with iron 1 tab PO DAILY 09/12/21 11/23/22 apixaban 5 mg tablet (Eliquis) 5 mg PO BID 11/23/22 11/23/22 Previous Rx's Medication Instructions Recorded Massage Therapy #12 ea 11/09/18 sotalol 80 mg tablet 80 mg PO BID #60 tabs 11/09/18 Massage Therapy #12 ea 06/18/19 sertraline 25 mg tablet 25 mg PO BEDTIME #90 tabs 02/25/22 fluticasone propionate 50 2 spray intranasal BEDTIME #16 04/11/22 mcg/actuation nasal grams spray,suspension cetirizine 10 mg tablet (Zyrtec) 10 mg PO DAILY PRN allergy 05/07/22 symptoms #90 tabs triamcinolone acetonide 0.1 % 1 applic topical BID PRN rash/itch 05/07/22 topical cream #80 grams atorvastatin 40 mg tablet 40 mg PO QPM #90 tabs 05/14/22 levothyroxine 88 mcg tablet 88 mcg PO DAILY #90 tabs 05/14/22 gabapentin 300 mg capsule 300 mg PO TID #360 caps 07/22/22 [address] Parking #1 ea 09/24/22 Allergies Allergy/AdvReac Type Severity Reaction Status Date / Time Iodinated Contrast Media Allergy Mild UNSURE Verified 11/01/22 17:30 [IODINATED CONTRAST MEDIA - IV DYE] prochlorperazine Allergy Mild Hypersensit Verified 11/01/22 17:30 [PROCHLORPERAZINE] ivity finasteride AdvReac Intermediate Dizzy, Verified 11/01/22 17:30 weakness tamsulosin [From Flomax] AdvReac Mild Faints Verified 11/01/22 17:30 Review of Systems Review of Systems ROS Unobtainable: All systems reviewed & are unremarkable except as noted in HPI and below Patient History Medical History Acquired hypothyroidism (03/10/15) Anemia Cervical radiculopathy Chronic renal failure, stage 3 (moderate) (11/25/14) Coronary arteriosclerosis (~06/2017) Essential hypertension Gait instability Hypercalcemia (12/19/14) Hyperparathyroidism (03/10/15) 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 (11/01/16) Ischemic cardiomyopathy Mild TBI (traumatic brain injury) Mitral regurgitation Mixed hyperlipidemia Non-Hodgkin's lymphoma (03/06/11) SBE (subacute bacterial endocarditis) prophylaxis candidate Transient cerebral ischemia Tricuspid regurgitation Surgical History History of splenectomy S/P CABG (coronary artery bypass graft) (~07/2017) S/P parathyroidectomy (~06/2014) Status post tonsillectomy and adenoidectomy Social History marital status: number of children: 2 household members: spouse lives independently: Yes caregiver/support person: Yes housing: house pets and animals: Yes education level: other occupational status: other 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 HEENT: Atraumatic, pupils are equal round reactive to light, extraocular movements are intact, nares are clear, there is no conjunctival pallor. Throat is clear without any exudates, erythema, tonsillar enlargement or uvular deviation HEART: Tachycardic but regular rate and rhythm without murmur, clicks, rubs. Positive for JVD. Patient has 2+ edema bilateral lower extremities particularly in the ankles but somewhat up pretibial. LUNGS:Lungs decreased bilaterally., no wheezes, rales, crackles, chest moves symmetrically, positive for tachypnea, speaks in 5-6 words. ABD:bowel sounds normal, soft, non-tender, no guarding, rebound, rigidity, no m asses noted, no hepatosplenomegaly :No CVA tenderness MSCL: Non-tender, no muscle atrophy, muscles strength 5/5 upper and lower extremities, full range of motion, normal gait NEURO:CN 2-12 intact, sensation normal. SKIN: Patient appears pale, no erythema, rash or other skin changes noted. Initial Vital Signs Initial Vital Signs: Vital Signs Temperature 98.1 F 11/23/22 08:31 Pulse Rate 121 H 11/23/22 08:31 Respiratory Rate 28 H 11/23/22 08:31 Blood Pressure 98/68 11/23/22 08:31 Pulse Oximetry 97 11/23/22 08:31 Oxygen Delivery Method Room Air 11/23/22 08:31 Course Orders Ordered: Acetaminophen (Acetaminophen 325 Mg Tablet) 650 mg PO Q6H PRN PRN Reason: Fever/Mild Pain (1-3) Hydrocodone Bitart/Acetaminophen (Hydrocodone/Acet 5/325 Tablet) 1 tab PO Q4H PRN PRN Reason: Pain, Moderate (4-6) Apixaban (Apixaban 5 Mg Tablet) 5 mg PO BID [facility] Last Admin: 11/24/22 10:19 Dose: 5 mg Documented By: Admin: 11/23/22 20:18 Dose: 5 mg Documented By: Atorvastatin Calcium (Atorvastatin 20 Mg Tablet) 40 mg PO QPM [facility] Last Admin: 11/24/22 17:33 Dose: 40 mg Documented By: Admin: 11/23/22 17:27 Dose: 40 mg Documented By: JOSH Bisacodyl (Bisacodyl 10 Mg Supp) 10 mg [place] DAILY PRN PRN Reason: Constipation Fluticasone Propionate (Fluticasone 120 [place]/16 Gm [place].Susp) 2 spray NASAL BEDTIME [facility] Last Admin: 11/23/22 20:19 Dose: 2 spray Documented By: Gabapentin (Gabapentin 300 Mg Capsule) 300 mg PO TID [facility] Last Admin: 11/24/22 15:19 Dose: 300 mg Documented By: Admin: 11/24/22 10:19 Dose: 300 mg Documented By: Admin: 11/23/22 20:18 Dose: 300 mg Documented By: Admin: 11/23/22 17:26 Dose: Not Given Documented By: BV Hydromorphone HCl (Hydromorphone 0.5 Mg Inj) 0.5 mg IV Q2H PRN PRN Reason: Pain, Severe (7-10) NOREPINEPHRINE BITARTRATE/D5W (Levophed) 4 mg in 250 mls @ 25.685 mls/hr IV TITRATE [facility]; Protocol Last Admin: 11/23/22 12:18 Dose: Not Given Documented By: KLS Sodium Chloride (Normal Saline 0.9%) 500 mls @ 42 mls/hr IV CONT [facility] Last Admin: 11/23/22 19:54 Dose: 42 mls/hr Documented By: Sodium Chloride (Normal Saline 0.9%) 1,000 mls @ 42 mls/hr IV CONT [facility] Last Admin: 11/24/22 12:07 Dose: 42 mls/hr Documented By: PHILLIP Labetalol HCl (Labetalol 20 Mg/4 Ml Syringe) 10 mg IV Q4HR PRN PRN Reason: Heart Rate- High Levothyroxine Sodium (Levothyroxine 88 Mcg Tablet) 88 mcg PO DAILY@0600 [facility] Last Admin: 11/24/22 06:14 Dose: 88 mcg Documented By: Loratadine (Loratadine 10 Mg Tablet) 10 mg PO DAILY PRN PRN Reason: allergy symptoms Multivitamins (Multivitamin 1 Tablet) 1 tab PO DAILY [facility] Last Admin: 11/24/22 10:19 Dose: 1 tab Documented By: PHILLIP Naloxone HCl (Naloxone 0.4 Mg/Ml Vial) 0.2 mg IV Q2MIN PRN PRN Reason: Opiate Reversal Nf - Ticagrelor 90 (Mg Tablet) 90 mg PO BID [facility] Last Admin: 11/24/22 10:06 Dose: Not Given Documented By: Admin: 11/23/22 20:28 Dose: Not Given Documented By: Ondansetron HCl (Ondansetron 4 Mg Odt) 4 mg PO Q8HR PRN PRN Reason: Nausea And Vomiting Ondansetron HCl (Ondansetron 4 Mg/2 Ml Inj) 4 mg IV Q8HR PRN PRN Reason: Nausea And Vomiting Potassium Chloride (Potassium Chloride 20 Meq Tab) 40 meq PO Q6H [facility] Stop: 11/24/22 20:31 Last Admin: 11/24/22 15:19 Dose: 40 meq Documented By: PHILLIP Sertraline HCl (Sertraline 50 Mg Tablet) 25 mg PO BEDTIME [facility] Last Admin: 11/23/22 20:18 Dose: 25 mg Documented By: Sodium Biphosphate/Sodium Phosphate (Fleets Enema) 1 each [place] PRN PRN PRN Reason: Constipation Sotalol HCl (Sotalol 80 Mg Tablet) 80 mg PO BID [facility] Last Admin: 11/24/22 10:46 Dose: Not Given Documented By: Admin: 11/23/22 20:18 Dose: 80 mg Documented By: MS Discontinued Medications Bumetanide (Bumetanide 1 Mg/4 Ml Vial) 2 mg IV NOW ONE Stop: 11/23/22 16:43 Last Admin: 11/23/22 17:26 Dose: 2 mg Documented By: JOSH Diphenhydramine HCl (Diphenhydramine 50 Mg/Ml Vial) 50 mg IV NOW ONE Stop: 11/23/22 08:56 Last Admin: 11/23/22 09:29 Dose: 50 mg Documented By: RLS Diphenhydramine HCl (Diphenhydramine 50 Mg/Ml Vial) 50 mg IV NOW ONE Stop: 11/23/22 13:40 Last Admin: 11/23/22 13:59 Dose: Not Given Documented By: ADRIANNE Fentanyl (Fentanyl 100 Mcg/2 Ml Inj) 25 mcg IV NOW ONE Stop: 11/23/22 10:00 Last Admin: 11/23/22 10:32 Dose: 25 mcg Documented By: JEFF Furosemide (Furosemide 40 Mg/4 Ml Vial) 40 mg IV NOW ONE Stop: 11/23/22 09:53 Last Admin: 11/23/22 10:32 Dose: 40 mg Documented By: JEFF Furosemide (Furosemide 40 Mg/4 Ml Vial) 40 mg IV NOW ONE Stop: 11/24/22 11:33 Last Admin: 11/24/22 12:07 Dose: 40 mg Documented By: PHILLIP Sodium Chloride (Normal Saline 0.9%) 1,000 mls @ 1,000 mls/hr IV BOLUS ONE Stop: 11/23/22 09:35 Last Infusion: 11/23/22 09:45 Dose: 0 mls/hr Documented By: Admin: 11/23/22 09:28 Dose: 1,000 mls/hr Documented By: JEFF Piperacillin Sod/Tazobactam (Sod 4.5 gm/ Sodium Chloride) 100 mls @ 200 mls/hr IV NOW ONE Stop: 11/23/22 10:07 Last Infusion: 11/23/22 11:55 Dose: 0 mls/hr Documented By: Admin: 11/23/22 11:12 Dose: 200 mls/hr Documented By: JEFF Vancomycin HCl (Vancomycin) 1,000 mg in 200 mls @ 200 mls/hr IV NOW ONE Stop: 11/23/22 11:05 Last Infusion: 11/23/22 13:09 Dose: 0 mls/hr Documented By: Admin: 11/23/22 11:56 Dose: 200 mls/hr Documented By: Levothyroxine Sodium (Levothyroxine 88 Mcg Tablet) 88 mcg PO DAILY MARY Lidocaine HCl (Lidocaine 2% (Glydo) 6 Ml Gel) 6 ml TOP NOW ONE Stop: 11/23/22 09:49 Last Admin: 11/23/22 09:55 Dose: 6 ml Documented By: JEFF Methylprednisolone (Methylprednisolone 125 Mg/2 Ml Vial) 125 mg IV NOW ONE Stop: 11/23/22 08:56 Last Admin: 11/23/22 09:29 Dose: 125 mg Documented By: JEFF Non-Formulary Medication (Cetirizine [Zyrtec]) 10 mg PO DAILY PRN PRN Reason: allergy symptoms Ondansetron HCl (Ondansetron 4 Mg/2 Ml Inj) 4 mg IV NOW PRN PRN Reason: Nausea And Vomiting Ondansetron HCl (Ondansetron 4 Mg Odt) 4 mg SL NOW PRN PRN Reason: Nausea And Vomiting Vital Signs Vital signs: Vital Signs - 8 hr 11/23/22 08:31 11/23/22 08:40 11/23/22 08:45 Temperature 98.1 F Pulse Rate 121 H 116 H 118 H Respiratory Rate 28 H 32 H 26 H Blood Pressure 98/68 Pulse Oximetry 97 98 97 Oxygen Delivery Method Room Air 11/23/22 08:50 11/23/22 08:55 11/23/22 09:00 Temperature Pulse Rate 117 H 117 H 118 H Respiratory Rate 31 H 24 25 H Blood Pressure Pulse Oximetry 98 98 98 Oxygen Delivery Method 11/23/22 09:05 11/23/22 09:10 11/23/22 09:15 Temperature Pulse Rate 117 H 118 H 118 H Respiratory Rate 25 H 24 27 H Blood Pressure Pulse Oximetry 98 97 98 Oxygen Delivery Method 11/23/22 09:20 11/23/22 09:25 11/23/22 09:30 Temperature Pulse Rate 117 H 120 H 117 H Respiratory Rate 28 H 12 29 H Blood Pressure Pulse Oximetry 98 96 95 Oxygen Delivery Method 11/23/22 09:35 11/23/22 09:40 11/23/22 09:45 Temperature Pulse Rate 118 H 116 H 113 H Respiratory Rate 27 H 24 26 H Blood Pressure Pulse Oximetry 95 98 100 Oxygen Delivery Method 11/23/22 09:50 11/23/22 09:55 11/23/22 10:00 Temperature Pulse Rate 114 H 113 H 113 H Respiratory Rate 32 H 34 H 34 H Blood Pressure 80/40 L Pulse Oximetry 98 99 99 Oxygen Delivery Method 11/23/22 10:05 11/23/22 10:26 11/23/22 10:27 Temperature Pulse Rate 114 H 112 H Respiratory Rate 31 H Blood Pressure 123/87 Pulse Oximetry 98 92 Oxygen Delivery Method 11/23/22 10:27 11/23/22 10:30 11/23/22 10:30 Temperature Pulse Rate 112 H 113 H Respiratory Rate 16 18 Blood Pressure 122/89 Pulse Oximetry 97 98 Oxygen Delivery Method 11/23/22 10:34 11/23/22 10:34 11/23/22 10:35 Temperature Pulse Rate 111 H 113 H Respiratory Rate 29 H Blood Pressure 121/89 Pulse Oximetry 98 99 Oxygen Delivery Method 11/23/22 10:40 11/23/22 10:45 11/23/22 10:45 Temperature Pulse Rate 112 H 112 H Respiratory Rate 25 H 28 H Blood Pressure 123/91 H Pulse Oximetry 99 94 Oxygen Delivery Method 11/23/22 10:50 11/23/22 10:55 11/23/22 11:00 Temperature Pulse Rate 113 H 113 H 113 H Respiratory Rate 19 27 H 27 H Blood Pressure Pulse Oximetry 88 L 98 94 Oxygen Delivery Method 11/23/22 11:05 11/23/22 11:10 11/23/22 11:15 Temperature Pulse Rate 115 H 114 H 116 H Respiratory Rate 14 31 H 14 Blood Pressure 121/84 Pulse Oximetry 97 95 98 Oxygen Delivery Method 11/23/22 11:17 11/23/22 11:17 11/23/22 11:20 Temperature Pulse Rate 115 H 114 H Respiratory Rate 31 H 30 H Blood Pressure 121/84 Pulse Oximetry 98 98 Oxygen Delivery Method 11/23/22 11:25 11/23/22 11:30 11/23/22 11:30 Temperature Pulse Rate 116 H 118 H Respiratory Rate 20 25 H Blood Pressure 114/86 Pulse Oximetry 98 97 Oxygen Delivery Method 11/23/22 11:35 11/23/22 11:40 11/23/22 11:45 Temperature Pulse Rate 118 H 119 H Respiratory Rate 18 18 Blood Pressure 123/90 Pulse Oximetry 97 96 Oxygen Delivery Method 11/23/22 11:45 11/23/22 11:50 11/23/22 11:55 Temperature Pulse Rate 118 H 120 H 121 H Respiratory Rate 27 H 24 24 Blood Pressure Pulse Oximetry 97 98 97 Oxygen Delivery Method 11/23/22 12:00 11/23/22 12:00 11/23/22 12:05 Temperature Pulse Rate 121 H 121 H Respiratory Rate 14 27 H Blood Pressure 116/80 Pulse Oximetry 97 98 Oxygen Delivery Method 11/23/22 12:10 11/23/22 12:15 11/23/22 12:15 Temperature Pulse Rate 121 H 122 H Respiratory Rate 23 11 L Blood Pressure 119/83 Pulse Oximetry 93 97 Oxygen Delivery Method MDM - SOB/Dyspnea Lab Data 11/24/22 11:15 11/24/22 11:15 Labs: Lab Results 11/23/22 11/23/22 11/23/22 Range/Units 09:10 09:10 09:10 WBC 10.5 (4.5-11.0) X10^3/uL RBC 3.25 L (4.5-5.9) X10^6/uL Hgb 10.0 L (13.5-17.5) g/dL Hct 30.0 L (41-53) % MCV 92.3 (80-100) fL MCH 30.6 (26-34) PG MCHC 33.1 (30-36) % RDW 24.6 H (11.6-14.8) % Plt Count 150 (150-400) X10^3/uL Neut % (Auto) 76.1 H (50-75) % Lymph % (Auto) 9.3 L (25-40) % [place] % (Auto) 12.5 (3-14) % Eos % (Auto) 1.5 L (2-4) % Baso % (Auto) 0.6 (0-2) % Neut # (Auto) 8000 H (9908-1148) /uL Lymph # (Auto) 1000 L (6583-2021) /uL [place] # (Auto) 1300 H (0-900) /uL Eos # (Auto) 200 (0-450) /uL Baso # (Auto) 100 (0-100) /uL RBC Morphology Not Reportable Anisocytosis 2+ H Acanthocytes (Spur) 2+ PT 27.0 H (10.1-12.7) SECONDS INR 2.3 H (0.9-1.3) APTT 34 (26-36) SECONDS Sodium 132 L (137-145) mmol/L Potassium 3.8 (3.4-5.1) mmol/L Chloride 103 (98-107) mmol/L Carbon Dioxide 23 (22-32) mmol/L BUN 16 (9-20) mg/dL Creatinine 0.85 (0.66-1.25) mg/dL Estimated GFR > 60 (>60) mL/min BUN/Creatinine Ratio 18.8 (6-22) Glucose 114 H (80-110) mg/dL Lactate (0.7-2.1) mmol/L Calcium 8.7 (8.4-10.2) mg/dL Total Bilirubin 1.5 H (0.2-1.3) mg/dL AST 40 (17-59) IU/L ALT 60 H (<50) IU/L Alkaline Phosphatase 124 (38-126) U/L Total Creatine Kinase (55-170) U/L Troponin I (0.01-0.034) ng/mL NT-Pro-B Natriuret Pep (<450) pg/mL Total Protein 5.7 L (6.3-8.2) g/dL Albumin 3.1 L (3.5-5.0) g/dL Globulin 2.6 (1.7-4.1) g/dL Albumin/Globulin Ratio 1.2 (1.0-2.8) Lipase 86 (23-300) U/L Procalcitonin 0.07 (<0.5) ng/mL Urine Color Urine Appearance Urine pH (4.5-8.0) Ur Specific [place] (1.000-1.035) Urine Protein (Negative) Urine Glucose (UA) (Negative) g/dL Urine Ketones (NEGATIVE) Urine Occult Blood (Negative) Urine Nitrate (Negative) Urine Bilirubin (NEGATIVE) Urine Urobilinogen (0.2) E.U./dL Ur Leukocyte Esterase (NEGATIVE) Urine RBC (0-5/HPF) Urine WBC (0-5/HPF) Ur Squamous Epith Cells (0-5/HPF) Amorphous Sediment Urine Bacteria (None) Ur Culture Indicated? Chlamy pneumoniae PCR (Not Detect) Adenovirus (PCR) (Not Detect) B. pertussis DNA (PCR) (Not Detecte) B.parapertussis DNA PCR (Not Detecte) Coronavirus OC43 (PCR) (Not Detect) Coronavirus HKU1 (PCR) (Not Detect) Coronavirus 229E (PCR) (Not Detect) SARS-CoV-2 (PCR) (Not Detecte) Coronavirus NL63 (PCR) (Not Detect) Human Metapneumovir PCR (Not Detect) Influenza Type A (PCR) (Not Detect) Influenza Type B (PCR) (Not Detect) M. pneumoniae (PCR) (Not Detect) Parainfluenza 1 (PCR) (Not Detect) Parainfluenza 2 (PCR) (Not Detect) Parainfluenza 3 (PCR) (Not Detect) Parainfluenza 4 (PCR) (Not Detect) RSV (PCR) (Not Detect) Entero/Rhino (PCR) (Not Detect) 11/23/22 11/23/22 11/23/22 Range/Units 09:10 09:10 09:46 WBC (4.5-11.0) X10^3/uL RBC (4.5-5.9) X10^6/uL Hgb (13.5-17.5) g/dL Hct (41-53) % MCV (80-100) fL MCH (26-34) PG MCHC (30-36) % RDW (11.6-14.8) % Plt Count (150-400) X10^3/uL Neut % (Auto) (50-75) % Lymph % (Auto) (25-40) % [place] % (Auto) (3-14) % Eos % (Auto) (2-4) % Baso % (Auto) (0-2) % Neut # (Auto) (0211-6127) /uL Lymph # (Auto) (1791-9603) /uL [place] # (Auto) (0-900) /uL Eos # (Auto) (0-450) /uL Baso # (Auto) (0-100) /uL RBC Morphology Anisocytosis Acanthocytes (Spur) PT (10.1-12.7) SECONDS INR (0.9-1.3) APTT (26-36) SECONDS Sodium (137-145) mmol/L Potassium (3.4-5.1) mmol/L Chloride (98-107) mmol/L Carbon Dioxide (22-32) mmol/L BUN (9-20) mg/dL Creatinine (0.66-1.25) mg/dL Estimated GFR (>60) mL/min BUN/Creatinine Ratio (6-22) Glucose (80-110) mg/dL Lactate 1.6 (0.7-2.1) mmol/L Calcium (8.4-10.2) mg/dL Total Bilirubin (0.2-1.3) mg/dL AST (17-59) IU/L ALT (<50) IU/L Alkaline Phosphatase (38-126) U/L Total Creatine Kinase 46 L (55-170) U/L Troponin I 0.031 (0.01-0.034) ng/mL NT-Pro-B Natriuret Pep 03794 H (<450) pg/mL Total Protein (6.3-8.2) g/dL Albumin (3.5-5.0) g/dL Globulin (1.7-4.1) g/dL Albumin/Globulin Ratio (1.0-2.8) Lipase (23-300) U/L Procalcitonin (<0.5) ng/mL Urine Color Urine Appearance Urine pH (4.5-8.0) Ur Specific [place] (1.000-1.035) Urine Protein (Negative) Urine Glucose (UA) (Negative) g/dL Urine Ketones (NEGATIVE) Urine Occult Blood (Negative) Urine Nitrate (Negative) Urine Bilirubin (NEGATIVE) Urine Urobilinogen (0.2) E.U./dL Ur Leukocyte Esterase (NEGATIVE) Urine RBC (0-5/HPF) Urine WBC (0-5/HPF) Ur Squamous Epith Cells (0-5/HPF) Amorphous Sediment Urine Bacteria (None) Ur Culture Indicated? Chlamy pneumoniae PCR Not detected (Not Detect) Adenovirus (PCR) Not detected (Not Detect) B. pertussis DNA (PCR) Not detected (Not Detecte) B.parapertussis DNA PCR Not detected (Not Detecte) Coronavirus OC43 (PCR) Not detected (Not Detect) Coronavirus HKU1 (PCR) Not detected (Not Detect) Coronavirus 229E (PCR) Not detected (Not Detect) SARS-CoV-2 (PCR) Not detected (Not Detecte) Coronavirus NL63 (PCR) Not detected (Not Detect) Human Metapneumovir PCR Not detected (Not Detect) Influenza Type A (PCR) Not detected (Not Detect) Influenza Type B (PCR) Not detected (Not Detect) M. pneumoniae (PCR) Not detected (Not Detect) Parainfluenza 1 (PCR) Not detected (Not Detect) Parainfluenza 2 (PCR) Not detected (Not Detect) Parainfluenza 3 (PCR) Not detected (Not Detect) Parainfluenza 4 (PCR) Not detected (Not Detect) RSV (PCR) Not detected (Not Detect) Entero/Rhino (PCR) Not detected (Not Detect) 11/23/22 11/23/22 Range/Units 10:02 11:15 WBC (4.5-11.0) X10^3/uL RBC (4.5-5.9) X10^6/uL Hgb (13.5-17.5) g/dL Hct (41-53) % MCV (80-100) fL MCH (26-34) PG MCHC (30-36) % RDW (11.6-14.8) % Plt Count (150-400) X10^3/uL Neut % (Auto) (50-75) % Lymph % (Auto) (25-40) % [place] % (Auto) (3-14) % Eos % (Auto) (2-4) % Baso % (Auto) (0-2) % Neut # (Auto) (3161-4159) /uL Lymph # (Auto) (7819-4098) /uL [place] # (Auto) (0-900) /uL Eos # (Auto) (0-450) /uL Baso # (Auto) (0-100) /uL RBC Morphology Anisocytosis Acanthocytes (Spur) PT (10.1-12.7) SECONDS INR (0.9-1.3) APTT (26-36) SECONDS Sodium (137-145) mmol/L Potassium (3.4-5.1) mmol/L Chloride (98-107) mmol/L Carbon Dioxide (22-32) mmol/L BUN (9-20) mg/dL Creatinine (0.66-1.25) mg/dL Estimated GFR (>60) mL/min BUN/Creatinine Ratio (6-22) Glucose (80-110) mg/dL Lactate (0.7-2.1) mmol/L Calcium (8.4-10.2) mg/dL Total Bilirubin (0.2-1.3) mg/dL AST (17-59) IU/L ALT (<50) IU/L Alkaline Phosphatase (38-126) U/L Total Creatine Kinase (55-170) U/L Troponin I 0.032 (0.01-0.034) ng/mL NT-Pro-B Natriuret Pep (<450) pg/mL Total Protein (6.3-8.2) g/dL Albumin (3.5-5.0) g/dL Globulin (1.7-4.1) g/dL Albumin/Globulin Ratio (1.0-2.8) Lipase (23-300) U/L Procalcitonin (<0.5) ng/mL Urine Color Yellow Urine Appearance Clear Urine pH 5.5 (4.5-8.0) Ur Specific [place] 1.025 (1.000-1.035) Urine Protein 1+ H (Negative) Urine Glucose (UA) Negative (Negative) g/dL Urine Ketones Negative (NEGATIVE) Urine Occult Blood Negative (Negative) Urine Nitrate Negative (Negative) Urine Bilirubin Negative (NEGATIVE) Urine Urobilinogen 0.2 (0.2) E.U./dL Ur Leukocyte Esterase Negative (NEGATIVE) Urine RBC None seen (0-5/HPF) Urine WBC 1-5/hpf (0-5/HPF) Ur Squamous Epith Cells None seen (0-5/HPF) Amorphous Sediment 2+ Urine Bacteria Occasional (0-1) (None) Ur Culture Indicated? Specimen cultured Chlamy pneumoniae PCR (Not Detect) Adenovirus (PCR) (Not Detect) B. pertussis DNA (PCR) (Not Detecte) B.parapertussis DNA PCR (Not Detecte) Coronavirus OC43 (PCR) (Not Detect) Coronavirus HKU1 (PCR) (Not Detect) Coronavirus 229E (PCR) (Not Detect) SARS-CoV-2 (PCR) (Not Detecte) Coronavirus NL63 (PCR) (Not Detect) Human Metapneumovir PCR (Not Detect) Influenza Type A (PCR) (Not Detect) Influenza Type B (PCR) (Not Detect) M. pneumoniae (PCR) (Not Detect) Parainfluenza 1 (PCR) (Not Detect) Parainfluenza 2 (PCR) (Not Detect) Parainfluenza 3 (PCR) (Not Detect) Parainfluenza 4 (PCR) (Not Detect) RSV (PCR) (Not Detect) Entero/Rhino (PCR) (Not Detect) Imaging Data CT scan - chest: Radiologist's Impression: [address] [address] [address] Scan Report Signed Patient: Martínez Edward MR#: [id number] : 1945 Acct:[id number] Age/Sex: 77 / M Date of Service: 11/23/22 Loc: ED Accession Number: [id number] ?? Procedure: CT angio chest PE protocol Ordering Provider: Katy Murphy D.O. PROCEDURE:? CT ANGIO CHEST PE PROTOCOL ? INDICATIONS:? increased sob, swelling, lymphoma hx ? TECHNIQUE:? After the administration of intravenous contrast, 2 mm thick sections acquired from the pulmonary apices to the posterior costophrenic angles.? 3-dimensional maximum intensity projection (MIP) coronal and sagittal reformats were then acquired through the thorax.? For radiation dose reduction, the following was used:? automated exposure control, adjustment of mA and/or kV according to patient size.? ? COMPARISON:? [facility], CT, CT ANGIO CHEST PE PROTOCOL, 05/28/2018, 13:54. ? FINDINGS: ? Image quality:? Diagnostic? ? Pulmonary arteries:? The main pulmonary artery is mildly enlarged measuring approximately 3.3 cm in diameter.? There is reflux of contrast into the IVC and proximal inferior vena cava similar to the prior study and may reflect right-sided heart failure.? No flattening of the interventricular septum.? There is lack of contrast opacification involving the left lower lobe pulmonary arteries at their origin.? No definite intraluminal filling defect or expansion to suggest acute pulmonary emboli.? There is associated moderate atelectasis of the left lower lobe.? Otherwise, no definite intraluminal filling defect identified in the remaining of the visualized pulmonary arteries bilaterally. ? Lungs and pleura:? Small-moderate sized bilateral pleural effusions.? Associated compressive atelectasis bilaterally.? Diffuse patchy ground-glass opacities of the bilateral upper lobes with more focal nodular ground-glass opacities of the upper lobes.? Mild septal thickening.? No septal nodularity.? Moderate atelectasis of the left lower lobe.? No pneumothorax. ? Mediastinum:? Moderate cardiomegaly.? Extensive atherosclerotic calcifications of the coronary arteries.? Prior surgical changes of coronary arterial bypass.? Multiple median sternotomy wires are intact.? No substernal fluid collection seen.? No substantial pericardial effusion.? No mediastinal adenopathy.? Borderline ectasia of the ascending thoracic aorta measuring approximately 4 cm in diameter.? Atherosclerotic calcifications. ?No evidence to suggest dissection.? Esophagus is normal in caliber, without hi atal hernia.? ? ? Bones and chest wall:? No suspicious bony lesions.? No acute compression fractures.? Multilevel thoracic spondylosis.? Ribs and thoracic spine appear intact throughout.? Thyroid gland is unremarkable.? No axillary or supraclavicular adenopathy.? ? ? Abdomen:? Visualized upper abdominal solid organs appear normal in the early arterial phase of enhancement.? ? ? IMPRESSION:? ? 1. There is no intraluminal contrast opacifying the left lower lobe pulmonary arteries from the level of their origin distally.? However, no definite intraluminal filling defect identified or dilatation to suggest acute pulmonary emboli.? Findings may be related to moderate atelectasis of the left lower lobe.? However, left lower lobe pulmonary artery emboli not excluded. ? 2. Moderate cardiomegaly with findings suggestive of right-sided heart failure. ? 3. Diffuse patchy and ill-defined ground-glass opacities predominantly involving the bilateral upper lobes which may represent an infectious or inflammatory process although pulmonary edema may have a similar appearance.? ? 4. Small-moderate sized bilateral pleural effusions with associated compressive atelectasis. ? 5. Advanced atherosclerotic vascular disease. ? Other chronic findings as above. ? ? Dictated by: Bridger Jimenez M.D. on 11/23/2022 at 9:36 ? ? Approved by: Bridger Jimenez M.D. on 11/23/2022 at 9:47?? ECG Data Attestation: I personally reviewed and interpreted this ECG as follows: Interpretation: Sinus tachycardia with first-degree AV block there is some motion artifact making it difficult but patient's appears to have occasional irregularity so could be atrial fibrillation with the parents see. Rate 117 QRS 120 QTC 504. Nonspecific change but ST segments actually appeared fairly similar. 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 Patient appears to have either component of CHF, possible pneumonia pulmonary emboli is also on the differential the patient has been anticoagulant Eliquis and according to family takes this regularly. Patient did have a recent hospitalization for pneumonia. Patient is tachycardic appears fairly regular does have AFib history but appears to be potentially more sinus. He is hypotensive at 90/100 tachypneic but afebrile at 97% room air. Patient likely has a component of heart failure but was given a L of fluids, labs including sepsis labs, cardiac were obtained, chest x-ray. Patient will likely benefit from CT imaging, reportedly has a history of single functioning kidney but had normal renal function in October. Family notes an allergy to iodine but states it was when he had his heart catheterization so unclear if true allergy as he had a heart attack when he had the catheterization. They state he does get pretreated with Benadryl and steroids and typically tolerates this. Patient states he is having some increased pain, he does look uncomfortable nursing had some difficulty getting blood pressure. Patient has had about 250 of fluids total and pressure improved and given additional fluids with BP in the 110s consistently. Reviewed with patient and family he is a full code, they are agreeable to pressors, central line intubation CPR as needed. Patient had significant improvement blood pressure improved after dose of pain medication. Patient's tachycardia is improved his hypotension had improved as well. Discussed with Dr. Rubi who accepts for admission. Discharge Plan Departure Patient Disposition: Admitted As Inpatient Clinical Impression: CHF (congestive heart failure) Admit Date/Time: 11/23/22 12:18 Admit Provider: Maurice Molina
--- NOTE | 2022-11-23 08:36 | DI.RAD.S_ITS ---
PROCEDURE: XR CHEST 1V INDICATIONS: suspected sepsis TECHNIQUE: One view of the chest was acquired. COMPARISON: None. FINDINGS: Surgical changes and devices: Median sternotomy wires are present and appear intact. Postsurgical changes of prior CABG. Surgical clips in the left upper abdomen. Lungs and pleura: Diffuse interstitial prominence. Bilateral pleural effusions more pronounced on the left. Patchy bibasilar opacities more pronounced in the left lung base. Ill-defined airspace opacities of the right medial upper lung zone. No pneumothorax. Mediastinum: Mediastinal contours appear normal. Heart size is mildly enlarged. Bones and chest wall: No suspicious bony lesions. Overlying soft tissues appear unremarkable. IMPRESSION: Mild cardiomegaly. Small left greater than right bilateral pleural effusions. Patchy airspace opacities of the right upper lung zone and bilateral lung bases. Findings may represent an infectious or inflammatory process. Pulmonary edema may have a similar appearance. Dictated by: Bridger Jimenez M.D. on 11/23/2022 at 8:18 Approved by: Bridger Jimenez M.D. on 11/23/2022 at 8:20
--- NOTE | 2022-11-23 08:55 | DI.CT.S_ITS ---
PROCEDURE: CT ANGIO CHEST PE PROTOCOL INDICATIONS: increased sob, swelling, lymphoma hx TECHNIQUE: After the administration of intravenous contrast, 2 mm thick sections acquired from the pulmonary apices to the posterior costophrenic angles. 3-dimensional maximum intensity projection (MIP) coronal and sagittal reformats were then acquired through the thorax. For radiation dose reduction, the following was used: automated exposure control, adjustment of mA and/or kV according to patient size. COMPARISON: [facility], CT, CT ANGIO CHEST PE PROTOCOL, 05/28/2018, 13:54. FINDINGS: Image quality: Diagnostic Pulmonary arteries: The main pulmonary artery is mildly enlarged measuring approximately 3.3 cm in diameter. There is reflux of contrast into the IVC and proximal inferior vena cava similar to the prior study and may reflect right-sided heart failure. No flattening of the interventricular septum. There is lack of contrast opacification involving the left lower lobe pulmonary arteries at their origin. No definite intraluminal filling defect or expansion to suggest acute pulmonary emboli. There is associated moderate atelectasis of the left lower lobe. Otherwise, no definite intraluminal filling defect identified in the remaining of the visualized pulmonary arteries bilaterally. Lungs and pleura: Small-moderate sized bilateral pleural effusions. Associated compressive atelectasis bilaterally. Diffuse patchy ground-glass opacities of the bilateral upper lobes with more focal nodular ground-glass opacities of the upper lobes. Mild septal thickening. No septal nodularity. Moderate atelectasis of the left lower lobe. No pneumothorax. Mediastinum: Moderate cardiomegaly. Extensive atherosclerotic calcifications of the coronary arteries. Prior surgical changes of coronary arterial bypass. Multiple median sternotomy wires are intact. No substernal fluid collection seen. No substantial pericardial effusion. No mediastinal adenopathy. Borderline ectasia of the ascending thoracic aorta measuring approximately 4 cm in diameter. Atherosclerotic calcifications. No evidence to suggest dissection. Esophagus is normal in caliber, without hiatal hernia. Bones and chest wall: No suspicious bony lesions. No acute compression fractures. Multilevel thoracic spondylosis. Ribs and thoracic spine appear intact throughout. Thyroid gland is unremarkable. No axillary or supraclavicular adenopathy. Abdomen: Visualized upper abdominal solid organs appear normal in the early arterial phase of enhancement. IMPRESSION: 1. There is no intraluminal contrast opacifying the left lower lobe pulmonary arteries from the level of their origin distally. However, no definite intraluminal filling defect identified or dilatation to suggest acute pulmonary emboli. Findings may be related to moderate atelectasis of the left lower lobe. However, left lower lobe pulmonary artery emboli not excluded. 2. Moderate cardiomegaly with findings suggestive of right-sided heart failure. 3. Diffuse patchy and ill-defined ground-glass opacities predominantly involving the bilateral upper lobes which may represent an infectious or inflammatory process although pulmonary edema may have a similar appearance. 4. Small-moderate sized bilateral pleural effusions with associated compressive atelectasis. 5. Advanced atherosclerotic vascular disease. Other chronic findings as above. Dictated by: Bridger Jimenez M.D. on 11/23/2022 at 9:36 Approved by: Bridger Jimenez M.D. on 11/23/2022 at 9:47
[2022-11-23 09:19] LABS: Add Manual Diff / Slide Review NO; Basophils Absolute Auto 100 /uL (0-100); Basophils Percent Auto 0.6 % (0-2); Eosinophils Absolute Auto 200 /uL (0-450); Eosinophils Percent Auto 1.5 % (2-4); Lymphocytes Absolute Auto 1000 /uL (1100-4500); Lymphocytes Percent Auto 9.3 % (25-40); Mean Corpuscular HGB Conc 33.1 % (30-36); Mean Corpuscular Hemoglobin 30.6 PG (26-34); Mean Corpuscular Volume 92.3 fL (80-100); Monocytes Absolute Auto 1300 /uL (0-900); Monocytes Percent Auto 12.5 % (3-14); Neutrophils Absolute Auto 8000 /uL (1500-7000); Neutrophils Percent Auto 76.1 % (50-75); Platelet Count 150 X10^3/uL (150-400); Red Blood Cell Count 3.25 X10^6/uL (4.5-5.9); Red Cell Distribution Width 24.6 % (11.6-14.8); White Blood Cell Count 10.5 X10^3/uL (4.5-11.0)
[2022-11-23 09:27] LABS: INR 2.3 (0.9-1.3)
[2022-11-23] MEDS: SODIUM CHLORIDE 0.9% 1,000 ML 1000 ML IV (09:28)
[2022-11-23] MEDS: methylPREDNISolone 125 MG/2 ML VIAL IV (09:29)
[2022-11-23] MEDS: diphenhydrAMINE 50 MG/ML VIAL IV (09:29)
[2022-11-23 09:30] LABS: PTT Partial Thromboplastin Tim 34 SECONDS (26-36)
[2022-11-23 09:34] LABS: Alanine Aminotransferase 60 IU/L (<50); Albumin 3.1 g/dL (3.5-5.0); Albumin Globulin Ratio 1.2 (1.0-2.8); Alkaline Phosphatase 124 U/L (38-126); Aspartate Aminotransferase 40 IU/L (17-59); BUN Creatinine Ratio 18.8 (6-22); Bilirubin Total 1.5 mg/dL (0.2-1.3); Blood Urea Nitrogen 16 mg/dL (9-20); Calcium 8.7 mg/dL (8.4-10.2); Carbon Dioxide 23 mmol/L (22-32); Chloride 103 mmol/L (98-107); Creatine Kinase 46 U/L (55-170); Estimated Glomerular Filt Rate > 60 mL/min (>60); Globulin 2.6 g/dL (1.7-4.1); Glucose 114 mg/dL (80-110); HEMOLYSIS < 15 (0-50); Lipase 86 U/L (23-300); Potassium 3.8 mmol/L (3.4-5.1); Sodium 132 mmol/L (137-145); Total Protein 5.7 g/dL (6.3-8.2)
[2022-11-23 09:35] LABS: Anisocytosis 2+
[2022-11-23 09:36] LABS: Acanthocytes 2+; Lactate (Lactic Acid) 1.6 mmol/L (0.7-2.1)
[2022-11-23 09:46] LABS: NT-proBNP (BNP-Adult 18+) 21700 pg/mL (<450); Troponin I 0.031 ng/mL (0.01-0.034)
[2022-11-23 09:51] LABS: Procalcitonin 0.07 ng/mL (<0.5)
[2022-11-23] MEDS: LIDOCAINE 2% (GLYDO) 6 ML GEL TOP (09:55)
--- NOTE | 2022-11-23 10:01 | DI.ECHO.S_ITS ---
[place] +---------+ [facility] +---------+ : : [address] [place] : : : : [id number] : : : : Phone: [phone]+ Echocardiogram Report + + :Name: MIGUEL FORREST Study Date: 11/23/2022 Height: 72 in : :[facility] ReadingLocation: Weight: 151 lb : : Gender: Male BSA: 1.9 m2 : :: 1945 Age: 77 yrs BP: 123/91 mmHg: :Reason For Study: CARDIAC HISTORY, LYMPHOMA : :Ordering Physician: NICOLE, : :GLORIA Performed By: Zandra Vidales : :Referring: GLORIA RIVERA : + + Interpretation Summary The heart rate ranged between 112-114 bpm during the study. Rhythm is not clear. Borderline LV dilatation. The ejection fraction is estimated to be 20-25%. Compared to the prior exam, the left ventricular function is reduced. Akinesis of inferior wall, inferior lateral wall, septum with moderate to severe global hypokinesis. Best contacting segments basal to mid anterior wall as well as anterior lateral wall. Previously akinesis of inferior wall to inferior lateral wall. LV ejection fraction was 40 to 45%. The right ventricle is mildly dilated. Right ventricular systolic function is moderately reduced. Right ventricular systolic function has decreased since previous exam. A mitral valve clip is present. The mitral valve mean gradient is 5.7 mmHg. Moderate to severe mitral regurgitation on color Doppler. Compared to the prior echo study, there has been an increase in the severity of mitral regurgitation. Flow reversal noted in pulmonary veins consistent with significant mitral regurgitation. There is moderate to severe tricuspid regurgitation. Compared to the prior echo exam, there has been an increase in TR severity. Right ventricular systolic pressure is estimated to be 30.5 mmHg plus the clinically estimated CVP which cannot be estimated on this exam. The ascending aorta is mildly enlarged. This is unchanged compared to the previous study. There is a moderate left-sided pleural effusion. New finding. Procedure: A two-dimensional transthoracic echocardiogram with color flow and Doppler was performed. The study quality was technically difficult. Comparison is made with the echocardiogram of 02/06/2022. The heart rate ranged between 112-114 bpm during the study. The patient was in a tachycardic rhythm during the exam. The patient had a bundle branch block rhythm during the exam. Left Ventricle: The left ventricle is borderline dilated. There is normal left ventricular wall thickness. There is no thrombus. The ejection fraction is estimated to be 20-25%. Compared to the prior exam, the left ventricular function is reduced. Akinesis of inferior wall, inferior lateral wall, septum with moderate to severe global hypokinesis. Best contacting segments basal to mid anterior wall as well as anterior lateral wall. Previously akinesis of inferior wall to inferior lateral wall. LV ejection fraction was 40 to 45%. Diastolic function could not be accurately assessed due to unobtainable data. Right Ventricle: The right ventricle is mildly dilated. Right ventricular systolic function is moderately reduced. Right ventricular systolic function has decreased since previous exam. Atria: The left atrium is moderately dilated. There has been no significant change since the previous study. Right atrial size is normal. There is no Doppler evidence for an interatrial shunt. Mitral Valve: A mitral valve clip is present. The mitral valve mean gradient is 5.7 mmHg. There is moderate to severe mitral regurgitation. The mitral regurgitant jet is eccentrically directed. Flow reversal noted in pulmonary veins consistent with significant mitral regurgitation. Compared to the prior echo study, there has been an increase in the severity of mitral regurgitation. Aortic Valve: The aortic valve is not well visualized. There is no hemodynamically significant valvular aortic stenosis. There is trace aortic regurgitation. Tricuspid Valve: The tricuspid valve is not well visualized, but is grossly normal. There is moderate to severe tricuspid regurgitation. Eccentric jet. Compared to the prior echo exam, there has been an increase in TR severity. Right ventricular systolic pressure is estimated to be 30.5 mmHg plus the clinically estimated CVP which cannot be estimated on this exam. Pulmonic Valve: The pulmonic valve is not well visualized. Great Vessels: The aortic root is normal size. The ascending aorta is mildly enlarged. This is unchanged compared to the previous study. The inferior vena cava was not well visualized. Pericardium/ Pleura There is no pericardial effusion. There is an anterior echo-free space consistent with a fat pad. There is a moderate left-sided pleural effusion. MMode/2D Measurements & Calculations LVIDd: 5.7 cm LVOT diam: 2.3 cm LVIDs: 5.2 cm Ao root diam: 3.5 cm FS: 9.4 % asc Aorta Diam: 3.6 cm IVSd: 0.88 cm Ao Arch Diam (Prox Trans): 3.0 cm LVPWd: 1.0 cm LV west. diameter/BSA (cm/m^2): 3.0 LV sys. diameter/BSA (cm/m^2): 2.7 LA A2 area: 22.7 cm2 RA long axis: 5.7 cm LA A4 area: 24.1 cm2 RA area: 19.5 cm2 LA length (vol): 5.6 cm RA vol: 56.7 ml LA vol: 82.8 ml RA : 30.0 ml/m2 LA vol index: 43.8 ml/m2 IVC diam: 1.8 cm RVD1 (basal): 4.3 cm RVD2 (mid): 3.1 cm TAPSE: 1.3 cm Doppler Measurements & Calculations Ao V2 max: 247.7 cm/sec LVOT Max Frank: 55.2 cm/sec Ao V2 mean: 163.5 cm/sec LV V1 max P.2 mmHg Ao max P.5 mmHg LV V1 VTI: 8.4 cm Ao mean P.4 mmHg MONA(I,D): 0.66 cm2 Ao V2 VTI: 50.9 cm MONA(V,D): 0.89 cm2 sev ratio: 0.17 MONA indexed to BSA (cm^2/m^2): 0.35 MV E max frank: 140.2 cm/sec TR max frank: 281.4 cm/sec MV A max frank: 1.2 cm/sec TR max P.5 mmHg MV E/A: 112.6 Med Peak E' Frank: 5.7 cm/sec E/E' med: 24.6 Lat Peak E' Frank: 7.2 cm/sec E/E' lat: 19.5 E/e' average: 22.0 MV dec time: 0.20 sec MVA(VTI): 1.3 cm2 MV V2 mean: 101.6 cm/sec SV(LVOT): 33.6 ml MV mean P.7 mmHg MV V2 VTI: 25.5 cm Reading Physician:11:58 AM
[2022-11-23] MEDS: fentaNYL 100 MCG/2 ML INJ 25 MCG IV (10:32)
[2022-11-23] MEDS: FUROSEMIDE 40 MG/4 ML VIAL IV (10:32)
[2022-11-23 10:44] LABS: Appearance Urine UA CLEAR; Bilirubin Urine UA NEGATIVE (NEGATIVE); Color Urine UA YELLOW; Glucose Urine UA NEGATIVE (Negative); Ketones Urine UA NEGATIVE (NEGATIVE); Leukocyte Esterase Urine UA NEGATIVE (NEGATIVE); Nitrite Urine UA NEGATIVE (Negative); Occult Blood Urine UA NEGATIVE (Negative); Protein Urine UA 1+ (Negative); Specific Gravity Urine UA 1.025 (1.000-1.035); Urobilinogen Urine UA 0.2 E.U./dL (0.2); pH Urine UA 5.5 (4.5-8.0)
--- NOTE | 2022-11-23 10:46 | PC.NURSE ---
pt is anxious. emotional support to pt and . pt jumped up to a sitting position worrying that he was going to pee himself. assisted wtih urinal . unable to go. order for culver cath.. pt has edema at the head of his penis, extending into shaft. generalized +2 edema
[2022-11-23 10:49] LABS: Adenovirus Not Detected (Not Detect); B. parapertussis Not Detected (Not Detecte); Bordetella pertussis Not Detected (Not Detecte); Chlamydophila pneumoniae Not Detected (Not Detect); Coronavirus 229E Not Detected (Not Detect); Coronavirus HKU1 Not Detected (Not Detect); Coronavirus NL 63 Not Detected (Not Detect); Coronavirus OC43 Not Detected (Not Detect); Human Metapneumovirus Not Detected (Not Detect); Human Rhinovirus/Enterovirus Not Detected (Not Detect); Influenza A Not Detected (Not Detect); Influenza B Not Detected (Not Detect); Mycoplasma pneumoniae Not Detected (Not Detect); Parainfluenza Virus 1 Not Detected (Not Detect); Parainfluenza Virus 2 Not Detected (Not Detect); Parainfluenza Virus 3 Not Detected (Not Detect); Parainfluenza Virus 4 Not Detected (Not Detect); Respiratory Syncytial Virus Not Detected (Not Detect); SARS- CoV-2 Not Detected (Not Detecte)
[2022-11-23 11:01] LABS: Amorphous Sediment Urine 2+; Bacteria Urine Occasional (0-1); Culture Indicated Urine Specimen Cultured; RBC Urine None Seen (0-5/HPF); Squamous Epithelial Cell Urine None Seen (0-5/HPF); WBC Urine 1-5/HPF (0-5/HPF)
[2022-11-23] MEDS: PIPERACILLIN/TAZO 4.5 GM in SODIUM CHLORIDE 0.9% 100 ML IV (11:12)
[2022-11-23 11:47] LABS: Troponin I 0.032 ng/mL (0.01-0.034)
[2022-11-23] MEDS: VANCOMYCIN 1,000 MG/200 ML PIGGYBACK 200 MG IV (11:56)
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
--- NOTE | 2022-11-23 13:54 | P.HP_ITS ---
History of Present Illness History of Present Illness Date Patient Seen: 11/23/22 Time Patient Seen: 13:30 Chief complaint: pneumonia, labored breathing Narrative: CC: Labored breathing per . 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 Admitted last month for pneumonia after his 3rd round of chemo. Lately has been having productive cough mild swelling in lower extremities and more labored breathing per his he has he has been receiving IV fluids 3 times a week with Oncology which was only stopped recently reports a bit of emesis no nausea denies any pain no dysuria. Reports compliant with his meds. Patient is a poor historian and is not oriented to Schneider. 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 (11/01/16) Ischemic cardiomyopathy Mild TBI (traumatic brain injury) Mitral regurgitation Mixed hyperlipidemia Non-Hodgkin's lymphoma (03/06/11) SBE (subacute bacterial endocarditis) prophylaxis candidate Transient cerebral ischemia Tricuspid regurgitation Surgical History History of splenectomy S/P CABG (coronary artery bypass graft) (~07/2017) S/P parathyroidectomy (~06/2014) Status post tonsillectomy and adenoidectomy Social History marital status: number of children: 2 household members: spouse lives independently: Yes caregiver/support person: Yes housing: house pets and animals: Yes education level: other occupational status: other 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 travel history: recent leisure activities: reading and other Smoking Status: Never smoker Tobacco: How many years used: 0 quit status: quit date established second hand exposure: Yes (Younger days) alcohol intake: never substance use type: does not use Meds Home Medications and Allergies Home Medications Medication Instructions Recorded Confirmed Type apixaban 5 mg tablet 5 mg PO BID 30 days #60 tabs 02/17/18 07/22/22 History ticagrelor 90 mg tablet 90 mg PO BID 05/28/18 07/22/22 History Massage Therapy #12 ea 11/09/18 07/22/22 Rx sotalol 80 mg tablet 80 mg PO BID #60 tabs 11/09/18 07/22/22 Rx Massage Therapy #12 ea 06/18/19 07/22/22 Rx coq10 PO DAILY 06/30/19 07/22/22 History multivitamin with iron 1 tab PO DAILY 09/12/21 07/22/22 History sertraline 25 mg tablet 25 mg PO BEDTIME #90 tabs 02/25/22 07/22/22 Rx fluticasone propionate 50 2 spray intranasal BEDTIME #16 04/11/22 07/22/22 Rx mcg/actuation nasal grams spray,suspension cetirizine 10 mg tablet (Zyrtec) 10 mg PO DAILY PRN allergy 05/07/22 07/22/22 Rx symptoms #90 tabs triamcinolone acetonide 0.1 % 1 applic topical BID PRN rash/itch 05/07/22 07/22/22 Rx topical cream #80 grams atorvastatin 40 mg tablet 40 mg PO QPM #90 tabs 05/14/22 07/22/22 Rx levothyroxine 88 mcg tablet 88 mcg PO DAILY #90 tabs 05/14/22 07/22/22 Rx gabapentin 300 mg capsule 300 mg PO TID #360 caps 07/22/22 07/22/22 Rx Disabled Parking #1 ea 09/24/22 Rx Allergies Allergy/AdvReac Type Severity Reaction Status Date / Time Iodinated Contrast Media Allergy Mild UNSURE Verified 11/01/22 17:30 [IODINATED CONTRAST MEDIA - IV DYE] prochlorperazine Allergy Mild Hypersensit Verified 11/01/22 17:30 [PROCHLORPERAZINE] ivity finasteride AdvReac Intermediate Dizzy, Verified 11/01/22 17:30 weakness tamsulosin [From Flomax] AdvReac Mild Faints Verified 11/01/22 17:30 Review of Systems Review of Systems Narrative: All systems reviewed and negative except as otherwise documented in HPI Exam Vital Signs (past 8 hours): - 11/23/22 08:31 11/23/22 08:40 11/23/22 08:45 Temperature 98.1 F Pulse Rate 121 H 116 H 118 H Respiratory Rate 28 H 32 H 26 H Blood Pressure 98/68 Pulse Oximetry 97 98 97 Oxygen Delivery Method Room Air 11/23/22 08:50 11/23/22 08:55 11/23/22 09:00 Temperature Pulse Rate 117 H 117 H 118 H Respiratory Rate 31 H 24 25 H Blood Pressure Pulse Oximetry 98 98 98 Oxygen Delivery Method 11/23/22 09:05 11/23/22 09:10 11/23/22 09:15 Temperature Pulse Rate 117 H 118 H 118 H Respiratory Rate 25 H 24 27 H Blood Pressure Pulse Oximetry 98 97 98 Oxygen Delivery Method 11/23/22 09:20 11/23/22 09:25 11/23/22 09:30 Temperature Pulse Rate 117 H 120 H 117 H Respiratory Rate 28 H 12 29 H Blood Pressure Pulse Oximetry 98 96 95 Oxygen Delivery Method 11/23/22 09:35 11/23/22 09:40 11/23/22 09:45 Temperature Pulse Rate 118 H 116 H 113 H Respiratory Rate 27 H 24 26 H Blood Pressure Pulse Oximetry 95 98 100 Oxygen Delivery Method 11/23/22 09:50 11/23/22 09:55 11/23/22 10:00 Temperature Pulse Rate 114 H 113 H 113 H Respiratory Rate 32 H 34 H 34 H Blood Pressure 80/40 L Pulse Oximetry 98 99 99 Oxygen Delivery Method 11/23/22 10:05 11/23/22 10:26 11/23/22 10:27 Temperature Pulse Rate 114 H 112 H Respiratory Rate 31 H Blood Pressure 123/87 Pulse Oximetry 98 92 Oxygen Delivery Method 11/23/22 10:27 11/23/22 10:30 11/23/22 10:30 Temperature Pulse Rate 112 H 113 H Respiratory Rate 16 18 Blood Pressure 122/89 Pulse Oximetry 97 98 Oxygen Delivery Method 11/23/22 10:34 11/23/22 10:34 11/23/22 10:35 Temperature Pulse Rate 111 H 113 H Respiratory Rate 29 H Blood Pressure 121/89 Pulse Oximetry 98 99 Oxygen Delivery Method 11/23/22 10:40 11/23/22 10:45 11/23/22 10:45 Temperature Pulse Rate 112 H 112 H Respiratory Rate 25 H 28 H Blood Pressure 123/91 H Pulse Oximetry 99 94 Oxygen Delivery Method 11/23/22 10:50 11/23/22 10:55 11/23/22 11:00 Temperature Pulse Rate 113 H 113 H 113 H Respiratory Rate 19 27 H 27 H Blood Pressure Pulse Oximetry 88 L 98 94 Oxygen Delivery Method 11/23/22 11:05 11/23/22 11:10 11/23/22 11:15 Temperature Pulse Rate 115 H 114 H 116 H Respiratory Rate 14 31 H 14 Blood Pressure 121/84 Pulse Oximetry 97 95 98 Oxygen Delivery Method 11/23/22 11:17 11/23/22 11:17 11/23/22 11:20 Temperature Pulse Rate 115 H 114 H Respiratory Rate 31 H 30 H Blood Pressure 121/84 Pulse Oximetry 98 98 Oxygen Delivery Method 11/23/22 11:25 11/23/22 11:30 11/23/22 11:30 Temperature Pulse Rate 116 H 118 H Respiratory Rate 20 25 H Blood Pressure 114/86 Pulse Oximetry 98 97 Oxygen Delivery Method 11/23/22 11:35 11/23/22 11:40 11/23/22 11:45 Temperature Pulse Rate 118 H 119 H Respiratory Rate 18 18 Blood Pressure 123/90 Pulse Oximetry 97 96 Oxygen Delivery Method 11/23/22 11:45 11/23/22 11:50 11/23/22 11:55 Temperature Pulse Rate 118 H 120 H 121 H Respiratory Rate 27 H 24 24 Blood Pressure Pulse Oximetry 97 98 97 Oxygen Delivery Method 11/23/22 12:00 11/23/22 12:00 11/23/22 12:05 Temperature Pulse Rate 121 H 121 H Respiratory Rate 14 27 H Blood Pressure 116/80 Pulse Oximetry 97 98 Oxygen Delivery Method 11/23/22 12:10 11/23/22 12:15 11/23/22 12:15 Temperature Pulse Rate 121 H 122 H Respiratory Rate 23 11 L Blood Pressure 119/83 Pulse Oximetry 93 97 Oxygen Delivery Method 11/23/22 12:20 11/23/22 12:25 11/23/22 12:30 Temperature Pulse Rate 121 H 119 H Respiratory Rate 21 28 H Blood Pressure 123/87 Pulse Oximetry 94 93 Oxygen Delivery Method 11/23/22 12:30 11/23/22 12:35 11/23/22 12:40 Temperature Pulse Rate 121 H 121 H 120 H Respiratory Rate 13 22 36 H Blood Pressure Pulse Oximetry 95 99 94 Oxygen Delivery Method 11/23/22 12:45 11/23/22 12:45 11/23/22 12:50 Temperature Pulse Rate 120 H 121 H Respiratory Rate 19 13 Blood Pressure 127/89 Pulse Oximetry 94 96 Oxygen Delivery Method 11/23/22 12:55 11/23/22 13:00 11/23/22 13:05 Temperature Pulse Rate 121 H 118 H 120 H Respiratory Rate 24 25 H 26 H Blood Pressure Pulse Oximetry 93 96 97 Oxygen Delivery Method 11/23/22 13:06 11/23/22 13:06 11/23/22 13:10 Temperature Pulse Rate 120 H 119 H Respiratory Rate 28 H 42 H Blood Pressure 116/82 Pulse Oximetry 96 96 Oxygen Delivery Method 11/23/22 13:15 11/23/22 13:15 11/23/22 13:20 Temperature Pulse Rate 120 H 121 H Respiratory Rate 26 H 18 Blood Pressure 121/89 Pulse Oximetry 97 99 Oxygen Delivery Method 11/23/22 13:25 Temperature Pulse Rate 121 H Respiratory Rate 14 Blood Pressure Pulse Oximetry 97 Oxygen Delivery Method Oxygen Delivery Method Room Air Narrative Exam Narrative: Pale tired elder laying on ED gurney wrapped in blankets Const Other: Too thin Resp Other: Bibasilar crackles evident on auscultation Cardio Other: Elevated rate S1-S2 GI Other: Soft nontender nondistended active bowel sounds Other: Schneider in place draining clear yellow fluid Objective Labs 11/23/22 09:10 11/23/22 09:10 Labs: Laboratory Results - last 24 hr 11/23/22 11/23/22 11/23/22 09:10 09:10 09:10 WBC 10.5 RBC 3.25 L Hgb 10.0 L Hct 30.0 L MCV 92.3 MCH 30.6 MCHC 33.1 RDW 24.6 H Plt Count 150 Neut % (Auto) 76.1 H Lymph % (Auto) 9.3 L [place] % (Auto) 12.5 Eos % (Auto) 1.5 L Baso % (Auto) 0.6 Neut # (Auto) 8000 H Lymph # (Auto) 1000 L [place] # (Auto) 1300 H Eos # (Auto) 200 Baso # (Auto) 100 RBC Morphology Not Reportable Anisocytosis 2+ H Acanthocytes (Spur) 2+ PT 27.0 H INR 2.3 H APTT 34 Sodium 132 L Potassium 3.8 Chloride 103 Carbon Dioxide 23 BUN 16 Creatinine 0.85 Estimated GFR > 60 BUN/Creatinine Ratio 18.8 Glucose 114 H Lactate Calcium 8.7 Total Bilirubin 1.5 H AST 40 ALT 60 H Alkaline Phosphatase 124 Total Creatine Kinase Troponin I NT-Pro-B Natriuret Pep Total Protein 5.7 L Albumin 3.1 L Globulin 2.6 Albumin/Globulin Ratio 1.2 Lipase 86 Procalcitonin 0.07 Urine Color Urine Appearance Urine pH Ur Specific [place] Urine Protein Urine Glucose (UA) Urine Ketones Urine Occult Blood Urine Nitrate Urine Bilirubin Urine Urobilinogen Ur Leukocyte Esterase Urine RBC Urine WBC Ur Squamous Epith Cells Amorphous Sediment Urine Bacteria Ur Culture Indicated? Chlamy pneumoniae PCR Adenovirus (PCR) B. pertussis DNA (PCR) B.parapertussis DNA PCR Coronavirus OC43 (PCR) Coronavirus HKU1 (PCR) Coronavirus 229E (PCR) SARS-CoV-2 (PCR) Coronavirus NL63 (PCR) Human Metapneumovir PCR Influenza Type A (PCR) Influenza Type B (PCR) M. pneumoniae (PCR) Parainfluenza 1 (PCR) Parainfluenza 2 (PCR) Parainfluenza 3 (PCR) Parainfluenza 4 (PCR) RSV (PCR) Entero/Rhino (PCR) 11/23/22 11/23/22 11/23/22 09:10 09:10 09:46 WBC RBC Hgb Hct MCV MCH MCHC RDW Plt Count Neut % (Auto) Lymph % (Auto) [place] % (Auto) Eos % (Auto) Baso % (Auto) Neut # (Auto) Lymph # (Auto) [place] # (Auto) Eos # (Auto) Baso # (Auto) RBC Morphology Anisocytosis Acanthocytes (Spur) PT INR APTT Sodium Potassium Chloride Carbon Dioxide BUN Creatinine Estimated GFR BUN/Creatinine Ratio Glucose Lactate 1.6 Calcium Total Bilirubin AST ALT Alkaline Phosphatase Total Creatine Kinase 46 L Troponin I 0.031 NT-Pro-B Natriuret Pep 76147 H Total Protein Albumin Globulin Albumin/Globulin Ratio Lipase Procalcitonin Urine Color Urine Appearance Urine pH Ur Specific [place] Urine Protein Urine Glucose (UA) Urine Ketones Urine Occult Blood Urine Nitrate Urine Bilirubin Urine Urobilinogen Ur Leukocyte Esterase Urine RBC Urine WBC Ur Squamous Epith Cells Amorphous Sediment Urine Bacteria Ur Culture Indicated? Chlamy pneumoniae PCR Not detected Adenovirus (PCR) Not detected B. pertussis DNA (PCR) Not detected B.parapertussis DNA PCR Not detected Coronavirus OC43 (PCR) Not detected Coronavirus HKU1 (PCR) Not detected Coronavirus 229E (PCR) Not detected SARS-CoV-2 (PCR) Not detected Coronavirus NL63 (PCR) Not detected Human Metapneumovir PCR Not detected Influenza Type A (PCR) Not detected Influenza Type B (PCR) Not detected M. pneumoniae (PCR) Not detected Parainfluenza 1 (PCR) Not detected Parainfluenza 2 (PCR) Not detected Parainfluenza 3 (PCR) Not detected Parainfluenza 4 (PCR) Not detected RSV (PCR) Not detected Entero/Rhino (PCR) Not detected 11/23/22 11/23/22 10:02 11:15 WBC RBC Hgb Hct MCV MCH MCHC RDW Plt Count Neut % (Auto) Lymph % (Auto) [place] % (Auto) Eos % (Auto) Baso % (Auto) Neut # (Auto) Lymph # (Auto) [place] # (Auto) Eos # (Auto) Baso # (Auto) RBC Morphology Anisocytosis Acanthocytes (Spur) PT INR APTT Sodium Potassium Chloride Carbon Dioxide BUN Creatinine Estimated GFR BUN/Creatinine Ratio Glucose Lactate Calcium Total Bilirubin AST ALT Alkaline Phosphatase Total Creatine Kinase Troponin I 0.032 NT-Pro-B Natriuret Pep Total Protein Albumin Globulin Albumin/Globulin Ratio Lipase Procalcitonin Urine Color Yellow Urine Appearance Clear Urine pH 5.5 Ur Specific [place] 1.025 Urine Protein 1+ H Urine Glucose (UA) Negative Urine Ketones Negative Urine Occult Blood Negative Urine Nitrate Negative Urine Bilirubin Negative Urine Urobilinogen 0.2 Ur Leukocyte Esterase Negative Urine RBC None seen Urine WBC 1-5/hpf Ur Squamous Epith Cells None seen Amorphous Sediment 2+ Urine Bacteria Occasional (0-1) Ur Culture Indicated? Specimen cultured Chlamy pneumoniae PCR Adenovirus (PCR) B. pertussis DNA (PCR) B.parapertussis DNA PCR Coronavirus OC43 (PCR) Coronavirus HKU1 (PCR) Coronavirus 229E (PCR) SARS-CoV-2 (PCR) Coronavirus NL63 (PCR) Human Metapneumovir PCR Influenza Type A (PCR) Influenza Type B (PCR) M. pneumoniae (PCR) Parainfluenza 1 (PCR) Parainfluenza 2 (PCR) Parainfluenza 3 (PCR) Parainfluenza 4 (PCR) RSV (PCR) Entero/Rhino (PCR) Assessment & Plan Assessment & Plan narrative: # lymphoma History of recurrent lymphoma status post bone marrow transplant 20 years ago now receiving chemotherapy under care of Oncology # acute on chronic systolic and diastolic congestive heart failure present on admission #pulmonary edema, bilateral, present on admission # worsening mitral regurgitation in setting of previously repaired mitral valve Echo was obtained. It appears his ejection fraction has recently declined down to 20-25% from previously being 40-45%. This is a new acute change I suspect may be secondary to cardio toxicity [place] [id number] with subjective shortness of breath and elevated heart rate we will proceed with diuresis he has catheter in but needs to be reminded of this He did receive broad-spectrum IV antibiotics in the ED however his he does not appear toxic I do not see a big infectious picture here I think mostly what is being seen on imaging is pulmonary effusions and edema monitor for now with gentle IVF # left lower lobe atelectasis Per chest x-ray and CT it does appear that the left lower lobe is closed down, unclear if this is new finding due to chronic atelectasis or secondary to a clot he is anticoagulated monitor for now # atrial fibrillation stable continue home meds for rate and anticoagulation # history of 4 vessel CABG # history of valvular disease status post repair stable continue heart meds Dispo: Admit for diuresis severity: Extremely complex medical patient with multiple issues ongoing requiring close management. Discussed case with Dr. Katy Murphy in the ED. Code: desires full code DVT ppx: continue home AC diet: as tolerated PCP: [facility] MDM: Akiko
--- NOTE | 2022-11-23 14:00 | PC.NURSE ---
Called report to Pipp[facility]
--- NOTE | 2022-11-23 16:28 | PT-IP ANOTE ---
PT devi received and reviewed EMR. checked on pt and spouse in room. pt stated that he cannot do PT right now. spouse stated that he has just used the toilet. will f/u.
[2022-11-23] MEDS: BUMETANIDE 1 MG/4 ML VIAL 2 MG IV (17:26)
[2022-11-23] MEDS: ATORVASTATIN 20 MG TABLET 40 MG PO (17:27)
[2022-11-23] MEDS: SODIUM CHLORIDE 0.9% 500 ML 42 ML IV (19:54)
--- NOTE | 2022-11-23 19:59 | PC.NURSE ---
Addendum entered by Laverne Lipscomb R.N. 11/24/22 06:37: 0630, Dr. Molina updated on patients conditions throughout the night. He's awared that pt's HR has improved but he is now having runs of Vtach while sleeping. BP have 94/57 map of 67. 95/57 map 66, 102/70 and urine output of 1,900 ml. Addendum entered by Laverne Lipscomb R.N. 11/24/22 02:52: Pt had a run of VTACH tonight while sleeping tonight. b/p was 97/57 (66). pt continues to be in SR BB at a rate of 60-70. Original Note: spoke to Dr. Molina around 1935 about pt's her in the 130's with a BP of 102/70, pt now has order for ivf at 42. MD is hoping that after night time sotalol pt HR will improve. Despite of HR being elevated, pt is not in any distress and lung sounds are just dimininished.
[2022-11-23] MEDS: SOTALOL 80 MG TABLET PO (20:18)
[2022-11-23] MEDS: APIXABAN 5 MG TABLET PO (20:18)
[2022-11-23] MEDS: GABAPENTIN 300 MG CAPSULE PO (20:18)
[2022-11-23] MEDS: SERTRALINE 50 MG TABLET 25 MG PO (20:18)
[2022-11-23] MEDS: FLUTICASONE 120 SPRAY/16 GM SPRAY.SUSP NASAL (20:19)
[2022-11-24] VITALS (8 sets, daily range): BP systolic 77–97; BP diastolic 42–57; PULSE 66–100; RESP 15–21; TEMP 36.3–36.8; O2SAT 92–96
[2022-11-24] MEDS: LEVOTHYROXINE 88 MCG TABLET PO (06:14)
[2022-11-24] MEDS: APIXABAN 5 MG TABLET PO ×2 (10:19→21:52)
[2022-11-24] MEDS: GABAPENTIN 300 MG CAPSULE PO ×3 (10:19→21:52)
[2022-11-24] MEDS: MULTIVITAMIN 1 TABLET 1 TAB PO (10:19)
--- NOTE | 2022-11-24 10:49 | P.PN_ITS ---
Subjective Subjective Date Patient Seen: 11/24/22 Time Patient Seen: 10:50 Interval history: Chief complaint trouble breathing Patient doing okay this morning diuresing well via Schneider reports breathing feels a little better his blood pressure is on the low end today will hold his morning sotalol continue to encourage nutrition and use of incentive spirometer denies any specific pain is bored being in the hospital Exam Vital Signs (past 8 hours): - 11/24/22 02:56 11/24/22 06:14 11/24/22 07:50 Temperature 97.4 F L 97.8 F 97.6 F Pulse Rate 66 100 H 66 Respiratory Rate 17 18 21 Blood Pressure 97/57 L 94/57 L 91/54 L Pulse Oximetry 96 93 94 Oxygen Flow Rate 0 0 0 11/24/22 10:35 Temperature Pulse Rate 78 Respiratory Rate Blood Pressure 77/42 L Pulse Oximetry Oxygen Flow Rate Oxygen Delivery Method Room Air Oxygen Flow Rate 0 Narrative Exam Narrative: Alert elder sitting up in bed Const Other: Too thin pale Resp Other: Mildly improved bibasilar crackles Cardio Other: Elevated rate S1-S2 GI Other: Soft nontender nondistended Neuro Other: Alert and well perfused oriented x3 Extrem Other: Minimal to moderate pedal edema bilaterally Objective Labs 11/23/22 09:10 11/23/22 09:10 Labs: Laboratory Results - last 24 hr 11/23/22 11/23/22 11/23/22 09:46 10:02 11:15 Troponin I 0.032 Urine Color Yellow Urine Appearance Clear Urine pH 5.5 Ur Specific [place] 1.025 Urine Protein 1+ H Urine Glucose (UA) Negative Urine Ketones Negative Urine Occult Blood Negative Urine Nitrate Negative Urine Bilirubin Negative Urine Urobilinogen 0.2 Ur Leukocyte Esterase Negative Urine RBC None seen Urine WBC 1-5/hpf Ur Squamous Epith Cells None seen Amorphous Sediment 2+ Urine Bacteria Occasional (0-1) Ur Culture Indicated? Specimen cultured Chlamy pneumoniae PCR Not detected Adenovirus (PCR) Not detected B. pertussis DNA (PCR) Not detected B.parapertussis DNA PCR Not detected Coronavirus OC43 (PCR) Not detected Coronavirus HKU1 (PCR) Not detected Coronavirus 229E (PCR) Not detected SARS-CoV-2 (PCR) Not detected Coronavirus NL63 (PCR) Not detected Human Metapneumovir PCR Not detected Influenza Type A (PCR) Not detected Influenza Type B (PCR) Not detected M. 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 (11/01/16) Ischemic cardiomyopathy Mild TBI (traumatic brain injury) Mitral regurgitation Mixed hyperlipidemia Non-Hodgkin's lymphoma (03/06/11) SBE (subacute bacterial endocarditis) prophylaxis candidate Transient cerebral ischemia Tricuspid regurgitation Surgical History History of splenectomy S/P CABG (coronary artery bypass graft) (~07/2017) S/P parathyroidectomy (~06/2014) Status post tonsillectomy and adenoidectomy Social History marital status: number of children: 2 household members: spouse lives independently: Yes caregiver/support person: Yes housing: house pets and animals: Yes education level: other occupational status: other 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 travel history: recent leisure activities: reading and other Smoking Status: Never smoker Tobacco: How many years used: 0 quit status: quit date established second hand exposure: Yes (Younger days) alcohol intake: current substance use type: does not use Assessment & Plan Assessment & Plan narrative: # lymphoma History of recurrent lymphoma status post bone marrow transplant 20 years ago now receiving chemotherapy under care of Oncology Per discussion it seems chemotherapy is being discontinued in favor of a course of radiation therapy think this seems saenz given the evidence of putative cardiotoxicity #hypotension Patient's blood pressure extremely tenuous this morning will add on some light hydration and go easier on the diuresis he does have nor epi drip ordered if needed go by mentation status # acute on chronic systolic and diastolic congestive heart failure present on admission #pulmonary edema, bilateral, present on admission # worsening mitral regurgitation in setting of previously repaired mitral valve EF declined down to 20-25% from previously being 40-45%.? This is a new acute change I suspect may be secondary to cardio toxicity [place]. [place] [id number] with subjective shortness of breath and elevated heart rate we will proceed with diuresis -orientation improved today He did receive broad-spectrum IV antibiotics in the ED however his he does not appear toxic I do not see a big infectious picture here I think mostly what is being seen on imaging is pulmonary effusions and edema monitor for now with gentle IVF and diuresis # left lower lobe atelectasis Per chest x-ray and CT it does appear that the left lower lobe is closed down, unclear if this is new finding due to chronic atelectasis or secondary to a clot he is anticoagulated monitor for now # atrial fibrillation stable continue home meds for rate and anticoagulation as allowed by blood pressure # history of 4 vessel CABG # history of valvular disease status post repair stable continue heart meds We will need Cardiology follow-up as outpatient Dispo: Admit for diuresis severity:? complex medical patient with multiple issues ongoing requiring close management.? Code: desires full code DVT ppx: continue home AC diet: as tolerated PCP: [facility] MDM: Akiko Ricardo VTE Deep Vein Thrombosis/Pulmonary Embolism Present on Admission: No
--- NOTE | 2022-11-24 10:54 | CM.DANOTE ---
DCP: Case received, EMR reviewed and met with patient. Introduced self and role. Was able to obtain information regarding patient's baseline activity status prior to hospitalization. DCP assessment completed with information currently available. Patient is a 77 year old male who admitted yesterday afternoon to the care of the hospitalist team. PCP: Dr. Schafer. Payer: confirmed: Medicare/[employer]. Patient came to the hospital via private vehicle secondary to some shortness of breath. Patient has extensive medical history, including recurrent lymphoma, had been on active chemotherapy. Patient also has cardiac history with CABG and multiple valve repair. Patient also has indwelling culver. Patient was admitted with acute on chronic systolic and diastolic congestive heart failure, pulmonary edema. Patient is not on oxygen at this time. Met with patient in his room. Patient alert, sitting up in bed. Confirmed that he resides here in [place] with spouse, Akiko Coker. He is independent at his baseline with mobility, uses no DME. Patient no longer drives. Dr. Molina indicated that patient is not currently receiving chemo. Patient does have P.T, and O.T. orders, which are pending, P.T. attempted to see patient yesterday, and refused. P: DCP to continue to follow. Will see how he does with P.T. Patient most likely will go home, but can discuss home health, as well. Vilma Langston RN/Medical Anthropologist Discharge Planning/Care Management CM Discharge Assessment Start: 11/24/22 10:53 Freq: Status: Active Protocol: Document 11/24/22 10:53 (Rec: 11/24/22 10:54 [id number]) Discharge Planning Assessment Assigned Engine Monitor Vilma Langston RN/Medical Anthropologist Advance Directives? Yes Advance Directives on File No History Provided By Patient,Medical Record Prior Living Arrangements House Household Members spouse Type of transporation used prior to Relies on Others admit Independent with ADL's Yes Is patient alert and oriented? Yes Needs Assistance With Home Chores / Shopping Barriers to Discharge No Discharge Plan Home Transportation Arrangement Spouse Referrals Initiated Other Additional Comment Will see how patient does with P.T, may benefit with home health. Whiteboard Updated in Patient Room with Yes name and ext. # of Engine Monitor Review Status In Process Next Review Type Continued Stay Review
--- NOTE | 2022-11-24 11:22 | PC.NURSE ---
Addendum entered by Lacey Mkai R.N. 11/24/22 16:40: Patients blood pressure up to 89/56. Patient is now sitting up in the chair for dinner. He tolerated 40mg of iv lasix that was given with his 40 meq of potassium. Original Note: Assess- Patient is alert and oriented x4. He denies pain, blood pressure 77/42, is aware. Patient will be starting ivf. He is asymptomatic and denies pain. Patient will get up to the chair for either lunch or dinner. He is visiting with his now.
[2022-11-24 11:44] LABS: Basophils Absolute Auto 0 /uL (0-100); Basophils Percent Auto 0.3 % (0-2); Eosinophils Absolute Auto 0 /uL (0-450); Hematocrit 29.1 % (41-53); Hemoglobin 9.6 g/dL (13.5-17.5); Lymphocytes Absolute Auto 600 /uL (1100-4500); Lymphocytes Percent Auto 7.4 % (25-40); Mean Corpuscular HGB Conc 33.1 % (30-36); Mean Corpuscular Hemoglobin 30.6 PG (26-34); Mean Corpuscular Volume 92.6 fL (80-100); Monocytes Absolute Auto 800 /uL (0-900); Neutrophils Absolute Auto 7200 /uL (1500-7000); Neutrophils Percent Auto 83.3 % (50-75); Platelet Count 165 X10^3/uL (150-400); Red Blood Cell Count 3.15 X10^6/uL (4.5-5.9); Red Cell Distribution Width 23.7 % (11.6-14.8); White Blood Cell Count 8.6 X10^3/uL (4.5-11.0)
[2022-11-24 11:45] LABS: Add Manual Diff / Slide Review SLIDE REVIEW
[2022-11-24 11:49] LABS: Alanine Aminotransferase 49 IU/L (<50); Albumin 2.8 g/dL (3.5-5.0); Albumin Globulin Ratio 1.2 (1.0-2.8); Alkaline Phosphatase 92 U/L (38-126); Aspartate Aminotransferase 47 IU/L (17-59); BUN Creatinine Ratio 22.4 (6-22); Bilirubin Total 0.9 mg/dL (0.2-1.3); Blood Urea Nitrogen 24 mg/dL (9-20); Calcium 7.9 mg/dL (8.4-10.2); Carbon Dioxide 28 mmol/L (22-32); Chloride 103 mmol/L (98-107); Estimated Glomerular Filt Rate > 60 mL/min (>60); Globulin 2.4 g/dL (1.7-4.1); Glucose 125 mg/dL (80-110); HEMOLYSIS 15 (0-50); Potassium 3.2 mmol/L (3.4-5.1); Sodium 137 mmol/L (137-145); Total Protein 5.2 g/dL (6.3-8.2)
[2022-11-24] MEDS: SODIUM CHLORIDE 0.9% 1,000 ML 42 ML IV (12:07)
[2022-11-24] MEDS: FUROSEMIDE 40 MG/4 ML VIAL IV (12:07)
[2022-11-24 13:09] LABS: Acanthocytes 2+; Anisocytosis 3+; Howell Jolly Bodies 1+; Macrocytosis 1+
[2022-11-24] MEDS: POTASSIUM CHLORIDE 20 MEQ TAB 40 MEQ PO ×2 (15:19→21:51)
[2022-11-24] MEDS: ATORVASTATIN 20 MG TABLET 40 MG PO (17:33)
[2022-11-24] MEDS: SERTRALINE 50 MG TABLET 25 MG PO (21:51)
[2022-11-24] MEDS: SOTALOL 80 MG TABLET PO (21:52)
[2022-11-24] MEDS: FLUTICASONE 120 SPRAY/16 GM SPRAY.SUSP NASAL (21:56)
--- NOTE | 2022-11-24 23:37 | PC.NURSE ---
Pt Blood pressures have been low, Dr. Molina awared.
[2022-11-25 05:31] VITALS: BP 96/61; PULSE 66; RESP 16; TEMP 35.8; O2SAT 95
[2022-11-25] MEDS: LEVOTHYROXINE 88 MCG TABLET PO (05:33)
--- NOTE | 2022-11-25 07:29 | PM.PN.1 ---
Subjective Subjective Date Patient Seen: 11/25/22 Time Patient Seen: 07:30 Interval history: Patient's?admission?and?hospital?course?reviewed?with??Tracy Appears?to?be?mostly?in?congestive?heart?failure,?acute?on?chronic?systolic?congestive?heart?failure.??Also?has?worsening?mitral?regurgitation? No?clear?infectious?etiology?for?his?dyspnea?this?time? Making?good?urine?but?modestly?hypotensive.??Patient?is?somewhat?hypotensive?consistently?as?an?outpatient?as?well?however.?? Patient reports feeling better but has not really been up out of bed etcetera Exam Vital Signs (past 8 hours): - 11/25/22 05:31 Temperature 96.5 F L Pulse Rate 66 Respiratory Rate 16 Blood Pressure 96/61 Pulse Oximetry 95 Oxygen Flow Rate 0 Oxygen Delivery Method Room Air Oxygen Flow Rate 0 Objective Labs 11/25/22 07:05 11/25/22 07:05 Labs: Laboratory Results - last 24 hr 11/24/22 11/24/22 11:15 11:15 WBC 8.6 RBC 3.15 L Hgb 9.6 L Hct 29.1 L MCV 92.6 MCH 30.6 MCHC 33.1 RDW 23.7 H Plt Count 165 Neut % (Auto) 83.3 H Lymph % (Auto) 7.4 L Charles % (Auto) 9.0 Eos % (Auto) 0.0 L Baso % (Auto) 0.3 Neut # (Auto) 7200 H Lymph # (Auto) 600 L Charles # (Auto) 800 Eos # (Auto) 0 Baso # (Auto) 0 RBC Morphology car deliverer Anisocytosis 3+ H Macrocytosis 1+ H [place] Bodies 1+ H Acanthocytes (Spur) 2+ Sodium 137 Potassium 3.2 L Chloride 103 Carbon Dioxide 28 BUN 24 H Creatinine 1.07 Estimated GFR > 60 BUN/Creatinine Ratio 22.4 H Glucose 125 H Calcium 7.9 L Total Bilirubin 0.9 AST 47 ALT 49 Alkaline Phosphatase 92 Total Protein 5.2 L Albumin 2.8 L Globulin 2.4 Albumin/Globulin Ratio 1.2 PFSH Medical History Acquired hypothyroidism (03/10/15) Anemia Cervical radiculopathy Chronic renal failure, stage 3 (moderate) (11/25/14) Coronary arteriosclerosis (~06/2017) Essential hypertension Gait instability Hypercalcemia (12/19/14) Hyperparathyroidism (03/10/15) 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 (11/01/16) Ischemic cardiomyopathy Mild TBI (traumatic brain injury) Mitral regurgitation Mixed hyperlipidemia Non-Hodgkin's lymphoma (03/06/11) SBE (subacute bacterial endocarditis) prophylaxis candidate Transient cerebral ischemia Tricuspid regurgitation Surgical History History of splenectomy S/P CABG (coronary artery bypass graft) (~07/2017) S/P parathyroidectomy (~06/2014) Status post tonsillectomy and adenoidectomy Social History marital status: number of children: 2 household members: spouse lives independently: Yes caregiver/support person: Yes housing: house pets and animals: Yes education level: other occupational status: other 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 Acute on chronic congestive heart failure with reduced ejection fraction-I think patient needs to continue on some dose of furosemide. I will order some oral furosemide at relatively low-dose for patient to continue on. Continue monitor electrolytes renal function etcetera. 2. Cardiomyopathy with severe mitral regurgitation-patient with longstanding cardiomyopathy secondary to cardiac arrest he sustained during a cardiac catheterization in 2018. Had been much improved but likely now feeling the impacts of recent treatments for his lymphoma. Will need to be reconnected in the short term with his derrick barge operator in [place]. Also had mitral valve repair which appears to be a recurrent problem at this time. 3. Non-Hodgkin's lymphoma-patient I believe has completed his chemotherapy plan was for radiation therapy with consultation to occur at the end of October. Do not have any notes regarding this. Patient also recently hospitalized with pneumonia couple of times which does not appear to be present currently but also no records available. Will try to obtain all records from [facility] 4. Cognitive dysfunction-patient with mild cognitive dysfunction at baseline. This is secondary to multiple factors including traumatic brain injury as well as his cardiac arrest and subsequent resuscitation. Appears to be functioning pretty much at baseline to me at this time 5. Code status-patient had previously requested full code status which somewhat surprise me given his prior history but I discussed with him at length and he is pretty clear that he would want a attempt resuscitation in the event of a sudden cardiac or respiratory arrest which is of course not anticipated but that does appear to be his wishes and no changes made to his code status at this time Quality VTE Deep Vein Thrombosis/Pulmonary Embolism Present on Admission: No
[2022-11-25 07:31] LABS: Add Manual Diff / Slide Review SLIDE REVIEW; Basophils Absolute Auto 100 /uL (0-100); Basophils Percent Auto 0.8 % (0-2); Eosinophils Absolute Auto 100 /uL (0-450); Eosinophils Percent Auto 1.1 % (2-4); Hematocrit 28.2 % (41-53); Hemoglobin 9.2 g/dL (13.5-17.5); Lymphocytes Absolute Auto 1000 /uL (1100-4500); Mean Corpuscular HGB Conc 32.6 % (30-36); Mean Corpuscular Hemoglobin 30.4 PG (26-34); Mean Corpuscular Volume 93.5 fL (80-100); Monocytes Absolute Auto 900 /uL (0-900); Monocytes Percent Auto 7.9 % (3-14); Neutrophils Absolute Auto 9100 /uL (1500-7000); Neutrophils Percent Auto 81.2 % (50-75); Platelet Count 149 X10^3/uL (150-400); Red Blood Cell Count 3.01 X10^6/uL (4.5-5.9); Red Cell Distribution Width 23.9 % (11.6-14.8); White Blood Cell Count 11.2 X10^3/uL (4.5-11.0)
[2022-11-25 07:44] LABS: Acanthocytes 2+; Anisocytosis 3+; Poikilocytosis 3+; Target Cells 1+
[2022-11-25 07:46] LABS: Alanine Aminotransferase 50 IU/L (<50); Albumin 2.6 g/dL (3.5-5.0); Alkaline Phosphatase 98 U/L (38-126); Aspartate Aminotransferase 41 IU/L (17-59); Bilirubin Total 0.6 mg/dL (0.2-1.3); Blood Urea Nitrogen 27 mg/dL (9-20); Calcium 7.8 mg/dL (8.4-10.2); Carbon Dioxide 26 mmol/L (22-32); Chloride 106 mmol/L (98-107); Estimated Glomerular Filt Rate > 60 mL/min (>60); Globulin 2.5 g/dL (1.7-4.1); Glucose 91 mg/dL (80-110); HEMOLYSIS < 15 (0-50); Potassium 3.4 mmol/L (3.4-5.1); Sodium 134 mmol/L (137-145); Total Protein 5.1 g/dL (6.3-8.2)
[2022-11-25 07:53] LABS: NT-proBNP (BNP-Adult 18+) 5280 pg/mL (<450)
[2022-11-25 08:21] VITALS: BP 98/67; PULSE 65; RESP 16; TEMP 36.2; O2SAT 97
[2022-11-25 10:30] VITALS: BP 91/54; PULSE 72
[2022-11-25] MEDS: POTASSIUM CHLORIDE 20 MEQ TAB 40 MEQ PO (10:36)
[2022-11-25] MEDS: FUROSEMIDE 40 MG TABLET PO (10:37)
[2022-11-25] MEDS: APIXABAN 5 MG TABLET PO ×2 (10:37→22:33)
[2022-11-25] MEDS: MULTIVITAMIN 1 TABLET 1 TAB PO (10:37)
[2022-11-25] MEDS: GABAPENTIN 300 MG CAPSULE PO ×3 (10:37→22:33)
[2022-11-25] MEDS: SODIUM CHLORIDE 0.9% 1,000 ML 42 ML IV (11:53)
--- NOTE | 2022-11-25 13:50 | OT.IPNOTE ---
Pt is with PT, to check on pt tomorrow for OT eval.
--- NOTE | 2022-11-25 15:57 | PC.NURSE ---
Patients blood pressure 90/56. Sotolol not given this morning and is aware that blood pressure drops to 70s systolic. He was given lasix and tolerated this well. Patient will also get sotolol this evening. Have been checking his blood pressure multiples times a shift. Patient is ambulating in halls now.
[2022-11-25 16:10] VITALS: BP 98/57; PULSE 80; RESP 17; TEMP 36.1; O2SAT 97
[2022-11-25] MEDS: ATORVASTATIN 20 MG TABLET 40 MG PO (16:24)
--- NOTE | 2022-11-25 17:37 | PT.IIE ---
Addendum entered and electronically signed by Eryn Murphy PT 11/25/22 18:23: PT directly supervised and directed PT student throughout session Original Note: Current Diagnoses Non-Hodgkin lymphoma, unspecified, unspecified site (11/23/22) Surgical History (Last Reviewed 11/23/22 @ 08:50 by Katy Murphy DO) History of splenectomy S/P CABG (coronary artery bypass graft) (~07/2017) S/P parathyroidectomy (~06/2014) Status post tonsillectomy and adenoidectomy Medical History (Last Reviewed 11/23/22 @ 08:50 by Katy Murphy DO) Acquired hypothyroidism (03/10/15) Anemia Cervical radiculopathy Chronic renal failure, stage 3 (moderate) (11/25/14) Coronary arteriosclerosis (~06/2017) Essential hypertension Gait instability Hypercalcemia (12/19/14) Hyperparathyroidism (03/10/15) 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 (11/01/16) Ischemic cardiomyopathy Mild TBI (traumatic brain injury) Mitral regurgitation Mixed hyperlipidemia Non-Hodgkin's lymphoma (03/06/11) SBE (subacute bacterial endocarditis) prophylaxis candidate Transient cerebral ischemia Tricuspid regurgitation Physical Therapy Inpatient Evaluation/Re-Eval M1 PT/OT-IP Prior Functional Status Start: 11/25/22 16:25 Freq: NEEDED Status: Active Protocol: Document 11/25/22 16:25 (Rec: 11/25/22 17:05 [id number]) Medical Review Prior Functional Status Medical History Reviewed Yes Communication WNL Prior Functional Level (Other details) pt was independent no AD prior to hospitalization at [facility] earlier this month. Would do small walks at local flat [place]. independent with ADLs. Social History Household Members spouse Living Arrangements House Number of Floors (Floors) Two Floors Number of Stairs To Enter/Railing? 16 steps to enter house w/ railing. Main bedroom is on second floor. Home Environment High Toilet,Walk in Shower,Tub /Shower Home Equipment Front Wheel Walker,Four Wheel Walker M2 PT-IP Current Condition Start: 11/25/22 16:25 Freq: NEEDED Status: Active Protocol: Document 11/25/22 16:25 (Rec: 11/25/22 17:05 [id number]) Physical Therapy Current Condition Current Condition Evaluation Date 11/25/22 Treatment Diagnosis pna, weakness M3 PT-IP Subjective Start: 11/25/22 16:25 Freq: NEEDED Status: Active Protocol: Document 11/25/22 16:25 (Rec: 11/25/22 17:05 [id number]) Subjective Physical Therapy Visit Type Type Initial Evaluation Visit Start Time 15:45 Visit Stop Time 16:23 Total Visit Minutes 38 Physical Therapy Visit Comments Patient Comments Pt was lying down in bed when encountered by PT. He was more than willing to get up out of bed. M4 PT-IP Mobility and Gait Start: 11/25/22 16:25 Freq: NEEDED Status: Active Protocol: Document 11/25/22 16:25 (Rec: 11/25/22 17:05 [id number]) PT-Bed Mobility Assessment Rolling Type of Rolling Roll to Right Level of Assist Standby Assistance Supine to Sit Supine to Sit Minimal Assistance Scooting Scooting to Edge of Bed Independent PT-Transfer Assessment Sit to and From Stand Sit to and from Stand Minimal Assistance Equipment Transfer Assistive Device Gait Belt,Front Wheeled Walker Comments Mobility Comments Was able to roll to side, needed some assistance getting into seated position. Pt walked to toilet w/ FWW CGA after 240ft walk in hallway w/ fww CGA. He was able to use the facilities on his own w/ some verbal assistance and was able to wipe independedntly. Pt then stood up using the FWW w/ grab bar CGA washed his hands at the sink indpendently . Gait Assessment Gait Gait Assistance Required: Contact Guard Assist Distance (Feet) 240 Assistive Devices Assistive Device Gait Belt,Front Wheeled Walker M5 PT-IP Objective Assessments Start: 11/25/22 16:25 Freq: NEEDED Status: Active Protocol: Document 11/25/22 16:25 (Rec: 11/25/22 17:05 [id number]) Orientation Orientation/Cognition Orientation Name,Place,Situation Language Function Ability No Deficits Noted Strength Lower Extremity Strength Assessment Within Functional Limits Comments Strength Comments Hip flexion and ankle PF/DF MMT were strong. knee flexion was 4. Knee ext was 3+. Sensation Assessment Sensation Gross Sensation WNL M7 PT-IP Assessment and Plan Start: 11/25/22 16:25 Freq: NEEDED Status: Active Protocol: Document 11/25/22 16:25 (Rec: 11/25/22 17:05 [id number]) PT Summary Assessment and Plan Potential Rehabilitation Potential Good Status of Condition at Evaluation Evolving Summary Impairments Strength,Balance,Coordination, Cognition,Bed Mobility,Gait, Activity Tolerance Assessment Summary Pt was excited to see PT walk into the room. Pt is motivated to get moving and is cooperative w/ PT so taht he can get home. cognitively he was a little disoriented. contact guard- Mid assist was needed for all mobilty. His is able to assist in this amount as needed. During the session pt went from supine to sit w/ minimal assistace then stood w/ FWW w/ contact gaurd . He then walked 240ft w/ the fww w/ contact gaurd assist. Pt was left seated in the chair w/ a warm blanket and call light in reach. Based on pt performance today pt should be able to return home w/ assist and would benefit from home health. Goals Bed Mobility Goal Standby Assistance Transfer Goal Standby Assistance,Front Wheeled Walker Gait Goal Standby Assistance,Front Wheel Walker Other Goals Pt will be able to walk up and down stairs w/ use of hand rails Days to Meet Goals 8 Frequency of Treatment Frequency Of Treatment Once a Day Treatment Plan Physical Therapy Treatment Plan Bed Mobility Training,Transfer Training,Gait Training, Therapeutic Exercise,Balance Retraining,Coordination Retraining Other Recommendations and Next Treatment work on bed mobility; supine Focus to sit mechanics. Stair training. Recommendations To Nursing Amount of Assist Needed Standby Assistance Discharge Recommendations PT Discharge Recommendations Home with Assistance,Home Health Transportation Needs at Discharge Private Vehicle
[2022-11-25 19:50] VITALS: BP 102/64; PULSE 77; RESP 18; TEMP 36.6; O2SAT 94
[2022-11-25] MEDS: SERTRALINE 50 MG TABLET 25 MG PO (22:33)
[2022-11-25] MEDS: FLUTICASONE 120 SPRAY/16 GM SPRAY.SUSP NASAL (22:33)
[2022-11-26] VITALS (7 sets, daily range): BP systolic 94–115; BP diastolic 58–74; PULSE 77–90; RESP 16–18; TEMP 35.6–37.3; O2SAT 94–98
[2022-11-26] MEDS: LEVOTHYROXINE 88 MCG TABLET PO (05:27)
[2022-11-26 07:06] LABS: BUN Creatinine Ratio 26.7 (6-22); Blood Urea Nitrogen 20 mg/dL (9-20); Calcium 7.7 mg/dL (8.4-10.2); Carbon Dioxide 26 mmol/L (22-32); Chloride 107 mmol/L (98-107); Estimated Glomerular Filt Rate > 60 mL/min (>60); Glucose 88 mg/dL (80-110); HEMOLYSIS < 15 (0-50); Potassium 3.8 mmol/L (3.4-5.1); Sodium 135 mmol/L (137-145)
[2022-11-26 07:15] LABS: NT-proBNP (BNP-Adult 18+) 5480 pg/mL (<450)
--- NOTE | 2022-11-26 07:26 | PM.PN.1 ---
Subjective Subjective Date Patient Seen: 11/26/22 Time Patient Seen: 07:17 Interval history: Patient up with physical therapy yesterday. Appears to be gaining strength. Urine output still reasonably good. Blood tests unremarkable this morning Remains off oxygen Review of records from [facility] suggest patient was hospitalized in early November quite septic from his pneumonia with atrial fibrillation and rapid ventricular response. Echo done at that time demonstrated ejection fraction of 35% although he was in rapid atrial fibrillation at the time. Patient did complete his chemotherapy and plan was for radiation therapy simulation to happen today actually at the [facility]. Patient?up?with?physical?therapy?yesterday?(as?above)?walked?to?the?end?of?the?hallway?actually?looking?to?go?home?perhaps?tomorrow Exam Vital Signs (past 8 hours): - 11/26/22 00:00 11/26/22 04:00 Temperature 97.8 F 97.8 F Pulse Rate 77 78 Respiratory Rate 18 18 Blood Pressure 106/67 100/63 Pulse Oximetry 96 95 Oxygen Flow Rate 0 0 Oxygen Delivery Method Room Air Oxygen Flow Rate 0 Objective Labs 11/25/22 07:05 11/26/22 06:41 Labs: Laboratory Results - last 24 hr 11/25/22 11/25/22 11/25/22 07:05 07:05 07:05 WBC 11.2 H RBC 3.01 L Hgb 9.2 L Hct 28.2 L MCV 93.5 MCH 30.4 MCHC 32.6 RDW 23.9 H Plt Count 149 L Neut % (Auto) 81.2 H Lymph % (Auto) 9.0 L [place] % (Auto) 7.9 Eos % (Auto) 1.1 L Baso % (Auto) 0.8 Neut # (Auto) 9100 H Lymph # (Auto) 1000 L [place] # (Auto) 900 Eos # (Auto) 100 Baso # (Auto) 100 RBC Morphology See below Poikilocytosis 3+ H Anisocytosis 3+ H Target Cells 1+ H Acanthocytes (Spur) 2+ Sodium 134 L Potassium 3.4 Chloride 106 Carbon Dioxide 26 BUN 27 H Creatinine 0.93 Estimated GFR > 60 BUN/Creatinine Ratio 29.0 H Glucose 91 Calcium 7.8 L Total Bilirubin 0.6 AST 41 ALT 50 H Alkaline Phosphatase 98 NT-Pro-B Natriuret Pep 5280 H Total Protein 5.1 L Albumin 2.6 L Globulin 2.5 Albumin/Globulin Ratio 1.0 11/26/22 06:41 WBC RBC Hgb Hct MCV MCH MCHC RDW Plt Count Neut % (Auto) Lymph % (Auto) Bureau % (Auto) Eos % (Auto) Baso % (Auto) Neut # (Auto) Lymph # (Auto) Bureau # (Auto) Eos # (Auto) Baso # (Auto) RBC Morphology Poikilocytosis Anisocytosis Target Cells Acanthocytes (Spur) Sodium 135 L Potassium 3.8 Chloride 107 Carbon Dioxide 26 BUN 20 Creatinine 0.75 Estimated GFR > 60 BUN/Creatinine Ratio 26.7 H Glucose 88 Calcium 7.7 L Total Bilirubin AST ALT Alkaline Phosphatase NT-Pro-B Natriuret Pep 5480 H Total Protein Albumin Globulin Albumin/Globulin Ratio PFSH Medical History Acquired hypothyroidism (03/10/15) Anemia Cervical radiculopathy Chronic renal failure, stage 3 (moderate) (11/25/14) Coronary arteriosclerosis (~06/2017) Essential hypertension Gait instability Hypercalcemia (12/19/14) Hyperparathyroidism (03/10/15) 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 (11/01/16) Ischemic cardiomyopathy Mild TBI (traumatic brain injury) Mitral regurgitation Mixed hyperlipidemia Non-Hodgkin's lymphoma (03/06/11) SBE (subacute bacterial endocarditis) prophylaxis candidate Transient cerebral ischemia Tricuspid regurgitation Surgical History History of splenectomy S/P CABG (coronary artery bypass graft) (~07/2017) S/P parathyroidectomy (~06/2014) Status post tonsillectomy and adenoidectomy Social History marital status: number of children: 2 household members: spouse lives independently: Yes caregiver/support person: Yes housing: house pets and animals: Yes education level: other occupational status: other 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 Acute on chronic congestive heart failure with reduced ejection fraction-Patient should continue on some low-dose of furosemide. Will need careful outpatient follow-up with his netezza developer 2. Cardiomyopathy with severe mitral regurgitation- patient's ejection fraction demonstrated to be reduced during recent hospitalization in [place]. however seemingly even worse at this point. As above will need close follow-up with his netezza developer 3. Non-Hodgkin's lymphoma- reviewing records from [facility] I verified patient seems to have completed his chemotherapy with plans for radiation therapy to begin [facility]. 4. Cognitive dysfunction-patient with mild cognitive dysfunction at baseline. This is secondary to multiple factors including traumatic brain injury as well as his cardiac arrest and subsequent resuscitation. Appears to be functioning pretty much at baseline to me at this time 5. Code status-patient had previously requested full code status which somewhat surprise me given his prior history but I discussed with him at length and he is pretty clear that he would want a attempt resuscitation in the event of a sudden cardiac or respiratory arrest which is of course not anticipated but that does appear to be his wishes and no changes made to his code status at this time 6. Disposition - patient appears to be okay to return home with home health services etcetera. I think another 24 hours in the hospital with plans for discharge likely tomorrow makes the most sense Quality VTE Deep Vein Thrombosis/Pulmonary Embolism Present on Admission: No
--- NOTE | 2022-11-26 09:23 | OT.IPNOTE ---
Therapist approached patient for OT initial evaluation. Not agreeable to work with OT at this time. Denied any pain/discomfort. Requested to cont to rest.
[2022-11-26] MEDS: FUROSEMIDE 40 MG TABLET PO (10:26)
[2022-11-26] MEDS: MULTIVITAMIN 1 TABLET 1 TAB PO (10:26)
[2022-11-26] MEDS: GABAPENTIN 300 MG CAPSULE PO ×3 (10:27→22:29)
[2022-11-26] MEDS: APIXABAN 5 MG TABLET PO ×2 (10:27→22:29)
--- NOTE | 2022-11-26 10:38 | PT.IPTN ---
Current Diagnoses Non-Hodgkin lymphoma, unspecified, unspecified site (11/23/22) Physical Therapy Treatment Note M2 PT-IP Current Condition Start: 11/25/22 16:25 Freq: NEEDED Status: Active Protocol: Document 11/25/22 16:25 JH (Rec: 11/25/22 17:05 JH [id number]) Physical Therapy Current Condition Current Condition Evaluation Date 11/25/22 Treatment Diagnosis pna, weakness M3 PT-IP Subjective Start: 11/25/22 16:25 Freq: NEEDED Status: Active Protocol: Document 11/26/22 11:12 TS (Rec: 11/26/22 11:25 TS [id number]) Subjective Physical Therapy Visit Type Type Treatment Note Visit Start Time 10:38 Visit Stop Time 11:00 Total Visit Minutes 22 Number of [employer] Visits 1 Physical Therapy Visit Comments Patient Comments Pt found resting in bed agreeable to PT. M4 PT-IP Mobility and Gait Start: 11/25/22 16:25 Freq: NEEDED Status: Active Protocol: Document 11/26/22 11:12 TS (Rec: 11/26/22 11:25 TS [id number]) PT-Bed Mobility Assessment Supine to Sit Supine to Sit Standby Assistance Scooting Scooting to Edge of Bed Independent PT-Transfer Assessment Sit to and From Stand Sit to and from Stand Contact Guard Assistance,1 Person Assistance,Use of Upper Extremities Equipment Transfer Assistive Device Gait Belt,Front Wheeled Walker Comments Mobility Comments Supine to sit HOB elevated SBA with use of BUE support pushing from bed. Sit to stand CGA with FWW and elevated bed , demonstrates good posture in standing with no retroleaning . He ambulated ~250' initially CGA progressed to SBA with FWW with step thru gait. He performed stairs x15 initially CGA progressed to SBA with B handrails, slow and cautious with steps, no buckling or LOB . Pt ambulated back to room where he was left in chair with call light and tray table within reach, chair alarm on, RN notified. Gait Assessment Gait Gait Assistance Required: Standby Assistance,Contact Guard Assist Distance (Feet) 250 Assistive Devices Assistive Device Gait Belt,Front Wheeled Walker Gait Deviations General Gait Pattern Decreased Stride Length, Decreased Feet Clearance, Narrow Based Gait Factors Limiting Gait Function Factors Limiting Gait Function Decreased Strength,Poor Balance,Poor Safety Awareness Comments Gait Comments See mobility comments. Stair Climbing Assessment Evaluation Level of Assist On Stairs Standby Assistance,Contact Guard Assistance,1 Person Assistance Devices Stair Climbing Assistive Devices Left Railing,Right Railing Technique/Endurance Stair Climbing Direction Ascend and Descend Stair Climbing Technique Step to Step Number of Steps Climbed 15 PT-Balance Assessment Sitting Balance and Reactions Static Sitting Balance Ability Good Dynamic Sitting Balance Ability Good Standing Balance and Reactions Static Standing Balance Ability Good Dynamic Standing Balance Ability Fair M5 PT-IP Objective Assessments Start: 11/25/22 16:25 Freq: NEEDED Status: Active Protocol: Document 11/25/22 16:25 (Rec: 11/25/22 17:05 [id number]) Orientation Orientation/Cognition Orientation Name,Place,Situation Language Function Ability No Deficits Noted Strength Lower Extremity Strength Assessment Within Functional Limits Comments Strength Comments Hip flexion and ankle PF/DF MMT were strong. knee flexion was 4. Knee ext was 3+. Sensation Assessment Sensation Gross Sensation WNL M7 PT-IP Assessment and Plan Start: 11/25/22 16:25 Freq: NEEDED Status: Active Protocol: Document 11/26/22 11:12 TS (Rec: 11/26/22 11:25 TS [id number]) PT Summary Assessment and Plan Potential Rehabilitation Potential Good Summary Impairments Strength,Balance,Coordination, Cognition,Bed Mobility,Gait, Activity Tolerance Progress Towards Goals Progressing Toward Goals Assessment Summary Pt is progressing well with his mobility. He is SBA-Ind for bed mobility. He performed sit to stand x1 CGA with FWW, demonstrates good balance in standing with no retroleaning. He progressed his gait to ~ 250' initially CGA progresssed to SBA. He performed stairs x15 CGA/SBA with B handrails, he is slow/cautious to take steps, no buckling or LOB. PT is recommending return home with assist from spouse and would benefit from HHPT. Goals Bed Mobility Goal Standby Assistance Transfer Goal Standby Assistance,Front Wheeled Walker Gait Goal Standby Assistance,Front Wheel Walker Other Goals Pt will be able to walk up and down stairs w/ use of hand rails Days to Meet Goals 8 Frequency of Treatment Frequency Of Treatment Once a Day Treatment Plan Physical Therapy Treatment Plan Bed Mobility Training,Transfer Training,Gait Training, Therapeutic Exercise,Balance Retraining,Coordination Retraining Other Recommendations and Next Treatment work on bed mobility; supine Focus to sit mechanics. Stair training. Recommendations To Nursing Amount of Assist Needed 1 Person Assist Discharge Recommendations PT Discharge Recommendations Home with Assistance,Home Health Transportation Needs at Discharge Private Vehicle
[2022-11-26] MEDS: SODIUM CHLORIDE 0.9% 1,000 ML 42 ML IV (11:51)
--- NOTE | 2022-11-26 15:00 | CM.DPC ---
DCP Cont: Met with patient and spouse, Akiko, who was at bedside. Discussed home health services at discharge. Spouse indicated that patient is currently under [facility] services, was ordered by Danyel Sawyer, at [place]. Confirmed that he is currently under P.T, and O.T. services. Spouse in agreement that adding RN services would be a good idea. Can do resumption orders with [facility] and add RN upon discharge. Patient was sitting up in his chair. P: DCP to continue to follow. Plan at this time is home with [facility] resumption, and will add RN. Vilma Langston, LU/Legal Practice Manager
[2022-11-26] MEDS: ATORVASTATIN 20 MG TABLET 40 MG PO (17:55)
[2022-11-26] MEDS: SERTRALINE 50 MG TABLET 25 MG PO (22:29)
[2022-11-27 00:30] VITALS: BP 113/74; PULSE 83; RESP 16; TEMP 37.2; O2SAT 96
[2022-11-27 05:25] VITALS: BP 121/76; PULSE 81; RESP 16; TEMP 36.2; O2SAT 95
[2022-11-27] MEDS: LEVOTHYROXINE 88 MCG TABLET PO (05:46)
--- NOTE | 2022-11-27 06:55 | P.DS_ITS ---
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 Admitted last month for pneumonia after his 3rd round of chemo.? Lately has been having productive cough mild swelling in lower extre mities and more labored breathing per his he has he has been receiving IV fluids 3 times a week with Oncology which was only stopped recently reports a bit of emesis no nausea denies any pain no dysuria.? Reports compliant with his meds.? Patient is a poor historian and is not oriented to [place]. {from Dr. Molina's H&P 11/23/2022} Discharge Providers Provider Date of admission: 11/23/22 12:18 Discharge Date: 11/27/22 Primary care physician: Danyel Schafer MD Consults: 11/23/22 14:38 Consult to Occupational Therapy Evaluate & Treat Comment: Physician Instructions: Evaluate and treat 11/23/22 14:39 Consult to Physical Therapy Evaluate & Treat Comment: Physician Instructions: Evaluate and Treat Discharge provider: Danyel Schafer MD Summary Hospital Course Discharge Diagnosis: 1.?Acute?on?chronic?congestive?heart?failure?with?reduced?ejection?fraction? 2.?Chronic?renal?failure?stage?3?a? 3.?Non-Hodgkin's?lymphoma?undergoing?treatment 4.??Ischemic?cardiomyopathy 5.??Acquired?hypothyroidism? 6.?Anemia?secondary?to?chemotherapy Hospital Course: Patient?was?admitted?as?above.??Not?really?felt?to?have?evidence?of?an?infectiou s?etio logy?for?his?respiratory?symptoms.??[place]?to?have?more?of?a?acute?congestive?hear t?failure?exacerbati on?with?evidence?significantly?reduced?left?ventricular?function.??This?is?diffe rent?even?compared?t o?echocardiography?performed?at?the[facility]?during?recent?hospital ization?there?earlier?in?the?month?of?November Patient?was?diuresed?he?was?somewhat?hypotensive?to?begin?with?but?this?impr justine?back?to?baseline.??Patient?is?modestly?hypotensive?at?baseline? Patient's?mental?status?improved?significantly?with?his?improved?oxygenation? Patient's?renal?function?remained?stable.??Electrolytes?remained?stable.?? At?time?of?discharge?patient?was?able?to?be?up?and?around?with?assistance?a nd?felt?to?be?back?to?baseline?from?a?physical?activity?standpoint? Patient?be?discharged?to?contin ue?with?his?usual?medications?with?the?addition?of?low- dose?furosemide?as?well.?? Patient?will?need?close?outpatient?follow- up?both?with?Oncology,?Radiation?Oncology,?and?Cardiology?of?course? Exam Vital Signs (past 8 hours): - 11/27/22 00:30 11/27/22 05:25 Temperature 98.9 F 97.1 F L Pulse Rate 83 81 Respiratory Rate 16 16 Blood Pressure 113/74 121/76 Pulse Oximetry 96 95 Oxygen Flow Rate 0 0 Oxygen Delivery Method Room Air Oxygen Flow Rate 0 Objective Labs 11/25/22 07:05 11/26/22 06:41 Labs: Laboratory Results - last 24 hr 11/26/22 06:41 Sodium 135 L Potassium 3.8 Chloride 107 Carbon Dioxide 26 BUN 20 Creatinine 0.75 Estimated GFR > 60 BUN/Creatinine Ratio 26.7 H Glucose 88 Calcium 7.7 L NT-Pro-B Natriuret Pep 5480 H [facility] Medical History Acquired hypothyroidism (03/10/15) Anemia Cervical radiculopathy Chronic renal failure, stage 3 (moderate) (11/25/14) Coronary arteriosclerosis (~06/2017) Essential hypertension Gait instability Hypercalcemia (12/19/14) Hyperparathyroidism (03/10/15) 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 (11/01/16) Ischemic cardiomyopathy Mild TBI (traumatic brain injury) Mitral regurgitation Mixed hyperlipidemia Non-Hodgkin's lymphoma (03/06/11) SBE (subacute bacterial endocarditis) prophylaxis candidate Transient cerebral ischemia Tricuspid regurgitation Surgical History History of splenectomy S/P CABG (coronary artery bypass graft) (~07/2017) S/P parathyroidectomy (~06/2014) Status post tonsillectomy and adenoidectomy Social History marital status: number of children: 2 household members: spouse lives independently: Yes caregiver/support person: Yes housing: house pets and animals: Yes education level: other occupational status: other 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 Follow-up?with?Radiation?Oncology?as?had?been?previously?scheduled? Follow-up?with?patient's?logging engineer,?Dr. Arcadio Cunningham?in?[place],?sooner ?rather?than?later?given?his?new/worsening?cardiomyopathy Follow-up?with??his?PCP?in?10-14?days?as?well Discharge Plan Discharge Plan Patient Disposition: Home Health Service Discharge orders & Medications Prescriptions: New furosemide 40 mg Tablet 40 mg PO DAILY Qty: 90 3RF Continued sertraline 25 mg tablet 25 mg PO BEDTIME Qty: 90 2RF fluticasone propionate 50 mcg/actuation spray,suspension 2 spray NASAL BEDTIME Qty: 16 11RF Rx Instructions: administer into each nostril atorvastatin 40 mg tablet 40 mg PO QPM Qty: 90 3RF levothyroxine 88 mcg tablet 88 mcg PO DAILY Qty: 90 3RF apixaban 5 mg tablet 5 mg PO BID 30 Days Qty: 60 gabapentin 300 mg capsule 300 mg PO TID Qty: 360 3RF sotalol 80 mg tablet 80 mg PO BID Qty: 60 1RF triamcinolone acetonide 0.1 % cream 1 applic TOP BID PRN (Reason: rash/itch) Qty: 80 11RF Rx Instructions: apply only to intact skin cetirizine [Zyrtec] 10 mg tablet 10 mg PO DAILY PRN (Reason: allergy symptoms) Qty: 90 3RF ticagrelor 90 mg tablet 90 mg PO BID multivitamin with iron Tablet 1 tab PO DAILY Discontinued Eliquis 5 mg tablet 5 mg PO BID No Action (DME) Disabled Parking Qty: 1 0RF Rx Instructions: Patient qualifies for disabled parking as per the attached form. (DME) Massage Therapy Qty: 12 0RF Dose Instruction: As directed Rx Instructions: Massage therapy, up to 12 visits over 12 weeks (DME) Massage Therapy Qty: 12 0RF Rx Instructions: Massage Therapy - 12 visits over 6 months. Pharmacist Comment: Note Duplicate Eliquis orders, patient is to stay on Eliquis, but duplicate order removed so list says stop Eliquis, but only the duplicate order Follow up/Referrals: Arcadio Cunningham MD [Non-Staff] - 11/28/22 2:30 pm (Appt:11/28 @ 2:30 w/S [facility] BICYCLE REPAIR TECHNICIAN for Dr Cunningham please arrive 15 min prior to your scheduled appointment time ) Danyel Schafer MD [Primary Care Provider] - 12/12/22 10:30 am (Appt:12/12 @ 10:[address] Schafer please arrive 15 min prior to scheduled appointment time ) Diet/Activity/Treatments Diet: Diet as Tolerated and Low-sodium Visit Report/Discharge Packet Stand Alone Forms: Congestive Heart Failure, Patient Portal/API Discharge Data Primary Care Provider: Danyel Schafer Quality VTE Deep Vein Thrombosis/Pulmonary Embolism Present on Admission: No
--- NOTE | 2022-11-27 08:02 | CM.DPC ---
DCP Cont: Called [facility], spoke to Sonja, for patient has discharge orders. Confirmed that he is currently under their services for P.T, O.T, bath aide. Let her know that this [place] News Anchor will add RN. She will update her team. Will send over resumption orders and DC Summary to [facility]. P: Patient is discharging home with [facility] resumption, will also add RN. Vilma Langston RN/Life Enrichment Assistant
[2022-11-27] MEDS: GABAPENTIN 300 MG CAPSULE PO (08:51)
[2022-11-27] MEDS: FUROSEMIDE 40 MG TABLET PO (08:51)
[2022-11-27] MEDS: SOTALOL 80 MG TABLET PO (08:51)
[2022-11-27] MEDS: APIXABAN 5 MG TABLET PO (08:51)
[2022-11-27] MEDS: MULTIVITAMIN 1 TABLET 1 TAB PO (08:51)
[2022-11-27 09:00] VITALS: BP 110/70; PULSE 87; RESP 16; TEMP 36.1; O2SAT 93
[2022-11-27 12:00] VITALS: BP 108/74; PULSE 78; RESP 18; TEMP 36.2; O2SAT 96
== END 2022-11-27 12:52 | disposition home health service (06) | DRG 291 ==
LOC: ED 08:32 → AC 12:19
PROVIDERS: Admitting Provider Family Medicine; Emergency Provider Emergency Medicine; PCP Internal Medicine; Referring Provider Emergency Medicine; Visit Provider Internal Medicine
DX: I13.0 Hypertensive heart and chronic kidney disease with heart failure and stage 1 through stage 4 chronic kidney disease, or unspecified chronic kidney disease (principal); I50.23 Acute on chronic systolic (congestive) heart failure; C85.90 Non-Hodgkin lymphoma, unspecified, unspecified site; J98.11 Atelectasis; I34.0 Nonrheumatic mitral (valve) insufficiency; I48.91 Unspecified atrial fibrillation; I95.9 Hypotension, unspecified; I25.5 Ischemic cardiomyopathy; E03.9 Hypothyroidism, unspecified; N18.31 Chronic kidney disease, stage 3a; D64.81 Anemia due to antineoplastic chemotherapy; T45.1X5A Adverse effect of antineoplastic and immunosuppressive drugs, initial encounter; Z79.01 Long term (current) use of anticoagulants; Z95.1 Presence of aortocoronary bypass graft
CPT/HCPCS: 36415; 71045; 71275; 80048; 80053; 81001; 82550; 83605; 83690; 83880; 84145; 84484; 85025; 85610; 85730; 87040; 87086; 87633; 93005; 93306; 96365; 96367; 96375; 97162; 97530; 99285; 99291; J1200; J1940; J2543; J2930; J3010; Q9967

== ENCOUNTER → 2022-12-11 12:08 | Outpatient (CLI) | payer MEDICARE, OTHER, SELFPAY ==
[2022-12-11 13:00] LABS: Hematocrit 35.2 % (41-53); Hemoglobin 11.7 g/dL (13.5-17.5); Mean Corpuscular HGB Conc 33.3 % (30-36); Mean Corpuscular Hemoglobin 30.9 PG (26-34); Mean Corpuscular Volume 92.8 fL (80-100); Platelet Count 234 X10^3/uL (150-400); Red Blood Cell Count 3.79 X10^6/uL (4.5-5.9); Red Cell Distribution Width 22.3 % (11.6-14.8); White Blood Cell Count 7.8 X10^3/uL (4.5-11.0)
[2022-12-11 13:05] LABS: Alanine Aminotransferase 38 IU/L (<50); Albumin Globulin Ratio 1.4 (1.0-2.8); Alkaline Phosphatase 99 U/L (38-126); Aspartate Aminotransferase 45 IU/L (17-59); BUN Creatinine Ratio 22.8 (6-22); Blood Urea Nitrogen 26 mg/dL (9-20); Calcium 9.4 mg/dL (8.4-10.2); Carbon Dioxide 28 mmol/L (22-32); Chloride 96 mmol/L (98-107); Estimated Glomerular Filt Rate > 60 mL/min (>60); Globulin 2.8 g/dL (1.7-4.1); Glucose 93 mg/dL (80-110); HEMOLYSIS < 15 (0-50); Magnesium 1.4 mg/dL (1.6-2.3); Potassium 3.6 mmol/L (3.4-5.1); Sodium 131 mmol/L (137-145); Total Protein 6.8 g/dL (6.3-8.2)
== END ==
PROVIDERS: PCP Internal Medicine; Referring Provider Internal Medicine; Visit Provider Internal Medicine
DX: C85.90 Non-Hodgkin lymphoma, unspecified, unspecified site (principal); E83.42 Hypomagnesemia; I50.9 Heart failure, unspecified; I25.5 Ischemic cardiomyopathy
CPT/HCPCS: 36415; 80053; 83735; 85027

== ENCOUNTER 2022-12-17 13:47 | Emergency (ER) | payer MEDICARE, OTHER, SELFPAY ==
[2022-12-17] VITALS (11 sets, daily range): BP systolic 70–115; BP diastolic 51–76; PULSE 81–136; RESP 17–28; TEMP 36.6; O2SAT 96–99; BMI 18.7
--- NOTE | 2022-12-17 13:58 | DI.RAD.S_ITS ---
PROCEDURE: XR CHEST 1V INDICATIONS: chest pain TECHNIQUE: One view of the chest was acquired. COMPARISON: [facility], CR, XR CHEST 1V, 11/23/2022, 8:36. FINDINGS: Surgical changes and devices: Stable CABG postsurgical changes. Lungs and pleura: Lungs are clear. No pleural effusions or pneumothorax. Mediastinum: Mediastinal contours appear normal. Heart is enlarged. Bones and chest wall: No suspicious bony lesions. Overlying soft tissues appear unremarkable. IMPRESSION: No acute cardiopulmonary disease process. Dictated by: Mi Rincon MD, PhD on 12/17/2022 at 14:36 Approved by: Mi Rincon MD, PhD on 12/17/2022 at 14:36
[2022-12-17 14:28] LABS: INR 1.9 (0.9-1.3); Prothrombin Time 21.6 SECONDS (10.1-12.7)
[2022-12-17 14:31] LABS: Add Manual Diff / Slide Review NO; Basophils Absolute Auto 100 /uL (0-100); Basophils Percent Auto 1.7 % (0-2); Eosinophils Absolute Auto 200 /uL (0-450); Eosinophils Percent Auto 2.6 % (2-4); Hematocrit 32.4 % (41-53); Hemoglobin 10.7 g/dL (13.5-17.5); Lymphocytes Absolute Auto 900 /uL (1100-4500); Lymphocytes Percent Auto 12.2 % (25-40); Mean Corpuscular Hemoglobin 31.1 PG (26-34); Mean Corpuscular Volume 94.3 fL (80-100); Monocytes Absolute Auto 1000 /uL (0-900); Monocytes Percent Auto 13.7 % (3-14); Neutrophils Absolute Auto 5100 /uL (1500-7000); Neutrophils Percent Auto 69.8 % (50-75); PTT Partial Thromboplastin Tim 38 SECONDS (26-36); Platelet Count 256 X10^3/uL (150-400); Red Blood Cell Count 3.43 X10^6/uL (4.5-5.9); White Blood Cell Count 7.2 X10^3/uL (4.5-11.0)
[2022-12-17 14:33] LABS: Alanine Aminotransferase 27 IU/L (<50); Albumin 3.8 g/dL (3.5-5.0); Albumin Globulin Ratio 1.4 (1.0-2.8); Alkaline Phosphatase 88 U/L (38-126); Aspartate Aminotransferase 35 IU/L (17-59); BUN Creatinine Ratio 17.2 (6-22); Bilirubin Total 0.8 mg/dL (0.2-1.3); Blood Urea Nitrogen 15 mg/dL (9-20); Calcium 9.1 mg/dL (8.4-10.2); Carbon Dioxide 23 mmol/L (22-32); Chloride 99 mmol/L (98-107); Creatine Kinase 32 U/L (55-170); Estimated Glomerular Filt Rate > 60 mL/min (>60); Globulin 2.8 g/dL (1.7-4.1); Glucose 116 mg/dL (80-110); HEMOLYSIS < 15 (0-50); Lipase 120 U/L (23-300); Magnesium 1.4 mg/dL (1.6-2.3); Potassium 3.9 mmol/L (3.4-5.1); Sodium 131 mmol/L (137-145); Total Protein 6.6 g/dL (6.3-8.2)
--- NOTE | 2022-12-17 14:43 | ED.ARRPALP ---
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 Patient states he has been feeling well up until the last day. He was having blood pressure 114/115 for the last 2 or 3 days. He denies any syncope or lightheadedness, no chest pain, no shortness of breath, he does not appreciate any palpitations currently. Denies any nausea or vomiting. States he does have frequent soft stools he is on fiber to help improve this. They think this is secondary to his treatments for his lymphoma. No dysuria urgency or frequency. No new swelling. They state he has been receiving diuretics and had a significant drop in his weight. He was restarted on his Eliquis a week ago, his Brilinta. He is on sotalol twice daily along with atorvastatin, levothyroxine. Patient follows with Cardiology, Dr. Cunningham in [place]. They state that he was told that he is in chronic atrial fibrillation at all times. Related Data Home Medications Medication Instructions Recorded Confirmed apixaban 5 mg tablet 5 mg PO BID 30 days #60 tabs 02/17/18 12/12/22 ticagrelor 90 mg tablet 90 mg PO BID 05/28/18 12/12/22 multivitamin with iron 1 tab PO DAILY 09/12/21 12/12/22 Previous Rx's Medication Instructions Recorded sotalol 80 mg tablet 80 mg PO BID #60 tabs 11/09/18 Massage Therapy #12 ea 06/18/19 sertraline 25 mg tablet 25 mg PO BEDTIME #90 tabs 02/25/22 fluticasone propionate 50 2 spray intranasal BEDTIME #16 04/11/22 mcg/actuation nasal grams spray,suspension cetirizine 10 mg tablet (Zyrtec) 10 mg PO DAILY PRN allergy 05/07/22 symptoms #90 tabs triamcinolone acetonide 0.1 % 1 applic topical BID PRN rash/itch 05/07/22 topical cream #80 grams atorvastatin 40 mg tablet 40 mg PO QPM #90 tabs 05/14/22 levothyroxine 88 mcg tablet 88 mcg PO DAILY #90 tabs 05/14/22 gabapentin 300 mg capsule 300 mg PO TID #360 caps 07/22/22 Disabled Parking #1 ea 09/24/22 furosemide 40 mg tablet 40 mg PO DAILY #90 tabs 11/27/22 Allergies Allergy/AdvReac Type Severity Reaction Status Date / Time Iodinated Contrast Media Allergy Mild UNSURE Verified 12/12/22 10:22 [IODINATED CONTRAST MEDIA - IV DYE] prochlorperazine Allergy Mild Hypersensit Verified 12/12/22 10:22 [PROCHLORPERAZINE] ivity finasteride AdvReac Intermediate Dizzy, Verified 12/12/22 10:22 weakness tamsulosin [From Flomax] AdvReac Mild Faints Verified 12/12/22 10:22 Review of Systems Review of Systems ROS Unobtainable: All systems reviewed & are unremarkable except as noted in HPI and below Patient History Medical History Acquired hypothyroidism (03/10/15) Anemia Cervical radiculopathy Chronic anticoagulation Chronic renal failure, stage 3 (moderate) (11/25/14) Coronary arteriosclerosis (~06/2017) Essential hypertension Gait instability Hypercalcemia (12/19/14) Hyperparathyroidism (03/10/15) 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 (11/01/16) Ischemic cardiomyopathy Mild TBI (traumatic brain injury) Mitral regurgitation Mixed hyperlipidemia Non-Hodgkin's lymphoma (03/06/11) Paroxysmal atrial fibrillation SBE (subacute bacterial endocarditis) prophylaxis candidate Transient cerebral ischemia Tricuspid regurgitation Surgical History History of splenectomy S/P CABG (coronary artery bypass graft) (~07/2017) S/P parathyroidectomy (~06/2014) Status post tonsillectomy and adenoidectomy Social History marital status: number of children: 2 household members: spouse lives independently: Yes caregiver/support person: Yes housing: house pets and animals: Yes education level: other occupational status: other 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[employer]: Non-jehovah's witness travel history: recent leisure activities: reading and other Smoking Status: Never smoker Tobacco: How many years used: 0 quit status: quit date established second hand exposure: Yes (Younger days) alcohol intake: current substance use type: does not use Smoking Status: Never smoker alcohol intake frequency: holidays/special occasions only Substance Use Type: does not use Exam Narrative Exam Narrative: GENERAL: Alert and oriented x three, thin, elderly appearing male HEENT: Head normocephalic, atraumatic, EOMI, pupils reactive, face symmetric, moist mucous membranes NECK: Supple, full range of motion CARDIOVASCULAR: Irregularly irregular rate and rhythm without murmurs, rubs or gallops. No swelling bilateral lower extremities. No JVD. RESPIRATORY: Breath sounds equal bilaterally, no wheezes rales or rhonchi. No tachypnea or accessory muscle use. ABDOMEN: Soft, nontender. Normoactive bowel sounds all 4 quadrants. No guarding or rebound, rigidity, no mass : No CVA tenderness EXTREMITIES: Normal range of motion, no clubbing or edema. Neurovascularly intact NEUROLOGICAL: Cranial nerves II through XII grossly intact. Moving all extremities SKIN: Warm, dry, no petechiae, no rashes or lesions. Initial Vital Signs Initial Vital Signs: Vital Signs Temperature 98 F 12/17/22 13:49 Pulse Rate 125 H 12/17/22 13:49 Respiratory Rate 18 12/17/22 13:49 Blood Pressure 70/51 L 12/17/22 13:49 Pulse Oximetry 99 12/17/22 13:49 Oxygen Delivery Method Room Air 12/17/22 13:49 Course Orders Ordered: ED Orders 12/17/22 13:58 XR chest 1V Stat EKG-12 Lead Stat 12/17/22 14:11 BNP [NT-proBNP (BNP-Adult 18+)] Stat Complete Blood Count AUTO DIFF Stat Comprehensive Metabolic Panel Stat Lipase Stat Magnesium Stat PTT Partial Thromboplastin Thanh Stat Prothrombin Time INR Stat Troponin & CK Cardiac Panel Stat Discontinued Medications Aspirin (Aspirin 81 Mg Chew Tab) 324 mg PO NOW ONE Stop: 12/17/22 13:59 Magnesium Sulfate (Magnesium Sulfate) 2 gm in 50 mls @ 25 mls/hr IV NOW ONE Stop: 12/17/22 16:43 Last Infusion: 12/17/22 16:47 Dose: 0 mls/hr Documented By: MARU Co-signed By: MPO Admin: 12/17/22 14:50 Dose: 25 mls/hr Documented By: MARU Co-signed By: AMV Sodium Chloride (Normal Saline 0.9%) 1,000 mls @ 500 mls/hr IV BOLUS ONE Stop: 12/17/22 16:57 Last Infusion: 12/17/22 17:43 Dose: 0 mls/hr Documented By: Admin: 12/17/22 15:10 Dose: 500 mls/hr Documented By: MARU Vital Signs Vital signs: Vital Signs - 8 hr 12/17/22 13:49 12/17/22 14:18 12/17/22 14:22 Temperature 98 F Pulse Rate 125 H 136 H Respiratory Rate 18 28 H Blood Pressure 70/51 L Pulse Oximetry 99 96 98 Oxygen Delivery Method Room Air 12/17/22 14:22 12/17/22 14:30 12/17/22 14:30 Temperature Pulse Rate 129 H Respiratory Rate 21 Blood Pressure 102/52 L 73/51 L Pulse Oximetry 98 Oxygen Delivery Method 12/17/22 15:00 12/17/22 15:00 12/17/22 15:30 Temperature Pulse Rate 105 H Respiratory Rate 21 Blood Pressure 85/56 L 94/58 L Pulse Oximetry 98 Oxygen Delivery Method 12/17/22 15:30 12/17/22 16:00 12/17/22 16:00 Temperature Pulse Rate 107 H 96 H Respiratory Rate 22 25 H Blood Pressure 102/76 Pulse Oximetry 97 97 Oxygen Delivery Method 12/17/22 16:30 12/17/22 16:30 12/17/22 17:00 Temperature Pulse Rate 85 Respiratory Rate 22 Blood Pressure 99/67 102/63 Pulse Oximetry 98 Oxygen Delivery Method 12/17/22 17:00 12/17/22 17:30 12/17/22 17:30 Temperature Pulse Rate 81 83 Respiratory Rate 20 19 Blood Pressure 106/64 Pulse Oximetry 98 98 Oxygen Delivery Method 12/17/22 18:00 12/17/22 18:00 Temperature Pulse Rate 88 Respiratory Rate 17 Blood Pressure 115/68 Pulse Oximetry 98 Oxygen Delivery Method MDM - Arrhythmia/Palpitations Lab Data 12/17/22 14:11 12/17/22 14:11 Labs: Lab Results 12/17/22 12/17/22 12/17/22 Range/Units 14:11 14:11 14:11 WBC 7.2 (4.5-11.0) X10^3/uL RBC 3.43 L (4.5-5.9) X10^6/uL Hgb 10.7 L (13.5-17.5) g/dL Hct 32.4 L (41-53) % MCV 94.3 (80-100) fL MCH 31.1 (26-34) PG MCHC 33.0 (30-36) % RDW 22.0 H (11.6-14.8) % Plt Count 256 (150-400) X10^3/uL Neut % (Auto) 69.8 (50-75) % Lymph % (Auto) 12.2 L (25-40) % Wayne % (Auto) 13.7 (3-14) % Eos % (Auto) 2.6 (2-4) % Baso % (Auto) 1.7 (0-2) % Neut # (Auto) 5100 (5270-0328) /uL Lymph # (Auto) 900 L (3272-1633) /uL Wayne # (Auto) 1000 H (0-900) /uL Eos # (Auto) 200 (0-450) /uL Baso # (Auto) 100 (0-100) /uL RBC Morphology See below Anisocytosis 2+ H Acanthocytes (Spur) 1+ PT 21.6 H (10.1-12.7) SECONDS INR 1.9 H (0.9-1.3) APTT 38 H (26-36) SECONDS Sodium 131 L (137-145) mmol/L Potassium 3.9 (3.4-5.1) mmol/L Chloride 99 (98-107) mmol/L Carbon Dioxide 23 (22-32) mmol/L BUN 15 (9-20) mg/dL Creatinine 0.87 (0.66-1.25) mg/dL Estimated GFR > 60 (>60) mL/min BUN/Creatinine Ratio 17.2 (6-22) Glucose 116 H (80-110) mg/dL Calcium 9.1 (8.4-10.2) mg/dL Magnesium 1.4 L (1.6-2.3) mg/dL Total Bilirubin 0.8 (0.2-1.3) mg/dL AST 35 (17-59) IU/L ALT 27 (<50) IU/L Alkaline Phosphatase 88 (38-126) U/L Total Creatine Kinase 32 L (55-170) U/L Troponin I 0.021 (0.01-0.034) ng/mL NT-Pro-B Natriuret Pep (<450) pg/mL Total Protein 6.6 (6.3-8.2) g/dL Albumin 3.8 (3.5-5.0) g/dL Globulin 2.8 (1.7-4.1) g/dL Albumin/Globulin Ratio 1.4 (1.0-2.8) Lipase 120 (23-300) U/L /01/01 Range/Units 14:11 WBC (4.5-11.0) X10^3/uL RBC (4.5-5.9) X10^6/uL Hgb (13.5-17.5) g/dL Hct (41-53) % MCV (80-100) fL MCH (26-34) PG MCHC (30-36) % RDW (11.6-14.8) % Plt Count (150-400) X10^3/uL Neut % (Auto) (50-75) % Lymph % (Auto) (25-40) % Wayne % (Auto) (3-14) % Eos % (Auto) (2-4) % Baso % (Auto) (0-2) % Neut # (Auto) (8405-5368) /uL Lymph # (Auto) (4614-1765) /uL Wayne # (Auto) (0-900) /uL Eos # (Auto) (0-450) /uL Baso # (Auto) (0-100) /uL RBC Morphology Anisocytosis Acanthocytes (Spur) PT (10.1-12.7) SECONDS INR (0.9-1.3) APTT (26-36) SECONDS Sodium (137-145) mmol/L Potassium (3.4-5.1) mmol/L Chloride (98-107) mmol/L Carbon Dioxide (22-32) mmol/L BUN (9-20) mg/dL Creatinine (0.66-1.25) mg/dL Estimated GFR (>60) mL/min BUN/Creatinine Ratio (6-22) Glucose (80-110) mg/dL Calcium (8.4-10.2) mg/dL Magnesium (1.6-2.3) mg/dL Total Bilirubin (0.2-1.3) mg/dL AST (17-59) IU/L ALT (<50) IU/L Alkaline Phosphatase (38-126) U/L Total Creatine Kinase (55-170) U/L Troponin I (0.01-0.034) ng/mL NT-Pro-B Natriuret Pep 42210 H (<450) pg/mL Total Protein (6.3-8.2) g/dL Albumin (3.5-5.0) g/dL Globulin (1.7-4.1) g/dL Albumin/Globulin Ratio (1.0-2.8) Lipase (23-300) U/L Imaging Data Chest x-ray: Radiologist's Impresson: Close Chest X-Ray (Signed) Mi Rincon - 12/17/22 Telemetry Strips 11/23/22 Echocardiogram Ultrasound (Signed) Zena Vega - 11/23/22 Chest CTA (Signed) Bridger Jimenez - 11/23/22 Chest X-Ray (Signed) Bridger Jimenez - 11/23/22 DI Result CC 07/05/22 DI Result CC 07/05/22 Humerus MRI (Signed) Edu Cunningham - 05/21/22 Humerus X-Ray (Signed) Mi Rincon - 05/07/22 Cervical Spine X-Ray (Signed) Hilario Ramirez - 09/07/21 Outside Echo 05/21/21 Brain MRI (Signed) David Palomo - 09/01/20 DI Result CC 08/30/[address] (Signed) Hermann Garcia - 03/08/20 Hand X-Ray (Signed) Hermann Garcia - 03/08/20 Cervical Spine X-Ray (Signed) Edu Cunningham - 01/25/20 DI Result CC 12/01/19 Abdomen Ultrasound (Signed) Hermann Garcia - 12/27/18 Abdomen/Pelvis CT (Signed) Hermann Garcia - 12/27/18 Chest X-Ray (Signed) Carlos Alexander - 12/10/[address] (Signed) Amari Stanley - 11/07/18 Shoulder X-Ray (Signed) Vicente Seaman - 08/04/18 Chest CTA (Signed) Amari Stanley - 05/28/18 Chest/Abdomen X-ray (Signed) Amari Stanley - 05/28/18 Abdomen Ultrasound (Signed) Amari Stanley - 05/28/18 Outside EKG 03/12/18 DI Result CC 11/18/[address] (Signed) Mi Rincon - 11/09/17 Telemetry Strips 11/09/17 Chest X-Ray (Signed) Mi Rincon - 11/08/17 Chest X-Ray (Signed) Gabriele Guo - 11/02/17 Telemetry Strips 11/02/17 Launch?Image [address] [address] XRay Report Signed Patient: Martínez Edward MR#: [id number] : 1945 Acct:[id number] Age/Sex: 77 / M Date of Service: 12/17/22 Loc: ED Accession Number: [id number] ?? Procedure: XR chest 1V Ordering Provider: Katy Murphy D.O. PROCEDURE:? XR CHEST 1V ? INDICATIONS:? chest pain ? TECHNIQUE:? One view of the chest was acquired.? ? COMPARISON:? [facility], , XR CHEST 1V, 11/23/2022, 8:36. ? FINDINGS:? ? Surgical changes and devices:? Stable CABG postsurgical changes. ? Lungs and pleura:? Lungs are clear.? No pleural effusions or pneumothorax.? ? Mediastinum:? Mediastinal contours appear normal.? Heart is enlarged. ? Bones and chest wall:? No suspicious bony lesions.? Overlying soft tissues appear unremarkable.? ? IMPRESSION:? No acute cardiopulmonary disease process. ? ? Dictated by: Mi Rincon MD, PhD on 12/17/2022 at 14:36 ? ? Approved by: Mi Rincon MD, PhD on 12/17/2022 at 14:36?? ECG Data Attestation: I personally reviewed and interpreted this ECG as follows: Prior ECG tracings: available for review Interpretation: Atrial fibrillation with rapid ventricular response rate of 135 QRS of 122 and QTC [address] elevation appreciated left axis deviation. Patient has prior EKGs from 11/23/2022 which appears similar. [facility] Narrative Medical decision making narrative: This is a 77-year-old male who came in AFib RVR hypotensive with known lymphoma currently on chemotherapy patient received a 1000 L fluid bolus over 2 hours, he had magnesium replaced as he was low [place] 1.4[place] [address] it was 20,000 on admission November and down to 5000 around discharge, troponin is not positive today. Patient's blood pressure did improve, he feels much better afterwards. His heart rate significantly improved as well without any additional antiarrhythmics. Patient's renal function electrolytes otherwise are fairly appropriate, patient's hemoglobin is not low, he does not have any other clear signs of infection or sepsis. Him in his note that he had a lot of diuresis until recently he is off his Lasix currently. He did restart apixaban a week ago. Spoke with patient's Cardiology team, he is fairly medically fragile he has quite a few medical issues. Spoke with Dr. Muro. At this time will hold Lasix but patient may need again. We did review his echo from November did show an EF of 20 25% which had worsened from prior he probably has some acute on chronic renal failure is probably somewhat intravascularly depleted. Patient and family feel comfortable for return home with plan for close follow-up. Patient was encouraged to return if worsening symptoms. Discharge Plan Departure Patient Disposition: Home Clinical Impression: Atrial fibrillation Instructions: DI for Arrhythmias Activity Restrictions/Additional Instructions: Follow up with your environmental science technician shortly. You may have to add your Lasix back in the next several days as you did receive fluids but continue to hold it for now. Continue your other home medications as prescribed. Please return for new or worsening chest pain shortness of breath lightheadedness or passing out, increasing swelling of extremities or other new or concerning changes. Prescriptions: No Action sertraline 25 mg tablet 25 mg PO BEDTIME Qty: 90 2RF fluticasone propionate 50 mcg/actuation spray,suspension 2 spray NASAL BEDTIME Qty: 16 11RF Rx Instructions: administer into each nostril atorvastatin 40 mg tablet 40 mg PO QPM Qty: 90 3RF levothyroxine 88 mcg tablet 88 mcg PO DAILY Qty: 90 3RF (DME) Disabled Parking Qty: 1 0RF Rx Instructions: Patient qualifies for disabled parking as per the attached form. apixaban 5 mg tablet 5 mg PO BID 30 Days Qty: 60 gabapentin 300 mg capsule 300 mg PO TID Qty: 360 3RF sotalol 80 mg tablet 80 mg PO BID Qty: 60 1RF (DME) Massage Therapy Qty: 12 0RF Rx Instructions: Massage Therapy - 12 visits over 6 months. triamcinolone acetonide 0.1 % cream 1 applic TOP BID PRN (Reason: rash/itch) Qty: 80 11RF Rx Instructions: apply only to intact skin cetirizine [Zyrtec] 10 mg tablet 10 mg PO DAILY PRN (Reason: allergy symptoms) Qty: 90 3RF ticagrelor 90 mg tablet 90 mg PO BID furosemide 40 mg Tablet 40 mg PO DAILY Qty: 90 3RF Hold Instructions: hypotension multivitamin with iron Tablet 1 tab PO DAILY Referrals: Danyel Schafer MD [Primary Care Provider] - Stand Alone Forms: Patient Portal/API
[2022-12-17 14:44] LABS: Troponin I 0.021 ng/mL (0.01-0.034)
[2022-12-17] MEDS: MAGNESIUM SULFATE 2 GM/50 ML PIGGYBACK IV (14:50)
[2022-12-17 15:04] LABS: NT-proBNP (BNP-Adult 18+) 11000 pg/mL (<450)
[2022-12-17] MEDS: SODIUM CHLORIDE 0.9% 1,000 ML 500 ML IV (15:10)
[2022-12-17 16:05] LABS: Acanthocytes 1+; Anisocytosis 2+
== END 2022-12-17 18:32 | disposition home or self-care (01) ==
PROVIDERS: Emergency Provider Emergency Medicine; PCP Internal Medicine
DX: I48.91 Unspecified atrial fibrillation (principal)
CPT/HCPCS: 36415; 71045; 80053; 82550; 83690; 83735; 83880; 84484; 85025; 85610; 85730; 93005; 93010; 96365; 96366; 99284; J3475

== ENCOUNTER 2023-02-15 19:04 | Emergency (ER) | payer MEDICARE, OTHER, SELFPAY ==
[2023-02-15] VITALS (14 sets, daily range): BP systolic 70–127; BP diastolic 39–84; PULSE 69–156; RESP 16–37; TEMP 36.2; O2SAT 95–100; BMI 20.5
--- NOTE | 2023-02-15 19:27 | DI.RAD.S_ITS ---
PROCEDURE: XR CHEST 1V INDICATIONS: Chest pain, shortness of breath. TECHNIQUE: One view of the chest was acquired. COMPARISON: [facility], CR, XR CHEST 1V, 12/17/2022, 14:06. [facility], CR, XR CHEST 1V, 11/23/2022, 8:36. FINDINGS: Surgical changes and devices: Prior CABG and sternotomy. Lungs and pleura: Lungs are mildly edematous. No pleural effusions or pneumothorax. Mediastinum: Mediastinal contours appear normal. Heart size is at or just above the upper limits of normal. Bones and chest wall: No suspicious bony lesions. Overlying soft tissues appear unremarkable. IMPRESSION: Mild acute CHF pattern, prior CABG. Dictated by: Carlos Alexander M.D. on 02/15/2023 at 20:00 Approved by: Carlos Alexanedr M.D. on 02/15/2023 at 20:01
[2023-02-15 19:54] LABS: Add Manual Diff / Slide Review NO; Basophils Absolute Auto 100 /uL (0-100); Basophils Percent Auto 2.2 % (0-2); Eosinophils Absolute Auto 200 /uL (0-450); Hematocrit 32.8 % (41-53); Hemoglobin 10.9 g/dL (13.5-17.5); Lymphocytes Absolute Auto 400 /uL (1100-4500); Lymphocytes Percent Auto 6.5 % (25-40); Mean Corpuscular HGB Conc 33.2 % (30-36); Mean Corpuscular Hemoglobin 30.9 PG (26-34); Mean Corpuscular Volume 93.1 fL (80-100); Monocytes Absolute Auto 900 /uL (0-900); Monocytes Percent Auto 15.1 % (3-14); Neutrophils Absolute Auto 4200 /uL (1500-7000); Neutrophils Percent Auto 72.2 % (50-75); Platelet Count 213 X10^3/uL (150-400); Red Blood Cell Count 3.52 X10^6/uL (4.5-5.9); Red Cell Distribution Width 17.2 % (11.6-14.8); White Blood Cell Count 5.9 X10^3/uL (4.5-11.0)
[2023-02-15 19:56] LABS: INR 2.8 (0.9-1.3); Prothrombin Time 32.1 SECONDS (10.1-12.7)
[2023-02-15 19:58] LABS: PTT Partial Thromboplastin Tim 35 SECONDS (26-36)
[2023-02-15 20:16] LABS: NT-proBNP (BNP-Adult 18+) 7350 pg/mL (<450)
--- NOTE | 2023-02-15 20:16 | ED_ITS ---
HPI - SOB/Dyspnea General Chief Complaint: Shortness of Breath/Dyspnea Stated Complaint: Labored breathing, On radiation therapy Time Seen by Provider: 02/15/23 20:09 Source: patient and family Mode of arrival: Wheelchair Limitations: no limitations History of Present Illness HPI Narrative: Patient is a 77-year-old male history of CABG, cardiac valve replacement, atrial fibrillation on Xarelto congestive heart failure, with recent echo on 01/17/2023 showing LVEF 40% with global hypokinesis, currently undergoing radiation for Stage II DLBCL of left humerus. Presents today with increased difficulty breathing. reports that over the last few days she has noticed significant orthopnea especially at night. No significant fever or chills. Atrial fibrillation she reports his relatively rate controlled on sotalol. Heart rate while in Room is quite variable ranging anywhere from 99-144 but nothing is long-lasting. Has no obvious conversational dyspnea. He is not complaining of any pain. They report that the radiation for the left humerus is working and improving. Related Data Home Medications Medication Instructions Recorded Confirmed apixaban 5 mg tablet 5 mg PO BID 30 days #60 tabs 02/17/18 01/02/23 ticagrelor 90 mg tablet 90 mg PO BID 05/28/18 01/02/23 multivitamin with iron 1 tab PO DAILY 09/12/21 01/02/23 Previous Rx's Medication Instructions Recorded sotalol 80 mg tablet 80 mg PO BID #60 tabs 11/09/18 Massage Therapy #12 ea 06/18/19 sertraline 25 mg tablet 25 mg PO BEDTIME #90 tabs 02/25/22 fluticasone propionate 50 2 spray intranasal BEDTIME #16 04/11/22 mcg/actuation nasal grams spray,suspension cetirizine 10 mg tablet (Zyrtec) 10 mg PO DAILY PRN allergy 05/07/22 symptoms #90 tabs triamcinolone acetonide 0.1 % 1 applic topical BID PRN rash/itch 05/07/22 topical cream #80 grams atorvastatin 40 mg tablet 40 mg PO QPM #90 tabs 05/14/22 levothyroxine 88 mcg tablet 88 mcg PO DAILY #90 tabs 05/14/22 gabapentin 300 mg capsule 300 mg PO TID #360 caps 07/22/22 [address]ing #1 ea 09/24/22 furosemide 40 mg tablet 40 mg PO DAILY #90 tabs 11/27/22 furosemide 20 mg tablet (Lasix) 20 mg PO DAILY #10 tabs 02/15/23 Allergies Allergy/AdvReac Type Severity Reaction Status Date / Time Iodinated Contrast Media Allergy Mild UNSURE Verified 02/15/23 19:19 [IODINATED CONTRAST MEDIA - IV DYE] prochlorperazine Allergy Mild Hypersensit Verified 02/15/23 19:19 [PROCHLORPERAZINE] ivity finasteride AdvReac Intermediate Dizzy, Verified 02/15/23 19:19 weakness tamsulosin [From Flomax] AdvReac Mild Faints Verified 02/15/23 19:19 Review of Systems Review of Systems ROS Unobtainable: All systems reviewed & are unremarkable except as noted in HPI and below 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 (11/01/16) Hyperparathyroidism (03/10/15) Hypercalcemia (12/19/14) Acquired hypothyroidism (03/10/15) Chronic renal failure, stage 3 (moderate) (11/25/14) Transient cerebral ischemia Essential hypertension Mixed hyperlipidemia Hypogonadism in male Non-Hodgkin's lymphoma (03/06/11) Surgical History S/P parathyroidectomy (~06/2014) S/P CABG (coronary artery bypass graft) (~07/2017) Status post tonsillectomy and adenoidectomy History of splenectomy Social History marital status: number of children: 2 household members: spouse lives independently: Yes caregiver/support person: Yes housing: house pets and animals: Yes education level: other occupational status: other 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: Non-sikhism travel history: recent leisure activities: reading and other Smoking Status: Never smoker Tobacco: How many years used: 0 quit status: quit date established second hand exposure: Yes (Younger days) alcohol intake: current substance use type: does not use Smoking Status: Never smoker alcohol intake frequency: holidays/special occasions only Substance Use Type: does not use Exam Initial Vital Signs Initial Vital Signs: Vital Signs Temperature 97.2 F L 02/15/23 19:19 Pulse Rate 126 H 02/15/23 19:19 Respiratory Rate 22 02/15/23 19:19 Blood Pressure 114/74 02/15/23 19:19 Pulse Oximetry 100 02/15/23 19:19 Oxygen Delivery Method Room Air 02/15/23 19:19 GENERAL: Chronically ill weak alert 77-year-old male HEENT: Head atraumatic,EOMI, pupils reactive, face symmetric, moist mucous membranes CARDIOVASCULAR: Irregularly irregular RESPIRATORY: Breath sounds equal bilaterally, no wheezes rales or rhonchi. ABDOMEN: Soft, nontender. Normoactive bowel sounds all 4 quadrants. No guarding or rebound. EXTREMITIES: Normal range of motion, no clubbing or edema. Neurovascularly intact NEUROLOGICAL: Alert and oriented x4.Normal gait and speech. SKIN: Warm, dry, no laceration, no petechiae, no rashes or lesions. Course Orders Ordered: ED Orders 02/15/23 20:17 CT angio chest PE protocol Stat 02/15/23 20:24 COVID19 -Nasal RAPID Stat Discontinued Medications Aspirin (Aspirin 81 Mg Chew Tab) 324 mg PO NOW ONE Stop: 02/15/23 19:28 Last Admin: 02/15/23 19:42 Dose: Not Given Documented By: MLM Diltiazem HCl (Diltiazem 5 Mg/Ml Sdv) 10 mg IV NOW ONE Stop: 02/15/23 21:19 Last Admin: 02/15/23 21:38 Dose: 10 mg Documented By: GC Diphenhydramine HCl (Diphenhydramine 50 Mg/Ml Vial) 25 mg IV NOW ONE Stop: 02/15/23 20:23 Last Admin: 02/15/23 20:44 Dose: 25 mg Documented By: GC Furosemide (Furosemide 40 Mg/4 Ml Vial) 40 mg IV NOW ONE Stop: 02/15/23 20:18 Last Admin: 02/15/23 20:44 Dose: 40 mg Documented By: GC Methylprednisolone (Methylprednisolone 125 Mg/2 Ml Vial) 125 mg IV NOW ONE Stop: 02/15/23 20:23 Last Admin: 02/15/23 20:44 Dose: 125 mg Documented By: GC Vital Signs Vital signs: Vital Signs - 8 hr 02/15/23 21:30 02/15/23 21:30 02/15/23 21:38 Pulse Rate 148 H 156 H Respiratory Rate 16 Blood Pressure 116/84 116/84 Pulse Oximetry 98 02/15/23 22:00 02/15/23 22:00 02/15/23 22:30 Pulse Rate 89 96 H Respiratory Rate 30 H 37 H Blood Pressure 107/67 Pulse Oximetry 97 98 02/15/23 22:30 02/15/23 23:00 02/15/23 23:00 Pulse Rate 126 H Respiratory Rate 22 Blood Pressure 118/71 119/82 Pulse Oximetry 95 MDM - SOB/Dyspnea Lab Data 02/15/23 19:40 02/15/23 19:40 Labs: Lab Results 02/15/23 02/15/23 Range/Units 19:40 20:24 WBC 5.9 (4.5-11.0) X10^3/uL RBC 3.52 L (4.5-5.9) X10^6/uL Hgb 10.9 L (13.5-17.5) g/dL Hct 32.8 L (41-53) % MCV 93.1 (80-100) fL MCH 30.9 (26-34) PG MCHC 33.2 (30-36) % RDW 17.2 H (11.6-14.8) % Plt Count 213 (150-400) X10^3/uL Neut % (Auto) 72.2 (50-75) % Lymph % (Auto) 6.5 L (25-40) % [place] % (Auto) 15.1 H (3-14) % Eos % (Auto) 4.0 (2-4) % Baso % (Auto) 2.2 H (0-2) % Neut # (Auto) 4200 (9027-5544) /uL Lymph # (Auto) 400 L (6238-7156) /uL [place] # (Auto) 900 (0-900) /uL Eos # (Auto) 200 (0-450) /uL Baso # (Auto) 100 (0-100) /uL PT 32.1 H (10.1-12.7) SECONDS INR 2.8 H (0.9-1.3) APTT 35 (26-36) SECONDS Sodium 133 L (137-145) mmol/L Potassium 4.5 (3.4-5.1) mmol/L Chloride 102 (98-107) mmol/L Carbon Dioxide 23 (22-32) mmol/L BUN 20 (9-20) mg/dL Creatinine 1.06 (0.66-1.25) mg/dL Estimated GFR > 60 (>60) mL/min BUN/Creatinine Ratio 18.9 (6-22) Glucose 102 (80-110) mg/dL Calcium 9.2 (8.4-10.2) mg/dL Magnesium 1.6 (1.6-2.3) mg/dL Total Bilirubin 1.1 (0.2-1.3) mg/dL AST 32 (17-59) IU/L ALT 30 (<50) IU/L Alkaline Phosphatase 93 (38-126) U/L Total Creatine Kinase 43 L (55-170) U/L Troponin I 0.016 (0.01-0.034) ng/mL NT-Pro-B Natriuret Pep 7350 H (<450) pg/mL Total Protein 6.0 L (6.3-8.2) g/dL Albumin 3.8 (3.5-5.0) g/dL Globulin 2.2 (1.7-4.1) g/dL Albumin/Globulin Ratio 1.7 (1.0-2.8) Lipase 105 (23-300) U/L SARS-CoV-2 (PCR) Negative (Negative) Imaging Data CT scan - chest: Radiologist's Impression: PROCEDURE: CT ANGIO CHEST PE PROTOCOL INDICATIONS: Shortness of breath; afib TECHNIQUE: After the administration of intravenous contrast, 2 mm thick sections acquired from the pulmonary apices to the posterior costophrenic angles. 3-dimensional maximum intensity projection (MIP) coronal and sagittal reformats were then acquired through the thorax. For radiation dose reduction, the following was used: automated exposure control, adjustment of mA and/or kV according to patient size. COMPARISON: [facility], CT, CT ANGIO CHEST PE PROTOCOL, 11/23/2022, 9:04. [facility], CT, CT ANGIO CHEST PE PROTOCOL, 05/28/2018, 13:54. FINDINGS: Image quality: Excellent. Pulmonary arteries: Pulmonary arteries are normal in size, and demonstrate no intraluminal filling defects to suggest central pulmonary embolism. Lungs and pleura: Lungs are clear. No pleural effusions or pneumothorax. Central and peripheral airways are patent. Mediastinum: Heart size is normal, without pericardial effusion. No mediastinal or hilar adenopathy. Thoracic aorta is normal in caliber and enhancement. Esophagus is normal in caliber, without hiatal hernia. Bones and chest wall: No suspicious bony lesions. Ribs and thoracic spine appear intact throughout. Thyroid gland is not well seen. No axillary or supraclavicular adenopathy. Abdomen: Visualized upper abdominal visualized solid organs appear normal in the early arterial phase of enhancement. The spleen is absent. The right kidney is prominently atrophic, previously the case. IMPRESSION: No pulmonary embolus found. Prior splenectomy and chronic prominent atrophy of the right kidney. Dictated by: Carlos Alexander M.D. on 02/15/2023 at 21:20 Chest x-ray: Radiologist's Impression: PROCEDURE: XR CHEST 1V INDICATIONS: Chest pain, shortness of breath. TECHNIQUE: One view of the chest was acquired. COMPARISON: [facility], CR, XR CHEST 1V, 12/17/2022, 14:06. [facility], CR, XR CHEST 1V, 11/23/2022, 8:36. FINDINGS: Surgical changes and devices: Prior CABG and sternotomy. Lungs and pleura: Lungs are mildly edematous. No pleural effusions or pneumothorax. Mediastinum: Mediastinal contours appear normal. Heart size is at or just above the upper limits of normal. Bones and chest wall: No suspicious bony lesions. Overlying soft tissues appear unremarkable. IMPRESSION: Mild acute CHF pattern, prior CABG. Dictated by: Carlos Alexander M.D. on 02/15/2023 at 20:00 Approved by: Carlos Alexander M.D. on 02/15/2023 at 20:01 ECG Data Interpretation: Atrial fibrillation rate 125 similar to previous EKG in December. [facility] Narrative Medical decision making narrative: Patient 77-year-old male with ongoing chemotherapy atrial fibrillation on Eliquis Brilinta and sotalol presents today with increasing shortness of breath and orthopnea. No evidence of infection or pneumonia. He is in AFib heart rate does spike up into the 150s. BNP is mildly elevated both chest x-ray and CT angio consistent with congestive heart failure. Troponin is negative. He is given Lasix in the ED which is helping him lie flat. He is not hypoxic. Given 10 mg of diltiazem to slow his heart rate from the 150s to below 100. Sotalol is antiarrhythmic and he is in atrial fibrillation. With heart rate not controlled. I suspect that he has been in AFib causing congestive heart failure. Briefly discussed with on-call Cardiology he recommends cardioverting patient if he is not had any break in anticoagulation Discussion with both and patient at this time they do not want cardioversion they understand what is going on. He is undergoing radiation every day and has 2 more weeks of it. He is overall exhausted and would like to go. They will call his core filer who is apparently Dr. Cunningham at [facility] in 2 days on Friday morning Discharge Plan Departure Patient Disposition: Home Clinical Impression: Atrial fibrillation, Congestive heart failure Instructions: Heart Failure, Atrial Fibrillation Activity Restrictions/Additional Instructions: *You have been diagnosed with atrial fibrillation and congestive heart failure *What to do: At this time he opted not to be cardioverted in the ED. However please continue to monitor your heart rate. Think it will go back up. Your heart rate is not well controlled, and it is causing fluid buildup. Cardiology may tell you to come back to the ED for cardioversion *Continue to take medications as directed Lasix 20 mg once a day 5 days *Follow up with your primary care provider in 2-3 days or call [phone] Call Cardiology 1st thing Friday morning *Return to ER if you should have increasing chest pain shortness of breath palpitations heart rate greater than 120 for longer than 1 hour or any new, worsening or concerning symptoms Prescriptions: New furosemide [Lasix] 20 mg tablet 20 mg PO DAILY Qty: 10 0RF No Action sertraline 25 mg tablet 25 mg PO BEDTIME Qty: 90 2RF fluticasone propionate 50 mcg/actuation spray,suspension 2 spray NASAL BEDTIME Qty: 16 11RF Rx Instructions: administer into each nostril atorvastatin 40 mg tablet 40 mg PO QPM Qty: 90 3RF levothyroxine 88 mcg tablet 88 mcg PO DAILY Qty: 90 3RF (DME) Disabled Parking Qty: 1 0RF Rx Instructions: Patient qualifies for disabled parking as per the attached form. apixaban 5 mg tablet 5 mg PO BID 30 Days Qty: 60 gabapentin 300 mg capsule 300 mg PO TID Qty: 360 3RF sotalol 80 mg tablet 80 mg PO BID Qty: 60 1RF (DME) Massage Therapy Qty: 12 0RF Rx Instructions: Massage Therapy - 12 visits over 6 months. triamcinolone acetonide 0.1 % cream 1 applic TOP BID PRN (Reason: rash/itch) Qty: 80 11RF Rx Instructions: apply only to intact skin cetirizine [Zyrtec] 10 mg tablet 10 mg PO DAILY PRN (Reason: allergy symptoms) Qty: 90 3RF ticagrelor 90 mg tablet 90 mg PO BID furosemide 40 mg Tablet 40 mg PO DAILY Qty: 90 3RF Hold Instructions: hypotension multivitamin with iron Tablet 1 tab PO DAILY Referrals: Danyel Schafer MD [Primary Care Provider] - Stand Alone Forms: Patient Portal/API
[2023-02-15 20:19] LABS: Alanine Aminotransferase 30 IU/L (<50); Albumin 3.8 g/dL (3.5-5.0); Albumin Globulin Ratio 1.7 (1.0-2.8); Alkaline Phosphatase 93 U/L (38-126); Aspartate Aminotransferase 32 IU/L (17-59); BUN Creatinine Ratio 18.9 (6-22); Bilirubin Total 1.1 mg/dL (0.2-1.3); Blood Urea Nitrogen 20 mg/dL (9-20); Calcium 9.2 mg/dL (8.4-10.2); Carbon Dioxide 23 mmol/L (22-32); Chloride 102 mmol/L (98-107); Creatine Kinase 43 U/L (55-170); Estimated Glomerular Filt Rate > 60 mL/min (>60); Globulin 2.2 g/dL (1.7-4.1); Glucose 102 mg/dL (80-110); HEMOLYSIS < 15 (0-50); Lipase 105 U/L (23-300); Magnesium 1.6 mg/dL (1.6-2.3); Potassium 4.5 mmol/L (3.4-5.1); Sodium 133 mmol/L (137-145)
[2023-02-15 20:34] LABS: Troponin I 0.016 ng/mL (0.01-0.034)
[2023-02-15] MEDS: diphenhydrAMINE 50 MG/ML VIAL 25 MG IV (20:44)
[2023-02-15] MEDS: FUROSEMIDE 40 MG/4 ML VIAL IV (20:44)
[2023-02-15] MEDS: methylPREDNISolone 125 MG/2 ML VIAL IV (20:44)
[2023-02-15 20:53] LABS: COVID19 -Nasal RAPID Negative (Negative)
[2023-02-15] MEDS: dilTIAZem 5 MG/ML SDV 10 MG IV (21:38)
== END 2023-02-15 23:24 | disposition home or self-care (01) ==
PROVIDERS: Emergency Provider Emergency Medicine; PCP Internal Medicine
DX: I48.91 Unspecified atrial fibrillation (principal); I50.9 Heart failure, unspecified; R07.9 Chest pain, unspecified; Z79.01 Long term (current) use of anticoagulants; Z20.822 Contact with and (suspected) exposure to COVID-19
CPT/HCPCS: 36415; 71045; 71275; 80053; 82550; 83690; 83735; 83880; 84484; 85025; 85610; 85730; 87635; 93005; 96374; 96375; 99284; C9803; J1200; J1940; J2930; Q9967

== ENCOUNTER 2023-02-16 10:19 | Emergency (ER) | payer MEDICARE, OTHER, SELFPAY ==
[2023-02-16] VITALS (28 sets, daily range): BP systolic 95–109; BP diastolic 61–75; PULSE 67–116; RESP 8–31; TEMP 37; O2SAT 95–99; BMI 20.5
--- NOTE | 2023-02-16 10:40 | DI.RAD.S_ITS ---
PROCEDURE: XR CHEST 1V INDICATIONS: chest pain TECHNIQUE: One view of the chest was acquired. COMPARISON: [facility], CT, CT ANGIO CHEST PE PROTOCOL, 02/15/2023, 20:37. [facility], CR, XR CHEST 1V, 02/15/2023, 19:31. [facility], CR, XR CHEST 1V, 12/17/2022, 14:06. FINDINGS: Surgical changes and devices: Post median sternotomy and CABG. Multiple clips in the upper abdomen. Lungs and pleura: Lungs are clear. Small left pleural effusion. No pneumothorax. Mediastinum: Mediastinal contours appear unchanged. Heart size is prominent. Bones and chest wall: No suspicious bony lesions. Overlying soft tissues appear unremarkable. IMPRESSION: Small left pleural effusion. Dictated by: Stephen Briseno M.D. on 02/16/2023 at 11:29 Approved by: Stephen Briseno M.D. on 02/16/2023 at 11:31
--- NOTE | 2023-02-16 11:01 | ED_ITS ---
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 Full workup was done in the emergency department last night, please see Dr. Espinal next note for details. Recommendation last night was to proceed with cardioversion given that he has been routinely taking his Eliquis but patient and his were hoping that the AFib would resolve overnight. It did not. They contacted his finishing frame runner this morning who recommended that he return to the emergency department for electrical cardioversion. Patient has not had anything to eat since dinner last night. He did take his Eliquis last night and this morning as well as his sotalol. He does not note any worsening dyspnea, is feeling some palpitations but no overt pain. Related Data Home Medications Medication Instructions Recorded Confirmed apixaban 5 mg tablet 5 mg PO BID 30 days #60 tabs 02/17/18 01/02/23 ticagrelor 90 mg tablet 90 mg PO BID 05/28/18 01/02/23 multivitamin with iron 1 tab PO DAILY 09/12/21 01/02/23 Previous Rx's Medication Instructions Recorded sotalol 80 mg tablet 80 mg PO BID #60 tabs 11/09/18 Massage Therapy #12 ea 06/18/19 sertraline 25 mg tablet 25 mg PO BEDTIME #90 tabs 02/25/22 fluticasone propionate 50 2 spray intranasal BEDTIME #16 04/11/22 mcg/actuation nasal grams spray,suspension cetirizine 10 mg tablet (Zyrtec) 10 mg PO DAILY PRN allergy 05/07/22 symptoms #90 tabs triamcinolone acetonide 0.1 % 1 applic topical BID PRN rash/itch 05/07/22 topical cream #80 grams atorvastatin 40 mg tablet 40 mg PO QPM #90 tabs 05/14/22 levothyroxine 88 mcg tablet 88 mcg PO DAILY #90 tabs 05/14/22 gabapentin 300 mg capsule 300 mg PO TID #360 caps 07/22/22 [address]ing #1 ea 09/24/22 furosemide 40 mg tablet 40 mg PO DAILY #90 tabs 11/27/22 furosemide 20 mg tablet (Lasix) 20 mg PO DAILY #10 tabs 02/15/23 Allergies Allergy/AdvReac Type Severity Reaction Status Date / Time Iodinated Contrast Media Allergy Mild UNSURE Verified 02/15/23 19:19 [IODINATED CONTRAST MEDIA - IV DYE] prochlorperazine Allergy Mild Hypersensit Verified 02/15/23 19:19 [PROCHLORPERAZINE] ivity finasteride AdvReac Intermediate Dizzy, Verified 02/15/23 19:19 weakness tamsulosin [From Flomax] AdvReac Mild Faints Verified 02/15/23 19:19 Review of Systems Review of Systems Narrative: Pertinent positive and negative findings as per HPI 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 (11/01/16) Hyperparathyroidism (03/10/15) Hypercalcemia (12/19/14) Acquired hypothyroidism (03/10/15) Chronic renal failure, stage 3 (moderate) (11/25/14) Transient cerebral ischemia Essential hypertension Mixed hyperlipidemia Hypogonadism in male Non-Hodgkin's lymphoma (03/06/11) Surgical History S/P parathyroidectomy (~06/2014) S/P CABG (coronary artery bypass graft) (~07/2017) Status post tonsillectomy and adenoidectomy History of splenectomy Social History marital status: number of children: 2 household members: spouse lives independently: Yes caregiver/support person: Yes housing: house pets and animals: Yes education level: other occupational status: other 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[employer]: Non-hoahaoism travel history: recent leisure activities: reading and other Smoking Status: Never smoker Tobacco: How many years used: 0 quit status: quit date established second hand exposure: Yes (Younger days) alcohol intake: current substance use type: does not use Smoking Status: Never smoker alcohol intake frequency: holidays/special occasions only Substance Use Type: does not use Exam Initial Vital Signs Initial Vital Signs: Vital Signs Temperature 98.6 F 02/16/23 10:35 Pulse Rate 108 H 02/16/23 10:35 Respiratory Rate 20 02/16/23 10:35 Blood Pressure 95/71 02/16/23 10:35 Pulse Oximetry 98 02/16/23 10:35 Oxygen Delivery Method Room Air 02/16/23 10:35 General: Frail, chronically ill-appearing but in no acute distress. supplements history significantly HEENT: Moist mucous membranes, normal sclera with reactive pupils, Neck: No JVD, supple Respiratory: Lungs are clear to auscultation, no wheezing no rales no rhonchi. Full and symmetrical air movement Cardiac: Rapid and irregular. I do not appreciate murmurs Abdomen: Soft, scaphoid, nontender, good bowel tones, no flank pain Skin: Warm and dry, quite thin with multiple areas of bruising and hemosiderin staining Neurologic: Grossly neurologically intact with no obvious asymmetries or abnormalities Extremities: No trauma, 1+ bilateral lower extremity edema Psych: Cooperative, appropriate insight and affect Procedures Cardioversion Time of Cardioversion: 13:07 Consent Signed: Yes Indication: A fib with RVR, developing CHF due to rate Stability: Stable Number of attempts (shocks): 1 Joules used: 120 Cardiac rhythm post-cardioversion: NSR Procedural Sedation Time of procedure: 13:08 Consent signed: Yes Time out performed: Yes Indication: cardioversion ASA Class: II Mallampati Airway Classification: Class I Time of Last PO Intake: 20:00 Preparation: prawn trawler hand applied, pulse oximeter, capnometry used, supplemental O2 applied, suction/airway equipment at bedside and IV secured IV Propofol dose (mg): 40 Intraservice time/total sedation time (min): 7 ED Sedation Level: Moderate (Concious) Patient Tolerated Procedure: Well Complications: none Course Orders Ordered: ED Orders 02/16/23 10:40 XR chest 1V Stat EKG-12 Lead Stat 02/16/23 11:12 Complete Blood Count AUTO DIFF Stat Comprehensive Metabolic Panel Stat Lipase Stat Magnesium Stat PTT Partial Thromboplastin Thanh Stat Prothrombin Time INR Stat Troponin & CK Cardiac Panel Stat 02/16/23 11:38 EKG-12 Lead Routine 02/16/23 12:36 EKG-12 Lead Routine Discontinued Medications Furosemide (Furosemide 40 Mg/4 Ml Vial) 40 mg IV NOW ONE Stop: 02/16/23 11:40 Last Admin: 02/16/23 12:01 Dose: 40 mg Documented By: MICHAEL Propofol (Propofol 200 Mg/20 Ml Vial) 200 mg IV NOW ONE Stop: 02/16/23 11:18 Last Admin: 02/16/23 11:31 Dose: 40 mg Documented By: MICHAEL Vital Signs Vital signs: Vital Signs - 8 hr 02/16/23 10:35 02/16/23 11:23 02/16/23 11:25 Temperature 98.6 F Pulse Rate 108 H 102 H Respiratory Rate 20 13 Blood Pressure 95/71 102/73 Pulse Oximetry 98 99 Oxygen Delivery Method Room Air Room Air 02/16/23 11:25 02/16/23 11:30 02/16/23 11:30 Temperature Pulse Rate 99 H 116 H Respiratory Rate 23 25 H Blood Pressure 101/69 Pulse Oximetry 98 98 Oxygen Delivery Method 02/16/23 11:35 02/16/23 11:35 02/16/23 11:40 Temperature Pulse Rate 72 Respiratory Rate 24 Blood Pressure 105/74 107/64 Pulse Oximetry 98 Oxygen Delivery Method 02/16/23 11:40 02/16/23 11:45 02/16/23 11:45 Temperature Pulse Rate 84 70 Respiratory Rate 22 22 Blood Pressure 103/62 Pulse Oximetry 98 95 Oxygen Delivery Method 02/16/23 11:50 02/16/23 11:50 02/16/23 11:55 Temperature Pulse Rate 68 Respiratory Rate 17 Blood Pressure 99/63 100/66 Pulse Oximetry 97 Oxygen Delivery Method 02/16/23 11:55 02/16/23 12:00 02/16/23 12:00 Temperature Pulse Rate 67 67 Respiratory Rate 16 15 Blood Pressure 103/61 Pulse Oximetry 97 96 Oxygen Delivery Method 02/16/23 12:05 02/16/23 12:05 02/16/23 12:10 Temperature Pulse Rate 69 67 Respiratory Rate 23 10 L Blood Pressure 108/70 Pulse Oximetry 98 97 Oxygen Delivery Method 02/16/23 12:15 02/16/23 12:20 02/16/23 12:25 Temperature Pulse Rate 71 72 71 Respiratory Rate 22 19 26 H Blood Pressure Pulse Oximetry 98 98 99 Oxygen Delivery Method 02/16/23 12:30 02/16/23 12:30 Temperature Pulse Rate 71 Respiratory Rate 23 Blood Pressure 105/74 Pulse Oximetry 99 Oxygen Delivery Method MDM - Arrhythmia/Palpitations Lab Data 02/16/23 11:12 02/16/23 11:12 Labs: Lab Results 02/16/23 Range/Units 11:12 WBC 3.9 L (4.5-11.0) X10^3/uL RBC 3.50 L (4.5-5.9) X10^6/uL Hgb 10.8 L (13.5-17.5) g/dL Hct 32.7 L (41-53) % MCV 93.5 (80-100) fL MCH 30.8 (26-34) PG MCHC 33.0 (30-36) % RDW 17.7 H (11.6-14.8) % Plt Count 225 (150-400) X10^3/uL Neut % (Auto) Not Reportable Lymph % (Auto) Not Reportable [place] % (Auto) Not Reportable Eos % (Auto) Not Reportable Baso % (Auto) Not Reportable Lymph # (Auto) Not Reportable [place] # (Auto) Not Reportable Baso # (Auto) Not Reportable Total Counted 100 Seg Neutrophils % 86.0 H (38-70) % Band Neutrophils % 2.0 L (3-7) % Lymphocytes % (Manual) 9.0 L (25-45) % Monocytes % (Manual) 3.0 (2-11) % Neutrophils # (Manual) 3432 ([id number]) /uL Hypersegmented Neuts 2+ RBC Morphology Not Reportable Hypochromasia 1+ H Poikilocytosis 2+ H Anisocytosis 2+ H Acanthocytes (Spur) 2+ PT 38.4 H D (10.1-12.7) SECONDS INR 3.3 H (0.9-1.3) APTT 36 (26-36) SECONDS Sodium 135 L (137-145) mmol/L Potassium 4.2 (3.4-5.1) mmol/L Chloride 102 (98-107) mmol/L Carbon Dioxide 20 L (22-32) mmol/L BUN 26 H (9-20) mg/dL Creatinine 1.12 (0.66-1.25) mg/dL Estimated GFR > 60 (>60) mL/min BUN/Creatinine Ratio 23.2 H (6-22) Glucose 139 H (80-110) mg/dL Calcium 9.8 (8.4-10.2) mg/dL Magnesium 1.6 (1.6-2.3) mg/dL Total Bilirubin 1.2 (0.2-1.3) mg/dL AST 34 (17-59) IU/L ALT 32 (<50) IU/L Alkaline Phosphatase 87 (38-126) U/L Total Creatine Kinase 41 L (55-170) U/L Troponin I < 0.012 (0.01-0.034) ng/mL Total Protein 6.6 (6.3-8.2) g/dL Albumin 4.1 (3.5-5.0) g/dL Globulin 2.5 (1.7-4.1) g/dL Albumin/Globulin Ratio 1.6 (1.0-2.8) Lipase 58 (23-300) U/L MDM Narrative Medical decision making narrative: CC: Persistent atrial fibrillation Complicating co-morbidities: Current 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 Notes along with all blood work and studies done last night are also reviewed Differential considered: Congestive heart failure exacerbated by atrial fibrillation with rapid ventricular response, acute coronary syndrome Exam documented above, pertinent findings include: Irregular heart rate, no dramatic clinical signs of congestive heart failure Lab Test results independently reviewed as above. Pertinent findings: Labs from approximately 12 hours ago indicate CBC is unremarkable with stable anemia 10.9 and 32.8. Repeat today is unchanged Chemistries show appropriate renal function BNP was elevated at 7350 Independently reviewed EKG atrial fibrillation with rapid ventricular response at a rate of 112. Left bundle branch block with left axis deviation Imaging studies independently reviewed: No acute infiltrates Consultations: Consultation with his finishing frame runner per text this morning recommending cardioversion Treatments: Electrical cardioversion with propofol sedation, IV Lasix Re-evaluations:1pm patient is feeling well, remains stable in sinus rhythm. Has recovered appropriately after his propofol sedation Discussion: 77-year-old gentleman currently undergoing radiation treatment for a left upper arm lymphoma with a history of paroxysmal atrial fibrillation chronically anticoagulated on apixaban with rate controlled with sotalol presented approximately 12 hours ago complaining of rapid rate. Workup at that time was remarkable for mild volume overload suspected secondary to rapid rate and cardioversion was recommended however patient is declined. After discussion with her finishing frame runner this morning, remaining in atrial fibrillation still, they present ready now for cardioversion. He has continuously been anticoagulated. After informed consent is obtained, he is sedated with 40 mg of propofol a single shock converted him to sinus rhythm he recovered appropriately and at this time is stable for discharge home. He was given an additional dose of 40 mg of Lasix IV to help with the mild volume overload. He has appropriate follow-up with his finishing frame runner and has been cleared by his finishing frame runner to continue with his radiation scheduled for Friday. He is safe for discharge Discharge Plan Departure Patient Disposition: Home Clinical Impression: AF (paroxysmal atrial fibrillation), Atrial fibrillation with rapid ventricular response Acute CHF (congestive heart failure) Qualifiers: Heart failure type: unspecified Qualified Code(s): I50.9 - Heart failure, unspecified Instructions: DI for Atrial Fibrillation Activity Restrictions/Additional Instructions: Thank you for coming in today I am glad you returned. We were able to cardiovert to to normal sinus rhythm with minimal difficulties. I did give you an additional dose of IV Lasix to help get rid of some of the extra volume. Please continue all of your medications as currently prescribed. Please follow-up with your finishing frame runner within the next week or so. If you find that you are getting worse or develop any new symptoms, please feel free to return to the emergency department for further evaluation. Prescriptions: No Action sertraline 25 mg tablet 25 mg PO BEDTIME Qty: 90 2RF fluticasone propionate 50 mcg/actuation spray,suspension 2 spray NASAL BEDTIME Qty: 16 11RF Rx Instructions: administer into each nostril atorvastatin 40 mg tablet 40 mg PO QPM Qty: 90 3RF levothyroxine 88 mcg tablet 88 mcg PO DAILY Qty: 90 3RF (DME) Disabled Parking Qty: 1 0RF Rx Instructions: Patient qualifies for disabled parking as per the attached form. apixaban 5 mg tablet 5 mg PO BID 30 Days Qty: 60 gabapentin 300 mg capsule 300 mg PO TID Qty: 360 3RF sotalol 80 mg tablet 80 mg PO BID Qty: 60 1RF (DME) Massage Therapy Qty: 12 0RF Rx Instructions: Massage Therapy - 12 visits over 6 months. triamcinolone acetonide 0.1 % cream 1 applic TOP BID PRN (Reason: rash/itch) Qty: 80 11RF Rx Instructions: apply only to intact skin cetirizine [Zyrtec] 10 mg tablet 10 mg PO DAILY PRN (Reason: allergy symptoms) Qty: 90 3RF ticagrelor 90 mg tablet 90 mg PO BID furosemide [Lasix] 20 mg tablet 20 mg PO DAILY Qty: 10 0RF furosemide 40 mg Tablet 40 mg PO DAILY Qty: 90 3RF Hold Instructions: hypotension multivitamin with iron Tablet 1 tab PO DAILY Referrals: Danyel Schafer MD [Primary Care Provider] - Stand Alone Forms: Patient Portal/API
[2023-02-16 11:25] LABS: INR 3.3 (0.9-1.3); Prothrombin Time 38.4 SECONDS (10.1-12.7)
[2023-02-16 11:28] LABS: PTT Partial Thromboplastin Tim 36 SECONDS (26-36)
[2023-02-16 11:29] LABS: Hematocrit 32.7 % (41-53); Hemoglobin 10.8 g/dL (13.5-17.5); Mean Corpuscular Hemoglobin 30.8 PG (26-34); Mean Corpuscular Volume 93.5 fL (80-100); Platelet Count 225 X10^3/uL (150-400); Red Cell Distribution Width 17.7 % (11.6-14.8); White Blood Cell Count 3.9 X10^3/uL (4.5-11.0)
[2023-02-16 11:30] LABS: Add Manual Diff / Slide Review YES; Alanine Aminotransferase 32 IU/L (<50); Albumin 4.1 g/dL (3.5-5.0); Albumin Globulin Ratio 1.6 (1.0-2.8); Alkaline Phosphatase 87 U/L (38-126); Aspartate Aminotransferase 34 IU/L (17-59); BUN Creatinine Ratio 23.2 (6-22); Bilirubin Total 1.2 mg/dL (0.2-1.3); Blood Urea Nitrogen 26 mg/dL (9-20); Calcium 9.8 mg/dL (8.4-10.2); Carbon Dioxide 20 mmol/L (22-32); Chloride 102 mmol/L (98-107); Creatine Kinase 41 U/L (55-170); Estimated Glomerular Filt Rate > 60 mL/min (>60); Globulin 2.5 g/dL (1.7-4.1); Glucose 139 mg/dL (80-110); HEMOLYSIS < 15 (0-50); Lipase 58 U/L (23-300); Magnesium 1.6 mg/dL (1.6-2.3); Potassium 4.2 mmol/L (3.4-5.1); Sodium 135 mmol/L (137-145); Total Protein 6.6 g/dL (6.3-8.2)
[2023-02-16] MEDS: propofoL 200 MG/20 ML VIAL IV (11:31)
[2023-02-16 11:39] LABS: Anisocytosis 2+; Hypochromasia 1+; Neutrophils Absolute Manual 3432 /uL (3000-5900); Total Cells Counted 100
[2023-02-16 11:40] LABS: Acanthocytes 2+; Hypersegmented Neutrophils 2+; Poikilocytosis 2+
[2023-02-16 11:41] LABS: Troponin I < 0.012 ng/mL (0.01-0.034)
[2023-02-16] MEDS: FUROSEMIDE 40 MG/4 ML VIAL IV (12:01)
--- NOTE | 2023-02-16 12:33 | PC.NURSE ---
pt used call light and reports he is having some chest pain, described as a pinching feeling in the middle of his chest 4-09/18. states he just used the urinal. spoke with provider about this. pt is still in sinus rhythm on monitor but verbal order for EKG given and order for some PO water.
--- NOTE | 2023-02-16 13:02 | PC.NURSE ---
rechecked pt and he states his chest twinges have resolved. he has no felt one since the warm blankets and water were delivered to him. notified provider of this.
== END 2023-02-16 13:41 | disposition home or self-care (01) ==
PROVIDERS: Emergency Provider Emergency Medicine; PCP Internal Medicine
DX: I48.0 Paroxysmal atrial fibrillation (principal); I50.9 Heart failure, unspecified; Z79.01 Long term (current) use of anticoagulants
CPT/HCPCS: 36415; 71045; 80053; 82550; 83690; 83735; 84484; 85007; 85025; 85610; 85730; 92960; 93005; 96374; 99285; J1940; J2704

== ENCOUNTER 2023-03-03 09:08 | Emergency (ER) | payer MEDICARE, OTHER, SELFPAY ==
[2023-03-03] VITALS (25 sets, daily range): BP systolic 91–133; BP diastolic 63–89; PULSE 79–139; RESP 12–26; TEMP 36.3; O2SAT 96–100; BMI 21.4
--- NOTE | 2023-03-03 09:25 | DI.RAD.S_ITS ---
PROCEDURE: XR CHEST 1V INDICATIONS: dyspnea TECHNIQUE: One view of the chest was acquired. COMPARISON: [facility], CR, XR CHEST 1V, 02/16/2023, 10:42. [facility], CR, XR CHEST 1V, 02/15/2023, 19:31. FINDINGS: Surgical changes and devices: Median sternotomy. CABG. Lungs and pleura: Lungs are clear. Interstitial prominence is unchanged compared to the prior study and is likely chronic. Blunting of the left costophrenic angle consistent with a small pleural effusion. No pneumothorax. Mediastinum: Mediastinal contours appear normal. Heart size is normal. Bones and chest wall: No suspicious bony lesions. Overlying soft tissues appear unremarkable. IMPRESSION: No acute cardiopulmonary abnormality. Dictated by: Kobi Giron M.D. on 03/03/2023 at 9:37 Approved by: Kobi Giron M.D. on 03/03/2023 at 9:40
--- NOTE | 2023-03-03 09:31 | ED.SOB ---
HPI - SOB/Dyspnea General Chief Complaint: Shortness of Breath/Dyspnea Stated Complaint: labored breathing/HX cancer treatment Time Seen by Provider: 03/03/23 09:11 History of Present Illness HPI Narrative: 77-year-old male with history of AFib on sotalol and Eliquis, congestive heart failure, lymphoma (recently completed radiation to LUE) presents from home by private vehicle for shortness of breath. History obtained from at bedside, who states that for the last 3 nights the patient has had increased work of breathing, especially at night. She has to prop him up on several pillows to help him breathe easier. She states that this morning his vitals were normal including pulse ox. Patient had to be seen in the emergency department 2 weeks ago for atrial fibrillation requiring electric cardioversion. Patient currently denying shortness of breath. states that she has not been giving the patient his lasix as it makes him dizzy. Related Data Home Medications Medication Instructions Recorded Confirmed apixaban 5 mg tablet 5 mg PO BID 30 days #60 tabs 02/17/18 03/03/23 ticagrelor 90 mg tablet 90 mg PO BID 05/28/18 03/03/23 multivitamin with iron 1 tab PO DAILY 09/12/21 03/03/23 sotalol 80 mg tablet 40 mg PO BID 03/03/23 03/03/23 Previous Rx's Medication Instructions Recorded Massage Therapy #12 ea 06/18/19 sertraline 25 mg tablet 25 mg PO BEDTIME #90 tabs 02/25/22 fluticasone propionate 50 2 spray intranasal BEDTIME #16 04/11/22 mcg/actuation nasal grams spray,suspension cetirizine 10 mg tablet (Zyrtec) 10 mg PO DAILY PRN allergy 05/07/22 symptoms #90 tabs atorvastatin 40 mg tablet 40 mg PO QPM #90 tabs 05/14/22 levothyroxine 88 mcg tablet 88 mcg PO DAILY #90 tabs 05/14/22 gabapentin 300 mg capsule 300 mg PO TID #360 caps 07/22/22 Disabled Parking #1 ea 09/24/22 furosemide 40 mg tablet 40 mg PO DAILY #90 tabs 11/27/22 furosemide 20 mg tablet (Lasix) 20 mg PO DAILY #10 tabs 02/15/23 sotalol 80 mg tablet 80 mg PO BID #60 tabs 03/03/23 Allergies Allergy/AdvReac Type Severity Reaction Status Date / Time Iodinated Contrast Media Allergy Mild UNSURE Verified 02/15/23 19:19 [IODINATED CONTRAST MEDIA - IV DYE] prochlorperazine Allergy Mild Hypersensit Verified 02/15/23 19:19 [PROCHLORPERAZINE] ivity finasteride AdvReac Intermediate Dizzy, Verified 02/15/23 19:19 weakness tamsulosin [From Flomax] AdvReac Mild Faints Verified 02/15/23 19:19 Review of Systems Review of Systems Narrative: Negative except as marked. 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 (11/01/16) Hyperparathyroidism (03/10/15) Hypercalcemia (12/19/14) Acquired hypothyroidism (03/10/15) Chronic renal failure, stage 3 (moderate) (11/25/14) Transient cerebral ischemia Essential hypertension Mixed hyperlipidemia Hypogonadism in male Non-Hodgkin's lymphoma (03/06/11) Surgical History S/P parathyroidectomy (~06/2014) S/P CABG (coronary artery bypass graft) (~07/2017) Status post tonsillectomy and adenoidectomy History of splenectomy Social History marital status: number of children: 2 household members: spouse lives independently: Yes caregiver/support person: Yes housing: house pets and animals: Yes education level: other occupational status: other 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 travel history: recent leisure activities: reading and other Smoking Status: Never smoker Tobacco: How many years used: 0 quit status: quit date established second hand exposure: Yes (Younger days) alcohol intake: current substance use type: does not use Smoking Status: Never smoker alcohol intake frequency: holidays/special occasions only Substance Use Type: does not use Exam Initial Vital Signs Initial Vital Signs: Vital Signs Temperature 97.4 F L 03/03/23 09:15 Pulse Rate 120 H 03/03/23 09:15 Respiratory Rate 24 03/03/23 09:15 Blood Pressure 114/80 03/03/23 09:15 Pulse Oximetry 97 03/03/23 09:15 Oxygen Delivery Method Room Air 03/03/23 09:15 Const: Awake, alert, no acute distress, debilitated, frail, appears chronically unwell Eyes: PERRL, EOMI, conjunctiva normal ENT: Atraumatic, dentition normal, mucous membranes moist Cardiac: tachycardia, irregularly irregular RESP: unlabored, no wheezes, decreased at bases bilaterally GI: Atraumatic, soft, nontender MSK: Atraumatic, full range of motion, pulses equal Skin: Warm, Dry, pale, no rashes Neuro: AO x3, CN II-XII grossly intact, moves all extremities Psych: Appropriate for given condition Procedures Cardioversion Consent Signed: Yes Indication: A fib with RVR Stability: Stable Number of attempts (shocks): 1 Joules used: 120 Cardiac rhythm post-cardioversion: Sinus rhythm, 80bpm Additional Comments: Tolerated well Procedural Sedation Consent signed: Yes Time out performed: Yes Indication: cardioversion Presedation Evaluation: Completed ASA Class: III Mallampati Airway Classification: Class II Preparation: linseed oil order filler applied, pulse oximeter, capnometry used, supplemental O2 applied, suction/airway equipment at bedside and IV secured IV Propofol dose (mg): 70 Intraservice time/total sedation time (min): 10 ED Sedation Level: Moderate (Concious) Patient Tolerated Procedure: Well and No complications Complications: none Additional Comments: No interventions required. Successful procedure. Course Course Course Narrative: Chronically unwell appearing patient presenting with shortness of breath when reclining. Noted to be in AFib with RVR. Currently not hypoxic. Patient likely has some component of volume overload as he has not been given his Lasix. Given history of cancer can not rule out PE. Orders Ordered: Discontinued Medications Diphenhydramine HCl (Diphenhydramine 50 Mg/Ml Vial) 25 mg IV NOW ONE Stop: 03/03/23 11:01 Last Admin: 03/03/23 11:15 Dose: 25 mg Documented By: SPF Famotidine (Famotidine 20 Mg/2 Ml Vial) 20 mg IV NOW MARY Last Admin: 03/03/23 11:07 Dose: 20 mg Documented By: KG Famotidine (Famotidine 20 Mg/2 Ml Vial) 20 mg IV NOW [facility] Furosemide (Furosemide 40 Mg/4 Ml Vial) 40 mg IV NOW ONE Stop: 03/03/23 13:49 Last Admin: 03/03/23 14:27 Dose: 40 mg Documented By: FABIENNE Gabapentin (Gabapentin 300 Mg Capsule) 300 mg PO NOW ONE Stop: 03/03/23 12:05 Last Admin: 03/03/23 12:06 Dose: 300 mg Documented By: KG Magnesium Oxide (Magnesium Oxide 400 Mg Tablet) 400 mg PO DAILY [facility] Last Admin: 03/03/23 15:18 Dose: 400 mg Documented By: KG Methylprednisolone (Methylprednisolone 125 Mg/2 Ml Vial) 125 mg IV NOW ONE Stop: 03/03/23 11:01 Last Admin: 03/03/23 11:17 Dose: 125 mg Documented By: KG Metoprolol Tartrate (Metoprolol Tartrate 5 Mg/5 Ml Inj) 5 mg IV NOW ONE Stop: 03/03/23 09:33 Last Admin: 03/03/23 10:08 Dose: 2.5 mg Documented By: KG Propofol (Propofol 200 Mg/20 Ml Vial) 70 mg 1 mg/kg (70 mg) IV NOW ONE Stop: 03/03/23 13:49 Last Admin: 03/03/23 14:35 Dose: 70 mg Documented By: FABIENNE Reevaluation(s) Reevaluation #1: Laboratory work is reviewed, chronic anemia, no leukocytosis. BNP is greatly elevated. Chest x-ray shows no obvious abnormalities. Still pending CTA, patient requires premedication due to allergy to contrast dye. Attempted to improve heart rate with metoprolol, no change. Patient's blood pressure is too low to administer additional medications such as metoprolol or Cardizem, and reluctant to administer IV fluids due to suspicion of underlying volume overload. Reevaluation #2: CT angio shows mild bilateral pleural effusions. Still in a fib with RVR. Call placed to Cardiology, who recommended electrical cardioversion and increase in sotalol from 40 mg b.i.d. to 80 mg b.i.d.. Patient is currently anticoagulated on Eliquis and has been compliant with this medication. Consent obtained from at bedside. Patient given 70 mg of IV propofol, synchronized cardioversion at 120 joules attempted with correction of heart rate to 80 beats per minute, sinus rhythm. Patient and are in agreement with plan. I highly recommended compliance with Lasix. If patient is unable to tolerate Lasix and he should contact Cardiology for appropriate alternatives. ED return precautions discussed at bedside. Patient expressed understanding of the plan and is in agreement at this time. All questions answered at the time of discharge. Vital Signs Vital signs: Vital Signs - 8 hr 03/03/23 09:15 03/03/23 09:15 03/03/23 09:30 Temperature 97.4 F L Pulse Rate 120 H 133 H 117 H Respiratory Rate 24 Blood Pressure 114/80 114/80 108/76 Pulse Oximetry 97 97 99 Oxygen Delivery Method Room Air Room Air Room Air Oxygen Flow Rate 03/03/23 09:43 03/03/23 10:02 03/03/23 10:15 Temperature Pulse Rate 131 H 126 H 117 H Respiratory Rate 12 14 Blood Pressure 112/76 111/81 107/78 Pulse Oximetry 99 99 99 Oxygen Delivery Method Room Air Room Air Room Air Oxygen Flow Rate 03/03/23 10:30 03/03/23 10:45 03/03/23 11:00 Temperature Pulse Rate 107 H 105 H 107 H Respiratory Rate Blood Pressure 108/63 91/67 122/74 Pulse Oximetry 99 97 98 Oxygen Delivery Method Room Air Room Air Room Air Oxygen Flow Rate 03/03/23 11:15 03/03/23 12:00 03/03/23 12:20 Temperature Pulse Rate 110 H 110 H 111 H Respiratory Rate 25 H 23 Blood Pressure 95/73 97/74 101/67 Pulse Oximetry 98 97 Oxygen Delivery Method Room Air Room Air Oxygen Flow Rate 03/03/23 12:30 03/03/23 13:00 03/03/23 14:08 Temperature Pulse Rate 116 H 117 H 133 H Respiratory Rate 26 H Blood Pressure 107/78 122/80 133/89 Pulse Oximetry 98 98 99 Oxygen Delivery Method Room Air Room Air Room Air Oxygen Flow Rate 03/03/23 14:34 03/03/23 14:35 03/03/23 14:37 Temperature Pulse Rate 90 139 H 90 Respiratory Rate 14 18 14 Blood Pressure 104/71 123/73 104/71 Pulse Oximetry 99 99 97 Oxygen Delivery Method Nasal Cannula Nasal Cannula Oxygen Flow Rate 2 2 2 03/03/23 14:40 03/03/23 14:45 03/03/23 14:50 Temperature Pulse Rate 88 81 82 Respiratory Rate 14 16 16 Blood Pressure 99/72 104/68 103/67 Pulse Oximetry 97 100 99 Oxygen Delivery Method Nasal Cannula Nasal Cannula Nasal Cannula Oxygen Flow Rate 2 2 2 03/03/23 14:55 Temperature Pulse Rate 82 Respiratory Rate 16 Blood Pressure 108/77 Pulse Oximetry 96 Oxygen Delivery Method Nasal Cannula Oxygen Flow Rate 2 MDM - SOB/Dyspnea Lab Data 03/03/23 09:40 03/03/23 09:40 Labs: Lab Results 03/03/23 Range/Units 09:40 WBC 6.9 (4.5-11.0) X10^3/uL RBC 3.64 L (4.5-5.9) X10^6/uL Hgb 10.9 L (13.5-17.5) g/dL Hct 33.6 L (41-53) % MCV 92.2 (80-100) fL MCH 29.9 (26-34) PG MCHC 32.4 (30-36) % RDW 17.4 H (11.6-14.8) % Plt Count 185 (150-400) X10^3/uL Neut % (Auto) 75.4 H (50-75) % Lymph % (Auto) 7.6 L (25-40) % [place] % (Auto) 13.0 (3-14) % Eos % (Auto) 2.2 (2-4) % Baso % (Auto) 1.8 (0-2) % Neut # (Auto) 5200 (4348-1515) /uL Lymph # (Auto) 500 L (3228-1861) /uL [place] # (Auto) 900 (0-900) /uL Eos # (Auto) 200 (0-450) /uL Baso # (Auto) 100 (0-100) /uL PT 26.6 H (10.1-12.7) SECONDS INR 2.3 H (0.9-1.3) Sodium 136 L (137-145) mmol/L Potassium 4.6 (3.4-5.1) mmol/L Chloride 105 (98-107) mmol/L Carbon Dioxide 22 (22-32) mmol/L BUN 17 (9-20) mg/dL Creatinine 0.93 (0.66-1.25) mg/dL Estimated GFR > 60 (>60) mL/min BUN/Creatinine Ratio 18.3 (6-22) Glucose 100 (80-110) mg/dL Calcium 9.6 (8.4-10.2) mg/dL Magnesium 1.5 L (1.6-2.3) mg/dL Total Bilirubin 1.1 (0.2-1.3) mg/dL AST 36 (17-59) IU/L ALT 26 (<50) IU/L Alkaline Phosphatase 91 (38-126) U/L Total Creatine Kinase 37 L (55-170) U/L Troponin I 0.024 (0.01-0.034) ng/mL NT-Pro-B Natriuret Pep 72311 H (<450) pg/mL Total Protein 6.7 (6.3-8.2) g/dL Albumin 3.9 (3.5-5.0) g/dL Globulin 2.8 (1.7-4.1) g/dL Albumin/Globulin Ratio 1.4 (1.0-2.8) Critical Care Time Critical Care Time Critical Care Time: Yes Total Critical Care Time: 42 Attestation: AFib with RVR requiring electronic cardioversion Discharge Plan Departure Patient Disposition: Home Clinical Impression: Atrial fibrillation with RVR, Dyspnea, Volume overload Instructions: DI for Heart Failure, DI for Atrial Fibrillation Activity Restrictions/Additional Instructions: Double your sotalol dose to 80 mg twice daily. Make sure to take all of your water pills as prescribed. Prescriptions: New sotalol 80 mg tablet 80 mg PO BID Qty: 60 0RF No Action sertraline 25 mg tablet 25 mg PO BEDTIME Qty: 90 2RF Patient Comments: Pt's spouse states last taken about 4months ago due to running out of meds and never getting them refilled. fluticasone propionate 50 mcg/actuation spray,suspension 2 spray NASAL BEDTIME Qty: 16 11RF Rx Instructions: administer into each nostril atorvastatin 40 mg tablet 40 mg PO QPM Qty: 90 3RF levothyroxine 88 mcg tablet 88 mcg PO DAILY Qty: 90 3RF (DME) Disabled Parking Qty: 1 0RF Rx Instructions: Patient qualifies for disabled parking as per the attached form. apixaban 5 mg tablet 5 mg PO BID 30 Days Qty: 60 gabapentin 300 mg capsule 300 mg PO TID Qty: 360 3RF (DME) Massage Therapy Qty: 12 0RF Rx Instructions: Massage Therapy - 12 visits over 6 months. cetirizine [Zyrtec] 10 mg tablet 10 mg PO DAILY PRN (Reason: allergy symptoms) Qty: 90 3RF ticagrelor 90 mg tablet 90 mg PO BID furosemide [Lasix] 20 mg tablet 20 mg PO DAILY Qty: 10 0RF furosemide 40 mg Tablet 40 mg PO DAILY Qty: 90 3RF Hold Instructions: hypotension Patient Comments: not currently taking due to hypotension sotalol 80 mg tablet 40 mg PO BID multivitamin with iron Tablet 1 tab PO DAILY Referrals: Danyel Schafer MD [Primary Care Provider] - Stand Alone Forms: Patient Portal/API
--- NOTE | 2023-03-03 09:52 | PC.NURSE ---
Patient was seen here for cardioversion due to afib on 02/16/23 per family. Pt has had SOB which started 2x days ago. Pt denies chest pain, nausea. He has been prescribed furosemide but spouse states it makes pt feel like he is going to faint.
[2023-03-03 10:00] LABS: Add Manual Diff / Slide Review NO; Basophils Absolute Auto 100 /uL (0-100); Basophils Percent Auto 1.8 % (0-2); Eosinophils Absolute Auto 200 /uL (0-450); Eosinophils Percent Auto 2.2 % (2-4); Hematocrit 33.6 % (41-53); Hemoglobin 10.9 g/dL (13.5-17.5); Lymphocytes Absolute Auto 500 /uL (1100-4500); Lymphocytes Percent Auto 7.6 % (25-40); Mean Corpuscular HGB Conc 32.4 % (30-36); Mean Corpuscular Hemoglobin 29.9 PG (26-34); Mean Corpuscular Volume 92.2 fL (80-100); Monocytes Absolute Auto 900 /uL (0-900); Neutrophils Absolute Auto 5200 /uL (1500-7000); Neutrophils Percent Auto 75.4 % (50-75); Platelet Count 185 X10^3/uL (150-400); Red Blood Cell Count 3.64 X10^6/uL (4.5-5.9); Red Cell Distribution Width 17.4 % (11.6-14.8); White Blood Cell Count 6.9 X10^3/uL (4.5-11.0)
[2023-03-03 10:02] LABS: INR 2.3 (0.9-1.3); Prothrombin Time 26.6 SECONDS (10.1-12.7)
[2023-03-03 10:07] LABS: Alanine Aminotransferase 26 IU/L (<50); Albumin 3.9 g/dL (3.5-5.0); Albumin Globulin Ratio 1.4 (1.0-2.8); Alkaline Phosphatase 91 U/L (38-126); Aspartate Aminotransferase 36 IU/L (17-59); BUN Creatinine Ratio 18.3 (6-22); Bilirubin Total 1.1 mg/dL (0.2-1.3); Blood Urea Nitrogen 17 mg/dL (9-20); Calcium 9.6 mg/dL (8.4-10.2); Carbon Dioxide 22 mmol/L (22-32); Chloride 105 mmol/L (98-107); Creatine Kinase 37 U/L (55-170); Estimated Glomerular Filt Rate > 60 mL/min (>60); Globulin 2.8 g/dL (1.7-4.1); Glucose 100 mg/dL (80-110); HEMOLYSIS 37 (0-50); Potassium 4.6 mmol/L (3.4-5.1); Sodium 136 mmol/L (137-145); Total Protein 6.7 g/dL (6.3-8.2)
[2023-03-03] MEDS: METOPROLOL TARTRATE 5 MG/5 ML INJ IV (10:08)
[2023-03-03 10:18] LABS: NT-proBNP (BNP-Adult 18+) 15400 pg/mL (<450); Troponin I 0.024 ng/mL (0.01-0.034)
--- NOTE | 2023-03-03 10:40 | DI.CT.S_ITS ---
PROCEDURE: CT ANGIO CHEST PE PROTOCOL INDICATIONS: DYSPNEA, TACHY, HX CANCER TECHNIQUE: After the administration of intravenous contrast, 2 mm thick sections acquired from the pulmonary apices to the posterior costophrenic angles. 3-dimensional maximum intensity projection (MIP) coronal and sagittal reformats were then acquired through the thorax. For radiation dose reduction, the following was used: automated exposure control, adjustment of mA and/or kV according to patient size. COMPARISON: [facility], CT, CT ANGIO CHEST PE PROTOCOL, 02/15/2023, 20:37. FINDINGS: Image quality: Excellent. Pulmonary arteries: Pulmonary arteries are mildly enlarged which may represent pulmonary artery hypertension. No intraluminal filling defects are identified. Lungs and pleura: Mild left and minimal right pleural effusions. Mediastinum: Heart size is enlarged,, without pericardial effusion. No mediastinal or hilar adenopathy. Thoracic aorta is normal in caliber and enhancement. Esophagus is normal in caliber, without hiatal hernia. Bones and chest wall: No suspicious bony lesions. Ribs and thoracic spine appear intact throughout. Thyroid gland is not visualized. No axillary or supraclavicular adenopathy. Abdomen: Visualized portions of the gallbladder heterogeneous possibly representing stones and unchanged. Otherwise, visualized upper abdominal solid organs appear normal in the early arterial phase of enhancement. IMPRESSION: Interval development of mild bilateral effusions. No evidence of pulmonary embolism. Dictated by: Paulina Cervantes M.D. on 03/03/2023 at 13:34 Approved by: Paulina Cervantes M.D. on 03/03/2023 at 13:37
[2023-03-03] MEDS: FAMOTIDINE 20 MG/2 ML VIAL IV (11:07)
[2023-03-03] MEDS: diphenhydrAMINE 50 MG/ML VIAL 25 MG IV (11:15)
[2023-03-03] MEDS: methylPREDNISolone 125 MG/2 ML VIAL IV (11:17)
[2023-03-03] MEDS: GABAPENTIN 300 MG CAPSULE PO (12:06)
[2023-03-03 14:10] LABS: Magnesium 1.5 mg/dL (1.6-2.3)
--- NOTE | 2023-03-03 14:18 | PC.NURSE ---
care assumed for cardioversion. Pt in stretcher, eyes closed, intermittent groaning, arousable to verbal stimuli, obeys command, moves all extremities. on all monitoring equipment, afib rvr on monitor rate between 118-145, Dr. Nettles aware. IV access 20G R AC.
[2023-03-03] MEDS: FUROSEMIDE 40 MG/4 ML VIAL IV (14:27)
[2023-03-03] MEDS: propofoL 200 MG/20 ML VIAL 70 MG IV (14:35)
[2023-03-03] MEDS: MAGNESIUM OXIDE 400 MG TABLET PO (15:18)
--- NOTE | 2023-03-03 15:18 | PC.NURSE ---
130mg propofol wasted w/ Carissa LEIGH
== END 2023-03-03 15:46 | disposition home or self-care (01) ==
PROVIDERS: Emergency Provider Emergency Medicine; PCP Internal Medicine
DX: I48.20 Chronic atrial fibrillation, unspecified (principal); Z79.899 Other long term (current) drug therapy; Z79.01 Long term (current) use of anticoagulants; R06.00 Dyspnea, unspecified; E87.70 Fluid overload, unspecified
CPT/HCPCS: 36415; 71045; 71275; 80053; 82550; 83735; 83880; 84484; 85025; 85610; 92960; 93005; 93010; 96374; 96375; 99285; 99291; J1200; J1940; J2704; J2930; Q9967

== ENCOUNTER 2023-03-19 11:04 | Emergency (ER) | payer MEDICARE, OTHER, SELFPAY ==
[2023-03-19 11:08] VITALS: BP 116/62; PULSE 77; RESP 16; TEMP 36.4; O2SAT 98; BMI 19.6
--- NOTE | 2023-03-19 11:42 | ED_ITS ---
HPI - Ear Problem <Gianna Rose PA-C - Last Filed: 03/19/23 12:47> General Chief complaint: Ear Stated complaint: ear split on blood thinners T-2 Time Seen by Provider: 03/19/23 11:37 Mode of arrival: Family Vehicle History of Present Illness HPI Narrative: Patient is a 77-year-old male who presents with oozing from his right ear x2 days. He had a scab there that is scratched off in the bleeding has not stopped. The bleeding is very slight, slow dark drips but has not stopped. He has had recent cardioversion x2; he takes ticagrelor and apixaban daily. He denies any other bleeding. He overall feels tired but well. Related Data Home Medications Medication Instructions Recorded Confirmed apixaban 5 mg tablet 5 mg PO BID 30 days #60 tabs 02/17/18 03/03/23 ticagrelor 90 mg tablet 90 mg PO BID 05/28/18 03/03/23 multivitamin with iron 1 tab PO DAILY 09/12/21 03/03/23 sotalol 80 mg tablet 40 mg PO BID 03/03/23 03/03/23 Previous Rx's Medication Instructions Recorded Massage Therapy #12 ea 06/18/19 sertraline 25 mg tablet 25 mg PO BEDTIME #90 tabs 02/25/22 fluticasone propionate 50 2 spray intranasal BEDTIME #16 04/11/22 mcg/actuation nasal grams spray,suspension cetirizine 10 mg tablet (Zyrtec) 10 mg PO DAILY PRN allergy 05/07/22 symptoms #90 tabs atorvastatin 40 mg tablet 40 mg PO QPM #90 tabs 05/14/22 levothyroxine 88 mcg tablet 88 mcg PO DAILY #90 tabs 05/14/22 gabapentin 300 mg capsule 300 mg PO TID #360 caps 07/22/22 Disabled Parking #1 ea 09/24/22 furosemide 40 mg tablet 40 mg PO DAILY #90 tabs 11/27/22 furosemide 20 mg tablet (Lasix) 20 mg PO DAILY #10 tabs 02/15/23 sotalol 80 mg tablet 80 mg PO BID #60 tabs 03/03/23 Allergies Allergy/AdvReac Type Severity Reaction Status Date / Time Iodinated Contrast Media Allergy Mild UNSURE Verified 03/19/23 11:12 [IODINATED CONTRAST MEDIA - IV DYE] prochlorperazine Allergy Mild Hypersensit Verified 03/19/23 11:12 [PROCHLORPERAZINE] ivity finasteride AdvReac Intermediate Dizzy, Verified 03/19/23 11:12 weakness tamsulosin [From Flomax] AdvReac Mild Faints Verified 03/19/23 11:12 Review of Systems <Gianna Rose PA-C - Last Filed: 03/19/23 12:47> Review of Systems ROS Unobtainable: All systems reviewed & are unremarkable except as noted in HPI and below Patient History <Gianna Rose PA-C - Last Filed: 03/19/23 12:47> Medical History Chronic anticoagulation Paroxysmal atrial fibrillation SBE (subacute bacterial endocarditis) prophylaxis candidate Gait instability Anemia Tricuspid regurgitation Mitral regurgitation Cervical radiculopathy Mild TBI (traumatic brain injury) Ischemic cardiomyopathy Coronary arteriosclerosis (~06/2017) 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 (11/01/16) Hyperparathyroidism (03/10/15) Hypercalcemia (12/19/14) Acquired hypothyroidism (03/10/15) Chronic renal failure, stage 3 (moderate) (11/25/14) Transient cerebral ischemia Essential hypertension Mixed hyperlipidemia Hypogonadism in male Non-Hodgkin's lymphoma (03/06/11) Surgical History S/P parathyroidectomy (~06/2014) S/P CABG (coronary artery bypass graft) (~07/2017) Status post tonsillectomy and adenoidectomy History of splenectomy Social History marital status: number of children: 2 household members: spouse lives independently: Yes caregiver/support person: Yes housing: house pets and animals: Yes education level: other occupational status: other 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 Thin, fatigued appearing but in no distress. NEURO: AOx3. HEAD: Atraumatic. Normocephalic. EYES: Pupils equal round and reactive. Extraocular motions intact. No scleral icterus. No injection or drainage. ENT: Nose without bleeding or purulent drainage. Airway patent. 2mm superficial abrasion to right helix but is slowly draining dark red blood. When wiped clean, it reaccumulates after several minutes. RESPIRATORY: No distress or increased work of breathing SKIN: No rash, scattered ecchymosis over upper extremities and face. Initial Vital Signs Initial Vital Signs: Vital Signs Temperature 97.6 F 03/19/23 11:08 Pulse Rate 77 03/19/23 11:08 Respiratory Rate 16 03/19/23 11:08 Blood Pressure 116/62 03/19/23 11:08 Pulse Oximetry 98 03/19/23 11:08 Oxygen Delivery Method Room Air 03/19/23 11:08 <Juancarlos Garcia DO - Last Filed: 03/19/23 13:03> Initial Vital Signs Initial Vital Signs: Vital Signs Temperature 97.6 F 03/19/23 11:08 Pulse Rate 77 03/19/23 11:08 Respiratory Rate 16 03/19/23 11:08 Blood Pressure 116/62 03/19/23 11:08 Pulse Oximetry 98 03/19/23 11:08 Oxygen Delivery Method Room Air 03/19/23 11:08 Procedures <Gianna Rose PA-C - Last Filed: 03/19/23 12:47> [facility] [place] Procedure Name of Procedure: Silver nitrate to right helix Location: Right ear Technique/Description of procedure performed: Silver nitrate applied sparingly to oozing lesion on right helix. Reassessed after 10 minutes and bleeding had stopped. Surrounding circulation intact. Course <Gianna Rose PA-C - Last Filed: 03/19/23 12:47> Orders Ordered: Discontinued Medications Silver Nitrate/Potassium Nitrate (Silver Nitrate Stick) 1 each TOP NOW ONE Stop: 03/19/23 11:42 Last Admin: 03/19/23 12:11 Dose: 1 each Documented By: JEFF Vital Signs Vital signs: Vital Signs - 8 hr 03/19/23 11:08 Temperature 97.6 F Pulse Rate 77 Respiratory Rate 16 Blood Pressure 116/62 Pulse Oximetry 98 Oxygen Delivery Method Room Air <Juancarlos Garcia DO - Last Filed: 03/19/23 13:03> Orders Ordered: Discontinued Medications Silver Nitrate/Potassium Nitrate (Silver Nitrate Stick) 1 each TOP NOW ONE Stop: 03/19/23 11:42 Last Admin: 03/19/23 12:11 Dose: 1 each Documented By: JEFF Vital Signs Vital signs: Vital Signs - 8 hr 03/19/23 11:08 Temperature 97.6 F Pulse Rate 77 Respiratory Rate 16 Blood Pressure 116/62 Pulse Oximetry 98 Oxygen Delivery Method Room Air Medical Decision Making <Gianna Rose PA-C - Last Filed: 03/19/23 12:47> MDM Narrative Medical decision making narrative: Multiple etiologies for patient's symptoms considered including, but not limited to: Excessive bleeding due to anticoagulant use. Bleeding site cauterized with silver nitrate with resolution of bleeding. Patient tolerated well. Discussed ongoing care. Patient's symptoms improved over duration of stay with above-stated therapies. Findings and discharge diagnosis discussed with patient/family followed by verbalization of understanding Return precautions discussed with patient/family whom verbalize understanding of diagnosis and plan Discharge Plan Departure Patient Disposition: Home Clinical Impression: Wound drainage Instructions: How to Prevent Falls Activity Restrictions/Additional Instructions: *You have been diagnosed with oozing from your right ear. This is likely due to your blood thinner medicines. I applied silver nitrate and stopped the bleeding. Continue to observe for bleeding and avoid falling. If you do fall and you hit your head, you should return to the emergency department for assessment. *What to do: *Please continue to take your regular medications as directed. [ ] New medication prescriptions sent to your pharmacy: [ ] [ ] New medication written as a paper prescription [x] No new medications given *Please follow up with your primary care provider in 2-3 days, call for an appointment. Let them know you were seen in the Emergency Department and that we ask that you be seen in follow up. We will electronically transmit a record of today's note if your PCP is in our system *If you do not have a primary care provider please contact the [facility] Resource line at [phone]. They will ask some questions about your medical history and help get you set up with a doctor in the community. *Return to Emergency Department if you should have any new, worsening or concerning symptoms, such as [fever greater than 101 F, shaking chills, worsening pain, persistent vomiting or other concerning symptoms]. Prescriptions: No Action sertraline 25 mg tablet 25 mg PO BEDTIME Qty: 90 2RF Patient Comments: Pt's spouse states last taken about 4months ago due to running out of meds and never getting them refilled. fluticasone propionate 50 mcg/actuation spray,suspension 2 spray NASAL BEDTIME Qty: 16 11RF Rx Instructions: administer into each nostril atorvastatin 40 mg tablet 40 mg PO QPM Qty: 90 3RF levothyroxine 88 mcg tablet 88 mcg PO DAILY Qty: 90 3RF (DME) Disabled Parking Qty: 1 0RF Rx Instructions: Patient qualifies for disabled parking as per the attached form. apixaban 5 mg tablet 5 mg PO BID 30 Days Qty: 60 gabapentin 300 mg capsule 300 mg PO TID Qty: 360 3RF (DME) Massage Therapy Qty: 12 0RF Rx Instructions: Massage Therapy - 12 visits over 6 months. cetirizine [Zyrtec] 10 mg tablet 10 mg PO DAILY PRN (Reason: allergy symptoms) Qty: 90 3RF ticagrelor 90 mg tablet 90 mg PO BID furosemide [Lasix] 20 mg tablet 20 mg PO DAILY Qty: 10 0RF furosemide 40 mg Tablet 40 mg PO DAILY Qty: 90 3RF Hold Instructions: hypotension Patient Comments: not currently taking due to hypotension sotalol 80 mg tablet 40 mg PO BID sotalol 80 mg tablet 80 mg PO BID Qty: 60 0RF multivitamin with iron Tablet 1 tab PO DAILY Referrals: Danyel Schafer MD [Primary Care Provider] - Stand Alone Forms: Patient Portal/API ED Sign-out <Juancarlos Garcia DO - Last Filed: 03/19/23 13:03> [facility]: Dr Garcia Co-Sign Statement: I was available for consultation during this patient's emergency department visit. This chart is signed by myself for administrative purposes only. I did not have direct contact with this patient during this visit. They were seen independently by the APC.
--- NOTE | 2023-03-19 12:07 | PC.NURSE ---
small amount of bleeding on the outside of his right ear. pt took a shower and noticed the bleeding after.
[2023-03-19] MEDS: SILVER NITRATE STICK 1 EACH TOP (12:11)
== END 2023-03-19 12:32 | disposition home or self-care (01) ==
PROVIDERS: Emergency Provider Physician Assistant; PCP Internal Medicine
DX: S00.401A Unspecified superficial injury of right ear, initial encounter (principal); X58.XXXA Exposure to other specified factors, initial encounter
CPT/HCPCS: 99282; 99283

== ENCOUNTER → 2024-04-26 | Outpatient (CLI) | payer MEDICARE, OTHER, SELFPAY ==
--- NOTE | 2024-04-26 15:02 | DI.ECHO.S_ITS ---
[facility] +---------+ Hospital : : [address] : : [place] : : [id number] : : Phone: [phone] Echocardiogram Report + :Name: MIGUEL FORREST Study Date: 04/26/2024 Height: 72 in : :[facility] : Weight: 154 lb : : Gender: Male BSA: 1.9 m2 : :: 1945 Age: 78 yrs BP: 121/83 mmHg: :Reason For Study: CHF :: Performed By: Embedded Processor Abena Pine Top : :Referring: GAMALIEL CUNNINGHAM : + Interpretation Summary Patient was in alot of pain during his exam. Especially after the IV start to use definity. May want to consider other imaging modalities that could more comfortable for the patient 1. The left ventricular contractility appears to be mildly compromised. Estimate ejection fraction is 45-50 % without obvious segmental wall motion abnormalities. No LVH. Grade 2 diastolic dysfunction. 2. The right ventricular contractility appears to be moderately compromised. 3. Moderate right atrial and right ventricular enlargement. The left atrium and left ventricle are of normal size. 4. Mitral clip in place with mild to moderate mitral regurgitation. Mild stenosis with mean gradient of 3 mmHg. 5. Trace to mild tricuspid regurgitation with estimated pulmonary systolic artery pressures of 36 to 40 mmHg. 6. No obvious intracardiac shunts. 7. No intracardiac masses nor thrombi. 8. No hemodynamically significant pericardial effusion. Conclusion: Mildly compromised left ventricular systolic function with mitral clip in place and mild to moderate mitral regurgitation. Moderately compromised right ventricular systolic function. When compared to previous echocardiogram, there appears to be improvement of the left ventricular systolic function with moderate weakening of the right ventricular systolic function Amended report version two. Needed to change header to [facility]. Abenacameron Sandoval JORGE Procedure: A two-dimensional transthoracic echocardiogram with color flow and Doppler was performed. The study quality was technically difficult. The apical views were difficult to obtain and are suboptimal in quality. The subcostal views were not obtained due to patient in too much patient to obtain images. The patient was in normal sinus rhythm during the exam. Left Ventricle: The left ventricle is normal in size and wall thickness. There is no thrombus. There is no ventricular septal defect visualized. Left ventricular systolic function is borderline reduced. The ejection fraction is estimated to be 45-50%. Diastolic parameters suggest a restrictive filling pattern consistent with probable significantly elevated filling pressures. Right Ventricle: The right ventricle is moderately dilated. The right ventricular systolic function is normal. Atria: The left atrial size is normal. The right atrium is mild to moderately dilated. There is no Doppler evidence for an interatrial shunt. Mitral Valve: A mitral valve clip is present. There is no mitral valve stenosis. There is mild to moderate mitral regurgitation. Aortic Valve: The aortic valve is not well visualized. There is no aortic valve stenosis. There is trace aortic regurgitation. Tricuspid Valve: The tricuspid valve leaflets are thin and pliable. There is mild tricuspid regurgitation. Pulmonary artery pressures cannot be estimated because of the lack of a measurable TR jet velocity. Pulmonic Valve: The pulmonic valve is not well visualized. Great Vessels: The aortic root is normal size. The ascending aorta could not be visualized. The aortic arch could not be visualized. The inferior vena cava was not visualized. Pericardium/ Pleura There is no pericardial effusion. There is no pleural effusion. MMode/2D Measurements & Calculations LVIDd: 5.8 cm LVOT diam: 2.2 cm LVIDs: 5.1 cm Ao root diam: 3.4 cm FS: 11.0 % EPSS: 2.6 cm IVSd: 0.70 cm LVPWd: 0.60 cm LV west. diameter/BSA (cm/m^2): 3.0 LV sys. diameter/BSA (cm/m^2): 2.7 LA A2 area: 22.6 cm2 RA long axis: 6.0 cm LA A4 area: 16.3 cm2 RA area: 27.3 cm2 LA length (vol): 5.4 cm RA vol: 106.1 ml LA vol: 58.6 ml RA : 55.7 ml/m2 LA vol index: 30.7 ml/m2 RVD1 (basal): 4.8 cm TAPSE: 2.3 cm Doppler Measurements & Calculations Ao V2 max: 88.0 cm/sec LVOT Max Frank: 74.7 cm/sec Ao V2 mean: 67.7 cm/sec LV V1 max P.2 mmHg Ao max P.1 mmHg LV V1 VTI: 14.5 cm Ao mean P.9 mmHg MONA(I,D): 3.3 cm2 Ao V2 VTI: 16.7 cm MONA(V,D): 3.2 cm2 sev ratio: 0.87 MONA indexed to BSA (cm^2/m^2): 1.7 MV E max frank: 142.7 cm/sec TR max frank: 257.7 cm/sec MV A max frank: 67.4 cm/sec TR max P.6 mmHg MV E/A: 2.1 Med Peak E' Frank: 3.9 cm/sec E/E' med: 36.9 Lat Peak E' Frank: 6.8 cm/sec E/E' lat: 20.9 E/e' average: 28.9 MV dec time: 0.24 sec MVA(VTI): 1.8 cm2 MV V2 mean: 79.1 cm/sec SV(LVOT): 54.6 ml MV mean P.0 mmHg MV V2 VTI: 31.1 cm Reading Physician:
== END ==
LOC: ECHO 14:57
PROVIDERS: PCP Internal Medicine; Referring Provider Internal Medicine; Visit Provider Internal Medicine
DX: I08.1 Rheumatic disorders of both mitral and tricuspid valves (principal); I50.22 Chronic systolic (congestive) heart failure
CPT/HCPCS: 93306; Q9957

== ENCOUNTER 2024-05-03 16:07 | Emergency (ER) | payer MEDICARE, OTHER, SELFPAY ==
[2024-05-03 16:00] VITALS: BP 134/84; PULSE 88; RESP 16; O2SAT 97
--- NOTE | 2024-05-03 16:08 | DI.CT.S_ITS ---
PROCEDURE: CT HEAD/BRAIN WO CON INDICATIONS: fall hit head on thinners TECHNIQUE: Noncontrast 4.5 mm thick angled axial sections acquired from the foramen magnum to the vertex, with coronal and sagittal reformats. For radiation dose reduction, the following was used: automated exposure control, adjustment of mA and/or kV according to patient size. COMPARISON: [facility], CT, CT HEAD/BRAIN WO CON, 03/08/2020, 17:57. FINDINGS: Image quality: Diagnostic. CSF spaces: Basal cisterns are patent. No extra-axial fluid collections. The ventricles are symmetric in size and shape. Brain: No intracranial bleeds or masses. There is cerebral volume loss for age, with resultant ventricular and sulcal prominence. There are periventricular and deep white matter chronic small vessel ischemic changes. There is intracranial internal carotid artery atherosclerosis. Skull and face: Calvarium and visualized facial bones appear intact, without suspicious lesions. Sinuses: Visualized sinuses and mastoids are clear. IMPRESSION: No acute intracranial pathology. Dictated by: Edu Cunningham M.D. on 05/03/2024 at 16:31 Approved by: Edu Cunningham M.D. on 05/03/2024 at 16:31
--- NOTE | 2024-05-03 16:08 | DI.CT.S_ITS ---
PROCEDURE: CT CERVICAL SPINE WO CON INDICATIONS: fall hit head on thinners TECHNIQUE: Noncontrast 3 mm thick sections acquired from the skull base to the T4 level. Sagittal and coronal reformats were then constructed. For radiation dose reduction, the following was used: automated exposure control, adjustment of mA and/or kV according to patient size. COMPARISON: None. FINDINGS: Image quality: Excellent. Bones: No fractures or dislocations. Loss of disc height, degenerative endplate changes and bilateral uncovertebral hypertrophic changes are noted throughout cervical spine. [id number] central canal stenosis is seen, no significant neural foraminal narrowing. Visualized superior ribs are intact. Soft tissues: Prevertebral soft tissues are normal in thickness. No paravertebral hematomas. No apical pneumothoraces. IMPRESSION: No displaced cervical spine fracture or traumatic subluxation. [id number] degenerative disc disease throughout cervical spine as above. Dictated by: Edu Cunningham M.D. on 05/03/2024 at 16:29 Approved by: Edu Cunningham M.D. on 05/03/2024 at 16:30
[2024-05-03 16:18] VITALS: BP 115/60; PULSE 61; RESP 16; TEMP 36.4; O2SAT 99; BMI 23.6
--- NOTE | 2024-05-03 16:30 | EKG_ITS ---
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
--- NOTE | 2024-05-03 16:36 | EKG_ITS ---
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
--- NOTE | 2024-05-03 17:21 | ED.GENADULT ---
HPI - General Adult General Chief complaint: Trauma Stated complaint: fall hit head on thinners Time Seen by Provider: 05/03/24 17:20 History of Present Illness HPI narrative: 78-year-old male on [place] had ground level fall, was holding his dog on a leash when it was startled and ran away from him, pulled him to the side, causing him to fall, sustaining laceration to the left side of his head and left elbow. Loss of consciousness. No weakness or numbness. No nausea or vomiting. Related Data Home Medications Medication Instructions Recorded Confirmed apixaban 5 mg tablet 5 mg PO BID 30 days #60 tabs 02/17/18 03/02/24 multivitamin with iron 1 tab PO DAILY 09/12/21 03/02/24 Previous Rx's Medication Instructions Recorded Massage Therapy #12 ea 06/18/19 sertraline 25 mg tablet 25 mg PO BEDTIME #90 tabs 02/25/22 cetirizine 10 mg tablet (Zyrtec) 10 mg PO DAILY PRN allergy 05/07/22 symptoms #90 tabs gabapentin 300 mg capsule 300 mg PO TID #360 caps 07/22/22 Disabled Parking #1 ea 09/24/22 furosemide 40 mg tablet 40 mg PO DAILY #90 tabs 11/27/22 furosemide 20 mg tablet (Lasix) 20 mg PO DAILY #10 tabs 02/15/23 sotalol 80 mg tablet 80 mg PO BID #60 tabs 03/03/23 fluticasone propionate 50 2 spray intranasal BEDTIME #16 04/23/23 mcg/actuation nasal grams spray,suspension atorvastatin 40 mg tablet 40 mg PO QPM #90 tabs 12/15/23 levothyroxine 88 mcg tablet 88 mcg PO DAILY #90 tabs 05/03/24 Allergies Allergy/AdvReac Type Severity Reaction Status Date / Time Iodinated Contrast Media Allergy Mild UNSURE Verified 03/02/24 15:24 [IODINATED CONTRAST MEDIA - IV DYE] prochlorperazine Allergy Mild Hypersensit Verified 03/02/24 15:24 [PROCHLORPERAZINE] ivity finasteride AdvReac Intermediate Dizzy, Verified 03/02/24 15:24 weakness tamsulosin [From Flomax] AdvReac Mild Faints Verified 03/02/24 15:24 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 (11/01/16) Hyperparathyroidism (03/10/15) Hypercalcemia (12/19/14) Acquired hypothyroidism (03/10/15) Chronic renal failure, stage 3 (moderate) (11/25/14) Transient cerebral ischemia Essential hypertension Mixed hyperlipidemia Hypogonadism in male Non-Hodgkin's lymphoma (03/06/11) Surgical History S/P parathyroidectomy (~06/2014) S/P CABG (coronary artery bypass graft) (~07/2017) Status post tonsillectomy and adenoidectomy History of splenectomy Social History marital status: number of children: 2 household members: spouse lives independently: Yes caregiver/support person: Yes housing: house pets and animals: Yes education level: other occupational status: other 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 HEAD: Atraumatic. Normocephalic. EYES: Pupils equal round and reactive. Extraocular motions intact. No scleral icterus. No injection or drainage. ENT: Nose without bleeding, purulent drainage. Throat without erythema, tonsillar hypertrophy or exudate. Airway patent. Small laceration 1 cm left temporal region. NECK: Trachea midline. Non tender CARDIOVASCULAR: Regular rate and rhythm without murmurs, gallops, or rubs. RESPIRATORY: Clear to auscultation. Breath sounds equal bilaterally. No wheezes, rales, or rhonchi. GASTROINTESTINAL: Abdomen soft, non-tender, nondistended. EXTREMITIES: No edema or joint tenderness. Abrasion to the left elbow with small superficial laceration, no gross deformity, moves elbow well full flexion and extension BACK: Nontender without deformity or crepitance. No flank tenderness. NEURO: AOx3. Motor functions grossly nonfocal SKIN: No rash or erythema of visible areas Initial Vital Signs Initial Vital Signs: Vital Signs Temperature 97.6 F 05/03/24 16:18 Pulse Rate 61 05/03/24 16:18 Respiratory Rate 16 05/03/24 16:18 Blood Pressure 115/60 05/03/24 16:18 Pulse Oximetry 99 05/03/24 16:18 Oxygen Delivery Method Room Air 05/03/24 16:18 Procedures Laceration Repair Laceration 1: Site: face Side (If applicable): left Size (cm): 1.5 Skin layer closed with: steri-strips Laceration 2: Site: upper extremity (Elbow) Side (If applicable): left Size (cm): 1.5 Skin layer closed with: steri-strips Course Orders Ordered: ED Orders 05/03/24 16:08 CT cervical spine wo con Stat CT head/brain wo con Stat 05/03/24 16:30 EKG-12 Lead Routine 05/03/24 16:36 EKG-12 Lead Stat 05/03/24 18:33 XR ribs LT min 3V w CXR1V Stat 05/03/24 18:36 XR hip w pel if done LT 2V Stat Vital Signs Vital signs: Vital Signs - 8 hr 05/03/24 16:18 05/03/24 18:18 05/03/24 18:26 Temperature 97.6 F Pulse Rate 61 69 Respiratory Rate 16 15 Blood Pressure 115/60 136/74 Pulse Oximetry 99 98 Oxygen Delivery Method Room Air 05/03/24 18:26 05/03/24 18:30 05/03/24 18:30 Temperature Pulse Rate 69 68 Respiratory Rate 24 23 Blood Pressure 124/71 Pulse Oximetry 98 98 Oxygen Delivery Method Room Air Medical Decision Making Lab Data Labs: Point of Care Testing Glucose POC 110 Point of care testing: Point of Care Testing Glucose POC 110 Imaging Data Extremity x-ray #1: Radiologist's Impression: [address] [id number] XRay Report Signed Patient: Martínez Edward MR#: [id number] : 1945 Acct:[id number] Age/Sex: 78 / M Date of Service: 05/03/24 Loc: ED Accession Number: [id number] Procedure: XR hip w pel if done LT 2V Ordering Provider: Josh Mcdonald MD PROCEDURE: XR HIP W PEL IF DONE LT 2V INDICATIONS: fall/pain TECHNIQUE: AP pelvis with lateral view(s) of the left hip(s). COMPARISON: None. FINDINGS: Bones: No fractures or dislocations. Pmlm-[id number]-[id number] bilateral hip joint osteoarthritic changes are seen. No evidence of avascular necrosis of femoral heads. Pelvic ring appears intact. No suspicious bony lesions. Soft tissues: The visualized bowel gas pattern is normal. No suspicious soft tissue calcifications. IMPRESSION: No acute left hip fracture or dislocation. Zone-av-pjzqucqm bilateral hip joint osteoarthritis. No evidence of avascular necrosis. Dictated by: Edu Cunningham M.D. on 05/03/2024 at 19:06 Approved by: Edu Cunningham M.D. on 05/03/2024 at 19:06 ECG Data Attestation: I personally reviewed and interpreted this ECG as follows: Interpretation: Atrial fibrillation with rate 69, with left bundle branch block noted. QRS 128, QTC 458. MDM Narrative Medical decision making narrative: 78-year-old male had ground level fall, takes Eliquis, left periorbital/temporal small laceration and bruising. No loss of consciousness. No seizure activity, no weakness. Also with left elbow laceration abrasion without gross deformity. Modified trauma by mechanism in context of chronic anticoagulation and head injury and elderly patient Primary examination: ABC's intact, no neuro deficits, GCS 15 Secondary examination: See physical examination sections CT head noncontrast, CT cervical spine noncontrast ordered. CT head showed no acute changes, see radiology report. CT cervical spine noncontrast study, shows multilevel degenerative changes, see radiology report. Left rib series with chest x-ray negative, see radiology report. Left hip with pelvis x-ray series negative, see radiology report Patient taken out of collar by myself, no midline or para vertebral tenderness, no midline step-off. Able to move neck tbkj-dd-moas and chin to chest without difficulties. Color left off, cleared by me. We discussed wound care, he would like to not have any suturing, will have wounds cleaned, Steri-Strips placed by nursing to left facial wound and left elbow wound. He has not sure when his last tetanus was, possibly greater than 5 years, but declines tetanus update when offered. Ambulatory, discharged home per patient request, home with family. Return precautions discussed. Discharge Plan Departure Patient Disposition: Home Clinical Impression: Fall from ground level, Laceration of face, Laceration of elbow, left, Chest wall contusion, Contusion of left hip Activity Restrictions/Additional Instructions: Mechanical type fall from ground level, striking left face, with small laceration and some bruising left side of face, discussed suturing, you preferred Steri-Strips closure. CT head showed no acute changes, CT cervical spine showed no acute changes but multilevel arthritic changes. You felt well out of the collar and seemed to move your neck out of the collar without difficulties. You also had a small contusion with small laceration to left elbow, good range of motion without gross elbow deformity, no x-rays done of that area. You preferred Steri-Strips closer to the elbow area as well. Left hip discomfort, x-rays of left hip and pelvis without obvious fractures. Left chest discomfort, chest x-ray series with rib imaging negative. Take Tylenol as needed for discomfort. You declined a tetanus shot when it was offered. Continue your chronic regular medications for now. Consider wound check to your lacerations in the next 2-3 days with your regular doctor. Return to this/nearest emergency department for any change worsening symptoms or any concerns prior Prescriptions: No Action sertraline 25 mg tablet 25 mg PO BEDTIME Qty: 90 2RF Patient Comments: Pt's spouse states last taken about 4months ago due to running out of meds and never getting them refilled. (DME) Disabled Parking Qty: 1 0RF Rx Instructions: Patient qualifies for disabled parking as per the attached form. fluticasone propionate 50 mcg/actuation spray,suspension 2 spray NASAL BEDTIME Qty: 16 11RF Rx Instructions: administer into each nostril atorvastatin 40 mg tablet 40 mg PO QPM Qty: 90 0RF levothyroxine 88 mcg tablet 88 mcg PO DAILY Qty: 90 3RF apixaban 5 mg tablet 5 mg PO BID 30 Days Qty: 60 gabapentin 300 mg capsule 300 mg PO TID Qty: 360 3RF (DME) Massage Therapy Qty: 12 0RF Rx Instructions: Massage Therapy - 12 visits over 6 months. cetirizine [Zyrtec] 10 mg tablet 10 mg PO DAILY PRN (Reason: allergy symptoms) Qty: 90 3RF furosemide [Lasix] 20 mg tablet 20 mg PO DAILY Qty: 10 0RF furosemide 40 mg Tablet 40 mg PO DAILY Qty: 90 3RF Hold Instructions: hypotension Patient Comments: not currently taking due to hypotension sotalol 80 mg tablet 80 mg PO BID Qty: 60 0RF multivitamin with iron Tablet 1 tab PO DAILY Referrals: Danyel Schafer MD [Primary Care Provider] - Stand Alone Forms: Patient Portal/API/Survey
--- NOTE | 2024-05-03 18:05 | PC.NURSE ---
Wet jacket removed from underneath patient. Warms blankets placed on patient. He is alert and oriented. at bedside.
[2024-05-03 18:18] VITALS: PULSE 69; RESP 15; O2SAT 98
[2024-05-03 18:26] VITALS: BP 136/74; PULSE 69; RESP 24; O2SAT 98
[2024-05-03 18:30] VITALS: BP 124/71; PULSE 68; RESP 23; O2SAT 98
--- NOTE | 2024-05-03 18:33 | DI.RAD.S_ITS ---
PROCEDURE: XR RIBS LT MIN 3V W CXR1V INDICATIONS: fall/pain TECHNIQUE: 2 views of the ribs were acquired, along with a single view chest. COMPARISON: None. FINDINGS: Surgical changes and devices: Median sternotomy wires and surgical clips are seen.. Bones and chest wall: No fractures or dislocations. No suspicious bony lesions. Overlying soft tissues appear unremarkable. Lungs and pleura: No pleural effusions or pneumothorax. Lungs appear clear. Mediastinum: Mediastinal contours appear normal. Heart size is normal. IMPRESSION: No displaced left rib fractures or pneumothorax. Dictated by: Edu Cunningham M.D. on 05/03/2024 at 19:06 Approved by: Edu Cunningham M.D. on 05/03/2024 at 19:08
--- NOTE | 2024-05-03 18:36 | DI.RAD.S_ITS ---
PROCEDURE: XR HIP W PEL IF DONE LT 2V INDICATIONS: fall/pain TECHNIQUE: AP pelvis with lateral view(s) of the left hip(s). COMPARISON: None. FINDINGS: Bones: No fractures or dislocations. Kqjz-dj-wufgcaoh bilateral hip joint osteoarthritic changes are seen. No evidence of avascular necrosis of femoral heads. Pelvic ring appears intact. No suspicious bony lesions. Soft tissues: The visualized bowel gas pattern is normal. No suspicious soft tissue calcifications. IMPRESSION: No acute left hip fracture or dislocation. Hxli-bq-auqitznd bilateral hip joint osteoarthritis. No evidence of avascular necrosis. Dictated by: Edu Cunningham M.D. on 05/03/2024 at 19:06 Approved by: Edu Cunningham M.D. on 05/03/2024 at 19:06
[2024-05-03 19:44] VITALS: BP 128/77; PULSE 72; RESP 18; O2SAT 96
--- NOTE | 2024-05-03 19:46 | PC.NURSE ---
Patient ambulates to bathroom with steady gait. Patient denies the need for pain medication at this time. Patient has 3 steri strips placed on lac to left side of forehead, bleeding controlled.
== END 2024-05-03 19:54 | disposition home or self-care (01) ==
PROVIDERS: Emergency Provider Emergency Medicine; PCP Internal Medicine
DX: S01.112A Laceration without foreign body of left eyelid and periocular area, initial encounter (principal); S51.012A Laceration without foreign body of left elbow, initial encounter; S20.212A Contusion of left front wall of thorax, initial encounter; S70.02XA Contusion of left hip, initial encounter; W18.30XA Fall on same level, unspecified, initial encounter; Y93.K1 Activity, walking an animal; Z79.01 Long term (current) use of anticoagulants
CPT/HCPCS: 70450; 71101; 72125; 73502; 93005; 99284

== ENCOUNTER 2025-02-27 03:40 | Emergency (ER) | payer MEDICARE, OTHER, SELFPAY ==
[2025-02-27] VITALS (9 sets, daily range): BP systolic 126–140; BP diastolic 71–95; PULSE 65–77; RESP 12–38; TEMP 36.7; O2SAT 92–97; BMI 21.7
--- NOTE | 2025-02-27 | DI.CT.S_ITS ---
PROCEDURE: CT CHEST ABD PEL WO CON INDICATIONS: FALL, TRAUMA TECHNIQUE: After the administration of oral contrast, 5 mm thick sections acquired from the lung apices to the symphysis pubis. 5 mm thick coronal and sagittal reformats acquired, with additional 7 mm coronal MIP reformats through the lungs. For radiation dose reduction, the following was used: automated exposure control, adjustment of mA and/or kV according to patient size. COMPARISON: None. FINDINGS: Image quality: Diagnostic. CHEST: Lower Neck: No enlarged lymph nodes. Thyroid: No thyroid nodules which require sonographic follow up, per consensus guidelines. Axillae: No enlarged lymph nodes. Chest Wall: Unremarkable. Bones: Status post median sternotomy. Lungs and Pleura: No pneumothorax or pleural effusions. Biapical pleural parenchymal thickening/scarring. Subsegmental atelectasis. No suspicious pulmonary nodule. Heart: Heart size is normal. No pericardial effusion. Severe coronary artery calcifications. Thoracic Vessels: The main pulmonary artery is dilated measuring 3.5 cm in caliber, which can be seen in the setting of pulmonary hypertension. The aorta demonstrates normal size. Mediastinum and Rakel: No enlarged lymph nodes. Esophagus: No wall thickening. No hiatal hernia. ABDOMEN: Liver: No solid mass. Gallbladder: Cholelithiasis without wall thickening or pericholecystic fluid. Biliary ducts: No biliary dilation. Pancreas: No ductal dilation. Spleen: Surgically absent Adrenal Glands: No adrenal nodules. Kidneys and Ureters: Atrophied right kidney with nonobstructing calculus. Normal size and noncontrast appearance of left kidney. No hydronephrosis. No solid mass. No complex renal cystic lesion which requires follow up. Stomach and Bowel: Normal colonic caliber, without significant wall thickening. Normal caliber appendix. Sigmoid diverticulosis without acute inflammation. Peritoneum: No abnormal intraperitoneal fluid. No free air. Ventral Wall: No hernia. Abdominal Nodes: No retroperitoneal or mesenteric adenopathy by size criteria. Vessels: Aorta and inferior vena cava are normal in size. Dense aorto bi iliac atherosclerotic calcifications. PELVIS: Pelvic Organs: Unremarkable. Bladder: Unremarkable. Pelvic Nodes: No enlarged lymph nodes. Miscellaneous: No inguinal hernias are seen. Bones: No aggressive osseous abnormality. No acute osseous abnormality. IMPRESSION: No acute trauma in the chest, abdomen or pelvis. Dilated main pulmonary artery measuring 3.5 cm, which can be seen in the setting of pulmonary hypertension. Additional findings as above. Findings are concordant with preliminary interpretation provided by [facility]. Approved by: Antoinette Erazo M.D.,Ph.D. on 02/27/2025 at 7:48
--- NOTE | 2025-02-27 03:51 | DI.CT.S_ITS ---
PROCEDURE: CT HEAD/BRAIN WO CON INDICATIONS: trauma on eliquis TECHNIQUE: Noncontrast 4.5 mm thick angled axial sections acquired from the foramen magnum to the vertex, with coronal and sagittal reformats. For radiation dose reduction, the following was used: automated exposure control, adjustment of mA and/or kV according to patient size. COMPARISON: [facility], CT, CT HEAD/BRAIN WO CON, 05/03/2024, 16:09. FINDINGS: Image quality: Diagnostic. CSF spaces: Basal cisterns are patent. No extra-axial fluid collections. The ventricles are symmetric in size and shape. Brain: No intracranial bleeds or mass effect. There is cerebral volume loss, with resultant ventricular and sulcal prominence. There are periventricular and deep white matter chronic small vessel ischemic changes. There is intracranial internal carotid artery atherosclerosis. Skull and face: Calvarium and visualized facial bones appear intact, without suspicious lesions. Sinuses: Visualized sinuses and mastoids are clear. IMPRESSION: No acute intracranial pathology. Findings are concordant with preliminary interpretation provided by [facility]. Approved by: Antoinette Erazo M.D.,Ph.D. on 02/27/2025 at 7:39
--- NOTE | 2025-02-27 03:51 | DI.CT.S_ITS ---
PROCEDURE: CT CERVICAL SPINE WO CON INDICATIONS: fall trauma TECHNIQUE: Noncontrast 3 mm thick sections acquired from the skull base to the T4 level. Sagittal and coronal reformats were then constructed. For radiation dose reduction, the following was used: automated exposure control, adjustment of mA and/or kV according to patient size. COMPARISON: [facility], CT, CT CERVICAL SPINE WO CON, 05/03/2024, 16:09. FINDINGS: Image quality: Diagnostic Bones: No fractures or dislocations. Visualized superior ribs are intact. Multilevel degenerative changes. Soft tissues: Prevertebral soft tissues are normal in thickness. No paravertebral hematomas. No apical pneumothoraces. IMPRESSION: No displaced fracture or traumatic subluxation. Approved by: Antoinette Erazo M.D.,Ph.D. on 02/27/2025 at 7:41 Findings are concordant with preliminary interpretation provided by [facility].
--- NOTE | 2025-02-27 03:53 | ED.TRAUMA ---
HPI - Trauma General Chief Complaint: Trauma Stated Complaint: mod trauma History of Present Illness HPI narrative: 79-year-old male history of atrial fibrillation on Eliquis, non-Hodgkin's lymphoma and B cell lymphoma in remission, CABG x4 previously on Brilinta, closed head injury with concussion which with memory loss, presents via EMS with ground level fall this morning after rolling off the bed and hitting his head against the ground. He is complaining of right-sided chest wall pain and right hip pain given fentanyl nasally prior to arrival here. He denies any loss of consciousness, headache, dizziness, back, abdominal pain, shortness of breath, bowel or bladder incontinence, nausea, vomiting. Other than what is stated 14 point review of system is negative. Related Data Home Medications ?Medication ?Instructions ?Recorded ?Confirmed apixaban 5 mg tablet 5 mg PO BID 30 days #60 tabs 02/17/18 01/13/25 multivitamin with iron 1 tab PO DAILY 09/12/21 01/13/25 Previous Rx's ?Medication ?Instructions ?Recorded Massage Therapy #12 ea 06/18/19 sertraline 25 mg tablet 25 mg PO BEDTIME #90 tabs 02/25/22 cetirizine 10 mg tablet (Zyrtec) 10 mg PO DAILY PRN allergy 05/07/22 symptoms #90 tabs gabapentin 300 mg capsule 300 mg PO TID #360 caps 07/22/22 furosemide 40 mg tablet 40 mg PO DAILY #90 tabs 11/27/22 Held on 12/12/22. Instructions: hypotension furosemide 20 mg tablet (Lasix) 20 mg PO DAILY #10 tabs 02/15/23 sotalol 80 mg tablet 80 mg PO BID #60 tabs 03/03/23 levothyroxine 88 mcg tablet 88 mcg PO DAILY #90 tabs 05/03/24 atorvastatin 40 mg tablet 40 mg PO QPM #90 tabs 07/05/24 fluticasone propionate 50 2 spray intranasal BEDTIME #16 08/24/24 mcg/actuation nasal grams spray,suspension Disabled Parking #1 ea 01/13/25 Allergies Allergy/AdvReac Type Severity Reaction Status Date / Time Iodinated Contrast Media Allergy Mild UNSURE Verified 02/27/25 03:51 (IODINATED CONTRAST MEDIA - IV DYE) prochlorperazine Allergy Mild Hypersensit Verified 10/19/25 03:51 (PROCHLORPERAZINE) ivity finasteride AdvReac Intermediate Dizzy, Verified 02/27/25 03:51 weakness tamsulosin (From Flomax) AdvReac Mild Faints Verified 02/27/25 03:51 Review of Systems Review of Systems ROS Unobtainable: All systems reviewed & are unremarkable except as noted in HPI and below 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 (11/01/16) Hyperparathyroidism (03/10/15) Hypercalcemia (12/19/14) Acquired hypothyroidism (03/10/15) Chronic renal failure, stage 3 (moderate) (11/25/14) Transient cerebral ischemia Essential hypertension Mixed hyperlipidemia Hypogonadism in male Non-Hodgkin's lymphoma (03/06/11) Surgical History S/P parathyroidectomy (~06/2014) S/P CABG (coronary artery bypass graft) (~07/2017) Status post tonsillectomy and adenoidectomy History of splenectomy Social History marital status: number of children: 2 household members: spouse lives independently: Yes caregiver/support person: Yes housing: house pets and animals: Yes education level: other occupational status: other 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 Well-developed patient, in mild distress. HEAD: Atraumatic. Normocephalic. EYES: Pupils equal round and reactive. Extraocular motions intact. No scleral icterus. No injection or drainage. ENT: Nose without bleeding, purulent drainage. Throat without erythema, tonsillar hypertrophy or exudate. Airway patent. NECK: Trachea midline. Non tender CARDIOVASCULAR: Regular rate and rhythm without murmurs, gallops, or rubs. RESPIRATORY: Clear to auscultation. Breath sounds equal bilaterally. No wheezes, rales, or rhonchi. GASTROINTESTINAL: Abdomen soft, non-tender, nondistended. EXTREMITIES: No edema or joint tenderness. BACK: Nontender without deformity or crepitance. No flank tenderness. NEURO: AOx3. SKIN: Forehead abrasion, right knee abrasion Initial Vital Signs Initial Vital Signs: Vital Signs Pulse Rate 72 02/27/25 03:46 Respiratory Rate 38 H 02/27/25 03:46 Pulse Oximetry 97 02/27/25 03:46 Course Orders Ordered: Discontinued Medications Diphtheria/Tetanus/Acell Pertussis (Tet,Diph,Pertuss(Acell),Vac/Pf 0.5 Ml Syringe) 0.5 ml IM .ONCE ONE Stop: 02/27/25 03:53 Last Admin: 02/27/25 06:05 Dose: 0.5 ml Documented By: CORINNE Ondansetron HCl (Ondansetron 4 Mg/2 Ml Inj) 4 mg IV NOW ONE Stop: 02/27/25 04:09 Last Admin: 02/27/25 04:00 Dose: 4 mg Documented By: Ondansetron HCl (Ondansetron 4 Mg Odt) 4 mg SL NOW ONE Stop: 02/27/25 04:18 Last Admin: 02/27/25 04:41 Dose: Not Given Documented By: HILLARY Ondansetron HCl (Ondansetron 4 Mg Odt Prepack) 1 bottle MISC DIRECTED ONE Stop: 02/27/25 05:56 Last Admin: 02/27/25 06:05 Dose: 1 bottle Documented By: CORINNE MDM - Trauma Imaging Data CT scan - head: Radiologist's Impression: No acute intracranial abnormality CT - cervical spine: Radiologist's Impression: 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 CT chest abdomen and pelvis showed no acute process. CT cervical spine showed multilevel spondylitic changes of the cervical spine without acute traumatic injury. CT head showed no acute process. Patient given fentanyl prior to arrival here by EMS and Zofran and tetanus updated on today's visit. Differential diagnosis includes pneumothorax, rib fracture, contusion, hematoma, hemorrhage. Discharge Plan Departure Patient Disposition: Home Clinical Impression: Nausea & vomiting Qualifiers: Vomiting type: unspecified Qualified Code(s): R11.2 - Nausea with vomiting, unspecified Abrasion of forehead Qualifiers: Encounter type: initial encounter Qualified Code(s): S00.81XA - Abrasion of other part of head, initial encounter Instructions: Nausea and Vomiting-Adult Activity Restrictions/Additional Instructions: Return with new or worsening symptoms. Take medicines as directed. Follow up with PCP next week if no improvement in symptoms. Prescriptions: No Action sertraline 25 mg tablet 25 mg PO BEDTIME Qty: 90 2RF Patient Comments: Pt's spouse states last taken about 4months ago due to running out of meds and never getting them refilled. levothyroxine 88 mcg tablet 88 mcg PO DAILY Qty: 90 3RF atorvastatin 40 mg tablet 40 mg PO QPM Qty: 90 3RF fluticasone propionate 50 mcg/actuation spray,suspension 2 spray NASAL BEDTIME Qty: 16 11RF Rx Instructions: administer into each nostril apixaban 5 mg tablet 5 mg PO BID 30 Days Qty: 60 gabapentin 300 mg capsule 300 mg PO TID Qty: 360 3RF (DME) Disabled Parking Qty: 1 0RF Rx Instructions: Patient qualifies for disabled parking as per the attached form. (DME) Massage Therapy Qty: 12 0RF Rx Instructions: Massage Therapy - 12 visits over 6 months. cetirizine [Zyrtec] 10 mg tablet 10 mg PO DAILY PRN (Reason: allergy symptoms) Qty: 90 3RF furosemide [Lasix] 20 mg tablet 20 mg PO DAILY Qty: 10 0RF furosemide 40 mg Tablet 40 mg PO DAILY Qty: 90 3RF Patient Comments: not currently taking due to hypotension sotalol 80 mg tablet 80 mg PO BID Qty: 60 0RF multivitamin with iron Tablet 1 tab PO DAILY Referrals: Danyel Schafer MD [Primary Care Provider, Internal Medicine] Stand Alone Forms: Patient Portal/API
[2025-02-27] MEDS: ONDANSETRON 4 MG/2 ML INJ IV (04:00)
--- NOTE | 2025-02-27 05:03 | PC.NURSE ---
Wounds cleaned with NS 0.9%
[2025-02-27] MEDS: ONDANSETRON 4 MG ODT PREPACK 1 BOTTLE MISC (06:05)
[2025-02-27] MEDS: TET,DIPH,PERTUSS(ACELL),VAC/PF 0.5 ML SYRINGE IM (06:05)
== END 2025-02-27 06:15 | disposition home or self-care (01) ==
PROVIDERS: Emergency Provider Family Medicine; PCP Internal Medicine
DX: S00.81XA Abrasion of other part of head, initial encounter (principal); R11.2 Nausea with vomiting, unspecified; W18.30XA Fall on same level, unspecified, initial encounter; Z79.01 Long term (current) use of anticoagulants; C85.90 Non-Hodgkin lymphoma, unspecified, unspecified site; Z23 Encounter for immunization
CPT/HCPCS: 70450; 71250; 72125; 74176; 90471; 96374; 99284; 90715; J2405